=== PATIENT | male | born 1960 | race Caucasian/White ===

== ENCOUNTER 2023-05-29 08:21 | Outpatient (OUT) | payer MEDICARE, OTHER, SELFPAY ==
[2023-05-29 09:39] LABS: Estimated Average Glucose 160 mg/dL; Glycohemoglobin A1C 7.2 % (4.5-6.2)
[2023-05-29 09:43] LABS: Basophils Absolute Auto 0.1 10^3/uL (0.0-0.1); Basophils Percent Auto 1.1 % (0.2-2.0); Eosinophils Absolute Auto 0.1 10^3/uL (0.0-0.7); Eosinophils Percent Auto 1.5 % (0.9-7.0); Hematocrit 48.3 % (42.0-54.0); Hemoglobin 16.1 g/dL (14.0-18.0); Immature Granulocytes Abs Auto 0.01 10^3/uL (0.00-0.03); Immature Granulocytes Pct Auto 0.2 % (0.0-0.5); Lymphocytes Absolute Auto 1.2 10^3/uL (1.2-3.8); Lymphocytes Percent Auto 25.2 % (20.5-60.0); Mean Corpuscular HGB Conc 33.3 g/dL (29.9-35.2); Mean Corpuscular Hemoglobin 29.3 pg (25.9-34.0); Mean Corpuscular Volume 87.8 fL (80.0-94.0); Mean Platelet Volume 9.7 fL (9.5-13.5); Monocytes Absolute Auto 0.5 10^3/uL (0.3-0.8); Monocytes Percent Auto 10.7 % (1.7-12.0); Neutrophils Absolute Auto 2.9 10^3/uL (1.4-6.5); Neutrophils Percent Auto 61.3 % (43.0-75.0); Platelet Count 198 10^3/uL (150-450); Red Cell Distribution Width 13.5 % (11.0-15.0); White Blood Count 4.8 10^3/uL (4.0-11.0)
[2023-05-29 10:05] LABS: Prostate Specific Antigen Scrn 3.17 ng/mL (<=4.00)
[2023-05-29 10:06] LABS: Alanine Aminotransferase 35 U/L (16-63); Albumin Globulin Ratio 1.2; Albumin Level 3.9 g/dL (3.4-5.0); Alkaline Phosphatase 82 U/L (46-116); Anion Gap 12.3; Aspartate Amino Transferase 34 U/L (15-37); BUN Creatinine Ratio 13.7; Bilirubin Total 0.6 mg/dL (0.2-1.0); Calcium 8.9 mg/dL (8.5-10.1); Carbon Dioxide 27.7 mmol/L (21.0-32.0); Chloride 105 mmol/L (98-107); Chol HDL Ratio 1.6; Cholesterol 98 mg/dL (<=200); Estimated GFR (African America >60 (>=60); Estimated GFR (Non-African Ame >60 (>=60); Free T3 2.76 pg/mL (2.18-3.98); Globulin 3.3 g/dL; Glucose 82 mg/dL (74-106); HDL Cholesterol 62 mg/dL (40-60); Sodium 141 mmol/L (136-145); Thyroid Stimulating Hormone 2.113 uIU/mL (0.358-3.740); Total Protein 7.2 g/dL (6.4-8.2); Triglycerides 45 mg/dL (<=150)
== END 2023-05-29 08:22 | disposition home or self-care (01) ==
LOC: LAB 08:26
PROVIDERS: PCP Family Medicine; Visit Provider Family Medicine
DX: I25.10 Atherosclerotic heart disease of native coronary artery without angina pectoris (principal); E11.9 Type 2 diabetes mellitus without complications; E78.5 Hyperlipidemia, unspecified; R73.9 Hyperglycemia, unspecified; Z12.5 Encounter for screening for malignant neoplasm of prostate
CPT/HCPCS: 36415; 80053; 80061; 83036; 84436; 84443; 84481; 85025; G0103

== ENCOUNTER 2023-07-12 18:18 | Emergency (ER) | payer MEDICARE, OTHER, SELFPAY ==
[2023-07-12] VITALS (30 sets, daily range): BP systolic 116–129; BP diastolic 74–91; PULSE 67–84; RESP 10–23; TEMP 36.6; O2SAT 75–100; BMI 25.1
--- NOTE | 2023-07-12 18:35 | ECG_ITS ---
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
--- OUTSIDE RECORDS SUMMARY | 2023-07-12 18:35 | XMS_ITS | CCD ---
Author Name Unknown Address [address] [facility] [address] [place] [address] Organization [facility] Care Team Providers Care Permanent Mold Supervisor Name Role Phone HALINA KENNEDY Admitting Unavailable SANDRO MOMIN Referring Unavailable SANDRO MOMIN Primary Care Unavailable SIMEON COLON Attending Unavailable MD Sandro Momin Primary Care Provider [phone] MD Sandro Momin Referring Provider MD Kade Wise Attending Provider MD Sandro Momin Primary Care Provider [phone] MD Sandro Momin Referring Provider [phone] MD Kade Wise Attending Provider DR SANDRO MOMIN Primary Care Unavailable HOY, DR JO Consulting Unavailable JULIANOY, DR JO Admitting Unavailable HOY, DR JO Referring Unavailable MATTY, DR JO Attending Unavailable DR SANDRO MOMIN Primary Care Unavailable ROSANAMICHELE GALVEZ Admitting Unavailable MICHELE WAYNE Attending Unavailable MICHELE WAYNE Consulting Unavailable DR SANDRO MOMIN Consulting Unavailable MATTY, DR JO Primary Care Unavailable MATTY, DR JO Admitting Unavailable MATTY, DR JO Attending Unavailable DR SANDRO MOMIN Primary Care Unavailable MATTY, DR JO Admitting Unavailable MATTY, DR JO Attending Unavailable JULIANOY, DR JO Consulting Unavailable MATTY, DR JO Consulting Unavailable MATTY, DR JO Admitting Unavailable MATTY, DR JO Attending Unavailable DR SANDRO MOMIN Primary Care Unavailable MATTY, DR JO Primary Care Unavailable MATTY, DR JO Consulting Unavailable MATTY, DR JO Admitting Unavailable MATTY, DR JO Attending Unavailable JULIANOY, DR JO Primary Care Unavailable DR SANDRO MOMIN Consulting Unavailable DR SANDRO MOMIN Admitting Unavailable DR SANDRO MOMIN Attending Unavailable Kade Wise Unavailable Sandro Momin MD Primary Care Provider [phone] SANDRO MOMIN Primary Care Unavailable TAL IRAHETA Attending Unavailable MD Sandro Momin Primary Care Provider [phone] MD Kade Wise Attending Provider MD Sandro Momin Primary Care Provider [phone] GEMA Gastelum Attending Provider Nirav Hallie Unavailable MD Kade Wise Attending Provider Hallie Gastelum Attending Unavailable Hallie Gastelum Admitting Unavailable Sandro Momin Primary Care Unavailable Kade Wise Attending Unavailable Kade Wise Admitting Unavailable aSndro Momin Primary Care Unavailable Kade Wise Attending Unavailable Kade Wise Admitting Unavailable Sandro Momin Primary Care Unavailable Kade Wise Admitting Unavailable Sandro Momin Primary Care Unavailable Kade Wise Attending Unavailable Allergies Allergy Classification Reported Allergen(s) Allergy Type Date of Onset Reaction(s) Facility Penicillins (antibiotic) (1 source) Penicillins Drug Allergy 03-07-2009 [facility] (1 source) Penicillins Drug allergy (disorder) 06-20-2013 [facility] (1 source) Penicillins Drug Allergy 04-14-2014 [facility] Medications Current Medications Medication Drug Class(es) Dates Sig (Normalized) Sig (Original) Citalopram (3 sources) Serotonin Reuptake Inhibitor Citalopram Hydrobrom igor Active Esomeprazole (3 sources) Proton Pump Inhibitor NexIUM Act ronen Completed/Discontinued Medications Medication Drug Class(es) Dates Sig (Normalized) Sig (Original) amitriptyline hydrochloride 75 mg oral tablet (2 sources) Tricyclic Antidepressant Start: 11-28-2022 take 1 tablet by mouth once daily amitriptyline (ELAVIL) 75 mg tablet take 1 tablet by mouth every day at night 0 11/28/2022 Active amitriptyline (E LAVIL) 50 mg tablet Take 75 mg by mouth. 0 Active Comment on above: Take 75 mg by mouth. take 1 tablet by loretta th every day at night aspirin 325 mg oral tablet (1 source) Platelet Aggregation Inhibitor, Nonsteroidal Anti-inflammatory Drug take 1 tablet by mouth once daily aspirin 325 mg tablet Take 1 tablet by mouth once daily. 0 Active Comment on above: Take 1 tablet by loretta th once daily. benoxinate hydrochloride 4 mg/ml / fluorescein sodium 2.5 mg/ml ophthalmic solution (1 source) Diagnostic Dye Start: 12-10-19 End: 12-11-19 fluorescein-benoxin ate 0.25-0.4 % 1 Drop (FLURESS) clopidogrel 75 mg oral tablet (2 sources) P2Y12 Platelet Inhibitor Start: 03-25-20 take 1 tablet by mouth once daily clopidogrel (PLAVIX) 75 mg tablet TAKE 1 TABLET (75 MG) BY MOUTH ONCE DAILY DIRECTED. 0 11/28/2022 Active Comment on above: TAKE 1 TABLET (75 MG ) BY MOUTH ONCE DAILY DIRECTED. Take 75 mg by mouth. colchicine 0.6 mg oral tablet (2 sources) Start: 06-23-19 End: 06-23-19 take 1 tablet by mouth once daily in the morning colchicine 0.6 mg tablet Take 0.6 mg by mouth every morning. 0 09/18/2022 Active Comment on above: Take 0.6 mg by mouth . Take 0.6 mg by mouth every morning. empagliflozin 10 mg oral tablet (5 sources) Sodium-Glucose Cotransporter 2 Inhibitor Start: 09-12-19 take 1 tablet by mouth once JARDIANCE 10 mg tablet Take 1 tablet by mouth every afternoon. 0 09/11/2022 Active JARDIANCE Active Comment on above: Take 1 tablet by loretta th every afternoon. Take 1 tablet by loretta th every morning. ezetimibe 10 mg oral tablet (2 sources) Dietary Cholesterol Absorption Inhibitor Start: 11-28-2022 take 1 tablet by mouth once ezetimibe (ZETIA) 10 mg tablet Take 1 tablet by mouth every afternoon. 0 11/28/2022 Active Start: 03-25-2022 ezetimibe (ZET IA) 10 mg tablet Take 10 mg by mouth. 0 03/25/2022 Active Comment on above: Take 1 tablet by loretta th every afternoon. Take 10 mg by mouth. glimepiride 4 mg oral tablet (5 sources) Sulfonylurea Start: 12-04-2022 glimepiride (AMARYL) 4 mg tablet Glimepiride he lakshmi zairalukas Active Comment on above: glimepiride 4 mg tab let TAKE 1 TABLET BY MOUTH TWICE A DAY 24 hr isosorbide mononitrate 30 mg extended release oral tablet (2 sources) Nitrate Vasodilator Start: 12-04-2022 isosorbide mononitrate ER (IMDUR) 30 mg 24 hr tablet Start: 09-04-2022 take 1 tablet by loretta th once daily isosorbide mononitrate ER (IMDUR) 30 mg 24 hr tablet Take 1 tablet by mouth once daily. 0 09/04/2022 Active Comment on above: Take 1 tablet by loretta th once daily. losartan potassium 25 mg oral tablet (5 sources) Angiotensin 2 Receptor David Start: 11-27-2022 take 1 tablet by mouth once losartan (COZAAR) 25 mg tablet Take 1 tablet by mouth every afternoon. 0 11/27/2022 Active Losartan Potassi um Active Comment on above: Take 1 tablet by loretta th every afternoon. losartan 25 mg table t TAKE 1 TABLET BY MOUTH EVERY DAY 24 hr metFORMIN hydrochloride 500 mg extended release oral tablet (5 sources) Biguanide Start: 3 take 3 tablets by mouth every hour metFORMIN ER (GLUCOPHAGE XR) 500 mg 24 hr tablet Take 3 tablets by mouth every afternoon. 0 11/28/2022 Active take 3 tablets by mouth once saran ly metFORMIN ER (GLUCOPHAGE XR) 500 mg 24 hr tablet metformin ER 500 mg tablet,extended release 24 hr TAKE 3 TABLETS BY MOUTH EVERY DAY 0 Active metFORMIN HCl ER Active Comment on above: Take 3 tablets by mo uth every afternoon. metformin ER 500 mg tablet,extended release 24 hr TAKE 3 TABLETS BY MOUTH EVERY DAY 24 hr metoprolol succinate 25 mg extended release oral tablet (5 sources) beta-Adrenergic David Start: 09-30-2022 take 0.5 tablet by mouth every hour metoprolol succinate ER (TOPROL XL) 25 mg 24 hr tablet Take 0.5 tablets by mouth every afternoon. 0 09/30/2022 Active Start: 09-30-2022 take 0.5 tablet by m outh once daily metoprolol succinate ER (TOPROL XL) 25 mg 24 hr tablet metoprolol succinate ER 25 mg tablet,extended release 24 hr TAKE 1/2 TABLET BY MOUTH EVERY DAY 0 09/30/2022 Active Metoprolol Succi gilmar ER Active Comment on above: Take 0.5 tablets by mouth every afternoon. metoprolol succinate ER 25 mg tablet,extended release 24 hr TAKE 1/2 TABLET BY MOUTH EVERY DAY phenylephrine hydrochloride 25 mg/ml ophthalmic solution (1 source) alpha-1 Adrenergic Agonist Start: End: PHENYLephrine 2.5 % 1 Drop (AK-DILATE, CHAD-SYNEPHRINE) pioglitazone 15 mg oral tablet (2 sources) Peroxisome Proliferator Receptor alpha Agonist, Peroxisome Proliferator Receptor gamma Agonist, Thiazolidinedione Start: take 1 tablet by mouth once pioglitazone (ACTOS) 15 mg tablet Take 1 tablet by mouth every afternoon. 0 11/25/2022 Active Start: 08-10-2022 pioglitazone ( ACTOS) 15 mg tablet Take 15 mg by mouth. 0 08/10/2022 Active Comment on above: Take 1 tablet by loretta th every afternoon. Take 15 mg by mouth. proparacaine hydrochloride 5 mg/ml ophthalmic solution (1 source) Local Anesthetic Start: 3 End: 3 proparacaine 0.5 % 1 Drop (ALCAINE) rosuvastatin calcium 40 mg oral tablet (5 sources) HMG-CoA Reductase Inhibitor Start: 3 End: 4 take 1 tablet by mouth once daily at bedtime rosuvastatin (CRESTOR) 40 mg tablet Take 40 mg by mouth daily at bedtime. 0 11/28/2022 Active Crestor recalls this was changed to different statin Active Comment on above: Take 40 mg by mouth. Take 40 mg by mouth daily at bedtime. tropicamide 10 mg/ml ophthalmic solution (1 source) Anticholinergic Start: 12-09-2022 End: 12-10-2022 tropicamide 1 % 1 Drop (MYDRIACYL) Problems Active Problems Problem Classification Problem Date Documented Da te Episodic/Chronic Cataract (1 source) Nuclear sclerotic cataract; Translations: [Age-related nuclear cataract, bilateral] 12-09-2022 Chronic Congestive heart failure; nonhypertensive (1 source) Unspecified diastolic (congestive) heart failure; Translations: [UNSPECIFIED DIASTOLIC HEART FAILURE] Onset: 05-27-2022 Chronic Coronary atherosclerosis and other heart disease (4 sources) Atherosclerotic heart disease of [place] coronary artery without angina pectoris; Translations: [Coronary atherosclerosis] Onset: 05-27-2022 Chronic Deficiency and other anemia (1 source) Anemia, unspecified; Translations: [ANEMIA UNSPECIFIED] Onset: 05-27-2022 Episodic Diabetes mellitus with complications (1 source) Type 2 diabetes mellitus with diabetic neuropathy, unspecified; Translations: [TYPE 2 DM W/DIABETIC NEUROPATHY UNS] Onset: 06-26-2021 Chronic Diabetes mellitus without complication (2 sources) Type 2 diabetes mellitus without complications; Translations: [Diabetes mellitus type 2 without retinopathy] Onset: 05-27-2022 12-09-2022 Chronic Diabetes mellitus without complication (1 source) Other abnormal glucose; Translations: [OTHER ABNORMAL GLUCOSE] Onset: 05-27-2022 Episodic Disorders of lipid metabolism (1 source) Hyperlipidemia, unspecified; Translations: [HYPERLIPIDEMIA UNSPECIFIED] Onset: 05-27-2022 Chronic Essential hypertension (1 source) Essential (primary) hypertension; Translations: [ESSENTIAL PRIMARY HYPERTENSION] Onset: 11-18-2021 Chronic Gastrointestinal hemorrhage (4 sources) Hemorrhage of anus and rectum; Translations: [HEMORRHAGE OF ANUS AND RECTUM] Onset: 05-26-2022 Episodic Glaucoma (2 sources) Ocular hypertension, bilateral; Translations: [Ocular hypertension] 12-09-2022 Chronic Hypertension with complications and secondary hypertension (1 source) Hypertensive heart disease with heart failure; Translations: [HTN HEART DISEASE W/HEART FAIL] Onset: 05-27-2022 Chronic Other nervous system disorders (5 sources) Other disturbances of skin sensation; Translations: [OTHER DISTURBANCES SKIN SENSATION] Onset: 06-21-2021 Episodic Other nutritional; endocrine; and metabolic disorders (1 source) Body mass index (BMI) 26.0-26.9, adult Episodic Other nutritional; endocrine; and metabolic disorders (1 source) Body mass index (BMI) 27.0-27.9, adult Episodic Other screening for suspected conditions (not mental disorders or infectious disease) (6 sources) Encounter for screening for malignant neoplasm of rectum; Translations: [Encounter for screening for malignant neoplasm of prostate] Onset: 05-27-2022 Episodic Peripheral and visceral atherosclerosis (4 sources) Peripheral vascular disease, unspecified; Translations: [PERIPHERAL VASCULAR DISEASE UNS] Onset: 07-04-2021 Chronic Residual codes; unclassified (3 sources) Obstructive sleep apnea syndrome; Translations: [Obstructive sleep apnea (adult) (pediatric)] Chronic Residual codes; unclassified (2 sources) Obstructive sleep apnea (adult) (pediatric) Chronic Residual codes; unclassified (1 source) Obstructive sleep apnea (adult)(pediatric); Translations: [Obstructive sleep apnea (adult) (pediatric)] Onset: 04-14-2023 Chronic Residual codes; unclassified (2 sources) Other specified health status Episodic Past or Other Problems Problem Classification Problem Date Documented Da te Episodic/Chronic Other connective tissue disease (1 source) Pain in left arm; Translations: [PAIN IN LEFT ARM] Onset: 07-05-2021 Episodic Other connective tissue disease (1 source) Pain in right arm; Translations: [PAIN IN RIGHT ARM] Onset: 07-05-2021 Episodic Syncope (1 source) Syncope and collapse; Translations: [SYNCOPE AND COLLAPSE] Onset: 06-26-2021 Episodic Results Test Name Value Interpretation Reference Range Facility CEAon 05-27-2022 CEA 2.4 ng/mL Normal 0.0-4.7 [facility] Comment on above: Result Comment: Nons mokers <3.9 Smokers <5.6 . [facility] [employer] Electrochemiluminescence Immunoassay (ECLIA) . Values obtained with different assay methods or kits cannot be used interchangeably. Results cannot be interpreted as absolute evidence of the presence or absence of malignant disease. Performed By: #### F T3, CMP, T4, TSH, LIPID #### [facility] [address] [address] [address] Seven Mares INSULINon 05-27-2022 Insulin 17.6 uIU/mL Normal 2.6-24.9 [facility] Comment on above: Performed By: #### F T3, CMP, T4, TSH, LIPID #### [facility] [address] [address] [address] Seven Mares OCC BLD IMMUNO SCREENon 04-29 OCCULT BLOOD Negative Normal NEGATIVE [facility] Comment on above: Performed By: #### F T3, CMP, T4, TSH, LIPID #### [facility] [address] [address] [address] Seven Mares AMMONIAon 05-26-2022 Ammonia (P) [Moles/Vol] 15 umol/L Normal 11-32 [facility] Comment on above: Performed By: #### A MM #### [facility] [address] [place] [address] Dr. Seven Mares BNPon 05-26-2022 Natriuretic peptide B (Bld) [Mass/Vol] 30.0 pg/mL Normal <=900.0 [facility] Comment on above: Performed By: #### F T3, CMP, T4, TSH, LIPID #### [facility] [address] [place] [address] Dr. Seven Mares CBC AUTO DIFFon 05-26-2022 BASO # 0.1 103/ul Normal 0.0-0.1 [facility] Comment on above: Performed By: #### F T3, CMP, T4, TSH, LIPID #### [facility] [address] [place] [address] Dr. Seven Mares Basophils/100 WBC (Bld) 0.9 % Normal 0.2-2.0 [facility] Comment on above: Performed By: #### F T3, CMP, T4, TSH, LIPID #### [facility] [address] [place] [address] Dr. Seven Mares EO # 0.1 103/ul Normal 0.0-0.7 [facility] Comment on above: Performed By: #### F T3, CMP, T4, TSH, LIPID #### [facility] [address] [place] [address] Dr. Seven Mares Eosinophils/100 WBC (Bld) 1.9 % Normal 0.9-7.0 [facility] Comment on above: Performed By: #### F T3, CMP, T4, TSH, LIPID #### [facility] [address] [place] [address] Dr. Seven Mares Erythrocyte distribution width (RBC) [Ratio] 14.6 % Normal 11.0-15.0 [facility] Comment on above: Performed By: #### F T3, CMP, T4, TSH, LIPID #### [facility] [address] [place] [address] Dr. Seven Mares Hematocrit (Bld) [Volume fraction] 52.2 % Normal 42.0-54.0 [facility] Comment on above: Performed By: #### F T3, CMP, T4, TSH, LIPID #### [facility] [address] [address] [address] Seven Mares Hemoglobin (Bld) [Mass/Vol] 17.7 g/dL Normal 14.0-18.0 [facility] Comment on above: Performed By: #### F T3, CMP, T4, TSH, LIPID #### [facility] [address] [address] [address] Seven Mares IG # 0.08 10e3/ul Critically high 0.00-0.03 [facility] Comment on above: Performed By: #### F T3, CMP, T4, TSH, LIPID #### [facility] [address] [place] [address] Dr. Seven Mares IG % 1.1 % Critically high 0.0-0.5 [facility] Comment on above: Performed By: #### F T3, CMP, T4, TSH, LIPID #### [facility] [address] [address] [address] Seven Mraes LYMPH # 2.2 103/ul Normal 1.2-3.8 [facility] Comment on above: Performed By: #### F T3, CMP, T4, TSH, LIPID #### [facility] [address] [place] [address] Dr. Seven Mares Lymphocytes/100 WBC (Bld) 29.6 % Normal 20.5-60.0 [facility] Comment on above: Performed By: #### F T3, CMP, T4, TSH, LIPID #### [facility] [address] [place] [address] Dr. Seven Mares MANUAL DIFF REQ NO Normal [facility] Comment on above: Performed By: #### F T3, CMP, T4, TSH, LIPID #### [facility] [address] [place] [address] Dr. Seven Mares MCH (RBC) [Entitic mass] 28.1 pg Normal 25.9-34.0 [facility] Comment on above: Performed By: #### F T3, CMP, T4, TSH, LIPID #### [facility] [address] [place] [address] Dr. Seven Mares MCHC (RBC) [Mass/Vol] 33.9 g/dL Normal 29.9-35.2 [facility] Comment on above: Performed By: #### F T3, CMP, T4, TSH, LIPID #### [facility] [address] [place] [address] Dr. Seven Mares MCV (RBC) [Entitic vol] 82.9 fL Normal 80.0-94.0 [facility] Comment on above: Performed By: #### F T3, CMP, T4, TSH, LIPID #### [facility] [address] [place] [address] Dr. Seven Mares MONO # 0.5 103/ul Normal 0.3-0.8 [facility] Comment on above: Performed By: #### F T3, CMP, T4, TSH, LIPID #### [facility] [address] [place] [address] Dr. Seven Mares Monocytes/100 WBC (Bld) 6.3 % Normal 1.7-12.0 [facility] Comment on above: Performed By: #### F T3, CMP, T4, TSH, LIPID #### [facility] [address] [place] [address] Dr. Seven Mares NEUT # 4.5 103/ul Normal 1.4-6.5 [facility] Comment on above: Performed By: #### F T3, CMP, T4, TSH, LIPID #### [facility] [address] [place] [address] Dr. Seven Mares Neutrophils/100 WBC (Bld) 60.2 % Normal 43.0-75.0 [facility] Comment on above: Performed By: #### F T3, CMP, T4, TSH, LIPID #### [facility] [address] [place] [address] Dr. Seven Mares Platelet mean volume (Bld) [Entitic vol] 9.4 fL Critically low 9.5-13.5 [facility] Comment on above: Performed By: #### F T3, CMP, T4, TSH, LIPID #### [facility] [address] [address] [address] Seven Mares PLT 227 103/ul Normal 150-450 [facility] Comment on above: Performed By: #### F T3, CMP, T4, TSH, LIPID #### [facility] [address] [address] [address] Seven Mraes RBC 6.30 106/ul Critically high 4.70-6.10 [facility] Comment on above: Performed By: #### F T3, CMP, T4, TSH, LIPID #### [facility] [address] [address] [address] Seven Mares WBC 7.5 103/ul Normal 4.0-11.0 [facility] Comment on above: Performed By: #### F T3, CMP, T4, TSH, LIPID #### [facility] [address] [address] [address] Seven Mares FREE THYROXINE INDEX T7on FTI 2.79 Normal 1.30-4.50 [facility] Comment on above: Performed By: #### F T3, CMP, T4, TSH, LIPID #### [facility] [address] [place] [address] Dr. Seven Mares T3U 34.0 % Normal 33.0-40.0 [facility] Comment on above: Performed By: #### F T3, CMP, T4, TSH, LIPID #### [facility] [address] [place] [address] Dr. Seven Mares T4 [Mass/Vol] 8.20 ug/dL Normal 4.50-12.10 [facility] Comment on above: Performed By: #### F T3, CMP, T4, TSH, LIPID #### [facility] [address] [place] [address] Dr. Seven Mares GLYCOHEMOGLOBIN A1Con 2022 ADA RECOMMENDATION SEE BELOW Normal [facility] Comment on above: Result Comment: ADA RECOMMENDED LIMIT 4.0 - 6.0 ADA THERAPEUTIC TARGET < 7.0 ACTION SUGGESTED > 7.0 Performed By: #### F T3, CMP, T4, TSH, LIPID #### [facility] [address] [address] [address] Seven Mares Glucose [Mass/Vol] 174 mg/dL Normal [facility] Comment on above: Performed By: #### F T3, CMP, T4, TSH, LIPID #### [facility] [address] [address] [address] Seven Mares HbA1c (Bld) [Mass fraction] 7.7 % Critically high 4.5-6.2 [facility] Comment on above: Performed By: #### F T3, CMP, T4, TSH, LIPID #### [facility] [address] [place] [address] Dr. Seven Mares IRONon 05-26-2022 Iron [Mass/Vol] 98.0 ug/dL Normal 65.0-175.0 [facility] Comment on above: Performed By: #### F T3, CMP, T4, TSH, LIPID #### [facility] [address] [place] [address] Dr. Seven Mares LIPID PROFILEon 05-26-2022 CHOL-HDL RATIO NORM SEE BELOW Normal [facility] Comment on above: Result Comment: 3.3 - 4.4 LOW RISK 4.4 - 7.1 AVERAGE RISK 7.1 - 11.0 MODERATE RISK >11.0 HIGH RISK Performed By: #### F T3, CMP, T4, TSH, LIPID #### [facility] [address] [address] [address] Seven Mares Cholesterol [Mass/Vol] 127 mg/dL Normal <=200 [facility] Comment on above: Performed By: #### F T3, CMP, T4, TSH, LIPID #### [facility] [address] [place] [address] Dr. Seven Mares Cholesterol in HDL [Mass/Vol] 75 mg/dL Critically high 40-60 [facility] Comment on above: Performed By: #### F T3, CMP, T4, TSH, LIPID #### [facility] [address] [address] [address] Seven Mares Cholesterol in LDL [Mass/Vol] 27.6 mg/dL Normal [facility] Comment on above: Performed By: #### F T3, CMP, T4, TSH, LIPID #### [facility] [address] [place] [address] Dr. Seven Mares Cholesterol.total/ Cholesterol in HDL [Mass ratio] 1.7 {ratio} Normal [facility] Comment on above: Performed By: #### F T3, CMP, T4, TSH, LIPID #### [facility] [address] [address] [address] Seven Mares HDL NORMAL > or = 60 mg/dl - LO W CARDIOVASCULAR RISK <40 mg/dl - HIGH CARDIOVASCULAR RISK Normal [facility] Comment on above: Performed By: #### F T3, CMP, T4, TSH, LIPID #### [facility] [address] [place] [address] Dr. Seven Mares LDL CALC NORMAL SEE BELOW Normal [facility] Comment on above: Result Comment: <100 mg/dl OPTIMAL 100 - 129 mg/dl NEAR OR ABOVE OPTIMAL 130 - 159 mg/dl BORDERLINE HIGH 160 - 189 mg/dl HIGH >190 mg/dl VERY HIGH Performed By: #### F T3, CMP, T4, TSH, LIPID #### [facility] [address] [place] [address] Dr. Seven Mares Triglyceride [Mass/Vol] 122 mg/dL Normal <=150 [facility] Comment on above: Performed By: #### F T3, CMP, T4, TSH, LIPID #### [facility] [address] [place] [address] Dr. Seven Mares VLDL CALC 24.4 mg/dL Normal [facility] [facility] Comment on above: Performed By: #### F T3, CMP, T4, TSH, LIPID #### [facility] [address] [place] [address] Dr. Seven Mares PROF 14(COMP METB)on 023 Albumin [Mass/Vol] 4.4 g/dL Normal 3.4-5.0 [facility] Comment on above: Performed By: #### F T3, CMP, T4, TSH, LIPID #### [facility] [address] [place] [address] Dr. Seven Mares Albumin/Globulin [Mass ratio] 1.3 {ratio} Normal [facility] Comment on above: Performed By: #### F T3, CMP, T4, TSH, LIPID #### [facility] [address] [place] [address] Dr. Seven Mares ALP [Catalytic activity/Vol] 93 U/L Normal 46-116 [facility] Comment on above: Performed By: #### F T3, CMP, T4, TSH, LIPID #### [facility] [address] [place] [address] Dr. Seven Mares ALT [Catalytic activity/Vol] 30 U/L Normal 16-63 [facility] Comment on above: Performed By: #### F T3, CMP, T4, TSH, LIPID #### [facility] [address] [place] [address] Dr. Seven Mares Anion gap [Moles/Vol] 12.6 mmol/L Normal [facility] Comment on above: Performed By: #### F T3, CMP, T4, TSH, LIPID #### [facility] [address] [place] [address] Dr. Seven Mares AST [Catalytic activity/Vol] 25 U/L Normal 15-37 [facility] Comment on above: Performed By: #### F T3, CMP, T4, TSH, LIPID #### [facility] [address] [place] [address] Dr. Seven Mares Bilirubin [Mass/Vol] 0.5 mg/dL Normal 0.2-1.0 [facility] Comment on above: Performed By: #### F T3, CMP, T4, TSH, LIPID #### [facility] [address] [place] [address] Dr. Seven Mares Calcium [Mass/Vol] 9.3 mg/dL Normal 8.5-10.1 [facility] Comment on above: Performed By: #### F T3, CMP, T4, TSH, LIPID #### [facility] [address] [place] [address] Dr. Seven Mares Chloride [Moles/Vol] 102 mmol/L Normal 98-107 [facility] Comment on above: Performed By: #### F T3, CMP, T4, TSH, LIPID #### [facility] [address] [address] [address] Seven Mares CO2 [Moles/Vol] 30.5 mmol/L Normal 21.0-32.0 [facility] Comment on above: Performed By: #### F T3, CMP, T4, TSH, LIPID #### [facility] [address] [address] [address] Seven Mares Creatinine [Mass/Vol] 1.09 mg/dL Normal 0.70-1.30 [facility] Comment on above: Performed By: #### F T3, CMP, T4, TSH, LIPID #### [facility] [address] [place] [address] Dr. Seven Mares EGFR-AF SAUDI ARABIAN >60 Normal >=60 [facility] Comment on above: Performed By: #### F T3, CMP, T4, TSH, LIPID #### [facility] [address] [place] [address] Dr. Seven Mares EGFR-NON AF SAUDI ARABIAN >60 Normal >=60 [facility] Comment on above: Performed By: #### F T3, CMP, T4, TSH, LIPID #### [facility] [address] [place] [address] Dr. Seven Mares Globulin (S) [Mass/Vol] 3.5 g/dL Normal [facility] Comment on above: Performed By: #### F T3, CMP, T4, TSH, LIPID #### [facility] [address] [address] [address] Seven Mares Glucose [Mass/Vol] 134 mg/dL Critically high 74-106 T [facility] Comment on above: Performed By: #### F T3, CMP, T4, TSH, LIPID #### [facility] [address] [place] [address] Dr. Seven Mares Potassium [Moles/Vol] 4.1 mmol/L Normal 3.5-5.1 [facility] Comment on above: Performed By: #### F T3, CMP, T4, TSH, LIPID #### [facility] [address] [address] [address] Seven Mares Protein [Mass/Vol] 7.9 g/dL Normal 6.4-8.2 [facility] Comment on above: Performed By: #### F T3, CMP, T4, TSH, LIPID #### [facility] [address] [address] [address] Seven Mares Sodium [Moles/Vol] 141 mmol/L Normal 136-145 [facility] Comment on above: Performed By: #### F T3, CMP, T4, TSH, LIPID #### [facility] [address] [place] [address] Dr. Seven Mares Urea nitrogen [Mass/Vol] 22.0 mg/dL Critically high 7.0-18.0 [facility] Comment on above: Performed By: #### F T3, CMP, T4, TSH, LIPID #### [facility] [address] [place] [address] Dr. Seven Mares Urea nitrogen/Creatinin e [Mass ratio] 20.2 mg/mg Normal [facility] Comment on above: Performed By: #### F T3, CMP, T4, TSH, LIPID #### [facility] [address] [place] [address] Dr. Seven Mares TSHon 05-26-2022 TSH 2.661 uIU/mL Normal 0.358-3.740 [facility] Comment on above: Performed By: #### F T3, CMP, T4, TSH, LIPID #### [facility] [address] [place] [address] Dr. Seven Mares GLUCOSE BLOODon 04-08-2022 Glucose [Mass/Vol] 128 mg/dL Critically high 74-106 [facility] Comment on above: Performed By: #### F T3, CMP, T4, TSH, LIPID #### [facility] [address] [place] [address] Dr. Seven Mares LIPID PROFILEon 04-08-2022 CHOL-HDL RATIO NORM SEE BELOW Normal [facility] Comment on above: Result Comment: 3.3 - 4.4 LOW RISK 4.4 - 7.1 AVERAGE RISK 7.1 - 11.0 MODERATE RISK >11.0 HIGH RISK Performed By: #### F T3, CMP, T4, TSH, LIPID #### [facility] [address] [address] [address] Seven Mares Cholesterol [Mass/Vol] 119 mg/dL Normal <=200 [facility] Comment on above: Performed By: #### F T3, CMP, T4, TSH, LIPID #### [facility] [address] [address] [address] Seven Mares Cholesterol in HDL [Mass/Vol] 59 mg/dL Normal 40-60 [facility] Comment on above: Performed By: #### F T3, CMP, T4, TSH, LIPID #### [facility] [address] [address] [address] Seven Mares Cholesterol in LDL [Mass/Vol] 42.6 mg/dL Normal [facility] Comment on above: Performed By: #### F T3, CMP, T4, TSH, LIPID #### [facility] [address] [address] [address] Seven Mares Cholesterol.total/ Cholesterol in HDL [Mass ratio] 2.0 {ratio} Normal [facility] Comment on above: Performed By: #### F T3, CMP, T4, TSH, LIPID #### [facility] [address] [address] [address] Seven Mares HDL NORMAL > or = 60 mg/dl - LO W CARDIOVASCULAR RISK <40 mg/dl - HIGH CARDIOVASCULAR RISK Normal [facility] Comment on above: Performed By: #### F T3, CMP, T4, TSH, LIPID #### [facility] [address] [address] [address] Seven aMres LDL CALC NORMAL SEE BELOW Normal [facility] Comment on above: Result Comment: <100 mg/dl OPTIMAL 100 - 129 mg/dl NEAR OR ABOVE OPTIMAL 130 - 159 mg/dl BORDERLINE HIGH 160 - 189 mg/dl HIGH >190 mg/dl VERY HIGH Performed By: #### F T3, CMP, T4, TSH, LIPID #### [facility] [address] [place] [address] Dr. Seven Mares Triglyceride [Mass/Vol] 87 mg/dL Normal <=150 [facility] Comment on above: Performed By: #### F T3, CMP, T4, TSH, LIPID #### [facility] [address] [place] [address] Dr. Seven Mares VLDL CALC 17.4 mg/dL Normal [facility] Comment on above: Performed By: #### F T3, CMP, T4, TSH, LIPID #### [facility] [address] [place] [address] Dr. Sveen Mares CBC AUTO DIFFon 11-14-2021 BASO # 0.1 103/ul Normal 0.0-0.1 [facility] Comment on above: Performed By: #### F T3, CMP, T4, TSH, LIPID #### [facility] [address] [place] [address] Dr. Seven Mares Basophils/100 WBC (Bld) 1.0 % Normal 0.2-2.0 [facility] Comment on above: Performed By: #### F T3, CMP, T4, TSH, LIPID #### [facility] [address] [place] [address] Dr. Seven Mares EO # 0.1 103/ul Normal 0.0-0.7 [facility] Comment on above: Performed By: #### F T3, CMP, T4, TSH, LIPID #### [facility] [address] [place] [address] Dr. Seven Mares Eosinophils/100 WBC (Bld) 2.4 % Normal 0.9-7.0 [facility] Comment on above: Performed By: #### F T3, CMP, T4, TSH, LIPID #### [facility] [address] [place] [address] Dr. Seven Mares Erythrocyte distribution width (RBC) [Ratio] 14.1 % Normal 11.0-15.0 [facility] Comment on above: Performed By: #### F T3, CMP, T4, TSH, LIPID #### [facility] [address] [place] [address] Dr. Seven Mares Hematocrit (Bld) [Volume fraction] 46.8 % Normal 42.0-54.0 [facility] Comment on above: Performed By: #### F T3, CMP, T4, TSH, LIPID #### [facility] [address] [place] [address] Dr. Seven Mares Hemoglobin (Bld) [Mass/Vol] 15.7 g/dL Normal 14.0-18.0 [facility] Comment on above: Performed By: #### F T3, CMP, T4, TSH, LIPID #### [facility] [address] [address] [address] Seven Mares IG # 0.02 10e3/ul Normal 0.00-0.03 [facility] Comment on above: Performed By: #### F T3, CMP, T4, TSH, LIPID #### [facility] [address] [place] [address] Dr. Seven Mares IG % 0.4 % Normal 0.0-0.5 [facility] Comment on above: Performed By: #### F T3, CMP, T4, TSH, LIPID #### [facility] [address] [place] [address] Dr. Seven Mares LYMPH # 1.1 103/ul Critically low 1.2-3.8 [facility] Comment on above: Performed By: #### F T3, CMP, T4, TSH, LIPID #### [facility] [address] [place] [address] Dr. Seven Mares Lymphocytes/100 WBC (Bld) 22.9 % Normal 20.5-60.0 [facility] Comment on above: Performed By: #### F T3, CMP, T4, TSH, LIPID #### [facility] [address] [place] [address] Dr. Seven Mares MANUAL DIFF REQ NO Normal [facility] Comment on above: Performed By: #### F T3, CMP, T4, TSH, LIPID #### [facility] [address] [place] [address] Dr. Seven Mares MCH (RBC) [Entitic mass] 29.2 pg Normal 25.9-34.0 [facility] Comment on above: Performed By: #### F T3, CMP, T4, TSH, LIPID #### [facility] [address] [place] [address] Dr. Seven Mares MCHC (RBC) [Mass/Vol] 33.5 g/dL Normal 29.9-35.2 [facility] Comment on above: Performed By: #### F T3, CMP, T4, TSH, LIPID #### [facility] [address] [place] [address] Dr. Seven Mares MCV (RBC) [Entitic vol] 87.0 fL Normal 80.0-94.0 [facility] Comment on above: Performed By: #### F T3, CMP, T4, TSH, LIPID #### [facility] [address] [place] [address] Dr. Seven Mares MONO # 0.5 103/ul Normal 0.3-0.8 [facility] Comment on above: Performed By: #### F T3, CMP, T4, TSH, LIPID #### [facility] [address] [place] [address] Dr. Seven Mares Monocytes/100 WBC (Bld) 9.9 % Normal 1.7-12.0 [facility] Comment on above: Performed By: #### F T3, CMP, T4, TSH, LIPID #### [facility] [address] [place] [address] Dr. Seven Mares NEUT # 3.1 103/ul Normal 1.4-6.5 [facility] Comment on above: Performed By: #### F T3, CMP, T4, TSH, LIPID #### [facility] [address] [place] [address] Dr. Seven Mares Neutrophils/100 WBC (Bld) 63.4 % Normal 43.0-75.0 [facility] Comment on above: Performed By: #### F T3, CMP, T4, TSH, LIPID #### [facility] [address] [place] [address] Dr. Seven Mares Platelet mean volume (Bld) [Entitic vol] 9.3 fL Critically low 9.5-13.5 [facility] Comment on above: Performed By: #### F T3, CMP, T4, TSH, LIPID #### [facility] [address] [address] [address] Seven Mares PLT 227 103/ul Normal 150-450 [facility] Comment on above: Performed By: #### F T3, CMP, T4, TSH, LIPID #### [facility] [address] [address] [address] Seven Mares RBC 5.38 106/ul Normal 4.70-6.10 [facility] Comment on above: Performed By: #### F T3, CMP, T4, TSH, LIPID #### [facility] [address] [place] [address] Dr. Seven Mares WBC 4.9 103/ul Normal 4.0-11.0 [facility] Comment on above: Performed By: #### F T3, CMP, T4, TSH, LIPID #### [facility] [address] [address] [address] Seven Mares FREE T3on 11-14-2021 FREE T3 2.43 pg/mlL Normal 2.18-3.98 [facility] Comment on above: Performed By: #### F T3, CMP, T4, TSH, LIPID #### [facility] [address] [place] [address] Dr. Seven Mares GLYCOHEMOGLOBIN A1Con 2021 ADA RECOMMENDATION SEE BELOW Normal [facility] Comment on above: Result Comment: ADA RECOMMENDED LIMIT 4.0 - 6.0 ADA THERAPEUTIC TARGET < 7.0 ACTION SUGGESTED > 7.0 Performed By: #### F T3, CMP, T4, TSH, LIPID #### [facility] [address] [place] [address] Dr. Seven Mares Glucose [Mass/Vol] 143 mg/dL Normal [facility] Comment on above: Performed By: #### F T3, CMP, T4, TSH, LIPID #### [facility] [address] [place] [address] Dr. Seven Mares HbA1c (Bld) [Mass fraction] 6.6 % Critically high 4.5-6.2 [facility] Comment on above: Performed By: #### F T3, CMP, T4, TSH, LIPID #### [facility] [address] [address] [address] Seven Mares LIPID PROFILEon 11-14-2021 CHOL-HDL RATIO NORM SEE BELOW Normal [facility] Comment on above: Result Comment: 3.3 - 4.4 LOW RISK 4.4 - 7.1 AVERAGE RISK 7.1 - 11.0 MODERATE RISK >11.0 HIGH RISK Performed By: #### F T3, CMP, T4, TSH, LIPID #### [facility] [address] [address] [address] Seven Mares Cholesterol [Mass/Vol] 102 mg/dL Normal <=200 [facility] Comment on above: Performed By: #### F T3, CMP, T4, TSH, LIPID #### [facility] [address] [address] [address] Seven Mares Cholesterol in HDL [Mass/Vol] 47 mg/dL Normal 40-60 [facility] Comment on above: Performed By: #### F T3, CMP, T4, TSH, LIPID #### [facility] [address] [address] [address] Seven Mares Cholesterol in LDL [Mass/Vol] 30.6 mg/dL Normal [facility] Comment on above: Performed By: #### F T3, CMP, T4, TSH, LIPID #### [facility] [address] [address] [address] Seven Mares Cholesterol.total/ Cholesterol in HDL [Mass ratio] 2.2 {ratio} Normal [facility] Comment on above: Performed By: #### F T3, CMP, T4, TSH, LIPID #### [facility] [address] [address] [address] Seven Mares HDL NORMAL > or = 60 mg/dl - LO W CARDIOVASCULAR RISK <40 mg/dl - HIGH CARDIOVASCULAR RISK Normal [facility] Comment on above: Performed By: #### F T3, CMP, T4, TSH, LIPID #### [facility] [address] [place] [address] Dr. Seven Mares LDL CALC NORMAL SEE BELOW Normal [facility] Comment on above: Result Comment: <100 mg/dl OPTIMAL 100 - 129 mg/dl NEAR OR ABOVE OPTIMAL 130 - 159 mg/dl BORDERLINE HIGH 160 - 189 mg/dl HIGH >190 mg/dl VERY HIGH Performed By: #### F T3, CMP, T4, TSH, LIPID #### [facility] [address] [address] [address] Seven Mares Triglyceride [Mass/Vol] 122 mg/dL Normal <=150 [facility] Comment on above: Performed By: #### F T3, CMP, T4, TSH, LIPID #### [facility] [address] [address] [address] Seven Mares VLDL CALC 24.4 mg/dL Normal [facility] Comment on above: Performed By: #### F T3, CMP, T4, TSH, LIPID #### [facility] [address] [address] [address] Seven Mares PROF 14(COMP METB)on 022 Albumin [Mass/Vol] 4.1 g/dL Normal 3.4-5.0 [facility] Comment on above: Performed By: #### F T3, CMP, T4, TSH, LIPID #### [facility] [address] [place] [address] Dr. Seven Mares Albumin/Globulin [Mass ratio] 1.3 {ratio} Normal [facility] Comment on above: Performed By: #### F T3, CMP, T4, TSH, LIPID #### [facility] [address] [address] [address] Seven Mares ALP [Catalytic activity/Vol] 115 U/L Normal 46-116 [facility] Comment on above: Performed By: #### F T3, CMP, T4, TSH, LIPID #### [facility] [address] [address] [address] Seven Mares ALT [Catalytic activity/Vol] 46 U/L Normal 16-63 [facility] Comment on above: Performed By: #### F T3, CMP, T4, TSH, LIPID #### [facility] [address] [address] [address] Seven Mares Anion gap [Moles/Vol] 11.0 mmol/L Normal [facility] Comment on above: Performed By: #### F T3, CMP, T4, TSH, LIPID #### [facility] [address] [address] [address] Seven Mares AST [Catalytic activity/Vol] 28 U/L Normal 15-37 [facility] Comment on above: Performed By: #### F T3, CMP, T4, TSH, LIPID #### [facility] [address] [address] [address] Seven Mares Bilirubin [Mass/Vol] 0.5 mg/dL Normal 0.2-1.0 [facility] Comment on above: Performed By: #### F T3, CMP, T4, TSH, LIPID #### [facility] [address] [address] [address] Seven Mares Calcium [Mass/Vol] 9.0 mg/dL Normal 8.5-10.1 [facility] Comment on above: Performed By: #### F T3, CMP, T4, TSH, LIPID #### [facility] [address] [address] [address] Seven Mares Chloride [Moles/Vol] 106 mmol/L Normal 98-107 [facility] Comment on above: Performed By: #### F T3, CMP, T4, TSH, LIPID #### [facility] [address] [address] [address] Seven Mares CO2 [Moles/Vol] 28.1 mmol/L Normal 21.0-32.0 [facility] Comment on above: Performed By: #### F T3, CMP, T4, TSH, LIPID #### [facility] [address] [address] [address] Seven Mares Creatinine [Mass/Vol] 1.22 mg/dL Normal 0.70-1.30 [facility] Comment on above: Performed By: #### F T3, CMP, T4, TSH, LIPID #### [facility] [address] [address] [address] Seven Mares EGFR-AF SAUDI ARABIAN >60 Normal >=60 [facility] Comment on above: Performed By: #### F T3, CMP, T4, TSH, LIPID #### [facility] [address] [place] [address] Dr. Seven Mares EGFR-NON AF SAUDI ARABIAN =60 Normal >=60 [facility] Comment on above: Performed By: #### F T3, CMP, T4, TSH, LIPID #### [facility] [address] [place] [address] Dr. Seven Mares Globulin (S) [Mass/Vol] 3.2 g/dL Normal [facility] Comment on above: Performed By: #### F T3, CMP, T4, TSH, LIPID #### [facility] [address] [place] [address] Dr. Seven Mares Glucose [Mass/Vol] 131 mg/dL Critically high 74-106 [facility] Comment on above: Performed By: #### F T3, CMP, T4, TSH, LIPID #### [facility] [address] [place] [address] Dr. Seven Mares Potassium [Moles/Vol] 4.1 mmol/L Normal 3.5-5.1 [facility] Comment on above: Performed By: #### F T3, CMP, T4, TSH, LIPID #### [facility] [address] [place] [address] Dr. Seven Mares Protein [Mass/Vol] 7.3 g/dL Normal 6.4-8.2 [facility] Comment on above: Performed By: #### F T3, CMP, T4, TSH, LIPID #### [facility] [address] [place] [address] Dr. Seven Mares Sodium [Moles/Vol] 141 mmol/L Normal 136-145 [facility] Comment on above: Performed By: #### F T3, CMP, T4, TSH, LIPID #### [facility] [address] [place] [address] Dr. Seven Mares Urea nitrogen [Mass/Vol] 14.0 mg/dL Normal 7.0-18.0 [facility] Comment on above: Performed By: #### F T3, CMP, T4, TSH, LIPID #### [facility] [address] [place], [place] [address] Dr. Seven Mares Urea nitrogen/Creatinin e [Mass ratio] 11.5 mg/mg Normal [facility] Comment on above: Performed By: #### F T3, CMP, T4, TSH, LIPID #### [facility] [address] [place], [place] [address] Dr. Seven Mares T4on 11-14-2021 T4 [Mass/Vol] 9.50 ug/dL Normal 4.50-12.10 [facility] Comment on above: Performed By: #### F T3, CMP, T4, TSH, LIPID #### [facility] [address] [address] [address] Seven Mares TSHon 11-14-2021 TSH 2.820 uIU/mL Normal 0.358-3.740 [facility] Comment on above: Performed By: #### F T3, CMP, T4, TSH, LIPID #### [facility] [address] [place] [address] Dr. Seven Mares ECHOCARDIO M/2D COMPLETEon 0 06-21-2021 ECHOCARDIO M/2D COMPLETE Patient: SPENCER OLIVEIRA Exam Date: 06/21/2021 : 1960 Gender:M Ordering : DR SANDRO MOMIN . Admission #: [id number] Family : Order #: [id number] CLICK HERE TO VIEW EXAM ECHOCARDIOGRAM REPORT PROCEDURE: CARDIO PULMONARY ECHOCARDIO M/2D COMP INDICATIONS: Cold hand and feet, Hx: stents, [place] COMPARISON: None. DESCRIPTION: COMPLETE ECHOCARDIOGRAM Real-time transthoracic echocardiography with 2D, M-mode, spectral and color flow Doppler performed. QUALITY: Technical quality was good. LEFT VENTRICLE: Normal chamber size. Normal left ventricular wall thickness. LV EF: Global left ventricular systolic function is normal. Visual estimation of left ventricular ejection fraction is 55-60%. DIASTOLIC: Normal diastolic function. ATRIAL SEPTUM: Inadequately seen. LEFT ATRIUM: Normal chamber size. RIGHT ATRIUM: Normal chamber size. RIGHT VENTRICLE: Normal chamber size. Normal right ventricular systolic function. TRICUSPID VALVE: Normal mobility and thickness. No stenosis with no regurgitation. No evidence of pulmonary hypertension. MITRAL VALVE: Normal mobility and thickness. No mitral valve prolapse. No evidence of mitral valve stenosis. There is no mitral annular calcification. No mitral regurgitation. AORTIC VALVE: Normal trileaflet appearance. No visible sclerosis. Normal leaflet mobility. No evidence of aortic valve stenosis. No aortic regurgitation. AORTIC ROOT: Normal diameter and appearance. PULMONIC VALVE: Normal thickness and mobility. No stenosis. No regurgitation. PERICARDIUM: No evidence of pericardial effusion. IVC: Collapses with inspirations. CONCLUSION: Global left ventricular systolic function is normal; visually estimated ejection fraction is 55 to 60%. Normal diastolic function. The right ventricle is normal in size and systolic function. No significant valvular abnormalities. Adult Echocardiography Procedure Report Left Ventricle LVEDD (3.7 - 5.6 cm): 4.26 cm LVESD (2.2 - 4.0 cm): 2.87 cm LVIVS thickness (0.6 - 1.2 cm): 9.99 mm LVPW thickness (0.5 - 1.0 cm): 1.03 cm e': 8.77 cm/s E - e': 5.70 LVOT Area (cm2): 3.46 cm2 LVOT Diameter 2.10 cm Left Ventricular Ejection Fraction: 61.40 % Left Atrium LA Volume Index (2D A2C): 18.20 ml/m2 Left Atrium Systolic Dimension: 3.30 cm Left Atrium Systolic Area(A2C): 16.10 cm2 Left Atrium Systolic Area(A4C): 14.00 cm2 Left Atrium Systolic Volume(A2C): 07387 mm3 Left Atrium Systolic Volume(A4C): 33000 mm3 Mitral Valve MV E to A Ratio: 0.70 Deceleration [place]: 2100 mm/s2 Mitral Valve A-Wave Peak Velocity: 70.10 cm/s Mitral Valve E-Wave Peak Velocity: 50.30 cm/s Right Ventricle RV Internal Diastolic Dimension: 2.69 cm Aorta AO Root Diam: 3.10 cm Aortic Valve AoV Area (Peak Joshua): 2.43 cm2 Aortic Valve Cusp Separation: 1.90 cm Peak Velocity(Antegrade Flow): 134.00 cm/s Peak Gradient(Antegrade Flow): 7 mm[Hg] Tricuspid Valve Pulmonic Valve Peak Velocity: 95.70 cm/s Peak Gradient: 4 mm[Hg] Right Atrium Dictated by: Ivelisse Ward M.D. on 06/21/2021 at 10:12 Approved by: Ivelisse Ward M.D. on 06/21/2021 at 10:14 Normal [facility] BNPon 06-07-2021 Natriuretic peptide B (Bld) [Mass/Vol] 27.0 pg/mL Normal <=900.0 [facility] Comment on above: Performed By: #### T 7, TSH, BNP, CMP #### [facility] [address] [place] [address] Dr. Seven Mares CBC AUTO DIFFon 06-07-2021 BASO # 0.1 103/ul Normal 0.0-0.1 [facility] Comment on above: Performed By: #### F T3, CMP, T4, TSH, LIPID #### [facility] [address] [place] [address] Dr. Seven Mares Basophils/100 WBC (Bld) 1.3 % Normal 0.2-2.0 [facility] Comment on above: Performed By: #### F T3, CMP, T4, TSH, LIPID #### [facility] [address] [place] [address] Dr. Seven Mares EO # 0.1 103/ul Normal 0.0-0.7 [facility] Comment on above: Performed By: #### F T3, CMP, T4, TSH, LIPID #### [facility] [address] [place] [address] Dr. Seven Mares Eosinophils/100 WBC (Bld) 1.9 % Normal 0.9-7.0 [facility] Comment on above: Performed By: #### F T3, CMP, T4, TSH, LIPID #### [facility] [address] [place] [address] Dr. Seven Mares Erythrocyte distribution width (RBC) [Ratio] 13.9 % Normal 11.0-15.0 [facility] Comment on above: Performed By: #### F T3, CMP, T4, TSH, LIPID #### [facility] [address] [place] [address] Dr. Seven Mares Hematocrit (Bld) [Volume fraction] 47.5 % Normal 42.0-54.0 [facility] Comment on above: Performed By: #### F T3, CMP, T4, TSH, LIPID #### [facility] [address] [place] [address] Dr. Seven Mares Hemoglobin (Bld) [Mass/Vol] 15.9 g/dL Normal 14.0-18.0 [facility] Comment on above: Performed By: #### F T3, CMP, T4, TSH, LIPID #### [facility] [address] [place] [address] Dr. Seven Mares IG # 0.02 10e3/ul Normal 0.00-0.03 [facility] Comment on above: Performed By: #### F T3, CMP, T4, TSH, LIPID #### [facility] [address] [place] [address] Dr. Seven Mares IG % 0.4 % Normal 0.0-0.5 [facility] Comment on above: Performed By: #### F T3, CMP, T4, TSH, LIPID #### [facility] [address] [place] [address] Dr. Seven Mares LYMPH # 1.5 103/ul Normal 1.2-3.8 [facility] Comment on above: Performed By: #### F T3, CMP, T4, TSH, LIPID #### [facility] [address] [place] [address] Dr. Seven Mares Lymphocytes/100 WBC (Bld) 28.1 % Normal 20.5-60.0 [facility] Comment on above: Performed By: #### F T3, CMP, T4, TSH, LIPID #### [facility] [address] [place] [address] Dr. Seven Mares MANUAL DIFF REQ NO Normal [facility] Comment on above: Performed By: #### F T3, CMP, T4, TSH, LIPID #### [facility] [address] [place] [address] Dr. Seven Mares MCH (RBC) [Entitic mass] 28.9 pg Normal 25.9-34.0 [facility] Comment on above: Performed By: #### F T3, CMP, T4, TSH, LIPID #### [facility] [address] [place] [address] Dr. Seven Mares MCHC (RBC) [Mass/Vol] 33.5 g/dL Normal 29.9-35.2 [facility] Comment on above: Performed By: #### F T3, CMP, T4, TSH, LIPID #### [facility] [address] [place] [address] Dr. Seven Mares MCV (RBC) [Entitic vol] 86.4 fL Normal 80.0-94.0 [facility] Comment on above: Performed By: #### F T3, CMP, T4, TSH, LIPID #### [facility] [address] [place] [address] Dr. Seven Mares MONO # 0.6 103/ul Normal 0.3-0.8 [facility] Comment on above: Performed By: #### F T3, CMP, T4, TSH, LIPID #### [facility] [address] [place] [address] Dr. Seven Mares Monocytes/100 WBC (Bld) 10.5 % Normal 1.7-12.0 [facility] Comment on above: Performed By: #### F T3, CMP, T4, TSH, LIPID #### [facility] [address] [place] [address] Dr. Seven Mares NEUT # 3.0 103/ul Normal 1.4-6.5 [facility] Comment on above: Performed By: #### F T3, CMP, T4, TSH, LIPID #### [facility] [address] [place] [address] Dr. Seven Mares Neutrophils/100 WBC (Bld) 57.8 % Normal 43.0-75.0 [facility] Comment on above: Performed By: #### F T3, CMP, T4, TSH, LIPID #### [facility] [address] [place] [address] Dr. Seven Mares Platelet mean volume (Bld) [Entitic vol] 9.4 fL Critically low 9.5-13.5 [facility] Comment on above: Performed By: #### F T3, CMP, T4, TSH, LIPID #### [facility] [address] [address] [address] Seven Mares PLT 208 103/ul Normal 150-450 [facility] Comment on above: Performed By: #### F T3, CMP, T4, TSH, LIPID #### [facility] [address] [place] [address] Dr. Seven Mares RBC 5.50 106/ul Normal 4.70-6.10 [facility] Comment on above: Performed By: #### F T3, CMP, T4, TSH, LIPID #### [facility] [address] [place] [address] Dr. Seven Mares WBC 5.2 103/ul Normal 4.0-11.0 [facility] Comment on above: Performed By: #### F T3, CMP, T4, TSH, LIPID #### [facility] [address] [place] [address] Dr. Seven Mares FREE THYROXINE INDEX T7on FTI 2.88 Normal [facility] Comment on above: Performed By: #### T 7, TSH, BNP, CMP #### [facility] [address] [place] [address] Dr. Seven Mares T3U 32.0 % Normal 23.5-40.5 [facility] Comment on above: Performed By: #### T 7, TSH, BNP, CMP #### [facility] [address] [place] [address] Dr. Seven Mares T4 [Mass/Vol] 9.00 ug/dL Normal 5.53-11.00 [facility] Comment on above: Performed By: #### T 7, TSH, BNP, CMP #### [facility] [address] [place] [address] Dr. Seven Mares IRONon 06-07-2021 Iron [Mass/Vol] 71.0 ug/dL Normal 49.0-181.0 [facility] Comment on above: Performed By: #### F T3, CMP, T4, TSH, LIPID #### [facility] [address] [place] [address] Dr. Seven Mares PROF 14(COMP METB)on 022 Albumin [Mass/Vol] 4.0 g/dL Normal 3.5-5.0 [facility] Comment on above: Performed By: #### T 7, TSH, BNP, CMP #### [facility] [address] [place] [address] Dr. Seven Mares Albumin/Globulin [Mass ratio] 1.2 {ratio} Normal [facility] Comment on above: Performed By: #### T 7, TSH, BNP, CMP #### [facility] [address] [place] [address] Dr. Seven Mares ALP [Catalytic activity/Vol] 100 U/L Normal 38-126 [facility] Comment on above: Performed By: #### T 7, TSH, BNP, CMP #### [facility] [address] [place] [address] Dr. Seven Mares ALT [Catalytic activity/Vol] 40 U/L Normal 21-72 [facility] Comment on above: Performed By: #### T 7, TSH, BNP, CMP #### [facility] [address] [place] [address] Dr. Seven Mares Anion gap [Moles/Vol] 11.3 mmol/L Normal [facility] Comment on above: Performed By: #### T 7, TSH, BNP, CMP #### [facility] [address] [place] [address] Dr. Seven Mares AST [Catalytic activity/Vol] 23 U/L Normal 17-59 [facility] Comment on above: Performed By: #### T 7, TSH, BNP, CMP #### [facility] [address] [place] [address] Dr. Seven Mares Bilirubin [Mass/Vol] 0.4 mg/dL Normal 0.2-1.3 [facility] Comment on above: Performed By: #### T 7, TSH, BNP, CMP #### [facility] [address] [place] [address] Dr. Seven Mares Calcium [Mass/Vol] 8.9 mg/dL Normal 8.4-10.2 [facility] Comment on above: Performed By: #### T 7, TSH, BNP, CMP #### [facility] [address] [address] [address] Seven Mares Chloride [Moles/Vol] 104 mmol/L Normal 98-107 [facility] Comment on above: Performed By: #### T 7, TSH, BNP, CMP #### [facility] [address] [place] [address] Dr. Seven Mares CO2 [Moles/Vol] 27.9 mmol/L Normal 22.0-30.0 [facility] Comment on above: Performed By: #### T 7, TSH, BNP, CMP #### [facility] [address] [place] [address] Dr. Seven Mares Creatinine [Mass/Vol] 1.22 mg/dL Normal 0.66-1.25 [facility] Comment on above: Performed By: #### T 7, TSH, BNP, CMP #### [facility] [address] [place] [address] Dr. Seven Mares EGFR-AF SAUDI ARABIAN >60 Normal >=60 [facility] Comment on above: Performed By: #### T 7, TSH, BNP, CMP #### [facility] [address] [place] [address] Dr. Seven Mares EGFR-NON AF SAUDI ARABIAN =60 Normal >=60 [facility] Comment on above: Performed By: #### T 7, TSH, BNP, CMP #### [facility] [address] [place] [address] Dr. Seven Mares Globulin (S) [Mass/Vol] 3.4 g/dL Normal [facility] Comment on above: Performed By: #### T 7, TSH, BNP, CMP #### [facility] [address] [place] [address] Dr. Seven Mares Glucose [Mass/Vol] 165 mg/dL Critically high 74-106 [facility] Comment on above: Performed By: #### T 7, TSH, BNP, CMP #### [facility] [address] [place] [address] Dr. Seven Mares Potassium [Moles/Vol] 4.2 mmol/L Normal 3.4-5.0 [facility] Comment on above: Performed By: #### T 7, TSH, BNP, CMP #### [facility] [address] [place] [address] Dr. Seven Mares Protein [Mass/Vol] 7.4 g/dL Normal 6.1-8.2 [facility] Comment on above: Performed By: #### T 7, TSH, BNP, CMP #### [facility] [address] [place] [address] Dr. Seven Mares Sodium [Moles/Vol] 139 mmol/L Normal 137-145 [facility] Comment on above: Performed By: #### T 7, TSH, BNP, CMP #### [facility] [address] [place] [address] Dr. Seven Mares Urea nitrogen [Mass/Vol] 17.0 mg/dL Normal 9.0-20.0 [facility] Comment on above: Performed By: #### T 7, TSH, BNP, CMP #### [facility] [address] [place] [address] Dr. Seven Mares Urea nitrogen/Creatinin e [Mass ratio] 13.9 mg/mg Normal [facility] Comment on above: Performed By: #### T 7, TSH, BNP, CMP #### [facility] [address] [place] [address] Dr. Seven Mares TSHon 06-07-2021 TSH 3.659 uIU/mL Normal 0.470-4.680 [facility] Comment on above: Performed By: #### T 7, TSH, BNP, CMP #### [facility] [address] [place] [address] Dr. Seven Mares TSH RANGE SEE BELOW Normal [facility] Comment on above: Result Comment: <0.3 4 UIU/ml HYPERTHYROID 0.34-5.60 UIU/ml EUTHYROID >5.60 UIU/ml HYPOTHYROID Performed By: #### T 7, TSH, BNP, CMP #### [facility] [address] [place] [address] Dr. Seven Mares BASIC METABOLIC PANELon 10-0 Calcium [Mass/Vol] 8.8 mg/dL Normal 8.6-10.3 [facility] Comment on above: Order Comment: No: D o not add to previous draw Performed By: #### 0 0071, [id number], [id number] #### [facility] [address] [place] [address], [place] Chloride [Moles/Vol] 102 mmol/L Normal 98-107 [facility] Comment on above: Order Comment: No: D o not add to previous draw Performed By: #### 0 0071, [id number], [id number] #### [facility] [address] [place] [address], [place] CO2 [Moles/Vol] 27 mmol/L Normal 21-31 [facility] Comment on above: Order Comment: No: D o not add to previous draw Performed By: #### 0 0071, [id number], [id number] #### [facility] [address] [place] [address], [place] Creatinine [Mass/Vol] 0.81 mg/dL Normal 0.70-1.30 [facility] Comment on above: Order Comment: No: D o not add to previous draw Performed By: #### 0 0071, 23795, [id number] #### [facility] [address] [place] [address], [place] GFR/1.73 sq M.predicted among blacks MDRD (S/P/Bld) [Vol rate/Area] mL/min/{1.73_m2} Normal >60 [facility] Comment on above: Order Comment: No: D o not add to previous draw Performed By: #### 0 0071, [id number], 30756 #### [facility] [address] [place] [address], [place] GFR/1.73 sq M.predicted among non-blacks MDRD (S/P/Bld) [Vol rate/Area] mL/min/{1.73_m2} Normal >60 [facility] Comment on above: Order Comment: No: D o not add to previous draw Performed By: #### 0 0071, 34221, [id number] #### [facility] [address] [place] [address], [place] Glucose [Mass/Vol] 211 mg/dL High 70-100 [facility] Comment on above: Order Comment: No: D o not add to previous draw Performed By: #### 0 0071, 14940, 03463 #### [facility] [address] [place] [address], [place] Potassium [Moles/Vol] 4.1 mmol/L Normal 3.5-5.1 [facility] Comment on above: Order Comment: No: D o not add to previous draw Performed By: #### 0 0071, 02315, 16441 #### [facility] [address] [place] [address], [place] Sodium [Moles/Vol] 136 mmol/L Normal 136-145 [facility] Comment on above: Order Comment: No: D o not add to previous draw Performed By: #### 0 0071, 02149, 51962 #### [facility] [address] [place] [address], [place] Urea nitrogen [Mass/Vol] 15 mg/dL Normal 7-25 [facility] Comment on above: Order Comment: No: D o not add to previous draw Performed By: #### 0 0071, 27563, 74879 #### [facility] [address] [place] [address], [place] CBC COMPLETE BLOOD COUNTon Erythrocyte distribution width (RBC) [Ratio] 13.8 % Normal 11.5-15.0 [facility] Comment on above: Order Comment: No: D o not add to previous draw Performed By: #### 5 0608 #### [facility] [address] [place] [address], [place] Hematocrit (Bld) [Volume fraction] 42.1 % Normal 39.0-50.0 [facility] Comment on above: Order Comment: No: D o not add to previous draw Performed By: #### 5 0608 #### [facility] [address] [facility] [place] [address], [facility] Hemoglobin (Bld) [Mass/Vol] 13.7 g/dL Normal 13.0-17.0 [facility] Comment on above: Order Comment: No: D o not add to previous draw Performed By: #### 5 0608 #### [facility] [address] [facility] [place] [address], [facility] MCH (RBC) [Entitic mass] 27.6 pg Normal 27.0-33.0 [facility] Comment on above: Order Comment: No: D o not add to previous draw Performed By: #### 5 0608 #### [facility] [address] [facility] [address] MCHC (RBC) [Mass/Vol] 32.5 g/dL Normal 32.0-35.0 [facility] Comment on above: Order Comment: No: D o not add to previous draw Performed By: #### 5 0608 #### [facility] [address] [facility] [place] [address], [facility] MCV (RBC) [Entitic vol] 84.9 fL Normal 82.0-98.0 [facility] Comment on above: Order Comment: No: D o not add to previous draw Performed By: #### 5 0608 #### [facility] [address] [facility] [place] [address], [facility] Nucleated RBC/100 WBC (Bld) [Ratio] 0 % Normal 0-0 [facility] Comment on above: Order Comment: No: D o not add to previous draw Performed By: #### 5 0608 #### [facility] [address] [facility] [place] [address], [facility] PLAT CNT 212 10*3/uL Normal 150-400 [facility] Comment on above: Order Comment: No: D o not add to previous draw Performed By: #### 5 0608 #### [facility] [address] [facility] [place] [address], [facility] RBC (Bld) [#/Vol] 4.96 10*6/uL Normal 4.20-5.70 [facility] Comment on above: Order Comment: No: D o not add to previous draw Performed By: #### 5 0608 #### [facility] [address] [facility] [place] [address], [facility] WBC (Bld) [#/Vol] 7.90 10*3/uL Normal 4.00-10.60 [facility] Comment on above: Order Comment: No: D o not add to previous draw Performed By: #### 5 0608 #### [facility] [address] Cardiovascular Lab Reporton 02-02-2020 Cardiovascular Lab Report [facility] Patient Name: [facility] MR #: [id number] Department of Physician: Eliu Marc M.D. Division of Service Date: 02/01/2020 Cardiology Birthdate: 1960 Adult Cardiovascular Room #: 3AB [id number] [address] Cardiovascular Laboratory Report FINAL IMPRESSIONS: 1. Severe in-stent restenosis of the second diagonal branch of the left anterior descending coronary artery as well as de Roby stenosis of the left anterior descending coronary artery, successfully treated by balloon angioplasty and AngioSculpt balloon angioplasty. 2. Otherwise nonobstructive coronary arteries. 3. 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 RECOMMENDATIONS: 1. Aggressive cardiovascular risk factor modification. 2. Optimization of medical management; aspirin, Plavix for a minimum of 6 months, high-intensity statin therapy, a beta david, and angiotensin-converting enzyme inhibitor are indicated. 3. To decrease the incidence of in-stent restenosis, will add colchicine 0.6 mg p.o. b.i.d., and monitor for any GI symptoms or side effects. 4. If the patient develops recurrent in-stent restenosis, may need to consider alternate strategies including intracoronary brachytherapy, or referral for surgical revascularization. 5. Follow up with Dr. Ward in the outpatient setting. 6. Follow up with Dr. Momin in the outpatient setting. PROCEDURES: Limited femoral angiography, bilateral selective coronary angiography, percutaneous balloon angioplasty, and AngioSculpt balloon angioplasty of the second diagonal branch of the left anterior descending, balloon angioplasty and endoscoped angioplasty of the left anterior descending coronary artery, final kissing balloon angioplasty of the left anterior descending and adjacent diagonal branch, placement of a 6-[place] MynxGrip closure device. METHODS: After risks, benefits, and alternatives were explained, written informed consent was obtained. The patient was prepped and draped in usual sterile fashion over the right groin. Using 1% lidocaine solution, local infiltration anesthesia was achieved. Using a modified Seldinger technique and a micropuncture kit, access of the right common femoral artery was obtained. A 6-[place] 11 cm sheath was inserted without difficulty. Bilateral selective coronary angiography was performed using JL4 and JR4 catheters. After reviewing the images, it was elected to proceed with an interventional procedure. A 7-[place] XB 3.5 guide catheter was advanced in and coaxially engaged into the left main ostium after upsizing the femoral sheath to a 7-[place] 11 cm sheath. A 0.014 Runthrough NS wire was advanced through the catheter across the stenosis in the diagonal and positioned distally. Sequential balloon dilation was performed using a 2.5 x 15 and 3.0 x 12 noncompliant balloon as well as a 2.5 x 15 angioscope balloon. A BMW wire was used to wire the left anterior descending. Sequential balloon dilation was performed using a 3.0 x 12 and 3.0 x 15 angioscope balloon. Final kissing balloon angioplasty was performed using a 2.5 x 15 in the diagonal and a 3.0 x 12 noncompliant balloon in the left anterior descending. Repeat imaging showed a satisfactory result. The wires were removed. Final images showed KENYATTA-3 flow with no dissection, thrombus, or distal wire trauma. At this point, it was elected to conclude the procedure. A 6-[place] MynxGrip closure device was deployed per protocol achieving optimal hemostasis. Overall, the patient tolerated the procedure well. There were no complications. He was to be transferred to the holding area in stable condition. FINDINGS: Hemodynamics. AO 135/85. LEFT VENTRICULOGRAPHY: This was not performed. CORONARY ARTERIES: Left main coronary artery: This arises from the left coronary cusp. It bifurcates into the left anterior descending and left circumflex coronary artery. It is free of significant stenosis. Left anterior descending coronary artery: Baseline imaging shows the previously stented proximal to mid portion with mild in-stent restenosis followed by a de Roby 90% stenosis in the midportion of the vessel. The adjacent diagonal shows a 90% in-stent restenosis with diffuse caliber reduction. These stenoses were reduced to 10-20% by balloon angioplasty and AngioSculpt angioplasty. The mid to distal left anterior descending shows a long segment of systolic compression consistent with a myocardial bridge. Final images showed KENYATTA-3 flow with no dissection, thrombus, or distal wire trauma. Left circumflex coronary artery: This is angiographically nonobstructive. Right coronary artery: This is a dominant vessel giving rise to the posterior descending and postero (more content not included)... Normal [facility] MAGNESIUM BLOODon 02-02-2020 Magnesium [Mass/Vol] 2.2 mg/dL Normal 1.9-2.7 [facility] Comment on above: Order Comment: No: D o not add to previous draw Performed By: #### 0 0071, 74640, 08785 #### [facility] [address] [place] [address], [facility] PHOSPHORUS BLOODon 0 Phosphate [Mass/Vol] 2.8 mg/dL Normal 2.5-5.0 [facility] Comment on above: Order Comment: No: D o not add to previous draw Performed By: #### 0 0071, 62159, 90435 #### [facility] [address] [facility] [place] [address], [facility] POC GLUCOSE LABon 02-02-2020 Glucose [Mass/Vol] 299 mg/dL High 70-100 [facility] Comment on above: Performed By: #### 8 5499 #### [facility] [address] [facility] [place] [address], [facility] BASIC METABOLIC PANELon 10-0 Calcium [Mass/Vol] 8.5 mg/dL Low 8.6-10.3 [facility] Comment on above: Order Comment: No: D o not add to previous draw Performed By: #### 3 5200, 72838, 53591 #### [facility] [address] [place] [address], [place] Chloride [Moles/Vol] 104 mmol/L Normal 98-107 [facility] Comment on above: Order Comment: No: D o not add to previous draw Performed By: #### 3 5200, 92866, 16290 #### [facility] [address] [place] [address], [place] CO2 [Moles/Vol] 25 mmol/L Normal 21-31 [facility] Comment on above: Order Comment: No: D o not add to previous draw Performed By: #### 3 5200, 99293, 45289 #### [facility] [address] [place] [address], [place] Creatinine [Mass/Vol] 1.02 mg/dL Normal 0.70-1.30 [facility] Comment on above: Order Comment: No: D o not add to previous draw Performed By: #### 3 5200, 12369, 44345 #### [facility] [address] [place] [address], [place] GFR/1.73 sq M.predicted among blacks MDRD (S/P/Bld) [Vol rate/Area] mL/min/{1.73_m2} Normal >60 [facility] Comment on above: Order Comment: No: D o not add to previous draw Performed By: #### 3 5200, 85953, 72226 #### [facility] [address] [place] [address], [place] GFR/1.73 sq M.predicted among non-blacks MDRD (S/P/Bld) [Vol rate/Area] mL/min/{1.73_m2} Normal >60 [facility] Comment on above: Order Comment: No: D o not add to previous draw Performed By: #### 3 5200, 94867, 90151 #### [facility] [address] [place] [address], [place] Glucose [Mass/Vol] 229 mg/dL High 70-100 [facility] Comment on above: Order Comment: No: D o not add to previous draw Performed By: #### 3 5200, 99692, 56956 #### [facility] [address] [place] [address], [place] Potassium [Moles/Vol] 4.0 mmol/L Normal 3.5-5.1 [facility] Comment on above: Order Comment: No: D o not add to previous draw Performed By: #### 3 5200, 47131, 20386 #### [facility] [address] [place] [address], [place] Sodium [Moles/Vol] 136 mmol/L Normal 136-145 [facility] Comment on above: Order Comment: No: D o not add to previous draw Performed By: #### 3 5200, 80343, 57977 #### [facility] [address] [place] [address], [place] Urea nitrogen [Mass/Vol] 13 mg/dL Normal 7-25 [facility] Comment on above: Order Comment: No: D o not add to previous draw Performed By: #### 3 5200, 38115, 58625 #### [facility] [address] [place] [address], [place] CBC COMPLETE BLOOD COUNTon Erythrocyte distribution width (RBC) [Ratio] 13.8 % Normal 11.5-15.0 [facility] Comment on above: Order Comment: No: D o not add to previous draw Performed By: #### 5 0608 #### [facility] [address] [place] [address], [place] Hematocrit (Bld) [Volume fraction] 40.3 % Normal 39.0-50.0 [facility] Comment on above: Order Comment: No: D o not add to previous draw Performed By: #### 5 0608 #### [facility] [address] [place] [address], [facility] Hemoglobin (Bld) [Mass/Vol] 13.7 g/dL Normal 13.0-17.0 [facility] Comment on above: Order Comment: No: D o not add to previous draw Performed By: #### 5 0608 #### [facility] [address] [facility] [place] [address], [facility] MCH (RBC) [Entitic mass] 28.5 pg Normal 27.0-33.0 [facility] Comment on above: Order Comment: No: D o not add to previous draw Performed By: #### 5 0608 #### [facility] [address] [place] [address], [facility] MCHC (RBC) [Mass/Vol] 34.0 g/dL Normal 32.0-35.0 [facility] Comment on above: Order Comment: No: D o not add to previous draw Performed By: #### 5 0608 #### [facility] [address] [facility] [place] [address], [facility] MCV (RBC) [Entitic vol] 83.8 fL Normal 82.0-98.0 [facility] Comment on above: Order Comment: No: D o not add to previous draw Performed By: #### 5 0608 #### [facility] [address] [facility] [place] [address], [facility] Nucleated RBC/100 WBC (Bld) [Ratio] 0 % Normal 0-0 [facility] Comment on above: Order Comment: No: D o not add to previous draw Performed By: #### 5 0608 #### [facility] [address] [place] [address], [facility] PLAT CNT 204 10*3/uL Normal 150-400 [facility] Comment on above: Order Comment: No: D o not add to previous draw Performed By: #### 5 0608 #### [facility] [address] [place] [address], [facility] RBC (Bld) [#/Vol] 4.81 10*6/uL Normal 4.20-5.70 [facility] Comment on above: Order Comment: No: D o not add to previous draw Performed By: #### 5 0608 #### [facility] [address] [place] [address], [facility] WBC (Bld) [#/Vol] 7.23 10*3/uL Normal 4.00-10.60 [facility] Comment on above: Order Comment: No: D o not add to previous draw Performed By: #### 5 0608 #### [facility] [address] HEMOGLOBIN A1Con 02-01-2020 Glucose [Moles/Vol] 217 mmol/L Normal [facility] Comment on above: Order Comment: Yes: Add to Previous draw if able Performed By: #### 3 1791 #### [facility] [address] [place] [address], [facility] HbA1c (Bld) [Mass fraction] 9.2 % High 4.0-6.0 [facility] Comment on above: Order Comment: Yes: Add to Previous draw if able Performed By: #### 3 1791 #### [facility] [address] [place] [address], [facility] LIPID PROFILEon 02-01-2020 Cholesterol [Mass/Vol] 109 mg/dL Low 120-200 [facility] Comment on above: Result Comment: CHOL ESTEROL REFERENCE RANGE: 20 YEARS AND OLDER CARDIOVASCULAR RISK Less than 200 mg/dl Low Risk 200 to 239 mg/dl Borderline Risk 240 mg/dl and greater High Risk Performed By: #### 3 4700, 39009, 01883 #### [facility] [address] [place] [address], [place] Cholesterol in HDL [Mass/Vol] 42 mg/dL Normal 23-92 [facility] Comment on above: Result Comment: Slig ht variation in normal range could be due to gender and/or age. HDL CHOLESTEROL REFERENCE RANGE: 20 years and older Cardiovascular Risk > or =60 mg/dL Desirable 40 TO 59 mg/dL Low Risk <40 mg/dL High Risk Performed By: #### 3 5200, 34196, 53322 #### [facility] [address] [place] [address], [place] Cholesterol in LDL [Mass/Vol] 50 mg/dL Normal 0-130 [facility] Comment on above: Result Comment: LDL IS A CALCULATION LDL IS ONLY VALID IF THE TRIG IS LESS THAN 400. Performed By: #### 3 5200, 52190, 25513 #### [facility] [address] [place] [address], [place] Cholesterol.total/ Cholesterol in HDL [Mass ratio] 2.6 {ratio} Normal 0.0-4.5 [facility] Comment on above: Performed By: #### 3 5200, 44858, 59654 #### [facility] [address] [place] [address], [place] NON-HDL CHOLESTEROL 67 mg/dL Normal [facility] Comment on above: Performed By: #### 3 5200, 58922, 80775 #### [facility] [address] [place] [address], [place] Triglyceride [Mass/Vol] 85 mg/dL Normal 40-149 [facility] Comment on above: Result Comment: TRIG LYCERIDE REFERENCE RANGE: 20 YEARS AND OLDER CARDIOVASCULAR RISK LESS THAN 150 mg/dl LOW RISK 150 TO 199 mg/dl BORDERLINE RISK 200 mg/dl AND GREATER HIGH RISK Performed By: #### 3 5200, 94595, 42377 #### [facility] [address] VLDL CHOL 17 mg/dL Normal 0-40 [facility] Comment on above: Performed By: #### 3 2850, 20254, 89639 #### [facility] [address] TROPONIN-Ion 02-01-2020 Troponin I.cardiac [Mass/Vol] 0.02 ng/mL Normal 0.00-0.04 [facility] Comment on above: Order Comment: No: D o not add to previous draw Pt at cathlab Result Comment: REFE RENCE RANGES: 0.00 - 0.04 ng/ml NORMAL 0.05 - 0.50 ng/ml INDETERMINATE > 0.50 ng/ml CONSISTENT WITH AN M.I. Performed By: #### 3 5200, 71300, 40881 #### [facility] [address] No Panel Information [facility] Vital Signs Date Time Vital Sign Value Performing Clinician Facility 04-14-2023 08:30-0500 Body height 180.34 cm Hallie Gastelum Other [facility] Other 04-14-2023 08:30-0500 Body mass index (BMI) [Ratio] 27.19 kg/m2 Hallie Gastelum Other [facility] Other 04-14-2023 08:30-0500 Body weight 88.45 kg Hallie Gastelum Other [facility] Other 04-14-2023 08:30-0500 Diastolic blood pressure 74 mm[Hg] Hallie Gastelum Other [facility] Other 04-14-2023 08:30-0500 SaO2% (BldA) [Mass fraction] 98 % Hallie Gastelum Other [facility] Other 04-14-2023 08:30-0500 Systolic blood pressure 128 mm[Hg] Hallie Gastelum Other [facility] Other 12-31-2022 09:45-0400 Body height 180.34 cm Kade Wise Other [facility] Other 12-31-2022 09:45-0400 Body mass index (BMI) [Ratio] 25.1 kg/m2 Kade Wise Other [facility] Other 12-31-2022 09:45-0400 Body weight 81.65 kg Kade Frandy Other [facility] Other Encounters Encounter Date Encounter Type Care Provider Facility Start: 06-01-2023 End: 06-01-2023 ambulatory Kade Wise Facility:[facility] Start: 06-01-2023 End: 06-01-2023 ambulatory MD Sandro Momin Work Phone: [facility] Work Phone: Start: 06-01-2023 End: 06-01-2023 Patient encounter procedure MD Sandro Momin Work Phone: [facility] Work Phone: Start: 04-14-2023 Office outpatient vi sit 25 minutes Hallie Gastelum [facility] Start: 04-14-2023 End: 04-14-2023 ambulatory Hallie Gastelum Facility:[facility] Start: 04-14-2023 End: 04-14-2023 ambulatory MD Sandro Momin Work Phone: [facility] Work Phone: Start: 04-14-2023 End: 04-14-2023 Patient encounter procedure MD Sandro Momin Work Phone: [facility] Work Phone: Start: 04-14-2023 End: 04-14-2023 Patient encounter procedure MD Sandro Momin Work Phone: [facility] Work Phone: Start: 12-31-2022 Office outpatient vi sit 25 minutes Kade Wise [facility] Start: 12-31-2022 End: 12-31-2022 ambulatory MD Sandro Momin Work Phone: [facility] Other Start: 12-31-2022 End: 12-31-2022 Patient encounter procedure MD Sandro Momin Work Phone: [facility] Work Phone: Start: 12-09-2022 End: 12-09-2022 ambulatory SANDRO MOMIN Facility:[facility] Start: 12-09-2022 End: 12-09-2022 Patient encounter procedure Tal Iraheta MD Work Phone: Ophthalmology Comment on above: Type 2 diabetes jai 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 Start: 11-11-2022 End: 11-11-2022 Patient encounter procedure MD Sandro Momin Work Phone: [facility] Work Phone: Start: 10-23-2022 End: 10-23-2022 ambulatory Kade Wise Other [facility] Other Start: 10-23-2022 Telephone encounter Kade Wise [facility] Start: 05-27-2022 End: 05-27-[address] SANDRO MOMIN Facility:[facility] Start: 05-26-2022 End: 05-27-[address] SANDRO MOMIN Facility:[facility] Start: 04-12-2022 Encounter for genera l adult medical examination without abnormal findings MICHELE WAYNE [facility] Start: 04-09-2022 End: 04-09-2022 ambulatory MD Sandro Momin Work Phone: [facility] Work Phone: Start: 04-09-2022 End: 04-09-2022 Patient encounter procedure MD Sandro Momin Work Phone: [facility] Start: 04-08-2022 End: 04-09-[address] SANDRO MOMIN Facility:[facility] Start: 04-08-2022 End: 04-09-2022 Encounter for general adult medical examination without abnormal findings DR SANDRO MOMIN Facility:[facility] Start: 02-25-2022 End: 02-25-2022 ambulatory MD Sandro Momin Work Phone: [facility] Work Phone: Start: 02-25-2022 End: 02-25-2022 Patient encounter procedure MD Sandro Momin Work Phone: [facility] Start: 11-14-2021 End: 11-15-[address] SANDRO MOMIN Facility:[facility] Start: 07-04-2021 End: 07-05-[address] SANDRO MOMIN Facility:[facility] Start: 06-21-2021 End: 06-22-[address] SANDRO MOMIN Facility:[facility] Start: 06-07-2021 End: 06-08-[address] SANDRO MOMIN Facility:[facility] Start: 02-01-2020 End: 02-02-2020 ambulatory HALINA KENNEDY Facility:[facility] Procedures Date Procedure Procedure Detail Performing Clinician Start: 12-09-2022 End: 12-09-2022 Computerized ophthalmic imaging retina Tal Iraheta MD Work Phone: Start: 05-26-[address] HAKEEM MOMIN Comment on above: Performed By: #### F T3, CMP, T4, TSH, LIPID #### [facility] [address] [place] [address] Dr. Seven Mares Start: 11-14-[address] HAKEEM MOMIN Comment on above: Performed By: #### F T3, CMP, T4, TSH, LIPID #### [facility] [address] [address] [address] Seven Mares Plan of Treatment Date Care Activity Detail Author Start: 05-26-2027 PROSTATE CANCER SCRE ENING DISCUSSION PROSTATE CANCER SCREENING DISCUSSION [facility] Start: 12-26-2022 Influenza vaccination INFLUENZA (#1) [facility] Start: 04-27-2022 DEPRESSION ASSESSMENT DEPRESSION ASS ESSMENT [facility] Start: 06-06-2021 COVID-19 VACCINE (4 - Pfizer series) COVID-19 VACCINE (4 - Pfizer series) [facility] Start: 2008 SHINGRIX VACCINE (1 of 2) SHINGRIX V ACCINE (1 of 2) [facility] Start: 2003 COLOGUARD (FIT-DNA) COLOGUARD (FIT-D NA) [facility] Start: 2003 Colonoscopy COLONOSCOPY [facility] Start: 2003 COLORECTAL CANCER SCREENING COLORECTAL CANCER SCREENING [facility] Start: [address] COLONOGRAPHY [facility] Start: 2003 DIABETES SCREEN DIABETES SCREEN [facility] Start: 2003 FECAL OCCULT BLOOD FECAL OCCULT BLOO D [facility] Start: 2003 SIGMOIDOSCOPY SIGMOIDOSCOPY [facility] Start: 1993 LIPID SCREEN LIPID SCREEN [facility] Start: 1977 Urine microalbumin profile DTAP,TDAP ,TD (1 - Tdap) [facility] Start: 1976 HEPATITIS C SCREENING HEPATITIS C SC FRACISCO [facility] Start: 1976 HIV SCREENING HIV SCREENING [facility] Payers Date Payer Category Payer Unknown [id number] 2023 Medicare [id number] 2022 Self-pay 2022 Unknown [employer] PPO [id number] 2022-Present [phone] [facility] [address] [place] [address] PPO [id number] 1959 Unknown [id number] 1958 Unknown [id number] [id number]. 647 1958 Unknown [id number] [id number]. 593 1958 Unknown [id number] [id number]. 593 1958 Unknown [id number] 2.16.840.1.206629.3.579.2. 593 1958 Unknown [id number] 2..840.1.953573.3.579.2. 593 1958 Unknown [id number] 2..840.1.550170.3.579.2. 593 1958 Unknown [id number] 2..840.1.328689.3.579.2. 593 1958 Unknown [id number] 2..840.1.041855.3.579.2. 593 Private Health Insurance [employer] [id number] Unknown O [employer] [id number] Unknown [id number] Unknown [id number] [id number]. 531 Unknown [id number] 2.16.840.1.542573.3.579.2. 531 Unknown [id number] [id number]. 531 Unknown [id number] [id number]. 531 Social History Date Type Detail Facility Tobacco smoking status ARIS Unknown if ever smoked [facility] Work Phone: Start: 1960 Sex Assigned At Male F [facility] Start: 12-09-2022 Sex Assigned At N [facility] [employer] Other Start: 12-09-2022 Tobacco smoking status NHIS Never smoked tobacco [facility] Start: 12-09-2022 Tobacco use and exposure Smokeless tobacco non-user [facility] Start: 12-09-2022 Alcohol intake Current drinke r of alcohol (finding) [facility] Start: 12-09-2022 History of Social function [facility] National Score (1-100), lower number is lower risk 78 [facility] Start: 12-09-2022 Alcohol Comment [facility] Start: 1960 Sex Assigned At Not on file C [facility] Medical Equipment Procedure Code Equipment Code Equipment Origin al Text Equipment Identifier Dates ONETOUCH ULTRA T EST test strip Start: 12-04-2022 Evaluation note 04-14-2023 Note Date & Type Note Facility 04-14-2023 Evaluation note Encounter Date Diagnosis Assessment Notes Mar, Obstructive sleep apnea (ICD-10 - G47.33) Fortunately, the patient is using and benefiting from treatment. We do not have a download to review as his current machine's modem has stopped transmitting data, however pt reports good control of his AHI with current pressures so we will not make any changes at this time. We will submit a request for a new machine today as his machine's motor has exceeded life expectancy, an order was placed to have this completed, as well as a prescription for new supplies throughout the year. He was encouraged to continue to use his machine nightly, throughout the entire night and for naps as this does provide clinical benefit. We will anticipate a 31-90 day visit after pt receives new machine. Mar, Intolerance of continuous positive airway pressure (CPAP) ventilation (ICD-10 - Z78.9) Patient still is experiencing intolerance to positive airway pressure treatment and would still like to proceed with the process to qualify for Inspire, and/or reevaluate his JUAN after weight loss. His PSG is scheduled for 06/01/2022. Meanwhile, we will resubmit an order for a new BiPAP machine under his new insurance. Mar, BMI 27.0-27.9,adul t (ICD-10 - Z68.27) patient reports having gained a little weight since his last visit, however he is still significantly lower than his original sleep testing. He is encouraged to continue with efforts at weight reduction and lifestle change. [facility] Other Evaluation note 12-31-2022 Note Date & Type Note Facility 12-31-2022 Evaluation note Encounter Date Diagnosis Assessment Notes Dec, Obstructive sleep apnea (ICD-10 - G47.33) He has previous severe obstructive sleep apnea though he has lost some weight since last tested. However he continues to have excessive sleepiness if he goes without the machine, and clinically suspect sleep apnea is still there. His recent home sleep test showed a respiratory event index of 4, which may well represent a false negative result. I discussed these results with him and explained their implications. I encouraged him to continue efforts at weight reduction. We will check PSG to determine whether he has truly resolved his apnea with weight loss, or whether the home sleep test was a false negative result. Dec, Intolerance of continuous positive airway pressure (CPAP) ventilation (ICD-10 - Z78.9) He is significantly intolerant of positive airway pressure treatment. I will make sure he has been switched to auto BiPAP, and we may need to make a pressure change again given the apparent low AHI/SOL. Adjust setting to auto BiPAP minimum 5 pressure support 4 maximum 15, and get download on that. Dec, BMI 26.0-26.9,adul t (ICD-10 - Z68.26) Last objectively measured body weight should BMI of 26, significantly lower than his original sleep testing. He is encouraged to continue efforts at weight reduction and lifestyle change [facility] Other Progress note 12-09-2022 Note Date & Type Note Facility 12-09-2022 Note HNO ID: [id number] Author: Tal Iraheta MD Service: ? Author Type: Physician Type: Progress Notes Filed: 12/09/2022 2:45 PM Note Text: DM without retinopathy OU OHTN OU large optic disc OU moderate cataract OU new glasses OU otherwise, phaco IOL each eye I have confirmed and edited as necessary the relevant ophthalmic history, ROS, and the neuro exam findings as obtained by others. I have seen and examined this patient. I have discussed the case and the management of this patient's care with the Resident/Fellow, if applicable. I also have reviewed and agree with the assessment and plan as stated above and agree with all of its relevant components. Tal Iraheta MD December 09, 2022 2:43 PM [facility] History of Present illness Narrative 12-09-2022 Tal Iraheta MD - 12/09/2022 2:43 PM EDT Note Date & Type Note Facility 12-09-2022 History of Presen t illness Narrative DM without retinopathy OU OHTN OU large optic disc OU moderate cataract OU new glasses OU otherwise, phaco IOL each eye I have confirmed and edited as necessary the relevant ophthalmic history, ROS, and the neuro exam findings as obtained by others. I have seen and examined this patient. I have discussed the case and the management of this patient's care with the Resident/Fellow, if applicable. I also have reviewed and agree with the assessment and plan as stated above and agree with all of its relevant components. Tal Iraheta MD December 09, 2022 2:43 PM documented in this encounter [facility] Discharge summary note 02-02-2020 Note Date & Type Note Facility 02-02-2020 Note MR#: [id number] I [facility] Pt. Name: Spencer Oliveira Admitted: 02/01/2020 Discharged: 02/02/2020 Date of : 1960 Physician: Simeon Colon M.D. DISCHARGE SUMMARY PRIMARY DIAGNOSIS: 1. Unstable angina, status post balloon angioplasty. SECONDARY DIAGNOSES: 1. Coronary artery disease, status post multiple stents. 2. Hypertension. 3. Depression. 4. Diabetes mellitus type 2. 5. Hyperlipidemia. 6. Gastroesophageal reflux disease. 7. Obstructive sleep apnea, on BiPAP. HISTORY OF PRESENT ILLNESS AND HOSPITAL COURSE: The patient is a 59-year-old male with a past medical history significant for CAD, status post multiple stents. He presented to [facility] with squeezing/pressure-like chest discomfort that started, while he was mowing the lawn; he also developed discomfort/pain in both of his arms. He notes that his sensation was similar to what he had experienced in the past when he had his first stent. At [facility], his troponin was negative x3. EKG throughout his stay did not show any ischemic changes. COVID-19 test was negative. Unstable angina: On February 01, 2020, the patient underwent cardiac cath, which revealed severe in-stent restenosis of the 2nd diagonal branch of the left anterior descending coronary artery as well as de-roby stenosis of the left anterior descending coronary artery. The patient was successfully treated by balloon angioplasty and AngioSculpt balloon angioplasty. His chest pain resolved after the procedure. Cardiology recommended aggressive optimization of medical management. DISCHARGE CONDITION: Stable. DISCHARGE DISPOSITION: Home. DISCHARGE INSTRUCTIONS: 1. Continue aspirin, Plavix, statin, beta-david, and HAILY inhibitor. 2. Continue colchicine to decrease incidence of in-stent restenosis. 3. Please follow up with Cardiology Clinic as an outpatient as scheduled. DISCHARGE MEDICATIONS: Medications as per med reconciliation list. PHYSICAL EXAMINATION UPON DISCHARGE: GENERAL: No acute distress. Alert and oriented x3. LUNGS: Clear to auscultation bilaterally. No wheezing, rhonchi, or rales. CARDIOVASCULAR: Regular rate and rhythm. Normal S1/S2. No murmurs or rubs. ABDOMEN: Soft, nontender, and nondistended. EXTREMITIES: No bilateral lower extremity edema. SKIN: Warm and dry to touch. TOTAL TIME OF DISCHARGE: 40 minutes. Electronically Signed by: Simeon Colon M.D. 02/04/2020 04:12 P Simeon Colon M.D. Date Dict: 02/02/2020/02:21 P/Simeon Colon M.D. Date Trans: 02/02/2020 03:44 P/terry [id number] cc: Sandro Momin M.D. 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 Open angle with borderline findings and low glaucoma risk in both eyes Open angle with borderline findings, low risk Nuclear sclerotic cataract of both eyes Senile nuclear sclerosis documented in this encounter [facility] History general Narrative - Reported Note Date & Type Note Facility History general Narrative - Reported Type Medical History CAD Medical History history of [place] Medical History JUAN Medical History high cholesterol Medical History type II diabetes [facility] [employer] Other Summary Purpose Family History No Family History Records FoundNo Family History Records FoundNo Family History Records FoundNo Family History Records Found Advance Directives No Advanced Directives Records Found Advance Directive Response Recorded Date/ Time Advance Directives No December 18, 2021 11:20am Advance Directive Response Recorded Date/ Time Advance Directives No December 18, 2021 10:20am Chief Complaint and Reason for Visit Chief Complaint interested in inspir e device Chief Complaint interested in inspir e device 6-8 week follow up/keep with Dr Wise Chief Complaint juan-inspire Study result follow up Chief Complaint Obstructive sleep ap [place] / NEW TO MEDICARE Chief Complaint Follow Up Obstructive sleep apnea / NEW TO MEDICARE in lab-hst failed-latesha from -27 Medications Administered Section Inactive Administered Medications - up to 3 most recent administrations Medication Order MAR Action Action Date Dose Rate Site fluorescein-benoxinate 0.25-0.4 % 1 Drop (FLURESS) 1 Drop, BOTH EYES, DIRECTED, Starting on Thu12/09/22 at 1300, Until Thu12/10/22 at 0059, Administer for applanation tonometry. In the event of a Fluress shortage, administer 1 drop of [place]-Fluor into both eyes as directed for applanation tonometry. Given 12/09/2022 1:00 PM EDT 1 Drop PHENYLephrine 2.5 % 1 Drop (AK-DILATE, CHAD-SYNEPHRINE) 1 Drop, BOTH EYES, DIRECTED, Starting on Thu12/09/22 at 1300, Until Thu12/10/22 at 0059, Administer for dilation PROTECT FROM LIGHT Given 12/09/2022 1:00 PM EDT 1 Drop tropicamide 1 % 1 Drop (MYDRIACYL) 1 Drop, BOTH EYES, DIRECTED, Starting on Thu12/09/22 at 1300, Until Thu12/10/22 at 0059, Administer for dilation Given 12/09/2022 1:00 PM EDT 1 Drop Additional Source Comments (unrecognized sect ion and content) No Status Records FoundNo Status Records FoundNo Status Records FoundNo Status Records Found INFORMATION SOURCE (unrecogn ized section and content) DATE CREATED AUTHOR 09/08/2020 [facility] DATE CREATED AUTHOR AUTHOR'S ORGANIZ ATION 05/28/2022 [facility] DATE CREATED AUTHOR AUTHOR'S ORGANIZ ATION 12/10/2022 [facility] DATE CREATED AUTHOR AUTHOR'S ORGANIZ ATION 06/10/2023 [facility] Care Teams (unrecognized sec tion and content) Team Status: Inactive Member Role Status Lea Momin MD Primary Care Provider, Referring Pr sukhjinder Active Kade Wise MD Attending Provider Active Team Status: Active Member Role Status Lea Momin MD Primary Care Provider Active Team Status: Inactive Member Role Status Lea Momin MD Primary Care Provider Active Kade Wise MD Attending Provider Active Permanent Mold Supervisor Relationship Specialty Start Date End Date Sandro Momin MD [address] [place] [address] PCP - General Family Medicine 11/12/22 Team Status: Inactive Member Role Status Lea Momin MD Primary Care Provider Active Hallie Gastelum NP Attending Provider Active Team Status: Inactive Member Role Status Lea Gastelum NP Attending Provider Active Start: April 14, 2023 End: April 14, 2023 Team Status: Inactive Member Role Status Lea Momin MD Primary Care Provider Active Start: April 14, 2023 End: April 14, 2023 Hallie Gastelum NP Attending Provider Active Start: April 14, 2023 End: April 14, 2023 Team Status: Inactive Member Role Status Dates Sandro Momin MD Primary Care Provider Active Start: June 01, 2023 End: June 01, 2023 Kade Wise MD Attending Provider Active S tart: June 01, 2023 End: June 01, 2023 Goals (unrecognized section and content) Goals may be documented in a n alternate sectionGoals may be documented in an alternate sectionNo InformationNo InformationGoals may be documented in an alternate sectionGoals may be documented in an alternate sectionNo InformationGoals may be documented in an alternate section REASON FOR VISIT (unrecogniz ed section and content) Reason Comments Blurry Vision Both Eyes New Patient Source Comments (unrecognize d section and content) In the event this informatio n is protected by the Federal Confidentiality of Alcohol and Drug Abuse Patient Records regulations: The Federal rules restrict any use of the information to criminally investigate or prosecute any alcohol or drug abuse patient.[facility] FOR RECORDS PERTAINING TO PATIENTS WHO ARE OR HAVE BEEN ENROLLED IN A CHEMICAL DEPENDENCY/SUBSTANCEABUSE PROGRAM, SOME INFORMATION MAY BE OMITTED. This clinical summary was aggregated from multiple sources. Caution should be exercised in using it in the provision of clinical care. This summary normalizes information from multiple sources, and as a consequence, information in this document may materially change the coding, format and clinical context of patient data. In addition, data may be omitted in some cases. CLINICAL DECISIONS SHOULD BE BASED ON THE PRIMARY CLINICAL RECORDS. [employer] [facility]. provides no warranty or guarantee of the accuracy or completeness of information in this document.
[2023-07-12 18:38] LABS: Glucometer 116 mg/dL (74-106)
--- NOTE | 2023-07-12 19:19 | CT_ITS ---
The [address] [address] Patient Name: SPENCER RAY MRN: [id number] date: 1960 Sex: M Assigned Patient Location: ER Current Patient Location: ER Accession/Order Number: [id number] Exam Date: 07/12/2023 19:32 Report Date: 07/12/2023 19:48 At the request of: LENNY ALLRED Procedure: CT head/brain wo con CT head/brain wo con HISTORY: headache, dizziness COMPARISON: None. TECHNIQUE: Contiguous axial images were obtained from the skull base to the vertex without intravenous contrast. Sagittal and coronal reformatted images are also submitted. One of the following dose optimization techniques was utilized in the performance of this exam: Automated exposure control; adjustment of the mA and/or kV according to the patient's size; or use of an iterative reconstruction technique. Specific details can be referenced in the facility's radiology CT exam operational policy. FINDINGS: Brain volume: Normal. Ventricles: Normal. Acute ischemic changes: None. Hemorrhage: None. Masses/edema: None. Lisa-white: Negative. White matter: Normal. Vessels: Negative. Extra-axial: Negative. Calvarium/scalp: Negative. Skull base/visualized face: Negative. Visualized sinuses/orbits: Negative. CT/CT head/brain wo con IMPRESSION: 1. Normal examination. Electronically authenticated by: NURIS MEDRANO Date: 07/12/2023 19:48
--- NOTE | 2023-07-12 19:21 | ED_ITS ---
HPI - Dizziness General Chief Complaint: Dizziness Stated Complaint: DIZZY Time Seen by Provider: 07/12/23 18:30 Source: patient Mode of arrival: walk-in Limitations: no limitations History of Present Illness HPI Narrative: Earlier today he developed light headedness and pressure behind both eyes. he also noticed that the periphery of his vision just seemed off - he had cataract surgery in April and had vision check 3 weekls later and everything was OK. He checked his glucose several times and it was normal each time. No recent injury to the head or neck No recent illness such as nasal congestion, ear pain, sore throat, cough, chest pain, chest pressure, vomiting or diarrhea. Related Data Home Medications Medication Instructions Recorded Confirmed amitriptyline 75 mg tablet 75 mg PO BEDTIME 07/12/23 07/12/23 clopidogrel 75 mg tablet 75 mg PO DAILY 07/12/23 07/12/23 colchicine 0.6 mg tablet 0.6 mg PO DAILY 07/12/23 07/12/23 empagliflozin 10 mg tablet 10 mg PO DAILY 07/12/23 07/12/23 (Jardiance) glimepiride 4 mg tablet 4 mg PO BID 07/12/23 07/12/23 isosorbide mononitrate 30 mg 30 mg PO DAILY 07/12/23 07/12/23 tablet,extended release 24 hr losartan 25 mg tablet 25 mg PO DAILY 07/12/23 07/12/23 metformin 500 mg tablet,extended 500 mg PO TID 07/12/23 07/12/23 release 24 hr metoprolol succinate 25 mg 12.5 mg PO DAILY 07/12/23 07/12/23 tablet,extended release 24 hr pioglitazone 15 mg tablet 15 mg PO DAILY 07/12/23 07/12/23 rosuvastatin 40 mg tablet 40 mg PO DAILY 07/12/23 07/12/23 tadalafil 20 mg tablet 20 mg PO PRN sexual activity 07/12/23 Previous Rx's Medication Instructions Recorded meclizine 25 mg tablet 25 mg PO TID PRN dizziness #14 tabs 07/12/23 Allergies Allergy/AdvReac Type Severity Reaction Status Date / Time Penicillins Allergy Intermediate Verified 07/12/23 18:27 Exam Narrative Exam Narrative: Nurses notes and vital signs reviewed and patient is not hypoxic. Afebrile General: Well-appearing and in no apparent distress. Skin: Warm, dry, no pallor noted. No rash. Head: Normocephalic, atraumatic. Neck: Supple, non-tender. No meningismus Eye: Pupils are equal, round and EOMI. No scleral icterus. No nystagmus Ears, Nose, Mouth, and Throat: TM are clear, no posterior oropharynx erythema or nasal mucosal hypertrophy, uvula is mid-line Oral mucosa is moist Cardiovascular: Regular Rate and Rhythm without murmur, gallop or rub. Respiratory: No accessory muscle use or respiratory distress. Lungs are clear to auscultation, no wheezing, rales or rhonchi Musculoskeletal: normal ROM, no calf or popliteal tenderness, no lower extremity edema/swelling GI: Abdomen is soft, non-distended. Normal bowel sounds. No tenderness to palpation. No rebound, guarding, or rigidity noted. Neurological: A&O x4. No cranial nerve dysfunction observed. No truncal ataxia. Moves all extremities. Sensation intact. Psychiatric: Cooperative and interactive. Normal mood and affect. Constitutional Vital Signs, click to edit/add: Last Vital Signs Temp 97.9 F 07/12/23 18:24 Pulse 71 07/12/23 20:50 Resp 20 07/12/23 20:50 BP 129/87 07/12/23 20:00 Pulse Ox 97 07/12/23 21:10 O2 Del Method Room Air 07/12/23 18:46 Course Vital Signs Vital signs: Vital Signs Temperature 97.9 F 07/12/23 18:24 Pulse Rate 84 07/12/23 18:24 Respiratory Rate 16 07/12/23 18:24 Blood Pressure 124/91 07/12/23 18:24 Pulse Oximetry 99 07/12/23 18:24 Oxygen Delivery Method Room Air 07/12/23 18:24 Temperature 97.9 F 07/12/23 18:24 Pulse Rate 71 07/12/23 20:50 Respiratory Rate 20 07/12/23 20:50 Blood Pressure 129/87 07/12/23 20:00 Pulse Oximetry 97 07/12/23 21:10 Oxygen Delivery Method Room Air 07/12/23 18:46 MDM - Dizziness MDM Narrative Medical decision making narrative: Patient was placed on manager monitoring and EKG obtained. Blood drawn and sent for evaluation. He was sent for noncontrast CT scan of the brain due to his headache and lightheadedness. He was given Solu-Medrol and Zofran. Head CT was unremarkable, per radiologist. Unremarkable CBC and CMP. Patient had CT angio head and neck and that was without occlusion or worrisome findings. Patient felt better after zofran and prednisone. Informed of results, given reassurance and discharged home with prescription for meclzine and we discussed reason for return to the ED. Lab Data Attestation: I reviewed the patient's lab results. Labs: Lab Results 07/12/23 07/12/23 Range/Units 18:37 19:45 WBC 5.6 (4.0-11.0) 10^3/uL RBC 5.18 (4.70-6.10) 10^6/uL Hgb 15.3 (14.0-18.0) g/dL Hct 46.7 (42.0-54.0) % MCV 90.2 (80.0-94.0) fL MCH 29.5 (25.9-34.0) pg MCHC 32.8 (29.9-35.2) g/dL RDW 13.8 (11.0-15.0) % Plt Count 203 (150-450) 10^3/uL MPV 9.5 (9.5-13.5) fL Neut % (Auto) 63.7 (43.0-75.0) % Lymph % (Auto) 25.4 (20.5-60.0) % [place] % (Auto) 8.5 (1.7-12.0) % Eos % (Auto) 1.1 (0.9-7.0) % Baso % (Auto) 1.1 (0.2-2.0) % Neut # (Auto) 3.6 (1.4-6.5) 10^3/uL Lymph # (Auto) 1.4 (1.2-3.8) 10^3/uL [place] # (Auto) 0.5 (0.3-0.8) 10^3/uL Eos # (Auto) 0.1 (0.0-0.7) 10^3/uL Baso # (Auto) 0.1 (0.0-0.1) 10^3/uL Abs Immat Gran (auto) 0.01 (0.00-0.03) 10^3/uL Imm/Tot Granulo (auto) 0.2 (0.0-0.5) % Sodium 138 (136-145) mmol/L Potassium 3.8 (3.5-5.1) mmol/L Chloride 102 (98-107) mmol/L Carbon Dioxide 25.3 (21.0-32.0) mmol/L Anion Gap 14.5 BUN 17.0 (7.0-18.0) mg/dL Creatinine 1.06 (0.70-1.30) mg/dL Est GFR ( Amer) >60 (>=60) Est GFR (Non-Af Amer) >60 (>=60) BUN/Creatinine Ratio 16.0 Glucose 107 H (74-106) mg/dL Calcium 9.1 (8.5-10.1) mg/dL Total Bilirubin 0.3 (0.2-1.0) mg/dL AST 31 (15-37) U/L ALT 35 (16-63) U/L Alkaline Phosphatase 86 (46-116) U/L Total Protein 6.7 (6.4-8.2) g/dL Albumin 3.8 (3.4-5.0) g/dL Globulin 2.9 g/dL Albumin/Globulin Ratio 1.3 POC Glucose 116 H (74-106) mg/dL Imaging Data CT scan - head: Radiologist's impression: ITS Impressions Head CT 07/12/23 19:19 IMPRESSION: 1. Normal examination. Electronically authenticated by: NURIS MEDRANO Date: 07/12/2023 19:48 Head CTA 07/12/23 20:30 IMPRESSION: 1. No evidence of large vessel occlusion (LVO), flow-limiting intracranial stenosis or aneurysm. 2. No evidence of flow-limiting extracranial artery stenosis or dissection. Electronically authenticated by: NURIS MEDRANO Date: 07/12/2023 21:41 Neck CTA 07/12/23 20:30 IMPRESSION: 1. No evidence of large vessel occlusion (LVO), flow-limiting intracranial stenosis or aneurysm. 2. No evidence of flow-limiting extracranial artery stenosis or dissection. Electronically authenticated by: NURIS MEDRANO Date: 07/12/2023 21:45 ECG Data Attestation: I personally reviewed and interpreted this ECG as follows: Interpretation: EKG interpretation: Emergency Department physician interpretation. Normal sinus rhythm at 79bpm. Normal axis, normal intervals and no ST segment elevation or depression. Low QRS voltage. Discharge Plan Discharge Stand Alone Forms: Portal Instructions Chief Complaint: Dizziness Clinical Impression: Dizziness, Headache Patient Disposition: Home, Self-Care Time of Disposition Decision: 22:00 Prescriptions / Home Meds: New meclizine 25 mg tablet 25 mg PO TID PRN (Reason: dizziness) Qty: 14 0RF No Action amitriptyline 75 mg tablet 75 mg PO BEDTIME clopidogrel 75 mg tablet 75 mg PO DAILY colchicine 0.6 mg tablet 0.6 mg PO DAILY Jardiance 10 mg tablet 10 mg PO DAILY glimepiride 4 mg tablet 4 mg PO BID isosorbide mononitrate 30 mg tablet extended release 24 hr 30 mg PO DAILY losartan 25 mg tablet 25 mg PO DAILY metformin 500 mg tablet extended release 24 hr 500 mg PO TID metoprolol succinate 25 mg tablet extended release 24 hr 12.5 mg PO DAILY pioglitazone 15 mg tablet 15 mg PO DAILY rosuvastatin 40 mg tablet 40 mg PO DAILY tadalafil 20 mg tablet 20 mg PO PRN (Reason: sexual activity) Instructions: Acute Headache (ED), Dizziness (ED) Referrals: Arnoldo Momin MD [Primary Care Provider] - 1 week
[2023-07-12] MEDS: METHYLPREDNISOLONE SOD SUCC PF 125 MG/2 ML VIAL IM (19:46)
[2023-07-12 19:56] LABS: Basophils Absolute Auto 0.1 10^3/uL (0.0-0.1); Basophils Percent Auto 1.1 % (0.2-2.0); Eosinophils Absolute Auto 0.1 10^3/uL (0.0-0.7); Eosinophils Percent Auto 1.1 % (0.9-7.0); Hematocrit 46.7 % (42.0-54.0); Hemoglobin 15.3 g/dL (14.0-18.0); Immature Granulocytes Abs Auto 0.01 10^3/uL (0.00-0.03); Immature Granulocytes Pct Auto 0.2 % (0.0-0.5); Lymphocytes Absolute Auto 1.4 10^3/uL (1.2-3.8); Lymphocytes Percent Auto 25.4 % (20.5-60.0); Mean Corpuscular HGB Conc 32.8 g/dL (29.9-35.2); Mean Corpuscular Hemoglobin 29.5 pg (25.9-34.0); Mean Corpuscular Volume 90.2 fL (80.0-94.0); Mean Platelet Volume 9.5 fL (9.5-13.5); Monocytes Absolute Auto 0.5 10^3/uL (0.3-0.8); Monocytes Percent Auto 8.5 % (1.7-12.0); Neutrophils Absolute Auto 3.6 10^3/uL (1.4-6.5); Neutrophils Percent Auto 63.7 % (43.0-75.0); Platelet Count 203 10^3/uL (150-450); Red Blood Count 5.18 10^6/uL (4.70-6.10); Red Cell Distribution Width 13.8 % (11.0-15.0); White Blood Count 5.6 10^3/uL (4.0-11.0)
[2023-07-12 20:13] LABS: Alanine Aminotransferase 35 U/L (16-63); Albumin Globulin Ratio 1.3; Albumin Level 3.8 g/dL (3.4-5.0); Alkaline Phosphatase 86 U/L (46-116); Anion Gap 14.5; Aspartate Amino Transferase 31 U/L (15-37); Bilirubin Total 0.3 mg/dL (0.2-1.0); Calcium 9.1 mg/dL (8.5-10.1); Carbon Dioxide 25.3 mmol/L (21.0-32.0); Chloride 102 mmol/L (98-107); Estimated GFR (African America >60 (>=60); Estimated GFR (Non-African Ame >60 (>=60); Globulin 2.9 g/dL; Glucose 107 mg/dL (74-106); Potassium 3.8 mmol/L (3.5-5.1); Sodium 138 mmol/L (136-145); Total Protein 6.7 g/dL (6.4-8.2)
--- NOTE | 2023-07-12 20:30 | CT_ITS ---
The [address] [address] Patient Name: SPENCER RAY MRN: [id number] date: 1960 Sex: M Assigned Patient Location: ER Current Patient Location: ER Accession/Order Number: [id number] Exam Date: 07/12/2023 21:00 Report Date: 07/12/2023 21:41 At the request of: LENNY ALLRED Procedure: CT angio head PROCEDURE: CTA neck and brain INDICATION: Headache and dizziness FINDINGS: CTA brain The MCAs are patent and without evidence of thrombus, flow-limiting stenosis or aneurysm. The ACAs are patent and without evidence of thrombus, flow-limiting stenosis or aneurysm. The preparation department supervisor are patent without evidence of thrombus or flow-limiting stenosis. The basilar artery is patent and without evidence of thrombus, flow-limiting stenosis or aneurysm. The superior cerebellar arteries are patent. The AICAs and PICAs are patent. The intradural vertebral arteries are patent without flow-limiting stenosis. The intracranial carotid arteries are patent and without flow limiting stenosis or aneurysm. The internal cerebral veins and dural venous sinuses are patent. CTA neck The thoracic aorta is normal sized and without evidence of dissection. The proximal great vessels and neck are patent and without significant stenosis or dissection The bilateral common carotid arteries are patent and without evidence of flow-limiting stenosis or dissection. The bilateral internal carotid arteries are patent and without evidence of flow-limiting stenosis or dissection. The bilateral external carotid arteries are patent and without flow-limiting stenosis. The vertebral arteries are patent and without evidence of flow-limiting stenosis or dissection. The soft tissue neck is normal. The visualized mediastinum and lung parenchyma are normal. CT/CT angio head IMPRESSION: 1. No evidence of large vessel occlusion (LVO), flow-limiting intracranial stenosis or aneurysm. 2. No evidence of flow-limiting extracranial artery stenosis or dissection. Electronically authenticated by: NURIS MEDRANO Date: 07/12/2023 21:41
--- NOTE | 2023-07-12 20:30 | CT_ITS ---
The [address] [address] Patient Name: SPENCER RAY MRN: [id number] date: 1960 Sex: M Assigned Patient Location: ER Current Patient Location: ER Accession/Order Number: [id number] Exam Date: 07/12/2023 21:00 Report Date: 07/12/2023 21:45 At the request of: LENNY ALLRED Procedure: CT angio neck PROCEDURE: CTA neck and brain INDICATION: Lightheadedness FINDINGS: CTA brain The MCAs are patent and without evidence of thrombus, flow-limiting stenosis or aneurysm. The ACAs are patent and without evidence of thrombus, flow-limiting stenosis or aneurysm. The embedded case manager are patent without evidence of thrombus or flow-limiting stenosis. The basilar artery is patent and without evidence of thrombus, flow-limiting stenosis or aneurysm. The superior cerebellar arteries are patent. The AICAs and PICAs are patent. The intradural vertebral arteries are patent without flow-limiting stenosis. The intracranial carotid arteries are patent and without flow limiting stenosis or aneurysm. The internal cerebral veins and dural venous sinuses are patent. CTA neck The thoracic aorta is normal sized and without evidence of dissection. The proximal great vessels and neck are patent and without significant stenosis or dissection The bilateral common carotid arteries are patent and without evidence of flow-limiting stenosis or dissection. The bilateral internal carotid arteries are patent and without evidence of flow-limiting stenosis or dissection. The bilateral external carotid arteries are patent and without flow-limiting stenosis. The vertebral arteries are patent and without evidence of flow-limiting stenosis or dissection. The soft tissue neck is normal. The visualized mediastinum and lung parenchyma are normal. CT/CT angio neck IMPRESSION: 1. No evidence of large vessel occlusion (LVO), flow-limiting intracranial stenosis or aneurysm. 2. No evidence of flow-limiting extracranial artery stenosis or dissection. Electronically authenticated by: NURIS MEDRANO Date: 07/12/2023 21:45
[2023-07-12] MEDS: ONDANSETRON 4 MG RAPDIS TABLET SL (20:43)
== END 2023-07-12 22:18 | disposition home or self-care (01) ==
PROVIDERS: Emergency Provider Emergency Medicine; PCP Family Medicine
DX: R42 Dizziness and giddiness (principal); R51.9 Headache, unspecified; Z79.899 Other long term (current) drug therapy; Z79.84 Long term (current) use of oral hypoglycemic drugs
CPT/HCPCS: 36415; 70450; 70496; 70498; 80053; 85025; 93005; 96372; 99285; J2930; Q9967

== ENCOUNTER 2023-09-15 07:16 | Outpatient (OUT) | payer MEDICARE, OTHER, SELFPAY ==
--- OUTSIDE RECORDS SUMMARY | 2023-09-15 07:20 | XMS_ITS | CCD ---
Author Organization [facility] Care Team Providers Care Truss Builder Name Role Phone HALINA KENNEDY Admitting Unavailable SANDRO MOMIN Referring Unavailable SANDRO MOMIN Primary Care Unavailable SIMEON COLON Attending Unavailable MD Sandro Momin Primary Care Provider MD Sandro Momin Referring Provider MD Eden Mcmahon Attending Provider MD Sandro Momin Primary Care Provider [phone] MD Sandro Momin Referring Provider MD Eden Mcmahon Attending Provider DR SANDRO MOMIN Primary Care Unavailable MATTY, DR JO Consulting Unavailable MATTY, DR JO Admitting Unavailable MATTY, DR JO Referring Unavailable MATTY, DR JO Attending Unavailable DR SANDRO MOMIN Primary Care Unavailable ROSANAMICHELE GALVEZ Admitting Unavailable MICHELE WAYNE Attending Unavailable MICHELE WAYNE Consulting Unavailable DR SANDRO MOMIN Consulting Unavailable DR SANDRO MOMIN Primary Care Unavailable MATTY, DR JO Admitting Unavailable MATTY, DR JO Attending Unavailable DR SANDRO MOMIN Primary Care Unavailable DR SANDRO MOMIN Admitting Unavailable DR SANDRO MOMIN Attending Unavailable MATTY, DR JO Consulting Unavailable MATTY, DR JO Consulting Unavailable MATTY, DR JO Admitting Unavailable MATTY, DR JO Attending Unavailable DR SANDRO MOMIN Primary Care Unavailable MATTY, DR JO Primary Care Unavailable MATTY, DR JO Consulting Unavailable MATTY, DR JO Admitting Unavailable MATTY, DR JO Attending Unavailable MATTY, DR JO Primary Care Unavailable MATTY, DR JO Consulting Unavailable MATTY, DR JO Admitting Unavailable MATTYDR JO Attending Unavailable Eden Mcmahon Unavailable Sandro Momin MD Primary Care Provider [phone] SANDRO MOMIN Primary Care Unavailable TAL IRAHETA Attending Unavailable MD Sandro Momin Primary Care Provider [phone] MD Eden Mcmahon Attending Provider MD Sandro Momin Primary Care Provider [phone] GEMA Gastelum Attending Provider Hallie Gastelum Unavailable MD Eden Mcmahon Attending Provider [phone] Eden Mcmahon Admitting Unavailable Eden Mcmahon Attending Unavailable Sandro Momin Primary Care Unavailable Hallie Gastelum Admitting Unavailable Hallie Gastelum Attending Unavailable Sandro Momin Primary Care Unavailable Eden Mcmahon Admitting Unavailable Eden Mcmahon Attending Unavailable Sandro Momin Primary Care Unavailable Eden Mcmahon Admitting Unavailable Eden Mcmahon Attending Unavailable Sandro Momin Primary Care Unavailable IVELISSE WARD Attending Unavailable KIMBERLY BECERRA Attending Unavailable IAN COSTA Attending Unavailable EDEN MCMAHON Referring Unavailable Allergies Allergy Classification Reported Allergen(s) Allergy Type Date of Onset Reaction(s) Facility Penicillins (antibiotic) (1 source) Penicillins Drug Allergy 03-07-2009 [facility] Repository (2 sources) Penicillins; Translations: [PENICILLINS] Drug allergy (disorder) 06-20-2013 [facility] Repository (1 source) Penicillins Drug Allergy 04-14-[address] [facility] Medications Current Medications Medication Drug [...] tablet (2 sources) Start: 06-23-19 End: 06-23-19 24 take 1 tablet by mouth once daily [...] glimepiride (AMARYL) 4 mg tablet Glimepiride he [place] Active Comment on above: glimepiride 4 mg [...] Start: 09-30-2022 take 0.5 tablet by m out once daily metoprolol succinate ER (TOPROL XL) [...] Classification Problem Date Documented Da te Episodic/Chronic Cardiac dysrhythmias (2 sources) Palpitations; Translations: [Palpitations] Onset: 08-12-2023 Episodic Cataract (1 source) Nuclear sclerotic cataract; Translations: [Age-related nuclear cataract, bilateral] 12-09-2022 Chronic Congestive heart failure; nonhypertensive (1 source) Unspecified diastolic (congestive) heart failure; Translations: [UNSPECIFIED DIASTOLIC HEART FAILURE] Onset: 05-27-2022 Chronic Coronary atherosclerosis and other heart disease (6 sources) Atherosclerotic heart disease of [place] coronary artery without angina pectoris; Translations: [Coronary [...] Onset: 05-27-2022 Episodic Disorders of lipid metabolism (3 sources) Hyperlipidemia, unspecified; Translations: [Mixed hyperlipidemia] Onset: 05-27-2022 Chronic Essential hypertension (3 sources) Essential (primary) hypertension; Translations: [ESSENTIAL PRIMARY HYPERTENSION] [...] apnea (adult) (pediatric)] Chronic Residual codes; unclassified (3 sources) Obstructive sleep apnea (adult) (pediatric); Translations: [Obstructive sleep apnea (adult) (pediatric)] Onset: 06-01-2023 Chronic Residual codes; unclassified (1 source) Obstructive sleep apnea (adult)(pediatric); Translations: [Obstructive sleep apnea (adult) (pediatric)] Onset: 11-11-2022 Chronic Residual codes; unclassified (2 sources) Other specified health status Episodic Residual codes; unclassified (1 source) Pain, unspecified; Translations: [Pain, unspecified] Onset: 07-13-2023 Episodic Past or Other Problems Problem Classification [...] Test Name Value Interpretation Reference Range Facility Office [place] 08-12-2023 Follow-up visit [id number] Deion Oliveira 1960 Date Provider Department [place] 08/12/2023 Shala-IVELISSE WARD [facility] Family History Problem Relation Age of Onset No Known Problems Mother No Known Problems Father Family Status - Relation Status Age at Mother Father Level of Service:39944 [place] OFFICE/OUTPATIENT ESTABLISHED LOW MDM 20 MIN Normal [facility] 29on 08-13-2022 29 Addended by: Misty BECERRA on: 08/13/2022 02:19 PM Modules accepted: Level of Service Normal [facility] Office [place] 08-13-2022 Follow-up visit [id number] Deion Oliveira 1960 M Date Provider Department Center 08/13/2022 KIMBERLY PHAN CARD [facility] Family History Problem Relation Age of Onset No Known Problems Mother No Known Problems Father Family Status - Relation Status Age at Mother Father Level of Service:53177 [place] OFFICE/OUTPATIENT ESTABLISHED MOD MDM 30-39 MIN Reason for Visit and Comments: Coronary Artery Disease [187] Hypertension [220035] Normal [facility] CEAon 05-27-2022 CEA 2.4 ng/mL Normal 0.0-4.7 [facility] Comment on above: Result Comment: Nons mokers <3.9 Smokers <5.6 . [facility] Electrochemiluminescence Immunoassay (ECLIA) . Values obtained with different assay methods or kits cannot be used interchangeably. Results cannot be interpreted as absolute evidence of the presence or absence of malignant disease. Performed By: #### F T3, CMP, T4, TSH, LIPID #### [facility] [address] [address] [address] Seven Mares INSULINon 05-27-2022 Insulin 17.6 uIU/mL Normal 2.6-24.9 [facility] Comment on above: Performed By: #### F T3, CMP, T4, TSH, LIPID #### [facility] [address] [address] [address] Seven Mares OCC BLD IMMUNO SCREENon 04-29 OCCULT BLOOD Negative Normal NEGATIVE [facility] Comment on above: Performed By: #### F T3, CMP, T4, TSH, LIPID #### [facility] [address] [address] [address] Seven Mares AMMONIAon 05-26-2022 Ammonia (P) [Moles/Vol] 15 umol/L Normal 11-32 [facility] Comment on above: Performed By: #### A MM #### [facility] [address] [place] [address] Dr. Seven aMres BNPon 05-26-2022 Natriuretic peptide B (Bld) [Mass/Vol] 30.0 pg/mL Normal <=900.0 [facility] Comment on above: Performed By: #### F T3, CMP, T4, TSH, LIPID #### [facility] [address] [place] [address] Dr. Seven Mares CBC AUTO DIFFon 05-26-2022 BASO # 0.1 103/ul Normal 0.0-0.1 [facility] Comment on above: Performed By: #### F T3, CMP, T4, TSH, LIPID #### [facility] [address] [place] [address] Dr. Seven Mares Basophils/100 WBC (Bld) 0.9 % Normal 0.2-2.0 [facility] Comment on above: Performed By: #### F T3, CMP, T4, TSH, LIPID #### [facility] [address] [place] [address] Dr. Seven Mares EO # 0.1 103/ul Normal 0.0-0.7 [facility] Comment on above: Performed By: #### F T3, CMP, T4, TSH, LIPID #### [facility] [address] [place] [address] Dr. Seven Mares Eosinophils/100 WBC (Bld) 1.9 % Normal 0.9-7.0 [facility] Comment on above: Performed By: #### F T3, CMP, T4, TSH, LIPID #### [facility] [address] [place] [address] Dr. Seven Mares Erythrocyte distribution width (RBC) [Ratio] 14.6 % Normal 11.0-15.0 [facility] Comment on above: Performed By: #### F T3, CMP, T4, TSH, LIPID #### [facility] [address] [place] [address] Dr. Seven Mares Hematocrit (Bld) [Volume fraction] 52.2 % Normal 42.0-54.0 [facility] Comment on above: Performed By: #### F T3, CMP, T4, TSH, LIPID #### [facility] [address] [place] [address] Dr. Seven Mares Hemoglobin (Bld) [Mass/Vol] 17.7 g/dL Normal 14.0-18.0 [facility] Comment on above: Performed By: #### F T3, CMP, T4, TSH, LIPID #### [facility] [address] [place] [address] Dr. Seven Mares IG # 0.08 10e3/ul Critically high 0.00-0.03 [facility] Comment on above: Performed By: #### F T3, CMP, T4, TSH, LIPID #### [facility] [address] [place] [address] Dr. Seven Mares IG % 1.1 % Critically high 0.0-0.5 [facility] Comment on above: Performed By: #### F T3, CMP, T4, TSH, LIPID #### [facility] [address] [place] [address] Dr. Seven Mares LYMPH # 2.2 103/ul Normal 1.2-3.8 [facility] Comment on above: Performed By: #### F T3, CMP, T4, TSH, LIPID #### [facility] [address] [place] [address] Dr. Seven Mares Lymphocytes/100 WBC (Bld) 29.6 % Normal 20.5-60.0 [facility] Comment on above: Performed By: #### F T3, CMP, T4, TSH, LIPID #### [facility] [address] [place] [address] Dr. Seven Mares MANUAL DIFF REQ NO Normal [facility] Comment on above: Performed By: #### F T3, CMP, T4, TSH, LIPID #### [facility] [address] [place] [address] Dr. Seven Mares MCH (RBC) [Entitic mass] 28.1 pg Normal 25.9-34.0 [facility] Comment on above: Performed By: #### F T3, CMP, T4, TSH, LIPID #### [facility] [address] [place] [address] Dr. Seven Mares MCHC (RBC) [Mass/Vol] 33.9 g/dL Normal 29.9-35.2 [facility] Comment on above: Performed By: #### F T3, CMP, T4, TSH, LIPID #### [facility] [address] [place] [address] Dr. Seven Mares MCV (RBC) [Entitic vol] 82.9 fL Normal 80.0-94.0 [facility] Comment on above: Performed By: #### F T3, CMP, T4, TSH, LIPID #### [facility] [address] [place] [address] Dr. Seven Mares MONO # 0.5 103/ul Normal 0.3-0.8 [facility] Comment on above: Performed By: #### F T3, CMP, T4, TSH, LIPID #### [facility] [address] [place] [address] Dr. Seven Mares Monocytes/100 WBC (Bld) 6.3 % Normal 1.7-12.0 [facility] Comment on above: Performed By: #### F T3, CMP, T4, TSH, LIPID #### [facility] [address] [place] [address] Dr. Seven Mares NEUT # 4.5 103/ul Normal 1.4-6.5 [facility] Comment on above: Performed By: #### F T3, CMP, T4, TSH, LIPID #### [facility] [address] [place] [address] Dr. Seven Mares Neutrophils/100 WBC (Bld) 60.2 % Normal 43.0-75.0 [facility] Comment on above: Performed By: #### F T3, CMP, T4, TSH, LIPID #### [facility] [address] [place] [address] Dr. Seven Mares Platelet mean volume (Bld) [Entitic vol] 9.4 fL Critically low 9.5-13.5 [facility] Comment on above: Performed By: #### F T3, CMP, T4, TSH, LIPID #### [facility] [address] [place] [address] Dr. Seven Mares PLT 227 103/ul Normal 150-450 [facility] Comment on above: Performed By: #### F T3, CMP, T4, TSH, LIPID #### [facility] [address] [place] [address] Dr. Seven Mares RBC 6.30 106/ul Critically high 4.70-6.10 [facility] Comment on above: Performed By: #### F T3, CMP, T4, TSH, LIPID #### [facility] [address] [address] [address] Seven Mares WBC 7.5 103/ul Normal 4.0-11.0 [facility] Comment on above: Performed By: #### F T3, CMP, T4, TSH, LIPID #### [facility] [address] [place] [address] Dr. Seven Mares FREE THYROXINE INDEX T7on FTI 2.79 Normal 1.30-4.50 [facility] Comment on above: Performed By: #### F T3, CMP, T4, TSH, LIPID #### [facility] [address] [place] [address] Dr. Seven Mares T3U 34.0 % Normal 33.0-40.0 [facility] Comment on above: Performed By: #### F T3, CMP, T4, TSH, LIPID #### [facility] [address] [place] [address] Dr. Seven Mares T4 [Mass/Vol] 8.20 ug/dL Normal 4.50-12.10 [facility] Comment on above: Performed By: #### F T3, CMP, T4, TSH, LIPID #### [facility] [address] [place] [address] Dr. Seven Mares GLYCOHEMOGLOBIN A1Con 2022 ADA RECOMMENDATION SEE BELOW Normal [facility] Comment on above: Result Comment: ADA RECOMMENDED LIMIT 4.0 - 6.0 ADA THERAPEUTIC TARGET < 7.0 ACTION SUGGESTED > 7.0 Performed By: #### F T3, CMP, T4, TSH, LIPID #### [facility] [address] [place] [address] Dr. Seven Mares Glucose [Mass/Vol] 174 mg/dL Normal [facility] Comment on above: Performed By: #### F T3, CMP, T4, TSH, LIPID #### [facility] [address] [place] [address] Dr. Seven Mares HbA1c (Bld) [Mass fraction] 7.7 % Critically high 4.5-6.2 [facility] Comment on above: Performed By: #### F T3, CMP, T4, TSH, LIPID #### [facility] [address] [address] [address] Seven Mares IRONon 05-26-2022 Iron [Mass/Vol] 98.0 ug/dL Normal 65.0-175.0 [facility] Comment on above: Performed By: #### F T3, CMP, T4, TSH, LIPID #### [facility] [address] [place] [address] Dr. Seven Mares LIPID PROFILEon 05-26-2022 CHOL-HDL RATIO NORM SEE BELOW Normal [facility] Comment on above: Result Comment: 3.3 - 4.4 LOW RISK 4.4 - 7.1 AVERAGE RISK 7.1 - 11.0 MODERATE RISK >11.0 HIGH RISK Performed By: #### F T3, CMP, T4, TSH, LIPID #### [facility] [address] [address] [address] Seven Mares Cholesterol [Mass/Vol] 127 mg/dL Normal <=200 [facility] Comment on above: Performed By: #### F T3, CMP, T4, TSH, LIPID #### [facility] [address] [place] [address] Dr. Seven Mares Cholesterol in HDL [Mass/Vol] 75 mg/dL Critically high 40-60 [facility] Comment on above: Performed By: #### F T3, CMP, T4, TSH, LIPID #### [facility] [address] [place] [address] Dr. Seven Mares Cholesterol in LDL [Mass/Vol] 27.6 mg/dL Normal [facility] Comment on above: Performed By: #### F T3, CMP, T4, TSH, LIPID #### [facility] [address] [place] [address] Dr. Seven Mares Cholesterol.total/ Cholesterol in HDL [Mass ratio] 1.7 {ratio} Normal [facility] Comment on above: Performed By: #### F T3, CMP, T4, TSH, LIPID #### [facility] [address] [address] [address] Seven Mares HDL NORMAL > or = 60 mg/dl - LO W CARDIOVASCULAR RISK <40 mg/dl - HIGH CARDIOVASCULAR RISK Normal [facility] Comment on above: Performed By: #### F T3, CMP, T4, TSH, LIPID #### [facility] [address] [address] [address] Seven Mares LDL CALC NORMAL SEE BELOW Normal [facility] Comment on above: Result Comment: <100 mg/dl OPTIMAL 100 - 129 mg/dl NEAR OR ABOVE OPTIMAL 130 - 159 mg/dl BORDERLINE HIGH 160 - 189 mg/dl HIGH >190 mg/dl VERY HIGH Performed By: #### F T3, CMP, T4, TSH, LIPID #### [facility] [address] [address] [address] Seven Mares Triglyceride [Mass/Vol] 122 mg/dL Normal <=150 [facility] Comment on above: Performed By: #### F T3, CMP, T4, TSH, LIPID #### [facility] [address] [address] [address] Seven Mares VLDL CALC 24.4 mg/dL Normal [facility] Comment on above: Performed By: #### F T3, CMP, T4, TSH, LIPID #### [facility] [address] [address] [address] Seven Mares PROF 14(COMP METB)on 023 Albumin [Mass/Vol] 4.4 g/dL Normal 3.4-5.0 [facility] Comment on above: Performed By: #### F T3, CMP, T4, TSH, LIPID #### [facility] [address] [address] [address] Seven Mares Albumin/Globulin [Mass ratio] 1.3 {ratio} Normal [facility] Comment on above: Performed By: #### F T3, CMP, T4, TSH, LIPID #### [facility] [address] [address] [address] Seven Mares ALP [Catalytic activity/Vol] 93 U/L Normal 46-116 [facility] Comment on above: Performed By: #### F T3, CMP, T4, TSH, LIPID #### [facility] [address] [address] [address] Seven Mares ALT [Catalytic activity/Vol] 30 U/L Normal 16-63 [facility] Comment on above: Performed By: #### F T3, CMP, T4, TSH, LIPID #### [facility] [address] [place] [address] Dr. Seven Mares Anion gap [Moles/Vol] 12.6 mmol/L Normal [facility] Comment on above: Performed By: #### F T3, CMP, T4, TSH, LIPID #### [facility] [address] [place] [address] Dr. Seven Mares AST [Catalytic activity/Vol] 25 U/L Normal 15-37 [facility] Comment on above: Performed By: #### F T3, CMP, T4, TSH, LIPID #### [facility] [address] [place] [address] Dr. Seven Mares Bilirubin [Mass/Vol] 0.5 mg/dL Normal 0.2-1.0 [facility] Comment on above: Performed By: #### F T3, CMP, T4, TSH, LIPID #### [facility] [address] [place] [address] Dr. Seven Mares Calcium [Mass/Vol] 9.3 mg/dL Normal 8.5-10.1 [facility] Comment on above: Performed By: #### F T3, CMP, T4, TSH, LIPID #### [facility] [address] [address] [address] Seven Mares Chloride [Moles/Vol] 102 mmol/L Normal 98-107 [facility] Comment on above: Performed By: #### F T3, CMP, T4, TSH, LIPID #### [facility] [address] [place] [address] Dr. Seven Mares CO2 [Moles/Vol] 30.5 mmol/L Normal 21.0-32.0 [facility] Comment on above: Performed By: #### F T3, CMP, T4, TSH, LIPID #### [facility] [address] [address] [address] Seven Mares Creatinine [Mass/Vol] 1.09 mg/dL Normal 0.70-1.30 [facility] Comment on above: Performed By: #### F T3, CMP, T4, TSH, LIPID #### [facility] [address] [address] [address] Seven Mares EGFR-AF PALAUAN >60 Normal >=60 [facility] Comment on above: Performed By: #### F T3, CMP, T4, TSH, LIPID #### [facility] [address] [address] [address] Seven Mares EGFR-NON AF PALAUAN >60 Normal >=60 [facility] Comment on above: Performed By: #### F T3, CMP, T4, TSH, LIPID #### [facility] [address] [address] [address] Seven Mares Globulin (S) [Mass/Vol] 3.5 g/dL Normal [facility] Comment on above: Performed By: #### F T3, CMP, T4, TSH, LIPID #### [facility] [address] [address] [address] Seven Mares Glucose [Mass/Vol] 134 mg/dL Critically high 74-106 [facility] Comment on above: Performed By: #### F T3, CMP, T4, TSH, LIPID #### [facility] [address] [address] [address] Seven Mares Potassium [Moles/Vol] 4.1 mmol/L Normal 3.5-5.1 [facility] Comment on above: Performed By: #### F T3, CMP, T4, TSH, LIPID #### [facility] [address] [address] [address] Seven Mares Protein [Mass/Vol] 7.9 g/dL Normal 6.4-8.2 [facility] Comment on above: Performed By: #### F T3, CMP, T4, TSH, LIPID #### [facility] [address] [address] [address] Seven Mares Sodium [Moles/Vol] 141 mmol/L Normal 136-145 [facility] Comment on above: Performed By: #### F T3, CMP, T4, TSH, LIPID #### [facility] [address] [address] [address] Seven Mares Urea nitrogen [Mass/Vol] 22.0 mg/dL Critically high 7.0-18.0 [facility] Comment on above: Performed By: #### F T3, CMP, T4, TSH, LIPID #### [facility] [address] [place] [address] Dr. Seven Mares Urea nitrogen/Creatinin e [Mass ratio] 20.2 mg/mg Normal [facility] Comment on above: Performed By: #### F T3, CMP, T4, TSH, LIPID #### [facility] [address] [place] [address] Dr. Seven Mares TSHon 05-26-2022 TSH 2.661 uIU/mL Normal 0.358-3.740 [facility] Comment on above: Performed By: #### F T3, CMP, T4, TSH, LIPID #### [facility] [address] [place] [address] Dr. Seven Mares GLUCOSE BLOODon 04-08-2022 Glucose [Mass/Vol] 128 mg/dL Critically high 74-106 [facility] Comment on above: Performed By: #### F T3, CMP, T4, TSH, LIPID #### [facility] [address] [place] [address] Dr. Seven Mares LIPID PROFILEon 04-08-2022 CHOL-HDL RATIO NORM SEE BELOW Normal [facility] Comment on above: Result Comment: 3.3 - 4.4 LOW RISK 4.4 - 7.1 AVERAGE RISK 7.1 - 11.0 MODERATE RISK >11.0 HIGH RISK Performed By: #### F T3, CMP, T4, TSH, LIPID #### [facility] [address] [place] [address] Dr. Seven Mares Cholesterol [Mass/Vol] 119 mg/dL Normal <=200 [facility] Comment on above: Performed By: #### F T3, CMP, T4, TSH, LIPID #### [facility] [address] [address] [address] Seven Mares Cholesterol in HDL [Mass/Vol] 59 mg/dL Normal 40-60 [facility] Comment on above: Performed By: #### F T3, CMP, T4, TSH, LIPID #### [facility] [address] [address] [address] Seven Mares Cholesterol in LDL [Mass/Vol] 42.6 mg/dL Normal [facility] Comment on above: Performed By: #### F T3, CMP, T4, TSH, LIPID #### [facility] [address] [address] [address] Seven Mares Cholesterol.total/ Cholesterol in HDL [Mass ratio] 2.0 {ratio} Normal [facility] Comment on above: Performed By: #### F T3, CMP, T4, TSH, LIPID #### [facility] [address] [address] [address] Seven Mares HDL NORMAL > or = 60 mg/dl - LO W CARDIOVASCULAR RISK <40 mg/dl - HIGH CARDIOVASCULAR RISK Normal [facility] Comment on above: Performed By: #### F T3, CMP, T4, TSH, LIPID #### [facility] [address] [address] [address] Seven Mares LDL CALC NORMAL SEE BELOW Normal [facility] Comment on above: Result Comment: <100 mg/dl OPTIMAL 100 - 129 mg/dl NEAR OR ABOVE OPTIMAL 130 - 159 mg/dl BORDERLINE HIGH 160 - 189 mg/dl HIGH >190 mg/dl VERY HIGH Performed By: #### F T3, CMP, T4, TSH, LIPID #### [facility] [address] [address] [address] Seven Mares Triglyceride [Mass/Vol] 87 mg/dL Normal <=150 [facility] Comment on above: Performed By: #### F T3, CMP, T4, TSH, LIPID #### [facility] [address] [place] [address] Dr. Seven Mares VLDL CALC 17.4 mg/dL Normal [facility] Comment on above: Performed By: #### F T3, CMP, T4, TSH, LIPID #### [facility] [address] [place] [address] Dr. Seven Mares CBC AUTO DIFFon 11-14-2021 BASO # 0.1 103/ul Normal 0.0-0.1 [facility] Comment on above: Performed By: #### F T3, CMP, T4, TSH, LIPID #### [facility] [address] [place] [address] Dr. Seven Mares Basophils/100 WBC (Bld) 1.0 % Normal 0.2-2.0 [facility] Comment on above: Performed By: #### F T3, CMP, T4, TSH, LIPID #### [facility] [address] [place] [address] Dr. Seven Mares EO # 0.1 103/ul Normal 0.0-0.7 [facility] Comment on above: Performed By: #### F T3, CMP, T4, TSH, LIPID #### [facility] [address] [place] [address] Dr. Seven Mares Eosinophils/100 WBC (Bld) 2.4 % Normal 0.9-7.0 [facility] Comment on above: Performed By: #### F T3, CMP, T4, TSH, LIPID #### [facility] [address] [place] [address] Dr. Seven Mares Erythrocyte distribution width (RBC) [Ratio] 14.1 % Normal 11.0-15.0 [facility] Comment on above: Performed By: #### F T3, CMP, T4, TSH, LIPID #### [facility] [address] [place] [address] Dr. Seven Mares Hematocrit (Bld) [Volume fraction] 46.8 % Normal 42.0-54.0 [facility] Comment on above: Performed By: #### F T3, CMP, T4, TSH, LIPID #### [facility] [address] [place] [address] Dr. Seven Mares Hemoglobin (Bld) [Mass/Vol] 15.7 g/dL Normal 14.0-18.0 [facility] Comment on above: Performed By: #### F T3, CMP, T4, TSH, LIPID #### [facility] [address] [place] [address] [address] Seven Mares IG # 0.02 10e3/ul Normal 0.00-0.03 [facility] Comment on above: Performed By: #### F T3, CMP, T4, TSH, LIPID #### [facility] [address] [place] [address] [address] Seven Mares IG % 0.4 % Normal 0.0-0.5 [facility] Comment on above: Performed By: #### F T3, CMP, T4, TSH, LIPID #### [facility] [address] [place] [address] Dr. Seven Mares LYMPH # 1.1 103/ul Critically low 1.2-3.8 [facility] Comment on above: Performed By: #### F T3, CMP, T4, TSH, LIPID #### [facility] [address] [place] [address] Dr. Seven Mares Lymphocytes/100 WBC (Bld) 22.9 % Normal 20.5-60.0 [facility] Comment on above: Performed By: #### F T3, CMP, T4, TSH, LIPID #### [facility] [address] [place] [address] Dr. Seven Mares MANUAL DIFF REQ NO Normal [facility] Comment on above: Performed By: #### F T3, CMP, T4, TSH, LIPID #### [facility] [address] [place] [address] Dr. Seven Mares MCH (RBC) [Entitic mass] 29.2 pg Normal 25.9-34.0 [facility] Comment on above: Performed By: #### F T3, CMP, T4, TSH, LIPID #### [facility] [address] [place] [address] Dr. Seven Mares MCHC (RBC) [Mass/Vol] 33.5 g/dL Normal 29.9-35.2 [facility] Comment on above: Performed By: #### F T3, CMP, T4, TSH, LIPID #### [facility] [address] [place] [address] Dr. Seven Mares MCV (RBC) [Entitic vol] 87.0 fL Normal 80.0-94.0 [facility] Comment on above: Performed By: #### F T3, CMP, T4, TSH, LIPID #### [facility] [address] [place] [address] [address] Seven Mares MONO # 0.5 103/ul Normal 0.3-0.8 [facility] Comment on above: Performed By: #### F T3, CMP, T4, TSH, LIPID #### [facility] [address] [place] [address] [address] Seven Mares Monocytes/100 WBC (Bld) 9.9 % Normal 1.7-12.0 [facility] Comment on above: Performed By: #### F T3, CMP, T4, TSH, LIPID #### [facility] [address] [place] [address] Dr. Seven Mares NEUT # 3.1 103/ul Normal 1.4-6.5 [facility] Comment on above: Performed By: #### F T3, CMP, T4, TSH, LIPID #### [facility] [address] [place] [address] Dr. Seven Mares Neutrophils/100 WBC (Bld) 63.4 % Normal 43.0-75.0 [facility] Comment on above: Performed By: #### F T3, CMP, T4, TSH, LIPID #### [facility] [address] [place] [address] Dr. Seven Mares Platelet mean volume (Bld) [Entitic vol] 9.3 fL Critically low 9.5-13.5 [facility] Comment on above: Performed By: #### F T3, CMP, T4, TSH, LIPID #### [facility] [address] [place] [address] Dr. Seven Mares PLT 227 103/ul Normal 150-450 [facility] Comment on above: Performed By: #### F T3, CMP, T4, TSH, LIPID #### [facility] [address] [place] [address] Dr. Seven Mares RBC 5.38 106/ul Normal 4.70-6.10 [facility] Comment on above: Performed By: #### F T3, CMP, T4, TSH, LIPID #### [facility] [address] [place] [address] [address] Seven Mares WBC 4.9 103/ul Normal 4.0-11.0 [facility] Comment on above: Performed By: #### F T3, CMP, T4, TSH, LIPID #### [facility] [address] [place] [address] [address] Seven Mares FREE T3on 11-14-2021 FREE T3 2.43 pg/mlL Normal 2.18-3.98 [facility] Comment on above: Performed By: #### F T3, CMP, T4, TSH, LIPID #### [facility] [address] [place] [address] [address] Seven Mares GLYCOHEMOGLOBIN A1Con 2021 ADA RECOMMENDATION SEE BELOW Normal [facility] Comment on above: Result Comment: ADA RECOMMENDED LIMIT 4.0 - 6.0 ADA THERAPEUTIC TARGET < 7.0 ACTION SUGGESTED > 7.0 Performed By: #### F T3, CMP, T4, TSH, LIPID #### [facility] [address] [place] [address] [address] Seven Mares Glucose [Mass/Vol] 143 mg/dL Normal [facility] Comment on above: Performed By: #### F T3, CMP, T4, TSH, LIPID #### [facility] [address] [place] [address] [address] Seven Mares HbA1c (Bld) [Mass fraction] 6.6 % Critically high 4.5-6.2 [facility] Comment on above: Performed By: #### F T3, CMP, T4, TSH, LIPID #### [facility] [address] [place] [address] [address] Seven Mares LIPID PROFILEon 11-14-2021 CHOL-HDL RATIO NORM SEE BELOW Normal [facility] Comment on above: Result Comment: 3.3 - 4.4 LOW RISK 4.4 - 7.1 AVERAGE RISK 7.1 - 11.0 MODERATE RISK >11.0 HIGH RISK Performed By: #### F T3, CMP, T4, TSH, LIPID #### [facility] [address] [place] [address] [address] Seven Mares Cholesterol [Mass/Vol] 102 mg/dL Normal <=200 [facility] Comment on above: Performed By: #### F T3, CMP, T4, TSH, LIPID #### [facility] [address] [place] [address] [address] Seven Mares Cholesterol in HDL [Mass/Vol] 47 mg/dL Normal 40-60 [facility] Comment on above: Performed By: #### F T3, CMP, T4, TSH, LIPID #### [facility] [address] [place] [address] [address] Seven Mares Cholesterol in LDL [Mass/Vol] 30.6 mg/dL Normal [facility] Comment on above: Performed By: #### F T3, CMP, T4, TSH, LIPID #### [facility] [address] [place] [address] [address] Seven Mares Cholesterol.total/ Cholesterol in HDL [Mass ratio] 2.2 {ratio} Normal [facility] Comment on above: Performed By: #### F T3, CMP, T4, TSH, LIPID #### [facility] [address] [place] [address] [address] Seven Mares HDL NORMAL > or = 60 mg/dl - LO W CARDIOVASCULAR RISK <40 mg/dl - HIGH CARDIOVASCULAR RISK Normal [facility] Comment on above: Performed By: #### F T3, CMP, T4, TSH, LIPID #### [facility] [address] [place] [address] [address] Seven Mares LDL CALC NORMAL SEE BELOW Normal [facility] Comment on above: Result Comment: <100 mg/dl OPTIMAL 100 - 129 mg/dl NEAR OR ABOVE OPTIMAL 130 - 159 mg/dl BORDERLINE HIGH 160 - 189 mg/dl HIGH >190 mg/dl VERY HIGH Performed By: #### F T3, CMP, T4, TSH, LIPID #### [facility] [address] [place] [address] [address] Seven Mares Triglyceride [Mass/Vol] 122 mg/dL Normal <=150 [facility] Comment on above: Performed By: #### F T3, CMP, T4, TSH, LIPID #### [facility] [address] [place] [address] Dr. Seven Mares VLDL CALC 24.4 mg/dL Normal [facility] Comment on above: Performed By: #### F T3, CMP, T4, TSH, LIPID #### [facility] [address] [place] [address] Dr. Seven Mares PROF 14(COMP METB)on 022 Albumin [Mass/Vol] 4.1 g/dL Normal 3.4-5.0 [facility] Comment on above: Performed By: #### F T3, CMP, T4, TSH, LIPID #### [facility] [address] [place] [address] Dr. Seven Mares Albumin/Globulin [Mass ratio] 1.3 {ratio} Normal [facility] Comment on above: Performed By: #### F T3, CMP, T4, TSH, LIPID #### [facility] [address] [place] [address] Dr. Seven Mares ALP [Catalytic activity/Vol] 115 U/L Normal 46-116 [facility] Comment on above: Performed By: #### F T3, CMP, T4, TSH, LIPID #### [facility] [address] [place] [address] Dr. Seven Mares ALT [Catalytic activity/Vol] 46 U/L Normal 16-63 [facility] Comment on above: Performed By: #### F T3, CMP, T4, TSH, LIPID #### [facility] [address] [place] [address] Dr. Seven Mares Anion gap [Moles/Vol] 11.0 mmol/L Normal [facility] Comment on above: Performed By: #### F T3, CMP, T4, TSH, LIPID #### [facility] [address] [place] [address] Dr. Seven Mares AST [Catalytic activity/Vol] 28 U/L Normal 15-37 [facility] Comment on above: Performed By: #### F T3, CMP, T4, TSH, LIPID #### [facility] [address] [place] [address] Dr. Seven Mares Bilirubin [Mass/Vol] 0.5 mg/dL Normal 0.2-1.0 [facility] Comment on above: Performed By: #### F T3, CMP, T4, TSH, LIPID #### [facility] [address] [place] [address] [address] Seven Mares Calcium [Mass/Vol] 9.0 mg/dL Normal 8.5-10.1 [facility] Comment on above: Performed By: #### F T3, CMP, T4, TSH, LIPID #### [facility] [address] [place] [address] [address] Seven Mares Chloride [Moles/Vol] 106 mmol/L Normal 98-107 [facility] Comment on above: Performed By: #### F T3, CMP, T4, TSH, LIPID #### [facility] [address] [place] [address] [address] Seven Mares CO2 [Moles/Vol] 28.1 mmol/L Normal 21.0-32.0 [facility] Comment on above: Performed By: #### F T3, CMP, T4, TSH, LIPID #### [facility] [address] [place] [address] [address] Seven Mares Creatinine [Mass/Vol] 1.22 mg/dL Normal 0.70-1.30 [facility] Comment on above: Performed By: #### F T3, CMP, T4, TSH, LIPID #### [facility] [address] [place] [address] [address] Seven Mares EGFR-AF PALAUAN >60 Normal >=60 [facility] Comment on above: Performed By: #### F T3, CMP, T4, TSH, LIPID #### [facility] [address] [place] [address] [address] Seven Mares EGFR-NON AF PALAUAN =60 Normal >=60 [facility] Comment on above: Performed By: #### F T3, CMP, T4, TSH, LIPID #### [facility] [address] [place] [address] [address] Seven Mares Globulin (S) [Mass/Vol] 3.2 g/dL Normal [facility] Comment on above: Performed By: #### F T3, CMP, T4, TSH, LIPID #### [facility] [address] [place] [address] [address] Seven Mares Glucose [Mass/Vol] 131 mg/dL Critically high 74-106 [facility] Comment on above: Performed By: #### F T3, CMP, T4, TSH, LIPID #### [facility] [address] [place] [address] Dr. Seven Mares Potassium [Moles/Vol] 4.1 mmol/L Normal 3.5-5.1 [facility] Comment on above: Performed By: #### F T3, CMP, T4, TSH, LIPID #### [facility] [address] [place] [address] Dr. Seven Mares Protein [Mass/Vol] 7.3 g/dL Normal 6.4-8.2 [facility] Comment on above: Performed By: #### F T3, CMP, T4, TSH, LIPID #### [facility] [address] [place] [address] Dr. Seven Mares Sodium [Moles/Vol] 141 mmol/L Normal 136-145 [facility] Comment on above: Performed By: #### F T3, CMP, T4, TSH, LIPID #### [facility] [address] [place] [address] Dr. Seven Mares Urea nitrogen [Mass/Vol] 14.0 mg/dL Normal 7.0-18.0 [facility] Comment on above: Performed By: #### F T3, CMP, T4, TSH, LIPID #### [facility] [address] [place] [address] Dr. Seven Mares Urea nitrogen/Creatinin e [Mass ratio] 11.5 mg/mg Normal [facility] Comment on above: Performed By: #### F T3, CMP, T4, TSH, LIPID #### [facility] [address] [place] [address] Dr. Seven Mares T4on 11-14-2021 T4 [Mass/Vol] 9.50 ug/dL Normal 4.50-12.10 [facility] Comment on above: Performed By: #### F T3, CMP, T4, TSH, LIPID #### [facility] [address] [place], [place] [address] Dr. Seven Mares TSHon 11-14-2021 TSH 2.820 uIU/mL Normal 0.358-3.740 [facility] Comment on above: Performed By: #### F T3, CMP, T4, TSH, LIPID #### [facility] [address] [place], [place] [address] Dr. Seven Mares ECHOCARDIO M/2D COMPLETEon 0 06-21-2021 ECHOCARDIO M/2D COMPLETE Patient: SPENCER OLIVEIRA Exam Date: 06/21/2021 : 1960 Gender:M Ordering : DR SANDRO MOMIN . Admission #: [id number] Family : Order #: [id number] CLICK HERE TO VIEW EXAM ECHOCARDIOGRAM REPORT PROCEDURE: CARDIO PULMONARY ECHOCARDIO M/2D COMP INDICATIONS: Cold hand and feet, Hx: stents, GA COMPARISON: None. DESCRIPTION: COMPLETE ECHOCARDIOGRAM Real-time transthoracic [...] Area(A4C): 14.00 cm2 Left Atrium Systolic Volume(A2C): 17143 mm3 Left Atrium Systolic Volume(A4C): 40091 mm3 Mitral Valve MV E to A Ratio: 0.70 Deceleration Bo[place]: 2100 mm/s2 Mitral Valve A-Wave Peak Velocity: [...] M.D. on 06/21/2021 at 10:14 Normal [facility] BNPon 06-07-2021 Natriuretic peptide B (Bld) [Mass/Vol] 27.0 pg/mL Normal <=900.0 [facility] Comment on above: Performed By: #### T 7, TSH, BNP, CMP #### [facility] [address] [place] [address] Dr. Seven Mares CBC AUTO DIFFon 06-07-2021 BASO # 0.1 103/ul Normal 0.0-0.1 [facility] Comment on above: Performed By: #### F T3, CMP, T4, TSH, LIPID #### [facility] [address] [place] [address] Dr. Seven Mares Basophils/100 WBC (Bld) 1.3 % Normal 0.2-2.0 [facility] Comment on above: Performed By: #### F T3, CMP, T4, TSH, LIPID #### [facility] [address] [place] [address] Dr. Seven Mares EO # 0.1 103/ul Normal 0.0-0.7 [facility] Comment on above: Performed By: #### F T3, CMP, T4, TSH, LIPID #### [facility] [address] [place] [address] Dr. Seven Mares Eosinophils/100 WBC (Bld) 1.9 % Normal 0.9-7.0 [facility] Comment on above: Performed By: #### F T3, CMP, T4, TSH, LIPID #### [facility] [address] [place] [address] Dr. Seven Mares Erythrocyte distribution width (RBC) [Ratio] 13.9 % Normal 11.0-15.0 [facility] Comment on above: Performed By: #### F T3, CMP, T4, TSH, LIPID #### [facility] [address] [place] [address] Dr. Seven Mares Hematocrit (Bld) [Volume fraction] 47.5 % Normal 42.0-54.0 [facility] Comment on above: Performed By: #### F T3, CMP, T4, TSH, LIPID #### [facility] [address] [place] [address] Dr. Seven Mares Hemoglobin (Bld) [Mass/Vol] 15.9 g/dL Normal 14.0-18.0 [facility] Comment on above: Performed By: #### F T3, CMP, T4, TSH, LIPID #### [facility] [address] [place] [address] Dr. Seven Mares IG # 0.02 10e3/ul Normal 0.00-0.03 [facility] Comment on above: Performed By: #### F T3, CMP, T4, TSH, LIPID #### [facility] [address] [place] [address] Dr. Seven Mares IG % 0.4 % Normal 0.0-0.5 [facility] Comment on above: Performed By: #### F T3, CMP, T4, TSH, LIPID #### [facility] [address] [place] [address] Dr. Seven Mares LYMPH # 1.5 103/ul Normal 1.2-3.8 [facility] Comment on above: Performed By: #### F T3, CMP, T4, TSH, LIPID #### [facility] [address] [place] [address] Dr. Seven Mares Lymphocytes/100 WBC (Bld) 28.1 % Normal 20.5-60.0 [facility] Comment on above: Performed By: #### F T3, CMP, T4, TSH, LIPID #### [facility] [address] [place] [address] Dr. Seven Mares MANUAL DIFF REQ NO Normal [facility] Comment on above: Performed By: #### F T3, CMP, T4, TSH, LIPID #### [facility] [address] [place] [address] Dr. Seven Mares MCH (RBC) [Entitic mass] 28.9 pg Normal 25.9-34.0 [facility] Comment on above: Performed By: #### F T3, CMP, T4, TSH, LIPID #### [facility] [address] [place] [address] Dr. Seven Mares MCHC (RBC) [Mass/Vol] 33.5 g/dL Normal 29.9-35.2 [facility] Comment on above: Performed By: #### F T3, CMP, T4, TSH, LIPID #### [facility] [address] [place] [address] Dr. Seven Mares MCV (RBC) [Entitic vol] 86.4 fL Normal 80.0-94.0 [facility] Comment on above: Performed By: #### F T3, CMP, T4, TSH, LIPID #### [facility] [address] [address] [address] Seven Mares MONO # 0.6 103/ul Normal 0.3-0.8 [facility] Comment on above: Performed By: #### F T3, CMP, T4, TSH, LIPID #### [facility] [address] [address] [address] Seven Mares Monocytes/100 WBC (Bld) 10.5 % Normal 1.7-12.0 [facility] Comment on above: Performed By: #### F T3, CMP, T4, TSH, LIPID #### [facility] [address] [place] [address] Dr. Seven Mares NEUT # 3.0 103/ul Normal 1.4-6.5 [facility] Comment on above: Performed By: #### F T3, CMP, T4, TSH, LIPID #### [facility] [address] [place] [address] Dr. Seven Mares Neutrophils/100 WBC (Bld) 57.8 % Normal 43.0-75.0 [facility] Comment on above: Performed By: #### F T3, CMP, T4, TSH, LIPID #### [facility] [address] [place] [address] Dr. Seven Mares Platelet mean volume (Bld) [Entitic vol] 9.4 fL Critically low 9.5-13.5 [facility] Comment on above: Performed By: #### F T3, CMP, T4, TSH, LIPID #### [facility] [address] [place] [address] Dr. Seven Mares PLT 208 103/ul Normal 150-450 [facility] Comment on above: Performed By: #### F T3, CMP, T4, TSH, LIPID #### [facility] [address] [place] [address] Dr. Seven Mares RBC 5.50 106/ul Normal 4.70-6.10 [facility] Comment on above: Performed By: #### F T3, CMP, T4, TSH, LIPID #### [facility] [address] [place] [address] Dr. Seven Mares WBC 5.2 103/ul Normal 4.0-11.0 [facility] [place] [facility] Comment on above: Performed By: #### F T3, CMP, T4, TSH, LIPID #### [facility] [address] [place] [address] Dr. Seven Mares FREE THYROXINE INDEX T7on FTI 2.88 Normal [facility] Comment on above: Performed By: #### T 7, TSH, BNP, CMP #### [facility] [address] [place] [address] Dr. Seven Mares T3U 32.0 % Normal 23.5-40.5 [facility] Comment on above: Performed By: #### T 7, TSH, BNP, CMP #### [facility] [address] [place] [address] Dr. Seven Mares T4 [Mass/Vol] 9.00 ug/dL Normal 5.53-11.00 [facility] Comment on above: Performed By: #### T 7, TSH, BNP, CMP #### [facility] [address] [place] [address] Dr. Seven Mares IRONon 06-07-2021 Iron [Mass/Vol] 71.0 ug/dL Normal 49.0-181.0 [facility] Comment on above: Performed By: #### F T3, CMP, T4, TSH, LIPID #### [facility] [address] [place] [address] Dr. Seven Mares PROF 14(COMP METB)on 022 Albumin [Mass/Vol] 4.0 g/dL Normal 3.5-5.0 [facility] Comment on above: Performed By: #### T 7, TSH, BNP, CMP #### [facility] [address] [place] [address] Dr. Seven Mares Albumin/Globulin [Mass ratio] 1.2 {ratio} Normal [facility] Comment on above: Performed By: #### T 7, TSH, BNP, CMP #### [facility] [address] [place] [address] [address] Seven Mares ALP [Catalytic activity/Vol] 100 U/L Normal 38-126 [facility] Comment on above: Performed By: #### T 7, TSH, BNP, CMP #### [facility] [address] [place] [address] Dr. Seven Mares ALT [Catalytic activity/Vol] 40 U/L Normal 21-72 [facility] Comment on above: Performed By: #### T 7, TSH, BNP, CMP #### [facility] [address] [place] [address] Dr. Seven Mares Anion gap [Moles/Vol] 11.3 mmol/L Normal [facility] Comment on above: Performed By: #### T 7, TSH, BNP, CMP #### [facility] [address] [place] [address] Dr. Seven Mares AST [Catalytic activity/Vol] 23 U/L Normal 17-59 [facility] Comment on above: Performed By: #### T 7, TSH, BNP, CMP #### [facility] [address] [place] [address] Dr. Seven Mares Bilirubin [Mass/Vol] 0.4 mg/dL Normal 0.2-1.3 [facility] Comment on above: Performed By: #### T 7, TSH, BNP, CMP #### [facility] [address] [place] [address] Dr. Seven Mares Calcium [Mass/Vol] 8.9 mg/dL Normal 8.4-10.2 [facility] Comment on above: Performed By: #### T 7, TSH, BNP, CMP #### [facility] [address] [place] [address] Dr. Seven Mares Chloride [Moles/Vol] 104 mmol/L Normal 98-107 [facility] [place] [facility] Comment on above: Performed By: #### T 7, TSH, BNP, CMP #### [facility] [address] [place] [address] Dr. Seven Mares CO2 [Moles/Vol] 27.9 mmol/L Normal 22.0-30.0 [facility] Comment on above: Performed By: #### T 7, TSH, BNP, CMP #### [facility] [address] [place] [address] [address] Seven Mares Creatinine [Mass/Vol] 1.22 mg/dL Normal 0.66-1.25 [facility] Comment on above: Performed By: #### T 7, TSH, BNP, CMP #### [facility] [address] [place] [address] [address] Seven Mares EGFR-AF PALAUAN >60 Normal >=60 [facility] Comment on above: Performed By: #### T 7, TSH, BNP, CMP #### [facility] [address] [place] [address] [address] Seven Mares EGFR-NON AF PALAUAN =60 Normal >=60 [facility] Comment on above: Performed By: #### T 7, TSH, BNP, CMP #### [facility] [address] [place] [address] [address] Seven Mares Globulin (S) [Mass/Vol] 3.4 g/dL Normal [facility] Comment on above: Performed By: #### T 7, TSH, BNP, CMP #### [facility] [address] [place] [address] [address] Seven Mares Glucose [Mass/Vol] 165 mg/dL Critically high 74-106 [facility] Comment on above: Performed By: #### T 7, TSH, BNP, CMP #### [facility] [address] [address] [address] Seven Mares Potassium [Moles/Vol] 4.2 mmol/L Normal 3.4-5.0 [facility] Comment on above: Performed By: #### T 7, TSH, BNP, CMP #### [facility] [address] [address] [address] Seven Mares Protein [Mass/Vol] 7.4 g/dL Normal 6.1-8.2 [facility] Comment on above: Performed By: #### T 7, TSH, BNP, CMP #### [facility] [address] [address] [address] Seven Mares Sodium [Moles/Vol] 139 mmol/L Normal 137-145 [facility] Comment on above: Performed By: #### T 7, TSH, BNP, CMP #### [facility] [address] [place] [address] Dr. Seven Mares Urea nitrogen [Mass/Vol] 17.0 mg/dL Normal 9.0-20.0 [facility] Comment on above: Performed By: #### T 7, TSH, BNP, CMP #### [facility] [address] [place] [address] Dr. Seven Mares Urea nitrogen/Creatinin e [Mass ratio] 13.9 mg/mg Normal [facility] Comment on above: Performed By: #### T 7, TSH, BNP, CMP #### [facility] [address] [place] [address] Dr. Seven Mares TSHon 06-07-2021 TSH 3.659 uIU/mL Normal 0.470-4.680 [facility] Comment on above: Performed By: #### T 7, TSH, BNP, CMP #### [facility] [address] [place] [address] Dr. Seven Mares TSH RANGE SEE BELOW Normal [facility] Comment on above: Result Comment: <0.3 4 UIU/ml HYPERTHYROID 0.34-5.60 UIU/ml EUTHYROID >5.60 UIU/ml HYPOTHYROID Performed By: #### T 7, TSH, BNP, CMP #### [facility] [address] [place] [address] Dr. Seven Mares BASIC METABOLIC PANELon -0 Calcium [Mass/Vol] 8.8 mg/dL Normal 8.6-10.3 [facility] Comment on above: Order Comment: No: D o not add to previous draw Performed By: #### 0 0071, 65317, 31259 #### [facility] [address] [place] [address], [facility] Chloride [Moles/Vol] 102 mmol/L Normal 98-107 [facility] Comment on above: Order Comment: No: D o not add to previous draw Performed By: #### 0 0071, 91153, 24060 #### [facility] [address] [place] [address], [place] CO2 [Moles/Vol] 27 mmol/L Normal 21-31 [facility] Comment on above: Order Comment: No: D o not add to previous draw Performed By: #### 0 0071, 62882, 14750 #### [facility] [address] [place] [address], [place] Creatinine [Mass/Vol] 0.81 mg/dL Normal 0.70-1.30 [facility] Comment on above: Order Comment: No: D o not add to previous draw Performed By: #### 0 0071, 52753, 24325 #### [facility] [address] [place] [address], [facility] GFR/1.73 sq M.predicted among blacks MDRD (S/P/Bld) [Vol rate/Area] mL/min/{1.73_m2} Normal >60 [facility] Comment on above: Order Comment: No: D o not add to previous draw Performed By: #### 0 0071, 51169, 07370 #### [facility] [address] [place] [address], [place] GFR/1.73 sq M.predicted among non-blacks MDRD (S/P/Bld) [Vol rate/Area] mL/min/{1.73_m2} Normal >60 [facility] Comment on above: Order Comment: No: D o not add to previous draw Performed By: #### 0 0071, 80525, 54241 #### [facility] [address] [place] [address], [place] Glucose [Mass/Vol] 211 mg/dL High 70-100 [facility] Comment on above: Order Comment: No: D o not add to previous draw Performed By: #### 0 0071, 87995, 59899 #### [facility] [address] [place] [address], [facility] Potassium [Moles/Vol] 4.1 mmol/L Normal 3.5-5.1 [facility] Comment on above: Order Comment: No: D o not add to previous draw Performed By: #### 0 0071, 09458, 32002 #### [facility] [address] [place] [address], [facility] Sodium [Moles/Vol] 136 mmol/L Normal 136-145 [facility] Comment on above: Order Comment: No: D o not add to previous draw Performed By: #### 0 0071, 56566, 42633 #### [facility] [address] [place] [address], [facility] Urea nitrogen [Mass/Vol] 15 mg/dL Normal 7-25 [facility] Comment on above: Order Comment: No: D o not add to previous draw Performed By: #### 0 0071, 19167, 68935 #### [facility] [address] [place] [address], [facility] CBC COMPLETE BLOOD COUNTon Erythrocyte distribution width (RBC) [Ratio] 13.8 % Normal 11.5-15.0 [facility] Comment on above: Order Comment: No: D o not add to previous draw Performed By: #### 5 0608 #### [facility] [address] [place] [address], [facility] Hematocrit (Bld) [Volume fraction] 42.1 % Normal 39.0-50.0 [facility] Comment on above: Order Comment: No: D o not add to previous draw Performed By: #### 5 0608 #### [facility] [address] [place] [address], [facility] Hemoglobin (Bld) [Mass/Vol] 13.7 g/dL Normal 13.0-17.0 [facility] Comment on above: Order Comment: No: D o not add to previous draw Performed By: #### 5 0608 #### [facility] [address] [place] [address], [facility] MCH (RBC) [Entitic mass] 27.6 pg Normal 27.0-33.0 [facility] Comment on above: Order Comment: No: D o not add to previous draw Performed By: #### 5 0608 #### [facility] [address] [place] [address], [facility] MCHC (RBC) [Mass/Vol] 32.5 g/dL Normal 32.0-35.0 [facility] Comment on above: Order Comment: No: D o not add to previous draw Performed By: #### 5 0608 #### [facility] [address] [place] [address], [facility] MCV (RBC) [Entitic vol] 84.9 fL Normal 82.0-98.0 [facility] Comment on above: Order Comment: No: D o not add to previous draw Performed By: #### 5 0608 #### [facility] [address] [place] [address], [facility] Nucleated RBC/100 WBC (Bld) [Ratio] 0 % Normal 0-0 [facility] Comment on above: Order Comment: No: D o not add to previous draw Performed By: #### 5 0608 #### [facility] [address] [facility] [place] [address], [facility] PLAT CNT 212 10*3/uL Normal 150-400 [facility] Comment on above: Order Comment: No: D o not add to previous draw Performed By: #### 5 0608 #### [facility] [address] [facility] [place] [address], [facility] RBC (Bld) [#/Vol] 4.96 10*6/uL Normal 4.20-5.70 [facility] Comment on above: Order Comment: No: D o not add to previous draw Performed By: #### 5 0608 #### [facility] [address] WBC (Bld) [#/Vol] 7.90 10*3/uL Normal 4.00-10.60 [facility] Comment on above: Order Comment: No: D o not add to previous draw Performed By: #### 5 0608 #### [address] Cardiovascular Lab Reporton 02-02-2020 Cardiovascular Lab Report [facility] Patient Name: Tee [facility] Olga MR #: [id number] Department of Physician: Eliu Marc M.D. Division of Service Date: 02/01/2020 Cardiology Birthdate: 1960 Adult Cardiovascular Room #: [address]AB [address] [address] Cardiovascular Laboratory Report FINAL IMPRESSIONS: 1. Severe [...] and adjacent diagonal branch, placement of a 6-Bruneian MynxGrip closure device. METHODS: After risks, benefits, and alternatives were explained, written informed consent was obtained. The patient was prepped and draped in usual sterile fashion over the right groin. Using 1% lidocaine solution, local infiltration anesthesia was achieved. Using a modified Seldinger technique and a micropuncture kit, access of the right common femoral artery was obtained. A 6-Bruneian 11 cm sheath was inserted without difficulty. Bilateral selective coronary angiography was performed using JL4 and JR4 catheters. After reviewing the images, it was elected to proceed with an interventional procedure. A 7-Bruneian XB 3.5 guide catheter was advanced in and coaxially engaged into the left main ostium after upsizing the femoral sheath to a 7-Bruneian 11 cm sheath. A 0.014 Runthrough NS [...] was elected to conclude the procedure. A 6-Bruneian MynxGrip closure device was deployed per protocol [...] postero (more content not included)... Normal [facility] MAGNESIUM BLOODon 02-02-2020 Magnesium [Mass/Vol] 2.2 mg/dL Normal 1.9-2.7 [facility] Comment on above: Order Comment: No: D o not add to previous draw Performed By: #### 0 0071, 39706, 89775 #### [facility] [address] [facility] [place] [address], [facility] PHOSPHORUS BLOODon 0 Phosphate [Mass/Vol] 2.8 mg/dL Normal 2.5-5.0 [facility] Comment on above: Order Comment: No: D o not add to previous draw Performed By: #### 0 0071, 79322, 42821 #### [facility] [address] [facility]. [address] POC GLUCOSE LABon 02-02-2020 Glucose [Mass/Vol] 299 mg/dL High 70-100 [facility] Comment on above: Performed By: #### 8 5499 #### [facility] [address] [facility] [place] [address], [facility] BASIC METABOLIC PANELon Calcium [Mass/Vol] 8.5 mg/dL Low 8.6-10.3 [facility] Comment on above: Order Comment: No: D o not add to previous draw Performed By: #### 3 5200, 17670, 01094 #### [facility] [address] [facility] [place] [address], [facility] Chloride [Moles/Vol] 104 mmol/L Normal 98-107 [facility] Comment on above: Order Comment: No: D o not add to previous draw Performed By: #### 3 5200, 18057, 43187 #### [facility] [address] [place] [address], [place] CO2 [Moles/Vol] 25 mmol/L Normal 21-31 [facility] Comment on above: Order Comment: No: D o not add to previous draw Performed By: #### 3 5200, 25917, 21084 #### [facility] [address] [place] [address], [place] Creatinine [Mass/Vol] 1.02 mg/dL Normal 0.70-1.30 [facility] Comment on above: Order Comment: No: D o not add to previous draw Performed By: #### 3 5200, 32872, 48147 #### [facility] [address] [place] [address], [place] GFR/1.73 sq M.predicted among blacks MDRD (S/P/Bld) [Vol rate/Area] mL/min/{1.73_m2} Normal >60 [facility] Comment on above: Order Comment: No: D o not add to previous draw Performed By: #### 3 5200, 60032, 79032 #### [facility] [address] [place] [address], [place] GFR/1.73 sq M.predicted among non-blacks MDRD (S/P/Bld) [Vol rate/Area] mL/min/{1.73_m2} Normal >60 [facility] Comment on above: Order Comment: No: D o not add to previous draw Performed By: #### 3 5200, 24840, 71965 #### [facility] [address] [place] [address], [place] Glucose [Mass/Vol] 229 mg/dL High 70-100 [facility] Comment on above: Order Comment: No: D o not add to previous draw Performed By: #### 3 5200, 57374, 05862 #### [facility] [address] [place] [address], [place] Potassium [Moles/Vol] 4.0 mmol/L Normal 3.5-5.1 [facility] Comment on above: Order Comment: No: D o not add to previous draw Performed By: #### 3 5200, 93208, 03591 #### [facility] [address] [place] [address], [place] Sodium [Moles/Vol] 136 mmol/L Normal 136-145 [facility] Comment on above: Order Comment: No: D o not add to previous draw Performed By: #### 3 5200, 49483, 74693 #### [facility] [address] [place] [address], [place] Urea nitrogen [Mass/Vol] 13 mg/dL Normal 7-25 [facility] Comment on above: Order Comment: No: D o not add to previous draw Performed By: #### 3 5200, 63192, 20674 #### [facility] [address] [place] [address], [facility] CBC COMPLETE BLOOD COUNTon Erythrocyte distribution width (RBC) [Ratio] 13.8 % Normal 11.5-15.0 [facility] Comment on above: Order Comment: No: D o not add to previous draw Performed By: #### 5 0608 #### [facility] [address] [place] [address], [place] Hematocrit (Bld) [Volume fraction] 40.3 % Normal 39.0-50.0 [facility] Comment on above: Order Comment: No: D o not add to previous draw Performed By: #### 5 0608 #### [facility] [address] [place] [address], [place] Hemoglobin (Bld) [Mass/Vol] 13.7 g/dL Normal 13.0-17.0 [facility] Comment on above: Order Comment: No: D o not add to previous draw Performed By: #### 5 0608 #### [facility] [address] MCH (RBC) [Entitic mass] 28.5 pg Normal 27.0-33.0 [facility] Comment on above: Order Comment: No: D o not add to previous draw Performed By: #### 5 0608 #### [facility] [address] MCHC (RBC) [Mass/Vol] 34.0 g/dL Normal 32.0-35.0 [facility] Comment on above: Order Comment: No: D o not add to previous draw Performed By: #### 5 0608 #### [facility] [address] MCV (RBC) [Entitic vol] 83.8 fL Normal 82.0-98.0 [facility] Comment on above: Order Comment: No: D o not add to previous draw Performed By: #### 5 0608 #### [facility] [address] Nucleated RBC/100 WBC (Bld) [Ratio] 0 % Normal 0-0 [facility] Comment on above: Order Comment: No: D o not add to previous draw Performed By: #### 5 0608 #### [facility] [address] [place] [address], [facility] PLAT CNT 204 10*3/uL Normal 150-400 [facility] Comment on above: Order Comment: No: D o not add to previous draw Performed By: #### 5 0608 #### [facility] [address] [place] [address], [facility] RBC (Bld) [#/Vol] 4.81 10*6/uL Normal 4.20-5.70 [facility] Comment on above: Order Comment: No: D o not add to previous draw Performed By: #### 5 0608 #### [facility] [address] [place] [address], [facility] WBC (Bld) [#/Vol] 7.23 10*3/uL Normal 4.00-10.60 [facility] Comment on above: Order Comment: No: D o not add to previous draw Performed By: #### 5 0608 #### [facility] [address] [place] [address], [facility] HEMOGLOBIN A1Con 02-01-2020 Glucose [Moles/Vol] 217 mmol/L Normal [facility] Comment on above: Order Comment: Yes: Add to Previous draw if able Performed By: #### 3 1791 #### [facility] [address] [place] [address], [facility] HbA1c (Bld) [Mass fraction] 9.2 % High 4.0-6.0 [facility] Comment on above: Order Comment: Yes: Add to Previous draw if able Performed By: #### 3 1791 #### [facility] [address] [place] [address], [facility] LIPID PROFILEon 02-01-2020 Cholesterol [Mass/Vol] 109 mg/dL Low 120-200 [facility] Comment on above: Result Comment: CHOL ESTEROL REFERENCE RANGE: 20 YEARS AND OLDER CARDIOVASCULAR RISK Less than 200 mg/dl Low Risk 200 to 239 mg/dl Borderline Risk 240 mg/dl and greater High Risk Performed By: #### 3 5200, 20707, 91083 #### [facility] [address] [place] [address], [place] Cholesterol in HDL [Mass/Vol] 42 mg/dL Normal 23-92 [facility] Comment on above: Result Comment: Slig ht variation in normal range could be due to gender and/or age. HDL CHOLESTEROL REFERENCE RANGE: 20 years and older Cardiovascular Risk > or =60 mg/dL Desirable 40 TO 59 mg/dL Low Risk <40 mg/dL High Risk Performed By: #### 3 5200, 70894, 55193 #### [facility] [address] [place] [address], [facility] Cholesterol in LDL [Mass/Vol] 50 mg/dL Normal 0-130 [facility] Comment on above: Result Comment: LDL IS A CALCULATION LDL IS ONLY VALID IF THE TRIG IS LESS THAN 400. Performed By: #### 3 5200, 39418, 97661 #### [facility] [address] [place] [address], [facility] Cholesterol.total/ Cholesterol in HDL [Mass ratio] 2.6 {ratio} Normal 0.0-4.5 [facility] Comment on above: Performed By: #### 3 5200, 04178, 93840 #### [facility] [address] NON-HDL CHOLESTEROL 67 mg/dL Normal [facility] Comment on above: Performed By: #### 3 5200, 67707, 98166 #### [facility] [address] Triglyceride [Mass/Vol] 85 mg/dL Normal 40-149 [facility] Comment on above: Result Comment: TRIG LYCERIDE REFERENCE RANGE: 20 YEARS AND OLDER CARDIOVASCULAR RISK LESS THAN 150 mg/dl LOW RISK 150 TO 199 mg/dl BORDERLINE RISK 200 mg/dl AND GREATER HIGH RISK Performed By: #### 3 5200, 26793, 72769 #### [facility] [address] VLDL CHOL 17 mg/dL Normal 0-40 [facility] Comment on above: Performed By: #### 3 5200, 03878, 28815 #### [facility] [address] TROPONIN-Ion 02-01-2020 Troponin I.cardiac [Mass/Vol] 0.02 ng/mL Normal 0.00-0.04 [facility] Comment on above: Order Comment: No: D o not add to previous draw Pt at cathlab Result Comment: REFE RENCE RANGES: 0.00 - 0.04 ng/ml NORMAL 0.05 - 0.50 ng/ml INDETERMINATE > 0.50 ng/ml CONSISTENT WITH AN M.I. Performed By: #### 3 5200, 10935, 12872 #### [facility] [address] No Panel Information [facility] Vital Signs Date Time Vital Sign Value Performing Clinician Facility 04-14-2023 08:30-0500 Body height 180.34 cm Hallie Gastelum Other [facility] Other 04-14-2023 08:30-0500 Body mass index (BMI) [Ratio] 27.19 kg/m2 Hallie Gastelum Other [facility] Other 04-14-2023 08:30-0500 Body weight 88.45 kg Hallie Gastelum Other [facility] Other 04-14-2023 08:30-0500 Diastolic blood pressure 74 mm[Hg] Hallie Gastelum Other [facility] Other 04-14-2023 08:30-0500 SaO2% (BldA) [Mass fraction] 98 % Hallie Gastelum Other [facility] Other 04-14-2023 08:30-0500 Systolic blood pressure 128 mm[Hg] Hallie Gastelum Other [facility] Other 12-31-2022 09:45-0400 Body height 180.34 cm Eden Mcmahon Other [facility] Other 12-31-2022 09:45-0400 Body mass index (BMI) [Ratio] 25.1 kg/m2 Eden Mcmahon Other [facility] Other 12-31-2022 [id number] Body weight 81.65 kg Eden Mcmahon Other [facility] Other Encounters Encounter Date Encounter Type Care Provider Facility Start: 08-14-2023 End: 08-14-2023 ambulatory IAN COSTA Not Available Start: 08-12-2023 End: 08-12-2023 ambulatory [facility] Start: 07-13-2023 ambulatory [facility] Start: 06-01-2023 End: 06-01-2023 ambulatory Eden Mcmahon Facility:[facility] Start: 06-01-2023 End: 06-01-2023 ambulatory MD Sandro Momin Work Phone: [facility] Work Phone: Start: 06-01-2023 End: 06-01-2023 Patient encounter procedure MD Sandro Momin Work Phone: [facility] Work Phone: Start: 04-14-2023 Office outpatient visit 25 minutes Hallie Gastelum [facility] Start: 04-14-2023 End: 04-14-2023 ambulatory Hallie Gastelum Facility:[facility] Start: 04-14-2023 End: 04-14-2023 ambulatory MD Sandro Momin Work Phone: [facility] Work Phone: Start: 04-14-2023 End: 04-14-2023 Patient encounter procedure MD Sandro Momin Work Phone: [facility] Work Phone: Start: 04-14-2023 End: 04-14-2023 Patient encounter procedure MD Sandro Momin Work Phone: [facility] Work Phone: Start: 12-31-2022 Office outpatient visit 25 minutes Eden Mcmahon [facility] Start: 12-31-2022 End: 12-31-2022 ambulatory MD Sandro Momin Work Phone: [facility] Other Start: 12-31-2022 End: 12-31-2022 Patient encounter procedure MD Sandro Momin Work Phone: [facility] Work Phone: Start: 12-09-2022 End: 12-09-2022 ambulatory SANDRO MOMIN Facility:[facility] Start: 12-09-2022 End: 12-09-2022 Patient encounter procedure Tal Iraheta MD Work Phone: Ophthalmology Comment on above: Type 2 diabetes jai itus without retinopathy (HCC) (Primary Dx); 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; Open angle with borderline findings and low glaucoma risk in both eyes; Nuclear sclerotic cataract of both eyes Start: 11-11-2022 End: 11-11-2022 ambulatory Eden Mcmahon Facility:[facility] Start: 11-11-2022 End: 11-11-2022 Patient encounter procedure MD Sandro Momin Work Phone: [facility] Work Phone: Start: 10-23-2022 End: 10-23-2022 ambulatory Eden Mcmahon Other [facility] Other Start: 10-23-2022 Telephone encounter Eden Mcmahon [facility] Start: 08-13-2022 End: 08-13-2022 ambulatory KIMBERLY MARIAM [facility] Start: 05-27-2022 End: 05-27-[address] SANDRO MOMIN Facility:[facility] Start: 05-26-2022 End: 05-27-[address] SANDRO MOMIN Facility:[facility] Start: 04-12-2022 Encounter for genera l adult medical examination without abnormal findings MICHELE WAYNE [facility] Start: 04-09-2022 End: 04-09-2022 ambulatory MD Sandro Momin Work Phone: [facility] Work Phone: Start: 04-09-2022 End: 04-09-2022 Patient encounter procedure MD Sandro Momin Work Phone: [facility] Start: 04-08-2022 End: 04-09-[address] SANDRO MOMIN Facility:[facility] Start: 04-08-2022 End: 04-09-2022 Encounter for general adult medical examination without abnormal findings DR SANDRO MOMIN Facility:[facility] Start: 02-25-2022 End: 02-25-2022 ambulatory MD Sandro Momin Work Phone: [facility] Work Phone: Start: 02-25-2022 End: 02-25-2022 Patient encounter procedure MD Sandro Momin Work Phone: [facility] Start: 11-14-2021 End: 11-15-[address] SANDRO MOMIN Facility:[facility] Start: 07-04-2021 End: 07-05-[address] SANDRO MOMIN Facility:[facility] Start: 06-21-2021 End: 06-22-[address] SANDRO MOMIN Facility:[facility] Start: 06-07-2021 End: 06-08-[address] SANDRO MOMIN Facility:[facility] Start: 02-01-2020 End: 02-02-2020 ambulatory HALINA KENNEDY Facility:[facility] Procedures Date Procedure Procedure Detail Performing Clinician Start: 12-09-2022 End: 12-09-2022 Computerized ophthalmic imaging retina Tal Iraheta MD Work Phone: Start: 05-26-[address] HAKEEM MOMIN Comment on above: Performed By: #### F T3, CMP, T4, TSH, LIPID #### [facility] [address] [place] [address] Dr. Seven Mares Start: 11-14-[address] HAKEEM MOMIN Comment on above: Performed By: #### F T3, CMP, T4, TSH, LIPID #### [facility] [address] [place] [address] Dr. Seven Mares Plan of Treatment Date Care Activity Detail Author Start: 05-26-2027 PROSTATE CANCER SCRE ENING DISCUSSION PROSTATE CANCER SCREENING DISCUSSION [facility] Start: 12-26-2022 Influenza vaccination INFLUENZA (#1) [facility] Start: 04-27-2022 DEPRESSION ASSESSMENT DEPRESSION ASS ESSMENT [facility] Start: 06-06-2021 COVID-19 VACCINE (4 - Pfizer series) COVID-19 VACCINE (4 - Pfizer series) [facility] Start: 2008 SHINGRIX VACCINE (1 of 2) SHINGRIX V ACCINE (1 of 2) [facility] Start: 2003 COLOGUARD (FIT-DNA) COLOGUARD (FIT-D NA) [facility] Start: 2003 Colonoscopy COLONOSCOPY [facility] Start: 2003 COLORECTAL CANCER SCREENING COLORECTAL CANCER SCREENING [facility] Start: [address] COLONOGRAPHY [facility] Start: 2003 DIABETES SCREEN DIABETES SCREEN [facility] Start: 2003 FECAL OCCULT BLOOD FECAL OCCULT BLOO D [facility] Start: 2003 SIGMOIDOSCOPY SIGMOIDOSCOPY [facility] Start: 1993 LIPID SCREEN LIPID SCREEN [facility] Start: 1977 Urine microalbumin profile DTAP,TDAP ,TD (1 - Tdap) [facility] Start: 1976 HEPATITIS C SCREENING HEPATITIS C SC REENING [facility] Start: 1976 HIV SCREENING HIV SCREENING [facility] Payers Date Payer Category Payer Unknown [id number] 2023 Medicare [id number] 2022 Self-pay 2022 Unknown [employer] MCGEE PPO [id number] 2022-Present [phone] [facility] [id number] [place] [address] PPO [id number] 2018 Unknown [id number] 1959 Unknown [id number] 1960 Unknown [id number] 2.16.840.1.757326.3.579.2. 647 1958 Unknown [id number] 2.16.840.1.403331.3.579.2. 593 1958 Unknown [id number] 2.16.840.1.540261.3.579.2. 593 1958 Unknown [id number] 2.16.840.1.664124.3.579.2. 593 1958 Unknown [id number] 2.16.840.1.050874.3.579.2. 593 1958 Unknown [id number] 2.16.840.1.940402.3.579.2. 593 1958 Unknown [id number] 2.16.840.1.293699.3.579.2. 593 1958 Unknown [id number] 2.16.840.1.462853.3.579.2. 593 1958 Unknown [id number] 2.16.840.1.584911.3.579.2. 1259 Private Health Insurance [employer] [id number] Unknown [facility] Access [id number] Unknown [id number] 2.16.840.1.554699.3.579.2. 531 Unknown [id number] 2.16.840.1.249223.3.579.2. 531 Unknown [id number] 2.16.840.1.004341.3.579.2. 531 Unknown [id number] 2.16.840.1.068008.3.579.2. 531 Social History Date Type Detail Facility Tobacco smoking status NHIS Unknown if ever smoked [facility] Work Phone: Start: 1960 Sex Assigned At Male [facility] Start: 12-09-2022 Sex Assigned At N [facility] [employer] Other Start: 12-09-2022 Tobacco smoking status NHIS Never smoked tobacco [facility] Start: 12-09-2022 Tobacco use and exposure Smokeless tobacco non-user [facility] Start: 12-09-2022 Alcohol intake Current drinke r of alcohol (finding) [facility] Start: 12-09-2022 History of Social function [facility] National Score (1-100), lower number is lower risk [address] [facility] Start: 12-09-2022 Alcohol Comment [facility] Start: 1960 Sex Assigned At Not on file [facility] Medical Equipment Procedure Code Equipment Code Equipment Origin al Text Equipment Identifier Dates ONETOUCH ULTRA T EST test strip Start: 12-04-2022 Clinical Notes 02-02-2020 to 08-12-2023 Note Date & Type Note Facility 08-12-2023 Note [facility] Cardiology Clinic Note Chief Complaint: Patient here for 1 year follow up CAD and hypertension. Had routine labs w/ lipid profile in May 2023. He took 1 nitroglycerin tablet a few weeks ago for chest pain. It relieved the pain and has not happened since. HPI: Spencer Oliveira is a 63 y.o. male With a history of coronary artery disease, Probable initiating pathology of myocardial bridge, hypertension and dyslipidemia here in routine follow-up Has been doing well from a cardiac standpoint Has some noncardiac concerns particular pertaining to a sense of fogginess . He is working with Dr. Anguiano his family physician in this regard. He has lost significant amount of weight since I last saw him. Overall he feels quite well. Cardiology ROS: Review of Systems Cardiovascular: Positive for chest pain (1 episode in June 2023). Musculoskeletal: Positive for arthritis and back pain. All other systems reviewed and are negative. Past Medical History He has a past medical history of Coronary artery disease, Diabetes mellitus (CMS/HCC), GERD (gastroesophageal reflux disease), Hyperlipidemia, Hypertension, and Sleep apnea. Surgical History He has a past surgical history that includes Cardiac catheterization; Coronary stent placement; Tonsillectomy; and Back surgery. Social History He reports that he has never smoked. He has never used smokeless tobacco. He reports current alcohol use. No history on file for drug use. Family History Family History Problem Relation Name Age of Onset No Known Problems Mother No Known Problems Father Allergies Penicillins Medications Current Outpatient Medications: amitriptyline (Elavil) 50 mg tablet, Take 75 mg by mouth at bedtime., Disp: , Rfl: aspirin 325 mg tablet, Take 1 tablet every day by oral route., Disp: , Rfl: clopidogrel (Plavix) 75 mg tablet, TAKE 1 TABLET (75 MG) BY MOUTH ONCE DAILY DIRECTED., Disp: 90 tablet, Rfl: 3 colchicine 0.6 mg tablet, TAKE 1 TABLET BY MOUTH IN THE MORNING, Disp: 90 tablet, Rfl: 3 empagliflozin (Jardiance) 10 mg, Take 1 tablet by mouth in the morning., Disp: , Rfl: ezetimibe (Zetia) 10 mg tablet, TAKE 1 TABLET BY MOUTH EVERY DAY, Disp: 90 tablet, Rfl: 3 glimepiride (Amaryl) 4 mg tablet, glimepiride 4 mg tablet TAKE 1 TABLET BY MOUTH TWICE A DAY, Disp: , Rfl: isosorbide mononitrate ER (Imdur) 30 mg 24 hr tablet, TAKE 1 TABLET BY MOUTH EVERY DAY DIRECTED, Disp: 90 tablet, Rfl: 3 losartan (Cozaar) 25 mg tablet, losartan 25 mg tablet TAKE 1 TABLET BY MOUTH EVERY DAY, Disp: 90 tablet, Rfl: 3 metFORMIN XR (Glucophage-XR) 500 mg 24 hr tablet, metformin ER 500 mg tablet,extended release 24 hr TAKE 3 TABLETS BY MOUTH EVERY DAY, Disp: , Rfl: metoprolol succinate XL (Toprol-XL) 25 mg 24 hr tablet, metoprolol succinate ER 25 mg tablet,extended release 24 hr TAKE 1/2 TABLET BY MOUTH EVERY DAY, Disp: 45 tablet, Rfl: 3 nitroglycerin (Nitrostat) 0.4 mg SL tablet, Place 1 tablet (0.4 mg) under the tongue every 5 (five) minutes if needed for chest pain., Disp: 25 tablet, Rfl: 2 pantoprazole (ProtoNix) 40 mg EC tablet, pantoprazole 40 mg tablet,delayed release TAKE 1 TABLET BY MOUTH EVERY DAY, Disp: , Rfl: pioglitazone (Actos) 15 mg tablet, Take 15 mg by mouth in the morning., Disp: , Rfl: rosuvastatin (Crestor) 40 mg tablet, TAKE 1 TABLET BY MOUTH IN THE EVENING, Disp: 90 tablet, Rfl: 3 Last Recorded Vitals BP 110/70 (BP Location: Left arm, Patient Position: Sitting) Pulse 96 Ht 1.803 m (5' 11 ) Wt 83.9 kg (185 lb) SpO2 96% BMI 25.80 kg/m??? Physical Examination: GENERAL: alert and oriented x3, well developed, in no acute distress. HEAD: atraumatic, normocephalic. EYES: DAKOTAH, EOMI. NECK: trachea midline, no JVD present, no carotid bruits present. CARDIAC: S1, S2 present. RRR. No murmur, rubs, or gallops. RESPIRATORY: CTAB, no increased effort of breathing, no rales, rhonchi, or wheezing. ABDOMEN: soft, nontender, nondistended. EXTREMITIES: no lower extremity edema, peripheral pulses are 2+ bilaterally. No rash/skin discoloration present. NEURO: strength/sensation equal and symmetric in bilateral upper and lower extremities. PSYCH: appropriate mood, affect, and judgement. Labs: 05/26/22 CBC normal Renal function normal Liver function normal Chol 127, HDL 75, trig 122, LDL 27.6 Pro BNP 30- normal A1C 7.7 elevated 04/08/22 Chol 119, HDL 59, trig 87, LDL 42.6 Last lab values have been reviewed CV Testin01/2020 Heart cath Division of Service Date: 02/01/2020 Cardiovascular Laboratory Report FINAL IMPRESSIONS: 1. Severe in-stent restenosis of the second diagonal branch of the left anterior descending coronary artery as well as de Roby stenosis of the left anterior descending coronary artery, successfully treated by balloon angioplasty and AngioSculpt balloon angioplasty. 2. Otherwise nonobstructive coronary arteries. 3. Long segment of myoca (more content not included)... [facility] 04-14-2023 Evaluation note Encounter Date Diagnosis Assessment [...] efforts at weight reduction and lifestle change. [employer] Other 09-06-2023 Evaluation note* Encounter Date Diagnosis Assessment Notes Treatment Notes Treatment Clinical Notes Dec, Obstructive sleep apnea (ICD-10 - [...] and get download on that. Dec, BMI 26.0-26.9,adult (ICD-10 - Z68.26) Last objectively measured body weight should BMI of 26, significantly lower than his original sleep testing. He is encouraged to continue efforts at weight reduction and lifestyle change [employer] Other 08-15-2023 NoteHNO ID: [id number] Author: Tal Iraheta MD Service: ? Author [...] Tal Iraheta MD December 09, 2022 2:43 [facility] History of Present illness Narrative* Tal Iraheta MD - 12/09/2022 2:43 PM EDT DM without retinopathy OU OHTN OU large [...] and plan as stated above and agree withall of its relevant components. Tal Iraheta MD December 09, 2022 2:43 PM documented in this encounter[facility]2023 NoteContinue crestor and zetia. Lipids are well controlledMemorial [facility]04-19-2023 NoteHypertension is well controlled 105/64 Continue all [facility]sUniversTriHealth04-19-2023 NoteCoronary artery disease is stable, no acute or concerning symptoms Continue GDMT- ASA, plavix, imdur, metoprolol, zetia and crestor- d/w Dr Ward- interventionalist- regarding duration of colchicine for CAD/inflammation and decrease re-stenosis of stent. Dr Ward recommended lifelong colchicine use- will inform pt. continue risk factor modifications- heart healthy diet, regular exercise as tolerated and continue all medications.[facility] 08-13-2022 NotePatient here for 1 year follow up CAD and hypertension. Had labs in Apr 2022. Denies chest pain and SOB. Review of Systems Musculoskeletal: Positive for arthritis and back pain. All other systems reviewed and are negative.[facility] 08-13-2022 NoteUTP CARDIOLOGY PROGRESS NOTE HPI: Spencer Oliveira is a 62 y.o. male here for Coronary Artery Disease and Hypertension Patient here for 1 year follow up CAD and hypertension. Had labs in Apr 2022. Denies chest pain and SOB. Overall states he is doing well and denied any activity limiting symptoms. Denied any bleeding tendencies. Review of Systems Musculoskeletal: Positive for arthritis and back pain. All other systems reviewed and are negative. Visit Vitals BP 105/64 (BP Location: Right arm, Patient Position: Sitting) Pulse 101 Ht 1.803 m (5' 11 ) Wt 88 kg (194 lb) SpO2 94% BMI 27.06 kg/m??? Smoking Status Never BSA 2.1 m??? Allergies Allergen Reactions Penicillins Rash Medications: Current Outpatient Medications on File Prior to Visit Medication Sig Dispense Refill amitriptyline (Elavil) 50 mg tablet Take 75 mg by mouth at bedtime. aspirin 325 mg tablet Take 1 tablet every day by oral route. clopidogrel (Plavix) 75 mg tablet Take 1 tablet (75 mg) by mouth once daily as directed. 90 tablet 3 colchicine 0.6 mg tablet Take 1 tablet (0.6 mg) by mouth in the morning. 90 tablet 3 empagliflozin (Jardiance) 10 mg Take 1 tablet by mouth in the morning. ezetimibe (Zetia) 10 mg tablet Take 1 tablet (10 mg) by mouth at bedtime. 90 tablet 3 glimepiride (Amaryl) 4 mg tablet glimepiride 4 mg tablet TAKE 1 TABLET BY MOUTH TWICE A DAY isosorbide mononitrate ER (Imdur) 30 mg 24 hr tablet isosorbide mononitrate ER 30 mg tablet,extended release 24 hr TAKE 1 TABLET BY MOUTH EVERY DAY DIRECTED losartan (Cozaar) 25 mg tablet losartan 25 mg tablet TAKE 1 TABLET BY MOUTH EVERY DAY metFORMIN XR (Glucophage-XR) 500 mg 24 hr tablet metformin ER 500 mg tablet,extended release 24 hr TAKE 3 TABLETS BY MOUTH EVERY DAY metoprolol succinate XL (Toprol-XL) 25 mg 24 hr tablet metoprolol succinate ER 25 mg tablet,extended release 24 hr TAKE 1/2 TABLET BY MOUTH EVERY DAY nitroglycerin (Nitrostat) 0.[address] 1 tablet (0.4 mg) under the tongue every 5 (five) minutes if needed for chest pain. 25 tablet 2 pantoprazole (ProtoNix) 40 mg EC tablet pantoprazole 40 mg tablet,delayed release TAKE 1 TABLET BY MOUTH EVERY DAY pioglitazone (Actos) 15 mg tablet Take 15 mg by mouth in the morning. rosuvastatin (Crestor) 40 mg tablet Take 1 tablet (40 mg) by mouth in the evening. 90 tablet 1 [DISCONTINUED] amantadine (Symmetrel) 100 mg capsule [DISCONTINUED] budesonide-formoteroL (Symbicort) 160-4.5 mcg/actuation inhaler Inhale 2 puffs twice a day by inhalation route for 90 days. No current facility-administered medications on file prior to visit. Physical Exam: Constitutional: Appearance: Normal appearance. Without apparent distress, chronically ill HENT: Head: Normocephalic and atraumatic. Nose: Nose normal. Mouth/Throat: Mouth: Mucous membranes are moist. Eyes: Extraocular Movements: Extraocular movements intact. Conjunctiva/sclera: Conjunctivae normal. Neck: Vascular: No JVD. Cardiovascular: Rate and Rhythm: Normal rate and regular rhythm. Pulses: Dorsalis pedis pulses are 3 on the right side and 3on the left side. Posterior tibial pulses are 3 on the right side and 3 on the left side. Heart sounds: Normal heart sounds, S1 normal and S2 normal. Pulmonary: Effort: Pulmonary effort is normal. Breath sounds: Normal breath sounds. Abdominal: General: Bowel sounds are normal. Palpations: Abdomen is soft. Musculoskeletal: General: Normal range of motion. Cervical back: Normal range of motion. Right lower leg: No edema. Left lower leg: No edema. Skin: General: Skin is warm and dry. Capillary Refill: Capillary refill takes less than 2 seconds. Neurological: General: No focal deficit present. Mental Status: alert and oriented to person, place, and time. Psychiatric: Mood and Affect: Mood normal. Behavior: Behavior normal. Thought Content: Thought content normal. Judgment: Judgment normal. Labs: 05/26/22 CBC normal Renal function normal Liver function normal Chol 127, HDL 75, trig 122, LDL 27.6 Pro BNP 30- normal A1C 7.7 elevated 04/08/22 Chol 119, HDL 59, trig 87, LDL 42.6 Last lab values have been reviewed CV Testin01/2020 Heart cath Division of Service Date: 02/01/2020 Cardiovascular Laboratory Report FINAL IMPRESSIONS: 1. Severe [...] for a minimum of 6 months, high-intensity (more content not included)...[facility]10-08-2020 NoteMR#: [id number] I [facility] Pt. Name: Spencer Oliveira Admitted: 02/01/2020 [...] status post multiple stents. He presented to [facility] with squeezing/pressure-like chest discomfort that started, while he was mowing the lawn; he also developed discomfort/pain in both of his arms. He notes that his sensation was similar to what he had experienced in the past when he had his first stent. At [facility], his troponin was negative x3. EKG throughout [...] Colon M.D. Date Trans: 02/02/2020 03:44 P/terry [id number] cc: Sandro Momin M.D. 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 [...] Senile nuclear sclerosis documented in this encounter [facility] general Narrative - Reported* Type Description Date Medical History CAD Medical History history of [place] Medical History JUAN Medical History high cholesterol Medical History type II diabetes [facility] [employer] Other Summary Purpose Family History No Family [...] device 6-8 week follow up/keep with Dr Mcmahon Chief Complaint juan-inspire Study result follow up Chief Complaint Obstructive sleep ap [place] / NEW TO MEDICARE Chief Complaint Follow Up Obstructive sleep apnea / NEW TO MEDICARE in lab-hst failed-latesha from 9-27 Medications Administered Section Inactive Administered Medications - up to 3 most recent administrations Medication Order MAR Action Action Date Dose Rate Site fluorescein-benoxinate 0.25-0.4 % 1 Drop (FLURESS) 1 Drop, BOTH EYES, DIRECTED, Starting on Thu12/09/22 at 1300, Until Thu12/10/22 at 0059, Administer for applanation tonometry. In the event of a Fluress shortage, administer 1 drop of [place]-Fluor into both eyes as directed for applanation [...] and content) DATE CREATED AUTHOR 09/08/2020 [facility] DATE CREATED AUTHOR AUTHOR'S ORGANIZ ATION 05/28/2022 [facility] DATE CREATED AUTHOR AUTHOR'S ORGANIZ ATION 12/10/2022 [facility] DATE CREATED AUTHOR AUTHOR'S ORGANIZ ATION 07/13/2023 [facility] DATE CREATED AUTHOR AUTHOR'S ORGANIZ ATION 07/18/2023 [facility] DATE CREATED AUTHOR AUTHOR'S ORGANIZ ATION 08/13/2023 [facility] DATE CREATED AUTHOR AUTHOR'S ORGANIZ ATION 08/15/2023 [facility] d[facility] Specialists EPIC Care Teams (unrecognized sec tion and content) Team Status: Inactive Member Role Status Dates Sandro Momin MD Primary Care Provider, Referring Pr ovider Active Eden Mcmahon MD Attending Provider Active Team Status: Active Member Role Status Dates Sandro Momin MD Primary Care Provider Active Team Status: Inactive Member Role Status Dates Sandro Momin MD Primary Care Provider Active Eden Mcmahon MD Attending Provider Active Truss Builder Relationship Specialty Start Date End Date Sandro Momin MD [address] [place] [address] PCP - General Family Medicine 11/12/22 Team Status: Inactive Member Role Status Dates Sandro Momin MD Primary Care Provider Active Hallie Gastelum NP Attending Provider Active Team Status: Inactive Member Role Status Dates Hallie Gastelum NP Attending Provider Active Start: [...] June 01, 2023 End: June 01, 2023 Eden Mcmahon MD Attending Provider Active S tart: June [...] or prosecute any alcohol or drug abuse patient.[facility] FOR RECORDS PERTAINING TO PATIENTS WHO ARE [...] BE BASED ON THE PRIMARY CLINICAL RECORDS. [facility] [employer] [facility]. provides no warranty or guarantee of the accuracy or completeness of information in this document.
--- NOTE | 2023-09-15 07:21 | MR_ITS ---
The [address] [address] Patient Name: SPENCER RAY MRN: [id number] date: 1960 Sex: M Assigned Patient Location: MRI Current Patient Location: MRI Accession/Order Number: [id number] Exam Date: 09/15/2023 08:00 Report Date: 09/15/2023 21:11 At the request of: SANDRO STARR Procedure: MR head/brain wo con MR head/brain wo con, 09/15/2023 8:00 AM EDT INDICATION: Altered Mental Status R41.82 COMPARISON: Prior CT of the head dated 07/12/2023 and CTA of the head and neck of the same date TECHNIQUE: Multiplanar, multisequential MRI images of brain were obtained without injection of contrast. FINDINGS: The cerebral sulci as well as ventricular system are appropriate for age. There is no restricted diffusion. Hyperintensities on T2 and FLAIR images in the teixeira radiata and centrum semiovale with sparing of U fibers are nonspecific, statistically most likely consistent with microvascular ischemic changes. There is no intracranial mass, mass effect, midline shift, intra or extra-axial fluid collection or large hemorrhage. Normal flow-void in the intracranial vessels is noted. There is status post bilateral lens replacement. The visualized portions of orbits, mastoid air cells as well as paranasal sinuses are unremarkable. MR/MR head/brain wo con IMPRESSION: No acute intracranial process is noted. Electronically authenticated by: PATRICK WHYTE Date: 09/15/2023 21:11
== END 2023-09-15 07:17 | disposition home or self-care (01) ==
LOC: MRI 07:17
PROVIDERS: PCP Family Medicine; Visit Provider Family Medicine
DX: R41.82 Altered mental status, unspecified (principal)
CPT/HCPCS: 70551

== ENCOUNTER 2023-11-09 09:14 | Outpatient (REF) | payer MEDICARE, OTHER, SELFPAY ==
[2023-11-09 10:03] LABS: Internal Control Within Normal Limits; SARS-CoV-2 Ag NEGATIVE (NEGATIVE)
== END 2023-11-09 09:15 | disposition home or self-care (01) ==
LOC: LAB 09:14
PROVIDERS: PCP Family Medicine; Visit Provider Family Medicine
DX: R09.81 Nasal congestion (principal)
CPT/HCPCS: 87811

== ENCOUNTER 2024-04-08 08:39 | Outpatient (OUT) | payer MEDICARE, OTHER, SELFPAY ==
--- OUTSIDE RECORDS SUMMARY | 2024-04-08 08:46 | XMS_ITS | CCD ---
Author Organization [facility] Care Team Providers Care Certified Surgical Assistant Name Role Phone HALINA KENNEDY Admitting Unavailable SANDRO MOMIN Referring Unavailable SANDRO MOMIN Primary Care Unavailable SIMEON COLON Attending Unavailable MD Sandro Momin Primary Care Provider [phone] MD Sandro Momin Referring Provider MD Eden Mcmahon Attending Provider MD Sandro Momin Primary Care Provider [phone] MD Sandro Momin Referring Provider [phone] MD Eden Mcmahon Attending Provider [phone] DR SANDRO MOMIN Primary Care Unavailable MATTY, [...] Provider [phone] MD Eden Mcmahon Attending Provider [phone] MD Sandro Momin Primary Care Provider [phone] GEMA Gastelum Attending Provider [phone] Katie Gastelumgy Unavailable MD Eden Mcmahon Attending Provider [phone] MD Sandro Momin Primary Care Provider [phone] DO Marlo Costa Attending Provider [phone] IVELISSE WARD Attending Unavailable MARLO COSTA Attending Unavailable EDEN MCMAHON Referring Unavailable MARLO COSTA Attending Unavailable MARLO COSTA Attending Unavailable EDEN MCMAHON Referring Unavailable Sandro Momin Primary Care Unavailable Gastelum, Hallie Admitting Unavailable Hallie Gastelum Attending Unavailable Sandro Momin Primary Care Unavailable Eden Mcmahon Admitting Unavailable Eden Mcmahon Attending Unavailable Sandro Momin Primary Care Unavailable Marlo Costa Admitting Unavailable Marlo Costa Attending Unavailable Sandro Momin Primary Care Unavailable Marlo Costa Admitting Unavailable Marlo Costa Attending Unavailable Allergies Allergy Classification Reported Allergen(s) Allergy Type Date of Onset Reaction(s) Facility Penicillins (antibiotic) (1 source) Penicillins Drug Allergy 03-07-2009 [facility] Rep[facility] (4 sources) Penicillins; Translations: [PENICILLINS] Drug allergy (disorder) 06-20-2013 Rash [facility] Repository (1 source) Penicillins Drug Allergy 04-14-2014 Rash [facility] (1 source) Penicillins Drug allergy (disorder) 10-19-2023 [facility] Repository Medications Current Medications Medication Drug Class(es) Dates Sig (Normalized) Sig (Original) acetaminophen 325 mg / HYDROcodone bitartrate 5 mg oral tablet (1 source) Opioid Agonist Start: 10-19-2023 take 1 tablet by mouth every six hours Hydrocodone-Acet aminophen Active 1 TAB PO Every 6 hours 20 7 October 19, 2023 aspirin 325 mg delayed release oral tablet (3 sources) Platelet Aggregation Inhibitor, Nonsteroidal Anti-inflammatory Drug Start: 10-05-2023 take 1 tablet by mouth once daily Aspirin (Ecotrin) 325 mg tablet,delayed release (DR/EC) Active 325 MG PO Daily October 05, 2023 12:00am take 1 tablet by mouth once jose g y aspirin 325 mg tablet Take 1 tablet by mouth once daily. 0 Active Comment on above: Take 1 tablet by loretta th once daily. Citalopram (3 sources) Serotonin Reuptake Inhibitor Citalopram Hydrobromide Active clopidogrel 75 mg oral tablet (4 sources) P2Y12 Platelet Inhibitor Start: 10-05-2023 take 75 mg by mouth once daily Clopidogrel Active 75 MG PO Daily October 05, 2023 12:00am Start: 03-25-2022 take 1 tablet by loretta th once daily clopidogrel (PLAVIX) 75 mg tablet TAKE 1 TABLET (75 MG) BY MOUTH ONCE DAILY DIRECTED. 0 11/28/2022 Active Comment on above: TAKE 1 TABLET (75 MG ) BY MOUTH ONCE DAILY DIRECTED. Take 75 mg by mouth. colchicine 0.6 mg oral tablet (4 sources) Start: 10-05-2023 take 0.6 mg by mouth once daily Colchicine Active 0.6 MG PO Daily October 05, 2023 12:00am Start: 06-23-2022 End: 06-23-2023 take 1 tablet by mouth once daily in the morning colchicine 0.6 mg tablet Take 0.6 mg by mouth every morning. 0 09/18/2022 Active Comment on above: Take 0.6 mg by mouth . Take 0.6 mg by mouth every morning. empagliflozin 10 mg oral tablet (7 sources) Sodium-Glucose Cotransporter 2 Inhibitor Start: 10-05-19 take 1 tablet by mouth once daily Empagliflozin (Jardiance) 10 mg tablet Active 10 MG PO Daily October 05, 2023 12:00am Start: 09-11-2022 take 1 tablet by mouth once JA RDIANCE 10 mg tablet Take 1 tablet by mouth every afternoon. 0 09/11/2022 Active JARDIANCE Active Comment on above: Take 1 tablet by loretta th every afternoon. Take 1 tablet by loretta th every morning. Esomeprazole (3 sources) Proton Pump Inhibitor NexIUM Act ronen ezetimibe 10 mg oral tablet (4 sources) Dietary Cholesterol Absorption Inhibitor Start: 10-05-2023 take 10 mg by mouth once daily Ezetimibe Active 10 MG PO Daily October 05, 2023 12:00am Start: 03-25-2022 take 1 tablet by mouth once ez etimibe (ZETIA) 10 mg tablet Take 1 tablet by mouth every afternoon. 0 11/28/2022 Active Comment on above: Take 1 tablet by loretta th every afternoon. Take 10 mg by mouth. glimepiride 4 mg oral tablet (7 sources) Sulfonylurea Start: take 4 mg by mouth twice daily Glimepiride Active 4 MG PO Twice daily October 05, 2023 12:00am Start: 12-04-2022 glimepiride (Deng MARYL) 4 mg tablet Glimepiride shakir simmons Active Comment on above: glimepiride 4 mg tab let TAKE 1 TABLET BY MOUTH TWICE A DAY 24 hr isosorbide mononitrate 30 mg extended release oral tablet (4 sources) Nitrate Vasodilator Start: take 30 mg by mouth once daily Isosorbide Mononitrate Active 30 MG PO Daily October 05, 2023 12:00am Start: 12-04-2022 isosorbide mon onitrate ER (IMDUR) 30 mg 24 hr tablet Start: 09-04-2022 take 1 tablet by loretta th once daily isosorbide mononitrate ER (IMDUR) 30 mg 24 hr tablet Take 1 tablet by mouth once daily. 0 09/04/2022 Active Comment on above: Take 1 tablet by loretta th once daily. losartan potassium 25 mg oral tablet (7 sources) Angiotensin 2 Receptor David Start: 10-05-2023 take 25 mg by mouth once daily Losartan Active 25 MG PO Daily October 05, 2023 12:00am Start: 11-27-2022 take 1 tablet by mouth once lo sartan (COZAAR) 25 mg tablet Take 1 tablet by mouth every afternoon. 0 11/27/2022 Active Losartan Potassi um Active Comment on above: Take 1 tablet by loretta th every afternoon. losartan 25 mg table t TAKE 1 TABLET BY MOUTH EVERY DAY 24 hr metFORMIN hydrochloride 500 mg extended release oral tablet (7 sources) Biguanide Start: 10-05-2023 take 500 mg by mouth once daily Metformin Active 500 MG PO Daily October 05, 2023 12:00am Start: 11-28-2022 take 3 tablets by mo uth every hour metFORMIN ER (GLUCOPHAGE XR) 500 mg 24 hr tablet Take 3 tablets by mouth every afternoon. 0 11/28/2022 Active take 3 tablets by mo uth once daily metFORMIN ER (GLUCOPHAGE XR) 500 mg 24 [...] succinate 25 mg extended release oral tablet (7 sources) beta-Adrenergic David Start: 10-05-2023 take 12.5 mg by mouth once daily Metoprolol Succinate Active 12.5 MG PO Daily October 05, 2023 12:00am Start: 09-30-2022 take 0.5 tablet by m outh once daily metoprolol succinate ER (TOPROL XL) 25 mg 24 hr tablet metoprolol succinate ER 25 mg tablet,extended release 24 hr TAKE 1/2 TABLET BY MOUTH EVERY DAY 0 09/30/2022 Active Start: 09-30-2022 take 0.5 tablet by m outh every hour metoprolol succinate ER (TOPROL XL) 25 mg 24 hr tablet Take 0.5 tablets by mouth every afternoon. 0 09/30/2022 Active Metoprolol Succi gilmar ER Active Comment on above: Take 0.5 tablets by mouth every afternoon. metoprolol succinate ER 25 mg tablet,extended release 24 hr TAKE 1/2 TABLET BY MOUTH EVERY DAY nitroglycerin 0.4 mg sublingual tablet (2 sources) Nitrate Vasodilator Start: Nitroglycerin Active 0.4 MG SUBLINGUAL every 5 to 15 minutes October 05, 2023 12:00am do not exceed 3 doses per episode pioglitazone 15 mg oral tablet (4 sources) Peroxisome Proliferator Receptor alpha Agonist, Peroxisome Proliferator Receptor gamma Agonist, Thiazolidinedione Start: take 15 mg by mouth once daily Pioglitazone Active 15 MG PO Daily October 05, 2023 12:00am Start: 08-10-2022 take 1 tablet by mouth once pi oglitazone (ACTOS) 15 mg tablet Take 1 tablet by mouth every afternoon. 0 11/25/2022 Active Comment on above: Take 1 tablet by loretta th every afternoon. Take 15 mg by mouth. rosuvastatin calcium 40 mg oral tablet (7 sources) HMG-CoA Reductase Inhibitor Start: take 40 mg by mouth once daily at bedtime Rosuvastatin Active 40 MG PO Daily at bedtime October 05, 2023 12:00am Start: 08-18-2022 End: 08-18-2023 take 1 tablet by mouth once daily at bedtime rosuvastatin (CRESTOR) 40 mg tablet Take 40 mg by mouth daily at bedtime. 0 11/28/2022 Active Crestor recalls this was changed to different statin Active Comment on above: Take 40 mg by mouth. Take 40 mg by mouth daily at bedtime. sulfamethoxazole 800 mg / trimethoprim 160 mg oral tablet (1 source) Dihydrofolate Reductase Inhibitor Antibacterial, Sulfonamide Antimicrobial Start: take 1 tablet by mouth twice daily Sulfamethoxazo le-Trimethopri m (Bactrim Ds) 800-160 mg tablet Active 1 TAB PO Twice daily 14 October 19, 2023 12:00am Completed/Discontinued Medications Medication Drug Class(es) Dates Sig [...] by loretta th every day at night benoxinate hydrochloride 4 mg/ml / fluorescein sodium 2.5 mg/ml ophthalmic solution (1 source) Diagnostic Dye Start: 12-09-2022 End: 12-10-2022 fluorescein-benoxinate 0.25-0.4 % 1 Drop (FLURESS) phenylephrine hydrochloride 25 mg/ml ophthalmic solution (1 source) alpha-1 Adrenergic Agonist Start: 12-09-2022 End: 12-10-2022 PHENYLephrine 2.5 % 1 Drop (AK-DILATE, CHAD-SYNEPHRINE) proparacaine hydrochloride 5 mg/ml ophthalmic solution (1 source) Local Anesthetic Start: 12-09-2022 End: 12-10-2022 proparacaine 0.5 % 1 Drop (ALCAINE) tropicamide 10 mg/ml ophthalmic solution (1 source) [...] disease (6 sources) Atherosclerotic heart disease of jamul coronary artery without angina pectoris; Translations: [Coronary [...] DISTURBANCES SKIN SENSATION] Onset: 06-21-2021 Episodic Other nervous system disorders (1 source) Postoperative pain ; Translations: [Other acute postprocedural pain] 10-19-2023 Episodic Other nutritional; endocrine; and metabolic disorders [...] Other Problems Problem Classification Problem Date Documented Date Episodic/Chronic Other connective tissue disease (1 source) Pain in left arm; Translations: [PAIN IN LEFT ARM] Onset: 07-05-2021 Episodic Other connective tissue disease (1 source) Pain in right arm; Translations: [PAIN IN RIGHT ARM] Onset: 07-05-2021 Episodic Other nervous system disorders (1 source) Other acute postprocedural pain; Translations: [Other acute postprocedural pain] Onset: 06-24-2024 Episodic Syncope (1 source) Syncope and collapse; Translations: [SYNCOPE AND COLLAPSE] Onset: 06-26-2021 Episodic Results Test Name Value Interpretation Reference Range Facility Capillary blood glucose mikel urement by glucometer (mass/volume)Ordered By: Marlo Costa on 10-19-2023 Glucose [Mass/Vol] 110 mg/dL Normal [facility] Comment on above: Random Glucose Refer ence Range is dependent on time and content of last meal. Glucose of more than 200 mg/dL in a nonstressed, ambulatory subject supports the diagnosis of Diabetes Mellitus. Result Comment: [place] om Glucose Reference Range is dependent on time and content of last meal. Glucose of more than 200 mg/dL in a nonstressed, ambulatory subject supports the diagnosis of Diabetes Mellitus. Performed By: #### G LULS #### Point of Care testing , Glucose Poct Glucometerson 0 10-19-2023 Commemt1 Glu2: Cleaned Meter Normal [facility] Comment on above: Result Comment: PERF ORMED BY: [place] [address] PATHOLOGIST LACE WEAVER KAMAR ANTONY M.D. Performed By: #### G LULS #### Point of Care testing , No Panel InformationOrdered By: Marlo Costa on 10-19-2023 Bedside Glucose Comment Glu2: cleaned meter [facility] XR chest 1V portableon 10-18 XR chest 1V portable [facility] [place] [address] XRay Report Signed Patient: Spencer Oliveira MR#: [id number] 213 : 1960 Acct:[id number] Age/Sex: 63 / M ADM Date: 10/19/23 Loc: [place] Room: Type: [facility] Attending Dr: Marlo Costa DO Copies to: Marlo Costa DO Ordering Provider: Marlo Costa DO Date of Service: 10/19/23 XR/XR chest 1V portable: Post implant SINGLE VIEW CHEST CLINICAL HISTORY: Postop sleep apnea stimulator. COMPARISON: None FINDINGS: Sleep apnea generator device is in place. Heart is normal in size. Left basilar atelectasis with possible small left pleural effusion present. No pneumothorax or free air. XR/XR chest 1V portable IMPRESSION: SLEEP APNEA GENERATOR DEVICE IS IN PLACE. THE DISTAL ASPECT OF THE LEAD IS OBSCURED FROM TODAY'S STUDY. LEFT BASILAR ATELECTASIS WITH POSSIBLE SMALL LEFT PLEURAL EFFUSION. Impression dictated by: Kota Hammer Jr., D.O.10/19/2023 4:10 PM Dictation Location: [place] [address] Transcribed By: [facility] 10/19/23 1610 Dictated By: Ktoa Hammer Jr, DO 10/19/23 1608 Signed By: 10/19/23 1610 Normal [facility] Automated basophil %Ordered By: Marlo Costa on 10-05-2023 Basophils/100 WBC (Bld) 0.8 % Normal . [facility] Comment on above: Performed By: #### C BC, BMP #### [address] Automated basophil countOrde red By: Marlo Costa on 10-05-2023 Basophils (Bld) [#/Vol] 0.0 10*3/uL Normal 0.0-0.2 [facility] Comment on above: Result Comment: PERF ORMED BY: [place] [address] PATHOLOGIST LACE WEAVER KAMAR ANTONY M.D. Performed By: #### C BC, BMP #### [facility] [address] [place] [address] Automated blood monocyte cou ntOrdered By: Marlo Costa on 10-05-2023 Monocytes (Bld) [#/Vol] 0.5 10*3/uL Normal 0.0-0.8 [facility] Comment on above: Performed By: #### C BC, BMP #### [facility] [address] [place] [address] Automated eosinophil %Ordere d By: Marlo Costa on 10-05-2023 Eosinophils/100 WBC (Bld) 0.5 % Normal . [facility] Comment on above: Performed By: #### C BC, BMP #### [address] Automated eosinophil countOr dered By: Marlo Costa on 10-05-2023 Eosinophils (Bld) [#/Vol] 0.0 10*3/uL Normal 0.0-0.45 [facility] Comment on above: Performed By: #### C BC, BMP #### [address] Automated monocyte %Ordered By: Marlo Costa on 10-05-2023 Monocytes/100 WBC (Bld) 8.7 % Normal . [facility] Comment on above: Performed By: #### C BC, BMP #### [address] Automated neutrophil %Ordere d By: Marlo Costa on 10-05-2023 Neutrophils/100 WBC (Bld) 71.9 % Normal . [facility] Comment on above: Performed By: #### C BC, BMP #### [address] Basic Metabolic Panelon 09-25 GFR/1.73 sq M.predicted MDRD (S/P/Bld) [Vol rate/Area] mL/min/{1.73_m2} Normal [facility] Comment on above: Performed By: #### C BC, BMP #### [address] Calcium [Mass/volume] in Ser um or PlasmaOrdered By: Marlo Costa on 10-05-2023 Calcium [Mass/Vol] 9.8 mg/dL Normal 8.6-10.3 [facility] Comment on above: Result Comment: PERF ORMED BY: [place] [address] PATHOLOGIST LACE WEAVER KAMAR ANTONY M.D. Performed By: #### C BC, BMP #### [address] Carbon dioxide, total [Moles /volume] in Serum or PlasmaOrdered By: Marlo Costa on 10-05-2023 CO2 [Moles/Vol] 28.8 mmol/L Normal 21.0-31.0 [facility] Comment on above: Performed By: #### C BC, BMP #### [address] Chloride [Moles/volume] in S lavonne or PlasmaOrdered By: Marlo Costa on 10-05-2023 Chloride [Moles/Vol] 105 mmol/L Normal 98-107 [facility] Comment on above: Performed By: #### C BC, BMP #### [address] Complete Blood Count Auto Di ffon 10-05-2023 Mean Corpuscular HGB Conc 34.2 g/dL Normal 32.5-35.6 [facility] Comment on above: Performed By: #### C GUILLERMINA, BMP #### [facility] [address] [place] [address] NRBC% 0.1 /100{WBC} Normal 0-0.5 [facility] Comment on above: Performed By: #### C BC, BMP #### [address] Creatinine [Mass/volume] in Serum or PlasmaOrdered By: Marlo Costa on 10-05-2023 Creatinine [Mass/Vol] 0.92 mg/dL Normal 0.70-1.30 [facility] Comment on above: Performed By: #### C BC, BMP #### [facility] [address] [place] [address] ECG 12 lead ECGon 10-05-2023 ECG 12 lead ECG [facility] Main [place] [address] [place] [address] Electrocardiograph Report Signed Patient: Spencer Oliveira MR#: [id number] 213 : 1960 Acct:[id number] Age/Sex: 63 / M ADM Date: 10/05/23 Loc: Room: Type: [facility] Attending Dr: Marlo Costa DO Ordering Provider: Marlo Costa DO Date of Service: 10/05/2302/18/1132 ECG/ECG 12 lead ECG: pst Copies to: Test Reason : Blood Pressure : / mmHG Vent. Rate : 073 BPM Atrial Rate : 073 BPM P-R Int : 138 ms QRS Dur : 084 ms QT Int : 374 ms P-R-T Axes : 060 046 034 degrees QTc Int : 412 ms Normal sinus rhythm Low voltage QRS Borderline ECG No previous ECGs available Confirmed by Lucrecia Felipe ([id number]) on 10/06/2023 1:31:07 PM Referred By: SHAHRAM Electronically Signed By:Lucrecia Felipe Transcribed By: MUS Signed By Lucrecia Felipe MD 4 1331 Normal [facility] Erythrocyte distribution wid th [Ratio] by Automated countOrdered By: Marlo Costa on 10-05-2023 Erythrocyte distribution width (RBC) [Ratio] 14.6 % Normal 12.0-14.8 [facility] Comment on above: Performed By: #### C GUILLERMINA, BMP #### [facility] [address] [place] [address] [place] Erythrocytes [#/volume] in B lood by Automated countOrdered By: Marlo Costa on 10-05-2023 RBC (Bld) [#/Vol] 5.28 10*6/uL Normal 3.90-5.60 [facility] Comment on above: Performed By: #### C GUILLERMINA, BMP #### [facility] [address] [place] [id number] [facility] Glucose [Mass/volume] in Ser um or PlasmaOrdered By: Marlo Costa on 10-05-2023 Glucose [Mass/Vol] 156 mg/dL High 70-100 [facility] Comment on above: ADA recommended refe rence rangeRandom Glucose Reference Range is dependent on time and content of last meal. Glucose of more than 200 mg/dL in a nonstressed, ambulatory subject supports the diagnosis of Diabetes Mellitus. Result Comment: [place] om Glucose Reference Range is dependent on time and content of last meal. Glucose of more than 200 mg/dL in a nonstressed, ambulatory subject supports the diagnosis of Diabetes Mellitus. ADA recommended reference range Performed By: #### C GUILLERMINA, BMP #### [address] Hematocrit [Volume Fraction] of Blood by Automated countOrdered By: Marlo Costa on 10-05-2023 Hematocrit (Bld) [Volume fraction] 46.5 % Normal 38.8-50.0 [facility] Comment on above: Performed By: #### C GUILLERMINA, BMP #### [address] Hemoglobin [Mass/volume] in BloodOrdered By: Marlo Costa on 10-05-2023 Hemoglobin (Bld) [Mass/Vol] 15.9 g/dL Normal 13.0-17.0 [facility] Comment on above: Performed By: #### C GUILLERMINA, BMP #### [address] Leukocytes [#/volume] correc duke for nucleated erythrocytes in Blood by Automated counOrdered By: Marlo Costa on 10-05-2023 WBC corrected for nucl RBC Auto (Bld) [#/Vol] 5.3 10*3/uL 4.1-10.5 [facility] Leukocytes [#/volume] in Blo od by Automated countOrdered By: Marlo Costa on 10-05-2023 WBC (Bld) [#/Vol] 5.3 10*3/uL Normal 4.1-10.5 [facility] Comment on above: Performed By: #### C GUILLERMINA, BMP #### [address] Lymphocytes [#/volume] in Bl ood by Automated countOrdered By: Marlo Costa on 10-05-2023 Lymphocytes (Bld) [#/Vol] 1.0 10*3/uL Normal 1.00-4.8 [facility] Comment on above: Performed By: #### C GUILLERMINA, BMP #### [place] [address] [place] Lymphocytes/100 leukocytes i n Blood by Automated countOrdered By: Marlo Costa on 06-10-2024 Lymphocytes/100 WBC (Bld) 18.1 % Normal . [facility] Comment on above: Performed By: #### C GUILLERMINA, BMP #### [facility] [address] [place] [address] MCH [Entitic mass] by Automa duke countOrdered By: Marlo Costa on 10-05-2023 MCH (RBC) [Entitic mass] 30.1 pg Normal 27.5-35.2 [facility] Comment on above: Performed By: #### C GUILLERMINA, BMP #### [facility] [address] [place] [address] MCHC Auto (RBC) [Mass/Vol]Or dered By: Marlo Costa on 10-05-2023 MCHC (RBC) [Mass/Vol] 34.2 g/dL 32.5-35.6 [facility] MCV [Entitic volume] by Auto mated countOrdered By: Marlo Costa on 10-05-2023 MCV (RBC) [Entitic vol] 88.0 fL Normal 83.5-101 [facility] Comment on above: Performed By: #### C GUILLERMINA, BMP #### [facility] [address] [place] [address] Neutrophils [#/volume] in Bl ood by Automated countOrdered By: Marlo Costa on 10-05-2023 Neutrophils (Bld) [#/Vol] 3.8 10*3/uL Normal 1.8-7.7 [facility] Comment on above: Performed By: #### C GUILLERMINA, BMP #### [facility] [address] [place] [address] No Panel InformationOrdered By: Marlo Costa on 10-05-2023 Estimated GFR (CKD-EPI) > 60.0 mL/Min [facility] Creatinine Clearance (Chem N/A [facility] Nucleated erythrocytes [Pres ence] in Blood by Automated countOrdered By: Marlo Costa on 10-05-2023 Nucleated RBC Auto Ql (Bld) 0.1 /100{WBC} 0-0.5 [facility] Orders Onlyon 10-05-2023 Orders Only [id number] Deion Oliveira L 1960 M Date Provider Department Center 10/05/2023 [facility] Family History Problem Relation Age of Onset No Known Problems Mother No Known Problems Father Family Status - Relation Status Age at Mother Father Normal [facility] Platelet mean volume [Entiti c volume] in Blood by Automated countOrdered By: Marlo Costa on 10-05-2023 Platelet mean volume (Bld) [Entitic vol] 8.1 fL Normal 6.6-10.1 [facility] Comment on above: Performed By: #### C BC, BMP #### [facility] [address] [place] [address] [place] Platelets [#/volume] in Bloo d by Automated countOrdered By: Marlo Costa on 10-05-2023 Platelets (Bld) [#/Vol] 208 10*3/uL Normal 150-450 [facility] Comment on above: Performed By: #### C BC, BMP #### [place] [address] [place] Potassium [Moles/volume] in Serum or PlasmaOrdered By: Marlo Costa on 10-05-2023 Potassium [Moles/Vol] 4.2 mmol/L Normal 3.5-5.1 [facility] Comment on above: Performed By: #### C BC, BMP #### [place] [address] [place] Serum or plasma anion gap de terminationOrdered By: Marlo Costa on 10-05-2023 Anion gap [Moles/Vol] 11.4 mmol/L Normal 6.0-15.0 [facility] Comment on above: Performed By: #### C BC, BMP #### [place] [address] [place] Sodium [Moles/volume] in Ser um or PlasmaOrdered By: Marlo Costa on 10-05-2023 Sodium [Moles/Vol] 141 mmol/L Normal 136-145 [facility] Comment on above: Performed By: #### C BC, BMP #### [facility] [address] [place] [address] [facility] Urea nitrogen [Mass/volume] in Serum or PlasmaOrdered By: Marlo Costa on 10-05-2023 Urea nitrogen [Mass/Vol] 12 mg/dL Normal 7-25 [facility] Comment on above: Performed By: #### C BC, BMP #### [facility] [address] [place] [address] [facility] Office Visiton 08-12-2023 Follow-up visit [id number] Deion Oliveira 1960 M Date Provider Department Center 08/12/2023 [id number], EHAB CARD [facility] Family History Problem Relation Age of Onset No Known Problems Mother No Known Problems Father Family Status - Relation Status Age at Mother Father Level of Service:94654 ME OFFICE/OUTPATIENT ESTABLISHED LOW MDM 20 MIN Normal [facility] CEAon 05-27-2022 CEA 2.4 ng/mL Normal 0.0-4.7 [facility] Comment on above: Result Comment: Nons mokers <3.9 Smokers <5.6 . [facility] Electrochemiluminescence Immunoassay (ECLIA) . Values obtained with different assay methods or kits cannot be used interchangeably. Results cannot be interpreted as absolute evidence of the presence or absence of malignant disease. Performed By: #### F T3, CMP, T4, TSH, LIPID #### [facility] [address] [address] [address] Seven Mares INSULINon 05-27-2022 Insulin 17.6 uIU/mL Normal 2.6-24.9 [facility] Comment on above: Performed By: #### F T3, CMP, T4, TSH, LIPID #### [facility] [address] [place], [place] [address] Dr. Seven Mares OCC BLD IMMUNO SCREENon 04-29 OCCULT BLOOD Negative Normal NEGATIVE [facility] Comment on above: Performed By: #### F T3, CMP, T4, TSH, LIPID #### [facility] [address] [address] [address] Seven Mares AMMONIAon 05-26-2022 Ammonia (P) [Moles/Vol] 15 umol/L Normal 11-32 [facility] Comment on above: Performed By: #### A MM #### [facility] [address] [place] [address] Dr. Seven Mares BNPon 05-26-2022 Natriuretic peptide B (Bld) [Mass/Vol] 30.0 pg/mL Normal <=900.0 [facility] Comment on above: Performed By: #### F T3, CMP, T4, TSH, LIPID #### [facility] [address] [place] [address] Dr. Seven Mares CBC AUTO DIFFon 05-26-2022 BASO # 0.1 103/ul Normal 0.0-0.1 [facility] Comment on above: Performed By: #### F T3, CMP, T4, TSH, LIPID #### [facility] [address] [place] [address] Dr. Seven Mares Basophils/100 WBC (Bld) 0.9 % Normal 0.2-2.0 [facility] Comment on above: Performed By: #### F T3, CMP, T4, TSH, LIPID #### [facility] [address] [place] [address] Dr. Seven Mares EO # 0.1 103/ul Normal 0.0-0.7 [facility] Comment on above: Performed By: #### F T3, CMP, T4, TSH, LIPID #### [facility] [address] [place] [address] Dr. Seven Mares Eosinophils/100 WBC (Bld) 1.9 % Normal 0.9-7.0 [facility] Comment on above: Performed By: #### F T3, CMP, T4, TSH, LIPID #### [facility] [address] [place] [address] Dr. Seven Mares Erythrocyte distribution width (RBC) [Ratio] 14.6 % Normal 11.0-15.0 [facility] Comment on above: Performed By: #### F T3, CMP, T4, TSH, LIPID #### [facility] [address] [place] [address] Dr. Seven Mares Hematocrit (Bld) [Volume fraction] 52.2 % Normal 42.0-54.0 [facility] Comment on above: Performed By: #### F T3, CMP, T4, TSH, LIPID #### [facility] [address] [place] [address] Dr. Seven Mares Hemoglobin (Bld) [Mass/Vol] 17.7 g/dL Normal 14.0-18.0 [facility] Comment on above: Performed By: #### F T3, CMP, T4, TSH, LIPID #### [facility] [address] [place] [address] Dr. Seven Mares IG # 0.08 10e3/ul Critically high 0.00-0.03 [facility] Comment on above: Performed By: #### F T3, CMP, T4, TSH, LIPID #### [facility] [address] [place] [address] Dr. Seven Mares IG % 1.1 % Critically high 0.0-0.5 [facility] Comment on above: Performed By: #### F T3, CMP, T4, TSH, LIPID #### [facility] [address] [place] [address] Dr. Seven Mares LYMPH # 2.2 103/ul Normal 1.2-3.8 [facility] Comment on above: Performed By: #### F T3, CMP, T4, TSH, LIPID #### [facility] [address] [place] [address] Dr. Seven Mares Lymphocytes/100 WBC (Bld) 29.6 % Normal 20.5-60.0 [facility] Comment on above: Performed By: #### F T3, CMP, T4, TSH, LIPID #### [facility] [address] [place] [address] Dr. Seven Mares MANUAL DIFF REQ NO Normal [facility] Comment on above: Performed By: #### F T3, CMP, T4, TSH, LIPID #### [facility] [address] [place] [address] Dr. Seven Mares MCH (RBC) [Entitic mass] 28.1 pg Normal 25.9-34.0 [facility] Comment on above: Performed By: #### F T3, CMP, T4, TSH, LIPID #### [facility] [address] [place] [address] Dr. Seven Mares MCHC (RBC) [Mass/Vol] 33.9 g/dL Normal 29.9-35.2 [facility] Comment on above: Performed By: #### F T3, CMP, T4, TSH, LIPID #### [facility] [address] [place] [address] Dr. Seven Mares MCV (RBC) [Entitic vol] 82.9 fL Normal 80.0-94.0 [facility] Comment on above: Performed By: #### F T3, CMP, T4, TSH, LIPID #### [facility] [address] [place] [address] Dr. eSven Mares MONO # 0.5 103/ul Normal 0.3-0.8 [facility] Comment on above: Performed By: #### F T3, CMP, T4, TSH, LIPID #### [facility] [address] [place] [address] Dr. Seven Mares Monocytes/100 WBC (Bld) 6.3 % Normal 1.7-12.0 [facility] Comment on above: Performed By: #### F T3, CMP, T4, TSH, LIPID #### [facility] [address] [place] [address] Dr. Seven Mares NEUT # 4.5 103/ul Normal 1.4-6.5 [facility] Comment on above: Performed By: #### F T3, CMP, T4, TSH, LIPID #### [facility] [address] [place] [address] Dr. Seven Mares Neutrophils/100 WBC (Bld) 60.2 % Normal 43.0-75.0 [facility] Comment on above: Performed By: #### F T3, CMP, T4, TSH, LIPID #### [facility] [address] [place] [address] Dr. Seven Mares Platelet mean volume (Bld) [Entitic vol] 9.4 fL Critically low 9.5-13.5 [facility] Comment on above: Performed By: #### F T3, CMP, T4, TSH, LIPID #### [facility] [address] [address] [address] Seven Mares PLT 227 103/ul Normal 150-450 [facility] Comment on above: Performed By: #### F T3, CMP, T4, TSH, LIPID #### [facility] [address] [address] [address] Seven Mares RBC 6.30 106/ul Critically high 4.70-6.10 [facility] Comment on above: Performed By: #### F T3, CMP, T4, TSH, LIPID #### [facility] [address] [address] [address] Seven Mares WBC 7.5 103/ul Normal 4.0-11.0 [facility] Comment on above: Performed By: #### F T3, CMP, T4, TSH, LIPID #### [facility] [address] [place] [address] Dr. Seven Mares FREE THYROXINE INDEX T7on FTI 2.79 Normal 1.30-4.50 [facility] Comment on above: Performed By: #### F T3, CMP, T4, TSH, LIPID #### [facility] [address] [address] [address] Seven Mares T3U 34.0 % Normal 33.0-40.0 [facility] Comment on above: Performed By: #### F T3, CMP, T4, TSH, LIPID #### [facility] [address] [address] [address] Seven Mares T4 [Mass/Vol] 8.20 ug/dL Normal 4.50-12.10 [facility] Comment on above: Performed By: #### F T3, CMP, T4, TSH, LIPID #### [facility] [address] [place] [address] Dr. Seven Mares GLYCOHEMOGLOBIN A1Con 2022 ADA RECOMMENDATION SEE BELOW Normal [facility] Comment on above: Result Comment: ADA RECOMMENDED LIMIT 4.0 - 6.0 ADA THERAPEUTIC TARGET < 7.0 ACTION SUGGESTED > 7.0 Performed By: #### F T3, CMP, T4, TSH, LIPID #### [facility] [address] [address] [address] Seven Mares Glucose [Mass/Vol] 174 mg/dL Normal [facility] Comment on above: Performed By: #### F T3, CMP, T4, TSH, LIPID #### [facility] [address] [address] [address] Seven Mares HbA1c (Bld) [Mass fraction] 7.7 % Critically high 4.5-6.2 [facility] Comment on above: Performed By: #### F T3, CMP, T4, TSH, LIPID #### [facility] [address] [address] [address] Seven Mares IRONon 05-26-2022 Iron [Mass/Vol] 98.0 ug/dL Normal 65.0-175.0 [facility] Comment on above: Performed By: #### F T3, CMP, T4, TSH, LIPID #### [facility] [address] [address] [address] Seven Mares LIPID PROFILEon 05-26-2022 CHOL-HDL RATIO NORM SEE BELOW Normal [facility] Comment on above: Result Comment: 3.3 - 4.4 LOW RISK 4.4 - 7.1 AVERAGE RISK 7.1 - 11.0 MODERATE RISK >11.0 HIGH RISK Performed By: #### F T3, CMP, T4, TSH, LIPID #### [facility] [address] [address] [address] Seven Mares Cholesterol [Mass/Vol] 127 mg/dL Normal <=200 Th [facility] Comment on above: Performed By: #### F T3, CMP, T4, TSH, LIPID #### [facility] [address] [address] [address] Seven Mares Cholesterol in HDL [Mass/Vol] 75 mg/dL Critically high 40-60 [facility] Comment on above: Performed By: #### F T3, CMP, T4, TSH, LIPID #### [facility] [address] [address] [address] Seven Mares Cholesterol in LDL [Mass/Vol] 27.6 mg/dL Normal [facility] Comment on above: Performed By: #### F T3, CMP, T4, TSH, LIPID #### [facility] [address] [address] [address] Seven Mares Cholesterol.total/Chol esterol in HDL [Mass ratio] 1.7 {ratio} Normal [facility] Comment on above: Performed By: #### F T3, CMP, T4, TSH, LIPID #### [facility] [address] [address] [address] Seven Mares HDL NORMAL > or = 60 mg/dl - LO W CARDIOVASCULAR RISK <40 mg/dl - HIGH CARDIOVASCULAR RISK Normal [facility] Comment on above: Performed By: #### F T3, CMP, T4, TSH, LIPID #### [facility] [address] [place] [address] Dr. Seven Mares LDL CALC NORMAL SEE BELOW Normal [facility] Comment on above: Result Comment: <100 mg/dl OPTIMAL 100 - 129 mg/dl NEAR OR ABOVE OPTIMAL 130 - 159 mg/dl BORDERLINE HIGH 160 - 189 mg/dl HIGH >190 mg/dl VERY HIGH Performed By: #### F T3, CMP, T4, TSH, LIPID #### [facility] [address] [place] [address] Dr. Seven Mares Triglyceride [Mass/Vol] 122 mg/dL Normal <=150 [facility] Comment on above: Performed By: #### F T3, CMP, T4, TSH, LIPID #### [facility] [address] [place] [address] Dr. Seven Mares VLDL CALC 24.4 mg/dL Normal [facility] Comment on above: Performed By: #### F T3, CMP, T4, TSH, LIPID #### [facility] [address] [address] [address] Seven Mares PROF 14(COMP METB)on 023 Albumin [Mass/Vol] 4.4 g/dL Normal 3.4-5.0 [facility] Comment on above: Performed By: #### F T3, CMP, T4, TSH, LIPID #### [facility] [address] [place], [place] [id number] Dr. Seven Mares Albumin/Globulin [Mass ratio] 1.3 {ratio} Normal [facility] Comment on above: Performed By: #### F T3, CMP, T4, TSH, LIPID #### [facility] [address] [place] [address] Dr. Seven Mares ALP [Catalytic activity/Vol] 93 U/L Normal 46-116 [facility] Comment on above: Performed By: #### F T3, CMP, T4, TSH, LIPID #### [facility] [address] [place] [address] Dr. Seven Mares ALT [Catalytic activity/Vol] 30 U/L Normal 16-63 [facility] Comment on above: Performed By: #### F T3, CMP, T4, TSH, LIPID #### [facility] [address] [place] [address] Dr. Seven Mares Anion gap [Moles/Vol] 12.6 mmol/L Normal [facility] Comment on above: Performed By: #### F T3, CMP, T4, TSH, LIPID #### [facility] [address] [place] [address] Dr. Seven Mares AST [Catalytic activity/Vol] 25 U/L Normal 15-37 [facility] Comment on above: Performed By: #### F T3, CMP, T4, TSH, LIPID #### [facility] [address] [place] [address] Dr. Seven Mares Bilirubin [Mass/Vol] 0.5 mg/dL Normal 0.2-1.0 [facility] Comment on above: Performed By: #### F T3, CMP, T4, TSH, LIPID #### [facility] [address] [place] [address] Dr. Seven Mares Calcium [Mass/Vol] 9.3 mg/dL Normal 8.5-10.1 [facility] Comment on above: Performed By: #### F T3, CMP, T4, TSH, LIPID #### [facility] [address] [place] [address] Dr. Seven Mares Chloride [Moles/Vol] 102 mmol/L Normal 98-107 [facility] Comment on above: Performed By: #### F T3, CMP, T4, TSH, LIPID #### [facility] [address] [address] [address] Seven Mares CO2 [Moles/Vol] 30.5 mmol/L Normal 21.0-32.0 [facility] Comment on above: Performed By: #### F T3, CMP, T4, TSH, LIPID #### [facility] [address] [place] [address] Dr. Seven Mares Creatinine [Mass/Vol] 1.09 mg/dL Normal 0.70-1.30 [facility] Comment on above: Performed By: #### F T3, CMP, T4, TSH, LIPID #### [facility] [address] [place] [address] Dr. Seven Mares EGFR-AF QATARI >60 Normal >=60 [facility] Comment on above: Performed By: #### F T3, CMP, T4, TSH, LIPID #### [facility] [address] [place] [address] Dr. Seven Mares EGFR-NON AF QATARI >60 Normal >=60 [facility] Comment on above: Performed By: #### F T3, CMP, T4, TSH, LIPID #### [facility] [address] [place] [address] Dr. Seven Mares Globulin (S) [Mass/Vol] 3.5 g/dL Normal [facility] Comment on above: Performed By: #### F T3, CMP, T4, TSH, LIPID #### [facility] [address] [place] [address] Dr. Seven Mares Glucose [Mass/Vol] 134 mg/dL Critically high 74-106 T [facility] Comment on above: Performed By: #### F T3, CMP, T4, TSH, LIPID #### [facility] [address] [place] [address] Dr. Seven Mares Potassium [Moles/Vol] 4.1 mmol/L Normal 3.5-5.1 [facility] Comment on above: Performed By: #### F T3, CMP, T4, TSH, LIPID #### [facility] [address] [address] [address] Seven Mares Protein [Mass/Vol] 7.9 g/dL Normal 6.4-8.2 [facility] Comment on above: Performed By: #### F T3, CMP, T4, TSH, LIPID #### [facility] [address] [address] [address] Seven Mares Sodium [Moles/Vol] 141 mmol/L Normal 136-145 [facility] Comment on above: Performed By: #### F T3, CMP, T4, TSH, LIPID #### [facility] [address] [address] [address] Seven Mares Urea nitrogen [Mass/Vol] 22.0 mg/dL Critically high 7.0-18.0 [facility] Comment on above: Performed By: #### F T3, CMP, T4, TSH, LIPID #### [facility] [address] [place] [address] Dr. Seven Mares Urea nitrogen/Creatinine [Mass ratio] 20.2 mg/mg Normal [facility] Comment on above: Performed By: #### F T3, CMP, T4, TSH, LIPID #### [facility] [address] [place] [address] Dr. Seven Mares TSHon 05-26-2022 TSH 2.661 uIU/mL Normal 0.358-3.74 0 [facility] Comment on above: Performed By: #### F T3, CMP, T4, TSH, LIPID #### [facility] [address] [place] [address] Dr. Seven Mares GLUCOSE BLOODon 04-08-2022 Glucose [Mass/Vol] 128 mg/dL Critically high 74-106 T [facility] Comment on above: Performed By: #### F T3, CMP, T4, TSH, LIPID #### [facility] [address] [place] [address] Dr. Seven Mares LIPID PROFILEon 04-08-2022 CHOL-HDL RATIO NORM SEE BELOW Normal [facility] Comment on above: Result Comment: 3.3 - 4.4 LOW RISK 4.4 - 7.1 AVERAGE RISK 7.1 - 11.0 MODERATE RISK >11.0 HIGH RISK Performed By: #### F T3, CMP, T4, TSH, LIPID #### [facility] [address] [place] [address] Dr. Seven Mares Cholesterol [Mass/Vol] 119 mg/dL Normal <=200 Th [facility] Comment on above: Performed By: #### F T3, CMP, T4, TSH, LIPID #### [facility] [address] [address] [address] Seven Mares Cholesterol in HDL [Mass/Vol] 59 mg/dL Normal 40-60 [facility] Comment on above: Performed By: #### F T3, CMP, T4, TSH, LIPID #### [facility] [address] [place] [address] Dr. Seven Mares Cholesterol in LDL [Mass/Vol] 42.6 mg/dL Normal [facility] Comment on above: Performed By: #### F T3, CMP, T4, TSH, LIPID #### [facility] [address] [place] [address] Dr. Seven Mares Cholesterol.total/Chol esterol in HDL [Mass ratio] 2.0 {ratio} Normal [facility] Comment on above: Performed By: #### F T3, CMP, T4, TSH, LIPID #### [facility] [address] [place] [address] Dr. Seven Mares HDL NORMAL > or = 60 mg/dl - LO W CARDIOVASCULAR RISK <40 mg/dl - HIGH CARDIOVASCULAR RISK Normal [facility] Comment on above: Performed By: #### F T3, CMP, T4, TSH, LIPID #### [facility] [address] [place] [address] Dr. Seven Mares LDL CALC NORMAL SEE BELOW Normal [facility] Comment on above: Result Comment: <100 mg/dl OPTIMAL 100 - 129 mg/dl NEAR OR ABOVE OPTIMAL 130 - 159 mg/dl BORDERLINE HIGH 160 - 189 mg/dl HIGH >190 mg/dl VERY HIGH Performed By: #### F T3, CMP, T4, TSH, LIPID #### [facility] [address] [place] [address] Dr. Seven Mares Triglyceride [Mass/Vol] 87 mg/dL Normal <=150 [facility] Comment on above: Performed By: #### F T3, CMP, T4, TSH, LIPID #### [facility] [address] [place] [address] Dr. Seven Mares VLDL CALC 17.4 mg/dL Normal [facility] Comment on above: Performed By: #### F T3, CMP, T4, TSH, LIPID #### [facility] [address] [place] [address] Dr. Seven Mares CBC AUTO DIFFon 11-14-2021 BASO # 0.1 103/ul Normal 0.0-0.1 [facility] Comment on above: Performed By: #### F T3, CMP, T4, TSH, LIPID #### [facility] [address] [place] [address] Dr. Seven Mares Basophils/100 WBC (Bld) 1.0 % Normal 0.2-2.0 [facility] Comment on above: Performed By: #### F T3, CMP, T4, TSH, LIPID #### [facility] [address] [place] [address] Dr. Seven Mares EO # 0.1 103/ul Normal 0.0-0.7 [facility] Comment on above: Performed By: #### F T3, CMP, T4, TSH, LIPID #### [facility] [address] [place] [address] Dr. Seven aMres Eosinophils/100 WBC (Bld) 2.4 % Normal 0.9-7.0 [facility] Comment on above: Performed By: #### F T3, CMP, T4, TSH, LIPID #### [facility] [address] [place] [address] Dr. Seven Mares Erythrocyte distribution width (RBC) [Ratio] 14.1 % Normal 11.0-15.0 [facility] Comment on above: Performed By: #### F T3, CMP, T4, TSH, LIPID #### [facility] [address] [place] [address] Dr. Seven Mares Hematocrit (Bld) [Volume fraction] 46.8 % Normal 42.0-54.0 [facility] Comment on above: Performed By: #### F T3, CMP, T4, TSH, LIPID #### [facility] [address] [place] [address] Dr. Seven Mares Hemoglobin (Bld) [Mass/Vol] 15.7 g/dL Normal 14.0-18.0 [facility] Comment on above: Performed By: #### F T3, CMP, T4, TSH, LIPID #### [facility] [address] [place] [address] Dr. Seven Mares IG # 0.02 10e3/ul Normal 0.00-0.03 [facility] Comment on above: Performed By: #### F T3, CMP, T4, TSH, LIPID #### [facility] [address] [place] [address] Dr. Seven Mares IG % 0.4 % Normal 0.0-0.5 [facility] Comment on above: Performed By: #### F T3, CMP, T4, TSH, LIPID #### [facility] [address] [place] [address] Dr. Seven Mares LYMPH # 1.1 103/ul Critically low 1.2-3.8 [facility] Comment on above: Performed By: #### F T3, CMP, T4, TSH, LIPID #### [facility] [address] [place] [address] Dr. Seven Mares Lymphocytes/100 WBC (Bld) 22.9 % Normal 20.5-60.0 [facility] Comment on above: Performed By: #### F T3, CMP, T4, TSH, LIPID #### [facility] [address] [place] [address] Dr. Seven Mares MANUAL DIFF REQ NO Normal [facility] Comment on above: Performed By: #### F T3, CMP, T4, TSH, LIPID #### [facility] [facility] [address] [place] [address] Dr. Seven Mares MCH (RBC) [Entitic mass] 29.2 pg Normal 25.9-34.0 [facility] Comment on above: Performed By: #### F T3, CMP, T4, TSH, LIPID #### [facility] [address] [place] [address] Dr. Seven Mares MCHC (RBC) [Mass/Vol] 33.5 g/dL Normal 29.9-35.2 [facility] Comment on above: Performed By: #### F T3, CMP, T4, TSH, LIPID #### [facility] [address] [place] [address] Dr. Seven Mares MCV (RBC) [Entitic vol] 87.0 fL Normal 80.0-94.0 [facility] Comment on above: Performed By: #### F T3, CMP, T4, TSH, LIPID #### [facility] [address] [place] [address] Dr. Seven Mares MONO # 0.5 103/ul Normal 0.3-0.8 [facility] Comment on above: Performed By: #### F T3, CMP, T4, TSH, LIPID #### [facility] [address] [place] [address] Dr. Seven Mares Monocytes/100 WBC (Bld) 9.9 % Normal 1.7-12.0 [facility] Comment on above: Performed By: #### F T3, CMP, T4, TSH, LIPID #### [facility] [address] [place] [address] Dr. Seven Mares NEUT # 3.1 103/ul Normal 1.4-6.5 [facility] Comment on above: Performed By: #### F T3, CMP, T4, TSH, LIPID #### [facility] [address] [place] [address] Dr. Seven Mares Neutrophils/100 WBC (Bld) 63.4 % Normal 43.0-75.0 [facility] Comment on above: Performed By: #### F T3, CMP, T4, TSH, LIPID #### [facility] [address] [place] [address] Dr. Seven Mares Platelet mean volume (Bld) [Entitic vol] 9.3 fL Critically low 9.5-13.5 [facility] Comment on above: Performed By: #### F T3, CMP, T4, TSH, LIPID #### [facility] [address] [address] [address] Seven Mares PLT 227 103/ul Normal 150-450 [facility] Comment on above: Performed By: #### F T3, CMP, T4, TSH, LIPID #### [facility] [address] [address] [address] Seven Mares RBC 5.38 106/ul Normal 4.70-6.10 [facility] Comment on above: Performed By: #### F T3, CMP, T4, TSH, LIPID #### [facility] [address] [address] [address] Seven Mares WBC 4.9 103/ul Normal 4.0-11.0 [facility] Comment on above: Performed By: #### F T3, CMP, T4, TSH, LIPID #### [facility] [address] [place] [address] Dr. Seven Mares FREE T3on 11-14-2021 FREE T3 2.43 pg/mlL Normal 2.18-3.98 [facility] Comment on above: Performed By: #### F T3, CMP, T4, TSH, LIPID #### [facility] [address] [address] [address] Seven Mares GLYCOHEMOGLOBIN A1Con 2021 ADA RECOMMENDATION SEE BELOW Normal [facility] Comment on above: Result Comment: ADA RECOMMENDED LIMIT 4.0 - 6.0 ADA THERAPEUTIC TARGET < 7.0 ACTION SUGGESTED > 7.0 Performed By: #### F T3, CMP, T4, TSH, LIPID #### [facility] [address] [place] [address] Dr. Seven Mares Glucose [Mass/Vol] 143 mg/dL Normal [facility] Comment on above: Performed By: #### F T3, CMP, T4, TSH, LIPID #### [facility] [address] [place] [address] Dr. Seven Mares HbA1c (Bld) [Mass fraction] 6.6 % Critically high 4.5-6.2 [facility] Comment on above: Performed By: #### F T3, CMP, T4, TSH, LIPID #### [facility] [address] [address] [address] Seven Mares LIPID PROFILEon 11-14-2021 CHOL-HDL RATIO NORM SEE BELOW Normal [facility] Comment on above: Result Comment: 3.3 - 4.4 LOW RISK 4.4 - 7.1 AVERAGE RISK 7.1 - 11.0 MODERATE RISK >11.0 HIGH RISK Performed By: #### F T3, CMP, T4, TSH, LIPID #### [facility] [address] [address] [address] Seven Mares Cholesterol [Mass/Vol] 102 mg/dL Normal <=200 Th [facility] Comment on above: Performed By: #### F T3, CMP, T4, TSH, LIPID #### [facility] [address] [address] [address] Seven Mares Cholesterol in HDL [Mass/Vol] 47 mg/dL Normal 40-60 [facility] Comment on above: Performed By: #### F T3, CMP, T4, TSH, LIPID #### [facility] [address] [address] [address] Seven Mares Cholesterol in LDL [Mass/Vol] 30.6 mg/dL Normal [facility] Comment on above: Performed By: #### F T3, CMP, T4, TSH, LIPID #### [facility] [address] [address] [address] Seven Mares Cholesterol.total/Chol esterol in HDL [Mass ratio] 2.2 {ratio} Normal [facility] Comment on above: Performed By: #### F T3, CMP, T4, TSH, LIPID #### [facility] [address] [address] [address] Seven Mares HDL NORMAL > or = 60 mg/dl - LO W CARDIOVASCULAR RISK <40 mg/dl - HIGH CARDIOVASCULAR RISK Normal [facility] Comment on above: Performed By: #### F T3, CMP, T4, TSH, LIPID #### [facility] [address] [address] [address] Seven Mares LDL CALC NORMAL SEE BELOW Normal [facility] Comment on above: Result Comment: <100 mg/dl OPTIMAL 100 - 129 mg/dl NEAR OR ABOVE OPTIMAL 130 - 159 mg/dl BORDERLINE HIGH 160 - 189 mg/dl HIGH >190 mg/dl VERY HIGH Performed By: #### F T3, CMP, T4, TSH, LIPID #### [facility] [address] [address] [address] Seven Mares Triglyceride [Mass/Vol] 122 mg/dL Normal <=150 [facility] Comment on above: Performed By: #### F T3, CMP, T4, TSH, LIPID #### [facility] [address] [address] [address] Seven Mares VLDL CALC 24.4 mg/dL Normal [facility] Comment on above: Performed By: #### F T3, CMP, T4, TSH, LIPID #### [facility] [address] [place] [address] Dr. Seven Mares PROF 14(COMP METB)on 022 Albumin [Mass/Vol] 4.1 g/dL Normal 3.4-5.0 [facility] Comment on above: Performed By: #### F T3, CMP, T4, TSH, LIPID #### [facility] [address] [place] [address] Dr. Seven Mares Albumin/Globulin [Mass ratio] 1.3 {ratio} Normal [facility] Comment on above: Performed By: #### F T3, CMP, T4, TSH, LIPID #### [facility] [address] [place] [address] Dr. Seven Mares ALP [Catalytic activity/Vol] 115 U/L Normal 46-116 [facility] Comment on above: Performed By: #### F T3, CMP, T4, TSH, LIPID #### [facility] [address] [address] [address] Seven Mares ALT [Catalytic activity/Vol] 46 U/L Normal 16-63 [facility] Comment on above: Performed By: #### F T3, CMP, T4, TSH, LIPID #### [facility] [address] [address] [address] Seven Mares Anion gap [Moles/Vol] 11.0 mmol/L Normal [facility] Comment on above: Performed By: #### F T3, CMP, T4, TSH, LIPID #### [facility] [address] [address] [address] Seven Mares AST [Catalytic activity/Vol] 28 U/L Normal 15-37 [facility] Comment on above: Performed By: #### F T3, CMP, T4, TSH, LIPID #### [facility] [address] [address] [address] Seven Mares Bilirubin [Mass/Vol] 0.5 mg/dL Normal 0.2-1.0 [facility] Comment on above: Performed By: #### F T3, CMP, T4, TSH, LIPID #### [facility] [address] [place] [address] Dr. Seven Mares Calcium [Mass/Vol] 9.0 mg/dL Normal 8.5-10.1 [facility] Comment on above: Performed By: #### F T3, CMP, T4, TSH, LIPID #### [facility] [address] [place] [address] Dr. Seven Mares Chloride [Moles/Vol] 106 mmol/L Normal 98-107 [facility] Comment on above: Performed By: #### F T3, CMP, T4, TSH, LIPID #### [facility] [address] [place] [address] Dr. Seven Mares CO2 [Moles/Vol] 28.1 mmol/L Normal 21.0-32.0 [facility] Comment on above: Performed By: #### F T3, CMP, T4, TSH, LIPID #### [facility] [address] [place] [address] Dr. Seven Mares Creatinine [Mass/Vol] 1.22 mg/dL Normal 0.70-1.30 [facility] Comment on above: Performed By: #### F T3, CMP, T4, TSH, LIPID #### [facility] [address] [place] [address] Dr. Seven Mares EGFR-AF QATARI >60 Normal >=60 [facility] Comment on above: Performed By: #### F T3, CMP, T4, TSH, LIPID #### [facility] [address] [address] [address] Seven Mares EGFR-NON AF QATARI =60 Normal >=60 [facility] Comment on above: Performed By: #### F T3, CMP, T4, TSH, LIPID #### [facility] [address] [address] [address] Seven Mares Globulin (S) [Mass/Vol] 3.2 g/dL Normal [facility] Comment on above: Performed By: #### F T3, CMP, T4, TSH, LIPID #### [facility] [address] [address] [address] Seven Mares Glucose [Mass/Vol] 131 mg/dL Critically high 74-106 T [facility] Comment on above: Performed By: #### F T3, CMP, T4, TSH, LIPID #### [facility] [address] [place] [address] Dr. Seven Mares Potassium [Moles/Vol] 4.1 mmol/L Normal 3.5-5.1 [facility] Comment on above: Performed By: #### F T3, CMP, T4, TSH, LIPID #### [facility] [address] [address] [address] Seven Mares Protein [Mass/Vol] 7.3 g/dL Normal 6.4-8.2 [facility] Comment on above: Performed By: #### F T3, CMP, T4, TSH, LIPID #### [facility] [address] [address] [address] Seven Mares Sodium [Moles/Vol] 141 mmol/L Normal 136-145 [facility] Comment on above: Performed By: #### F T3, CMP, T4, TSH, LIPID #### [facility] [address] [place] [address] Dr. Seven Mares Urea nitrogen [Mass/Vol] 14.0 mg/dL Normal 7.0-18.0 [facility] Comment on above: Performed By: #### F T3, CMP, T4, TSH, LIPID #### [facility] [address] [place] [address] Dr. Seven Mares Urea nitrogen/Creatinine [Mass ratio] 11.5 mg/mg Normal [facility] Comment on above: Performed By: #### F T3, CMP, T4, TSH, LIPID #### [facility] [address] [id number] Seven Mares T4on 11-14-2021 T4 [Mass/Vol] 9.50 ug/dL Normal 4.50-12.10 [facility] Comment on above: Performed By: #### F T3, CMP, T4, TSH, LIPID #### [facility] [address] [id number] Seven Mares TSHon 11-14-2021 TSH 2.820 uIU/mL Normal 0.358-3.74 0 [facility] Comment on above: Performed By: #### F T3, CMP, T4, TSH, LIPID #### [facility] [address] [address] [address] Seven Mares ECHOCARDIO M/2D COMPLETEon 0 06-21-2021 ECHOCARDIO M/2D COMPLETE Patient: SPENCER OLIVEIRA Exam Date: 06/21/2021 : 1960 Gender:M Ordering : DR SANDRO MOMIN . Admission #: [id number] Family : Order #: [id number] CLICK HERE TO VIEW EXAM ECHOCARDIOGRAM REPORT PROCEDURE: CARDIO PULMONARY ECHOCARDIO M/2D COMP INDICATIONS: Cold hand and feet, Hx: stents, [place] COMPARISON: None. DESCRIPTION: COMPLETE ECHOCARDIOGRAM Real-time transthoracic [...] Area(A4C): 14.00 cm2 Left Atrium Systolic Volume(A2C): 63876 mm3 Left Atrium Systolic Volume(A4C): 89848 mm3 Mitral Valve MV E to A Ratio: 0.70 Deceleration [place]ers: 2100 mm/s2 Mitral Valve A-Wave Peak Velocity: [...] Ivelisse Ward M.D. on 06/21/2021 at 10:14 [facility] Natriuretic peptide B (Bld) [Mass/Vol] 27.0 pg/mL Normal <=900.0 [facility] Comment on above: Performed By: #### T 7, TSH, BNP, CMP #### [facility] [address] [place] [address] Dr. Seven Mares CBC AUTO DIFFon 06-07-2021 BASO # 0.1 103/ul Normal 0.0-0.1 [facility] Comment on above: Performed By: #### F T3, CMP, T4, TSH, LIPID #### [facility] [address] [place] [address] Dr. Seven Mares Basophils/100 WBC (Bld) 1.3 % Normal 0.2-2.0 [facility] Comment on above: Performed By: #### F T3, CMP, T4, TSH, LIPID #### [facility] [address] [place] [address] Dr. Seven Mares EO # 0.1 103/ul Normal 0.0-0.7 [facility] Comment on above: Performed By: #### F T3, CMP, T4, TSH, LIPID #### [facility] [address] [place] [address] Dr. Seven Mares Eosinophils/100 WBC (Bld) 1.9 % Normal 0.9-7.0 [facility] Comment on above: Performed By: #### F T3, CMP, T4, TSH, LIPID #### [facility] [address] [place] [address] Dr. Seven Mares Erythrocyte distribution width (RBC) [Ratio] 13.9 % Normal 11.0-15.0 [facility] Comment on above: Performed By: #### F T3, CMP, T4, TSH, LIPID #### [facility] [address] [place] [address] Dr. Seven Mares Hematocrit (Bld) [Volume fraction] 47.5 % Normal 42.0-54.0 [facility] Comment on above: Performed By: #### F T3, CMP, T4, TSH, LIPID #### [facility] [address] [place] [address] Dr. Seven Mares Hemoglobin (Bld) [Mass/Vol] 15.9 g/dL Normal 14.0-18.0 [facility] Comment on above: Performed By: #### F T3, CMP, T4, TSH, LIPID #### [facility] [address] [place] [address] Dr. Seven Mares IG # 0.02 10e3/ul Normal 0.00-0.03 [facility] Comment on above: Performed By: #### F T3, CMP, T4, TSH, LIPID #### [facility] [address] [place] [address] Dr. Seven Mares IG % 0.4 % Normal 0.0-0.5 [facility] Comment on above: Performed By: #### F T3, CMP, T4, TSH, LIPID #### [facility] [address] [place] [address] Dr. Seven Mares LYMPH # 1.5 103/ul Normal 1.2-3.8 [facility] Comment on above: Performed By: #### F T3, CMP, T4, TSH, LIPID #### [facility] [address] [place] [address] Dr. Seven Mares Lymphocytes/100 WBC (Bld) 28.1 % Normal 20.5-60.0 [facility] Comment on above: Performed By: #### F T3, CMP, T4, TSH, LIPID #### [facility] [address] [place] [address] Dr. Seven Mares MANUAL DIFF REQ NO Normal [facility] Comment on above: Performed By: #### F T3, CMP, T4, TSH, LIPID #### [facility] [address] [place] [address] Dr. Seven Mares MCH (RBC) [Entitic mass] 28.9 pg Normal 25.9-34.0 [facility] Comment on above: Performed By: #### F T3, CMP, T4, TSH, LIPID #### [facility] [address] [place] [address] Dr. Seven Mares MCHC (RBC) [Mass/Vol] 33.5 g/dL Normal 29.9-35.2 [facility] Comment on above: Performed By: #### F T3, CMP, T4, TSH, LIPID #### [facility] [address] [place] [address] Dr. Seven Mares MCV (RBC) [Entitic vol] 86.4 fL Normal 80.0-94.0 [facility] Comment on above: Performed By: #### F T3, CMP, T4, TSH, LIPID #### [facility] [address] [place] [address] Dr. Seven Mares MONO # 0.6 103/ul Normal 0.3-0.8 [facility] Comment on above: Performed By: #### F T3, CMP, T4, TSH, LIPID #### [facility] [address] [place] [address] Dr. Seven Mares Monocytes/100 WBC (Bld) 10.5 % Normal 1.7-12.0 [facility] Comment on above: Performed By: #### F T3, CMP, T4, TSH, LIPID #### [facility] [address] [place] [address] Dr. Seven Mares NEUT # 3.0 103/ul Normal 1.4-6.5 [facility] Comment on above: Performed By: #### F T3, CMP, T4, TSH, LIPID #### [facility] [address] [place] [address] Dr. Seven Mares Neutrophils/100 WBC (Bld) 57.8 % Normal 43.0-75.0 [facility] Comment on above: Performed By: #### F T3, CMP, T4, TSH, LIPID #### [facility] [address] [place] [address] Dr. Seven Mares Platelet mean volume (Bld) [Entitic vol] 9.4 fL Critically low 9.5-13.5 [facility] Comment on above: Performed By: #### F T3, CMP, T4, TSH, LIPID #### [facility] [address] [place] [address] Dr. Seven Mares PLT 208 103/ul Normal 150-450 [facility] Comment on above: Performed By: #### F T3, CMP, T4, TSH, LIPID #### [facility] [address] [address] [address] Seven Mares RBC 5.50 106/ul Normal 4.70-6.10 [facility] Comment on above: Performed By: #### F T3, CMP, T4, TSH, LIPID #### [facility] [address] [place] [address] Dr. Seven Mares WBC 5.2 103/ul Normal 4.0-11.0 [facility] Comment on above: Performed By: #### F T3, CMP, T4, TSH, LIPID #### [facility] [address] [place] [address] Dr. Seven Mares FREE THYROXINE INDEX T7on FTI 2.88 Normal [facility] Comment on above: Performed By: #### T 7, TSH, BNP, CMP #### [facility] [address] [place] [address] Dr. Seven Mares T3U 32.0 % Normal 23.5-40.5 [facility] Comment on above: Performed By: #### T 7, TSH, BNP, CMP #### [facility] [address] [place] [address] Dr. Seven Mares T4 [Mass/Vol] 9.00 ug/dL Normal 5.53-11.00 [facility] Comment on above: Performed By: #### T 7, TSH, BNP, CMP #### [facility] [address] [place] [address] Dr. Seven Mares IRONon 06-07-2021 Iron [Mass/Vol] 71.0 ug/dL Normal 49.0-181.0 [facility] Comment on above: Performed By: #### F T3, CMP, T4, TSH, LIPID #### [facility] [address] [place] [address] Dr. Seven Mares PROF 14(COMP METB)on 022 Albumin [Mass/Vol] 4.0 g/dL Normal 3.5-5.0 [facility] Comment on above: Performed By: #### T 7, TSH, BNP, CMP #### [facility] [address] [address] [address] Seven Mares Albumin/Globulin [Mass ratio] 1.2 {ratio} Normal [facility] Comment on above: Performed By: #### T 7, TSH, BNP, CMP #### [facility] [address] [place] [address] Dr. Seven Mares ALP [Catalytic activity/Vol] 100 U/L Normal 38-126 [facility] Comment on above: Performed By: #### T 7, TSH, BNP, CMP #### [facility] [address] [place] [address] Dr. Seven Mares ALT [Catalytic activity/Vol] 40 U/L Normal 21-72 [facility] Comment on above: Performed By: #### T 7, TSH, BNP, CMP #### [facility] [address] [place] [address] Dr. Seven Mares Anion gap [Moles/Vol] 11.3 mmol/L Normal [facility] Comment on above: Performed By: #### T 7, TSH, BNP, CMP #### [facility] [address] [place] [address] Dr. Seven Mares AST [Catalytic activity/Vol] 23 U/L Normal 17-59 [facility] Comment on above: Performed By: #### T 7, TSH, BNP, CMP #### [facility] [address] [place] [address] Dr. Seven Mares Bilirubin [Mass/Vol] 0.4 mg/dL Normal 0.2-1.3 [facility] Comment on above: Performed By: #### T 7, TSH, BNP, CMP #### [facility] [address] [place] [address] Dr. Seven Mares Calcium [Mass/Vol] 8.9 mg/dL Normal 8.4-10.2 [facility] Comment on above: Performed By: #### T 7, TSH, BNP, CMP #### [facility] [address] [place] [address] Dr. Seven Mares Chloride [Moles/Vol] 104 mmol/L Normal 98-107 [facility] Comment on above: Performed By: #### T 7, TSH, BNP, CMP #### [facility] [address] [place] [address] Dr. Seven Mares CO2 [Moles/Vol] 27.9 mmol/L Normal 22.0-30.0 [facility] Comment on above: Performed By: #### T 7, TSH, BNP, CMP #### [facility] [address] [place] [address] Dr. Seven Mares Creatinine [Mass/Vol] 1.22 mg/dL Normal 0.66-1.25 [facility] Comment on above: Performed By: #### T 7, TSH, BNP, CMP #### [facility] [address] [place] [address] Dr. Seven Mares EGFR-AF QATARI >60 Normal >=60 [facility] Comment on above: Performed By: #### T 7, TSH, BNP, CMP #### [facility] [address] [place] [address] Dr. Seven Mares EGFR-NON AF QATARI =60 Normal >=60 [facility] Comment on above: Performed By: #### T 7, TSH, BNP, CMP #### [facility] [address] [place] [address] Dr. Seven Mares Globulin (S) [Mass/Vol] 3.4 g/dL Normal [facility] Comment on above: Performed By: #### T 7, TSH, BNP, CMP #### [facility] [address] [place] [address] Dr. Seven Mares Glucose [Mass/Vol] 165 mg/dL Critically high 74-106 [facility] Comment on above: Performed By: #### T 7, TSH, BNP, CMP #### [facility] [address] [place] [address] Dr. Seven Mares Potassium [Moles/Vol] 4.2 mmol/L Normal 3.4-5.0 [facility] Comment on above: Performed By: #### T 7, TSH, BNP, CMP #### [facility] [address] [place] [address] Dr. Seven Mares Protein [Mass/Vol] 7.4 g/dL Normal 6.1-8.2 [facility] Comment on above: Performed By: #### T 7, TSH, BNP, CMP #### [facility] [address] [place] [address] Dr. Seven Mares Sodium [Moles/Vol] 139 mmol/L Normal 137-145 [facility] Comment on above: Performed By: #### T 7, TSH, BNP, CMP #### [facility] [address] [place] [address] Dr. Seven Mares Urea nitrogen [Mass/Vol] 17.0 mg/dL Normal 9.0-20.0 [facility] Comment on above: Performed By: #### T 7, TSH, BNP, CMP #### [facility] [address] [place] [address] Dr. Seven Mares Urea nitrogen/Creatinine [Mass ratio] 13.9 mg/mg Normal The [facility] Comment on above: Performed By: #### T 7, TSH, BNP, CMP #### [facility] [address] [place] [address] Dr. Seven Mares TSHon 06-07-2021 TSH 3.659 uIU/mL Normal 0.470-4.68 0 [facility] Comment on above: Performed By: #### T 7, TSH, BNP, CMP #### [facility] [address] [place] [address] Dr. Seven Mares TSH RANGE SEE BELOW Normal The [facility] Comment on above: Result Comment: <0.3 4 UIU/ml HYPERTHYROID 0.34-5.60 UIU/ml EUTHYROID >5.60 UIU/ml HYPOTHYROID Performed By: #### T 7, TSH, BNP, CMP #### [facility] [address] [place] [address] Dr. Seven Mares BASIC METABOLIC PANELon 10-0 Calcium [Mass/Vol] 8.8 mg/dL Normal 8.6-10.3 [facility] Comment on above: Order Comment: No: D o not add to previous draw Performed By: #### 0 0071, 12069, 52806 #### [facility] [address] [place] [address], [place] Chloride [Moles/Vol] 102 mmol/L Normal 98-107 [facility] Comment on above: Order Comment: No: D o not add to previous draw Performed By: #### 0 0071, 09238, 40718 #### [facility] [address] [place] [address], [place] CO2 [Moles/Vol] 27 mmol/L Normal 21-31 [facility] Comment on above: Order Comment: No: D o not add to previous draw Performed By: #### 0 0071, 74346, 75790 #### [facility] [address] [place] [address], [place] Creatinine [Mass/Vol] 0.81 mg/dL Normal 0.70-1.30 [facility] Comment on above: Order Comment: No: D o not add to previous draw Performed By: #### 0 0071, 56634, 19180 #### [facility] [address] [place] [address], [place] GFR/1.73 sq M.predicted among blacks MDRD (S/P/Bld) [Vol rate/Area] mL/min/{1.73_m2} Normal >60 [facility] Comment on above: Order Comment: No: D o not add to previous draw Performed By: #### 0 0071, 88373, 22966 #### [facility] [address] [place] [address], [place] GFR/1.73 sq M.predicted among non-blacks MDRD (S/P/Bld) [Vol rate/Area] mL/min/{1.73_m2} Normal >60 [facility] Comment on above: Order Comment: No: D o not add to previous draw Performed By: #### 0 0071, 87374, 12973 #### [facility] [address] [place] [address], [place] Glucose [Mass/Vol] 211 mg/dL High 70-100 [facility] Comment on above: Order Comment: No: D o not add to previous draw Performed By: #### 0 0071, 17760, 41836 #### [facility] [address] [place] [address], [place] Potassium [Moles/Vol] 4.1 mmol/L Normal 3.5-5.1 [facility] Comment on above: Order Comment: No: D o not add to previous draw Performed By: #### 0 0071, 32857, 87885 #### [facility] [address] [place] [address], [place] Sodium [Moles/Vol] 136 mmol/L Normal 136-145 [facility] Comment on above: Order Comment: No: D o not add to previous draw Performed By: #### 0 0071, 60936, 37415 #### [facility] [address] [place] [address], [facility] Urea nitrogen [Mass/Vol] 15 mg/dL Normal 7-25 [facility] Comment on above: Order Comment: No: D o not add to previous draw Performed By: #### 0 0071, 22315, 04478 #### [facility] [address] [place] [address], [facility] CBC COMPLETE BLOOD COUNTon Erythrocyte distribution width (RBC) [Ratio] 13.8 % Normal 11.5-15.0 [facility] Comment on above: Order Comment: No: D o not add to previous draw Performed By: #### 5 0608 #### [facility] [address] [place] [address], [facility] Hematocrit (Bld) [Volume fraction] 42.1 % Normal 39.0-50.0 [facility] Comment on above: Order Comment: No: D o not add to previous draw Performed By: #### 5 0608 #### [facility] [address] Hemoglobin (Bld) [Mass/Vol] 13.7 g/dL Normal 13.0-17.0 [facility] Comment on above: Order Comment: No: D o not add to previous draw Performed By: #### 5 0608 #### [facility] [address] [facility] [place] [address], [facility] MCH (RBC) [Entitic mass] 27.6 pg Normal 27.0-33.0 [facility] Comment on above: Order Comment: No: D o not add to previous draw Performed By: #### 5 0608 #### [facility] [address] [facility]. [address] MCHC (RBC) [Mass/Vol] 32.5 g/dL Normal 32.0-35.0 [facility] Comment on above: Order Comment: No: D o not add to previous draw Performed By: #### 5 0608 #### [facility] [address] [place] [address], [facility] MCV (RBC) [Entitic vol] 84.9 fL Normal 82.0-98.0 [facility] Comment on above: Order Comment: No: D o not add to previous draw Performed By: #### 5 0608 #### [facility] [address] [facility]. [address] Nucleated RBC/100 WBC (Bld) [Ratio] 0 % Normal 0-0 [facility] Comment on above: Order Comment: No: D o not add to previous draw Performed By: #### 5 0608 #### [facility] [address] [place] [address], [facility] PLAT CNT 212 10*3/uL Normal 150-400 [facility] Comment on above: Order Comment: No: D o not add to previous draw Performed By: #### 5 0608 #### [facility] [address] RBC (Bld) [#/Vol] 4.96 10*6/uL Normal 4.20-5.70 [facility] Comment on above: Order Comment: No: D o not add to previous draw Performed By: #### 5 0608 #### [facility] [address] [place] [address], [facility] WBC (Bld) [#/Vol] 7.90 10*3/uL Normal 4.00-10.60 [facility] Comment on above: Order Comment: No: D o not add to previous draw Performed By: #### 5 0608 #### [address] Cardiovascular Lab Reporton 02-02-2020 Cardiovascular Lab Report [facility] Patient Name: [facility] MR #: [id number] Department of Physician: Eliu Marc M.D. Division of Service Date: 02/01/2020 Cardiology Birthdate: 1960 Adult Cardiovascular Room #: 3AB [id number] [place] [address] Cardiovascular Laboratory Report FINAL IMPRESSIONS: 1. Severe [...] and adjacent diagonal branch, placement of a 6-Divehi MynxGrip closure device. METHODS: After risks, benefits, and alternatives were explained, written informed consent was obtained. The patient was prepped and draped in usual sterile fashion over the right groin. Using 1% lidocaine solution, local infiltration anesthesia was achieved. Using a modified Seldinger technique and a micropuncture kit, access of the right common femoral artery was obtained. A 6-Divehi 11 cm sheath was inserted without difficulty. Bilateral selective coronary angiography was performed using JL4 and JR4 catheters. After reviewing the images, it was elected to proceed with an interventional procedure. A 7-Divehi XB 3.5 guide catheter was advanced in and coaxially engaged into the left main ostium after upsizing the femoral sheath to a 7-Divehi 11 cm sheath. A 0.014 Runthrough NS [...] was elected to conclude the procedure. A 6-Divehi MynxGrip closure device was deployed per protocol [...] postero (more content not included)... Normal [facility] MAGNESIUM BLOODon 02-02-2020 Magnesium [Mass/Vol] 2.2 mg/dL Normal 1.9-2.7 [facility] Comment on above: Order Comment: No: D o not add to previous draw Performed By: #### 0 0071, 91609, 18218 #### [facility] [address] [place] [address], [facility] PHOSPHORUS BLOODon 0 Phosphate [Mass/Vol] 2.8 mg/dL Normal 2.5-5.0 [facility] Comment on above: Order Comment: No: D o not add to previous draw Performed By: #### 0 0071, 29615, 11143 #### [facility] [address] [facility] [place] [address], [facility] POC GLUCOSE LABon 02-02-2020 Glucose [Mass/Vol] 299 mg/dL High 70-100 [facility] Comment on above: Performed By: #### 8 5499 #### [facility] [address] [facility] [place] [address], [facility] BASIC METABOLIC PANELon 10-0 Calcium [Mass/Vol] 8.5 mg/dL Low 8.6-10.3 [facility] Comment on above: Order Comment: No: D o not add to previous draw Performed By: #### 3 5200, 11909, 80919 #### [facility] [address] [place] [address], [place] Chloride [Moles/Vol] 104 mmol/L Normal 98-107 [facility] Comment on above: Order Comment: No: D o not add to previous draw Performed By: #### 3 5200, 92107, 87896 #### [facility] [address] [place] [address], [place] CO2 [Moles/Vol] 25 mmol/L Normal 21-31 [facility] Comment on above: Order Comment: No: D o not add to previous draw Performed By: #### 3 5200, 39807, 92543 #### [facility] [address] [place] [address], [place] Creatinine [Mass/Vol] 1.02 mg/dL Normal 0.70-1.30 [facility] Comment on above: Order Comment: No: D o not add to previous draw Performed By: #### 3 5200, 38737, 83623 #### [facility] [address] [place] [address], [place] GFR/1.73 sq M.predicted among blacks MDRD (S/P/Bld) [Vol rate/Area] mL/min/{1.73_m2} Normal >60 [facility] Comment on above: Order Comment: No: D o not add to previous draw Performed By: #### 3 5200, 65643, 57185 #### [facility] [address] [place] [address], [place] GFR/1.73 sq M.predicted among non-blacks MDRD (S/P/Bld) [Vol rate/Area] mL/min/{1.73_m2} Normal >60 [facility] Comment on above: Order Comment: No: D o not add to previous draw Performed By: #### 3 5200, 64059, 56635 #### [facility] [address] [place] [address], [place] Glucose [Mass/Vol] 229 mg/dL High 70-100 [facility] Comment on above: Order Comment: No: D o not add to previous draw Performed By: #### 3 5200, 72803, 39658 #### [facility] [address] [place] [address], [place] Potassium [Moles/Vol] 4.0 mmol/L Normal 3.5-5.1 [facility] Comment on above: Order Comment: No: D o not add to previous draw Performed By: #### 3 5200, 59685, 74723 #### [facility] [address] [place] [address], [place] Sodium [Moles/Vol] 136 mmol/L Normal 136-145 [facility] Comment on above: Order Comment: No: D o not add to previous draw Performed By: #### 3 5200, 61507, 72490 #### [facility] [address] [place] [address], [place] Urea nitrogen [Mass/Vol] 13 mg/dL Normal 7-25 [facility] Comment on above: Order Comment: No: D o not add to previous draw Performed By: #### 3 5200, 79306, 43695 #### [facility] [address] [place] [address], [place] CBC COMPLETE BLOOD COUNTon 1 Erythrocyte distribution width (RBC) [Ratio] 13.8 % Normal 11.5-15.0 [facility] Comment on above: Order Comment: No: D o not add to previous draw Performed By: #### 5 0608 #### [facility] [address] [place] [address], [place] Hematocrit (Bld) [Volume fraction] 40.3 % Normal 39.0-50.0 [facility] Comment on above: Order Comment: No: D o not add to previous draw Performed By: #### 5 0608 #### [facility] [address] [place] [address], [facility] Hemoglobin (Bld) [Mass/Vol] 13.7 g/dL Normal 13.0-17.0 [facility] Comment on above: Order Comment: No: D o not add to previous draw Performed By: #### 5 0608 #### [facility] [address] [place] [address], [facility] MCH (RBC) [Entitic mass] 28.5 pg Normal 27.0-33.0 [facility] Comment on above: Order Comment: No: D o not add to previous draw Performed By: #### 5 0608 #### [facility] [address] [place] [id number], [facility] MCHC (RBC) [Mass/Vol] 34.0 g/dL Normal 32.0-35.0 [facility] Comment on above: Order Comment: No: D o not add to previous draw Performed By: #### 5 0608 #### [facility] [address] [facility] [place] [address], [facility] MCV (RBC) [Entitic vol] 83.8 fL Normal 82.0-98.0 [facility] Comment on above: Order Comment: No: D o not add to previous draw Performed By: #### 5 0608 #### [facility] [address] [place] [address], [facility] Nucleated RBC/100 WBC (Bld) [Ratio] 0 % Normal 0-0 [facility] Comment on above: Order Comment: No: D o not add to previous draw Performed By: #### 5 0608 #### [facility] [address] [place] [id number], [facility] PLAT CNT 204 10*3/uL Normal 150-400 [facility] Comment on above: Order Comment: No: D o not add to previous draw Performed By: #### 5 0608 #### [facility] [address] [place] [address], [facility] RBC (Bld) [#/Vol] 4.81 10*6/uL Normal 4.20-5.70 [facility] Comment on above: Order Comment: No: D o not add to previous draw Performed By: #### 5 0608 #### [facility] [address] [place] [address], [facility] WBC (Bld) [#/Vol] 7.23 10*3/uL Normal 4.00-10.60 [facility] Comment on above: Order Comment: No: D o not add to previous draw Performed By: #### 5 0608 #### [facility] [address] [place] [address], [facility] HEMOGLOBIN A1Con 02-01-2020 Glucose [Moles/Vol] 217 mmol/L Normal [facility] Comment on above: Order Comment: Yes: Add to Previous draw if able Performed By: #### 3 1791 #### [facility] [address] [place] [address], [facility] HbA1c (Bld) [Mass fraction] 9.2 % High 4.0-6.0 [facility] Comment on above: Order Comment: Yes: Add to Previous draw if able Performed By: #### 3 1791 #### [facility] [address] [place] [address], [facility] LIPID PROFILEon 02-01-2020 Cholesterol [Mass/Vol] 109 mg/dL Low 120-200 [facility] Comment on above: Result Comment: CHOL ESTEROL REFERENCE RANGE: 20 YEARS AND OLDER CARDIOVASCULAR RISK Less than 200 mg/dl Low Risk 200 to 239 mg/dl Borderline Risk 240 mg/dl and greater High Risk Performed By: #### 3 5200, 88101, 33419 #### [facility] [address] [place] [id number], [facility] Cholesterol in HDL [Mass/Vol] 42 mg/dL Normal 23-92 [facility] Comment on above: Result Comment: Slig ht variation in normal range could be due to gender and/or age. HDL CHOLESTEROL REFERENCE RANGE: 20 years and older Cardiovascular Risk > or =60 mg/dL Desirable 40 TO 59 mg/dL Low Risk <40 mg/dL High Risk Performed By: #### 3 5200, 87383, 49116 #### [facility] [address] [place] [address], [place] Cholesterol in LDL [Mass/Vol] 50 mg/dL Normal 0-130 [facility] Comment on above: Result Comment: LDL IS A CALCULATION LDL IS ONLY VALID IF THE TRIG IS LESS THAN 400. Performed By: #### 3 5200, 76325, 25462 #### [facility] [address] [place] [address], [place] Cholesterol.total/Chol esterol in HDL [Mass ratio] 2.6 {ratio} Normal 0.0-4.5 [facility] Comment on above: Performed By: #### 3 5200, 07965, 33880 #### [facility] [address] [place] [address], [place] NON-HDL CHOLESTEROL 67 mg/dL Normal [facility] Comment on above: Performed By: #### 3 5200, 94395, 63907 #### [facility] [address] [place] [address], [place] Triglyceride [Mass/Vol] 85 mg/dL Normal 40-149 [facility] Comment on above: Result Comment: TRIG LYCERIDE REFERENCE RANGE: 20 YEARS AND OLDER CARDIOVASCULAR RISK LESS THAN 150 mg/dl LOW RISK 150 TO 199 mg/dl BORDERLINE RISK 200 mg/dl AND GREATER HIGH RISK Performed By: #### 3 5200, 78649, 18714 #### [facility] [address] [place] [address], [place] VLDL CHOL 17 mg/dL Normal 0-40 [facility] Comment on above: Performed By: #### 3 5200, 33347, 60743 #### [facility] [address] [place] [address], [facility] TROPONIN-Ion 02-01-2020 Troponin I.cardiac [Mass/Vol] 0.02 ng/mL Normal 0.00-0.04 [facility] Comment on above: Order Comment: No: D o not add to previous draw Pt at cathlab Result Comment: REFE RENCE RANGES: 0.00 - 0.04 ng/ml NORMAL 0.05 - 0.50 ng/ml INDETERMINATE > 0.50 ng/ml CONSISTENT WITH AN M.I. Performed By: #### 3 5200, 28686, 40380 #### [facility] [address] No Panel Information [facility] Vital Signs Date Time Vital Sign Value Performing Clinician Facility 10-19-2023 17:35-0400 Diastolic blood pressure 65 mm[Hg] MD Sandro Momin Work Phone: [facility] 10-19-2023 17:35-0400 Heart rate 74 /min MD Sandro Momin Work Phone: [facility] 10-19-2023 17:35-0400 Respiratory rate 16 /min MD Sandro Momin Work Phone: [facility] 10-19-2023 17:35-0400 SaO2% (BldA) [Mass fraction] 96 % MD Sandro Momin Work Phone: [facility] 10-19-2023 17:35-0400 Systolic blood pressure 105 mm[Hg] MD Sandro Momin Work Phone: [facility] 10-19-2023 15:47-0400 Body temperature 97.3 [degF] MD Sandro Momin Work Phone: [facility] 10-19-2023 15:47-0400 Inhaled oxygen flow rate 8 L/min MD Sandro Momin Work Phone: [facility] 10-19-2023 12:07-0400 Body height 180.34 cm MD Sandro Momin Work Phone: [facility] 10-19-2023 12:07-0400 Body mass index (BMI) [Ratio] 25.2 kg/m2 MD Sandro Momin Work Phone: [facility] 10-19-2023 12:07-0400 Body weight 82 kg MD Sandro Momin Work Phone: [facility] 04-14-2023 08:30-0500 Body height 180.34 cm Hallie Gastelum Other [employer] Other 04-14-2023 08:30-0500 Body mass index (BMI) [Ratio] 27.19 kg/m2 Hallie Gastelum Other [employer] Other 04-14-2023 08:30-0500 Body weight 88.45 kg Hallie Gastelum Other [employer] Other 04-14-2023 08:30-0500 Diastolic blood pressure 74 mm[Hg] Hallie Gastelum Other [employer] Other 04-14-2023 08:30-0500 SaO2% (BldA) [Mass fraction] 98 % Hallie Gastelum Other [employer] Other 04-14-2023 08:30-0500 Systolic blood pressure 128 mm[Hg] Hallie Gastelum Other [employer] Other 12-31-2022 09:45-0400 Body height 180.34 cm Eden Mcmahon Other [employer] Other 12-31-2022 09:45-0400 Body mass index (BMI) [Ratio] 25.1 kg/m2 Eden Mcmahon Other [employer] Other 12-31-2022 09:45-0458 Body weight 81.65 kg Eden Mcmahon Other [employer] Other Encounters Encounter Date Encounter Type Care Provider Facility Start: 10-26-2023 End: 10-26-2023 ambulatory MARLO COSTA Not Available Start: 10-19-2023 End: 10-19-2023 Admission to same day surgery center MD Sandro Momin Work Phone: [facility] [place] Start: 10-19-2023 End: 10-19-2023 ambulatory MD Sandro Momin Work Phone: [facility] Work Phone: Start: 10-05-2023 End: 10-05-2023 Patient encounter procedure MD Sandro Momin Work Phone: [facility] Work Phone: Start: 10-05-2023 End: 10-05-2023 ambulatory MD Sandro Momin Work Phone: [facility] Work Phone: Start: 10-05-2023 Encounter for preprocedural laboratory examination Marlo Costa [facility] Start: 09-18-2023 End: 09-18-2023 ambulatory MARLO COSTA Not Available Start: 08-14-2023 End: 08-14-2023 ambulatory MARLO COSTA Not Available Start: 08-12-2023 End: 08-12-2023 ambulatory [facility] Start: 07-13-2023 ambulatory [facility] Start: 06-01-2023 End: 06-01-2023 Patient encounter procedure MD Sandro Momin Work Phone: [facility] Work Phone: Start: 06-01-2023 End: 06-01-2023 ambulatory MD Sandro Momin Work Phone: [facility] Work Phone: Start: 04-14-2023 Office outpatient vi sit 25 minutes Hallie Gastelum [facility] Start: 04-14-2023 End: 04-14-2023 Patient encounter procedure MD Sandro Momin Work Phone: [facility] Work Phone: Start: 04-14-2023 End: 04-14-2023 ambulatory MD Sandro Momin Work Phone: [facility] Work Phone: Start: 04-14-2023 End: 04-14-2023 Patient encounter procedure MD Sandro Momin Work Phone: [facility] Work Phone: Start: 12-31-2022 Office outpatient vi sit 25 minutes Eden Mcmahon 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 [employer] Other Start: 10-23-2022 Telephone encounter Eden Mcmahon [facility] Start: 05-27-2022 End: 05-27-[address] SANDRO MOMIN Facility:[facility] Start: 05-26-2022 End: 05-27-[address] SANDRO MOMIN Facility:[facility] Start: 04-12-2022 Encounter for genera l adult medical examination without abnormal findings MICHELE WAYNE [facility] Start: 04-09-2022 End: 04-09-2022 ambulatory MD Sandro Momin Work Phone: [facility] Work Phone: Start: 04-09-2022 End: 04-09-2022 Patient encounter procedure MD Sandro Momin Work Phone: [facility] Start: 04-08-2022 End: 04-09-[address] SANDRO MOMIN Facility:[facility] Start: 04-08-2022 End: 04-09-2022 Encounter for general adult medical examination without abnormal findings DR SANDRO MOMIN Facility:[facility] Start: 02-25-2022 End: 02-25-2022 ambulatory MD Sandro Momin Work Phone: [facility] Work Phone: Start: 02-25-2022 End: 02-25-2022 Patient encounter procedure MD Sandro Momin Work Phone: [facility] Start: 11-14-2021 End: 11-15-[address] SANDRO MOMIN Facility:[facility] Start: 07-04-2021 End: 07-05-[address] SANDRO MOMIN Facility:[facility] Start: 06-21-2021 End: 06-22-[address] SANDRO MOMIN Facility:[facility] Start: 06-07-2021 End: 06-08-[address] SANDRO MOMIN Facility:[facility] Start: 02-01-2020 End: 02-02-2020 ambulatory HALINA KENNEDY Facility:[facility] Procedures Date Procedure Procedure Detail Performing Clinician Start: 10-19-2023 Plain chest X-ray MD Burleson Work Phone: Start: 10-19-2023 Neurostimulation of cranial nerve MD Sandro Momin Work Phone: Start: 12-09-2022 End: 12-09-2022 Computerized ophthalmic imaging retina Tal Iraheta MD Work Phone: Start: 05-26-[address] HAKEEM MOMIN Comment on above: Performed By: #### F T3, CMP, T4, TSH, LIPID #### [facility] [address] [place], [place] [address] Dr. Seven Mares Start: 11-14-[address] HAKEEM MOMIN Comment on above: Performed By: #### F T3, CMP, T4, TSH, LIPID #### [facility] [address] [place], [place] [address] Dr. Seven Mares Plan of Treatment Date Care Activity Detail Author Start: 05-26-2027 PROSTATE CANCER SCREENING DISCUSSION PROSTATE CANCER SCREENING DISCUSSION [facility] Start: 10-19-2023 [facility] Start: 10-19-2023 [facility] Start: 12-26-2022 Influenza vaccination INFLUENZA (#1) [facility] Start: 04-27-2022 DEPRESSION ASSESSMENT DEPRESSION ASSESSMENT [facility] Start: 06-06-2021 COVID-19 VACCINE (4 - Pfizer series) COVID-19 VACCINE (4 - Pfizer series) [facility] Start: 2008 SHINGRIX VACCINE (1 of 2) SHINGRIX VACCINE (1 of 2) [facility] Start: 2003 COLOGUARD (FIT-DNA) COLOGUARD (FIT-DNA) [facility] Start: 2003 Colonoscopy COLONOSCOPY [facility] Start: 2003 COLORECTAL CANCER SCREENING COLORECTAL CANCER SCREENING [facility] Start: [address] COLONOGRAPHY [facility] Start: 2003 DIABETES SCREEN DIABETES SCREEN [facility] Start: 2003 FECAL OCCULT BLOOD FECAL OCCULT BLOOD [facility] Start: 2003 SIGMOIDOSCOPY SIGMOIDOSCOPY [facility] Start: 1993 LIPID SCREEN LIPID SCREEN [facility] Start: 1977 Urine microalbumin profile DTAP,TDAP,TD (1 - Tdap) [facility] Start: 1976 HEPATITIS C SCREENING HEPATITIS C SCREENING [facility] Start: 1976 HIV SCREENING HIV SCREENING [facility] Patient Education Know your Meds [facility] Work Phone: Patient referral [facility] Work Phone: Immunizations Immunization Date Immunization Notes Care Provider Fa cili 04-11-2021 COVID-19 mRNA Comirnatleodan (Pfizer) MD Sandro Momin Work Phone: [facility] 06-29-2020 COVID-19 Alyx Figueroa (Pfizer) MD Sandro Momin Work Phone: [facility] 06-08-2020 COVID-19 mRNAAlyx (Pfizer) MD Sandro Momin Work Phone: [facility] Payers Date Payer Category Payer Unknown [id number] 2023 Medicare [id number] 2023 Self-pay 2023 Unknown [id number] 2022 Unknown VENKATA ROBERTO PPO [id number] 2022-Present [phone] [address] [place] [address] PPO [id number] 2018 Unknown [id number] 1959 Unknown [id number] 1958 Unknown [id number] 2.16.840.1.655848.3.579.2. 647 1958 Unknown [id number] 2.16.840.1.798914.3.579.2. 593 1958 Unknown [id number] 2.16.840.1.569215.3.579.2. 593 1958 Unknown [id number] 2.16.840.1.951586.3.579.2. 593 1958 Unknown [id number] 2.16.840.1.045069.3.579.2. 593 1958 Unknown [id number] 2.16.840.1.374873.3.579.2. 593 1958 Unknown [id number] 2.16.840.1.033868.3.579.2. 593 1958 Unknown [id number] 2.16.840.1.786141.3.579.2. 593 1958 Unknown [id number] 2.16.840.1.051791.3.579.2. 1259 1958 Unknown [id number] 2.16.840.1.637892.3.579.2. 1259 1958 Unknown [id number] 2.16.840.1.407923.3.579.2. 1259 Private Health Insurance [employer] [id number] Unknown O [employer] [id number] Unknown [id number] 2.16.840.1.645112.3.579.2. 531 Unknown [id number] 2.16.840.1.460211.3.579.2. 531 Unknown [id number] 2.16.840.1.010979.3.579.2. 531 Unknown [id number] 2.16.840.1.093010.3.579.2. 531 Social History Date Type Detail Facility Tobacco smoking status [facility] Unknown if ever smoked [facility] Work Phone: Start: 1960 Sex Assigned At Male F [facility] Start: 12-09-2022 Sex Assigned At [place] [employer] Other Start: 12-09-2022 End: 10-19-2023 Tobacco smoking status NHIS Never smoked tobacco [facility] Start: 12-09-2022 Tobacco use and exposure Smokeless tobacco non-user [facility] Start: 12-09-2022 Alcohol intake Current drinke r of alcohol (finding) [facility] Start: 12-09-2022 History of Social function [facility] National Score (1-100), lower number is lower risk 78 [facility] Start: 12-09-2022 Alcohol Comment Occasional [facility] Start: 1960 Sex Assigned At Not on file [facility] Medical Equipment Procedure Code Equipment Code Equipment Origin al Text Equipment Identifier Dates ONETOUCH ULTRA T EST test strip Start: 12-04-2022 Goals Date Patient Goal Desired Activity /State Clinical Notes 02-02-2020 to 08-12-2023 Note Date & Type Note Facility 08-12-2023 Note [facility] Note Chief Complaint: Patient here [...] segment of myoca (more content not included)... [facility] 04-14-2023 Evaluation note Encounter Date Diagnosis Assessment [...] efforts at weight reduction and lifestle change. [employer] Other 09-06-2023 Evaluation note* Encounter Date Diagnosis [...] efforts at weight reduction and lifestyle change [employer] Other 08-15-2023 NoteHNO ID: [id number] Author: Tal Iraheta MD Service: ? Author [...] Tal Iraheta MD [facility], [facility]22 [facility] History of Present illness Narrative* [...] 09, 2022 2:43 PM [facility] NoteMR#: [id number] I [facility] Pt. Name: Spencer Oliveira Olga Admitted: 02/01/2020 Discharged: 02/02/2020 Date of : [...] status post multiple stents. He presented to [facility] with squeezing/pressure-like chest discomfort that started, while he was mowing the lawn; he also developed discomfort/pain in both of his arms. He notes that his sensation was similar to what he had experienced in the past when he had his first stent. At [facility], his troponin was negative x3. EKG throughout [...] P/Simeon Colon M.D. Date Trans: 02/02/2020 03:44 P/mmo [id number] cc: Sandro Momin M.D. [address], [facility] [place] [address]LmnOhio State Health SystemEvaluation noteNo assessment information availableSum[facility] Work Phone: Evaluation noteNo InformationNortSaint [facility] [employer] Other Evaluation note* Diagnosis Type 2 diabetes [...] Senile nuclear sclerosis documented in this encounter [facility] general Narrative - Reported* Type Description Date Medical History CAD Medical History history of [place] Medical History JUAN Medical History high cholesterol Medical History type II diabetes [facility] [employer] Other Hospital Discharge instructions Additional Instructions No exertional activity Ice to incisions for pain and swelling Medications as prescribed Call the office for any questions or concerns Follow[facility] Work Phone: Summary Purpose Family History No Family History Records Found Relationship Condition Age at Onset Recorded Date/T mesha Not Specified Diabetes mellitus Unknown Heart disease Unknown Advance Directives No Advanced Directives Records Found [...] NEW TO MEDICARE in lab-hst failed-latesha from 01-21 Chief Complaint sleep apnea Chief Complaint sleep apnea sleep apnea Medications Administered Section Inactive Administered Medications - up to 3 most recent administrations Medication Order MAR Action Action Date Dose Rate Site fluorescein-benoxinate 0.25-0.4 % 1 Drop (FLURESS) 1 Drop, BOTH EYES, DIRECTED, Starting on Thu12/09/22 at 1300, Until Thu12/10/22 at 005, Administer for applanation tonometry. In the event of a Fluress shortage, administer 1 drop of [place]-Fluor into both eyes as directed for applanation [...] and content) DATE CREATED AUTHOR 09/08/2020 [facility] DATE CREATED AUTHOR AUTHOR'S ORGANIZ ATION 05/28/2022 [facility] DATE CREATED AUTHOR AUTHOR'S ORGANIZ ATION 12/10/2022 [facility] DATE CREATED AUTHOR AUTHOR'S ORGANIZ ATION 07/13/2023 [facility] DATE CREATED AUTHOR AUTHOR'S ORGANIZ ATION 10/09/2023 [facility] DATE CREATED AUTHOR AUTHOR'S ORGANIZ ATION 10/26/2023 [facility] EPIC DATE CREATED AUTHOR AUTHOR'S ORGANIZ ATION 02/04/2024 [facility] Care Teams (unrecognized sec tion and content) Team Status: Inactive Member Role Status Dates Sandro Diegoy , MD Primary Care Provider, Referring Pr ovider Active Eden Mcmahon MD Attending Provider Active Team Status: Active Member Role Status Lea Momin MD Primary Care Provider Active Team Status: Inactive Member Role Status Lea Momin MD Primary Care Provider Active Eden Mcmahon MD Attending Provider Active Certified Surgical Assistant Relationship Specialty Start Date End Date Sandro Momin MD [address] [place] [address] PCP - General Family Medicine 11/12/22 Team [...] June 01, 2023 End: June 01, 2023 Team Status: Inactive Member Role Status Lea Momin MD Primary Care Provider Active Start: October 05, 2023 End: October 05, 2023 Marlo Costa DO Attending Provider Active S tart: October 05, 2023 End: October 05, 2023 Team Status: Inactive Member Role Status Lea Momin MD Primary Care Provider Active Start: October 19, 2023 End: October 19, 2023 Marlo Costa DO Attending Provider Active S tart: October 19, 2023 End: October 19, 2023 Goals (unrecognized section and content) Goals may be documented in a n alternate sectionGoals may be documented in an alternate sectionNo InformationNo InformationGoals may be documented in an alternate sectionGoals may be documented in an alternate sectionNo InformationGoals may be documented in an alternate sectionGoals may be documented in an alternate section [...] or prosecute any alcohol or drug abuse patient.[facility] FOR RECORDS PERTAINING TO PATIENTS [...] BE BASED ON THE PRIMARY CLINICAL RECORDS. [employer] provides no warranty or guarantee of the accuracy or completeness of information in this document.
[2024-04-08 09:37] LABS: Alanine Aminotransferase 29 U/L (16-63); Albumin Globulin Ratio 1.3; Albumin Level 3.8 g/dL (3.4-5.0); Alkaline Phosphatase 74 U/L (46-116); Anion Gap 12.5; Aspartate Amino Transferase 22 U/L (15-37); BUN Creatinine Ratio 15.3; Bilirubin Total 0.5 mg/dL (0.2-1.0); Calcium 8.8 mg/dL (8.5-10.1); Carbon Dioxide 29.6 mmol/L (21.0-32.0); Chloride 106 mmol/L (98-107); Cholesterol 119 mg/dL (<=200); Estimated GFR (African America >60 (>=60 mL/min/1.73m^2); Estimated GFR (Non-African Ame >60 (>=60 mL/min/1.73m^2); Free T3 2.25 pg/mL (2.18-3.98); Globulin 2.9 g/dL; Glucose 80 mg/dL (74-106); HDL Cholesterol 61 mg/dL (40-60); Potassium 4.1 mmol/L (3.5-5.1); Sodium 144 mmol/L (136-145); Total Protein 6.7 g/dL (6.4-8.2); Triglycerides 92 mg/dL (<=150); VLDL CHOLESTEROL 18.4 mg/dL
[2024-04-08 09:39] LABS: Prostate Specific Antigen Scrn 2.31 ng/mL (<=4.00)
[2024-04-08 09:51] LABS: Basophils Absolute Auto 0.1 10^3/uL (0.0-0.1); Basophils Percent Auto 1.1 % (0.2-2.0); Eosinophils Absolute Auto 0.1 10^3/uL (0.0-0.7); Eosinophils Percent Auto 1.3 % (0.9-7.0); Hematocrit 49.8 % (42.0-54.0); Hemoglobin 16.7 g/dL (14.0-18.0); Immature Granulocytes Abs Auto 0.01 10^3/uL (0.00-0.03); Immature Granulocytes Pct Auto 0.2 % (0.0-0.5); Lymphocytes Absolute Auto 1.3 10^3/uL (1.2-3.8); Lymphocytes Percent Auto 23.5 % (20.5-60.0); Mean Corpuscular HGB Conc 33.5 g/dL (29.9-35.2); Mean Corpuscular Hemoglobin 30.1 pg (25.9-34.0); Mean Corpuscular Volume 89.7 fL (80.0-94.0); Mean Platelet Volume 9.8 fL (9.5-13.5); Monocytes Absolute Auto 0.5 10^3/uL (0.3-0.8); Monocytes Percent Auto 9.8 % (1.7-12.0); Neutrophils Absolute Auto 3.4 10^3/uL (1.4-6.5); Neutrophils Percent Auto 64.1 % (43.0-75.0); Platelet Count 188 10^3/uL (150-450); Red Blood Count 5.55 10^6/uL (4.70-6.10); Red Cell Distribution Width 13.2 % (11.0-15.0); White Blood Count 5.3 10^3/uL (4.0-11.0)
[2024-04-08 10:15] LABS: Estimated Average Glucose 128 mg/dL; Glycohemoglobin A1C 6.1 % (4.5-6.2)
[2024-04-08 11:49] LABS: Internal Control Within Normal Limits; Occult Blood Positive
== END 2024-04-08 08:40 | disposition home or self-care (01) ==
LOC: LAB 08:39
PROVIDERS: PCP Family Medicine; Visit Provider Family Medicine
DX: I25.10 Atherosclerotic heart disease of native coronary artery without angina pectoris (principal); E11.9 Type 2 diabetes mellitus without complications; I10 Essential (primary) hypertension; E78.49 Other hyperlipidemia; G47.33 Obstructive sleep apnea (adult) (pediatric); Z12.12 Encounter for screening for malignant neoplasm of rectum; R53.83 Other fatigue; Z12.5 Encounter for screening for malignant neoplasm of prostate
CPT/HCPCS: 36415; 80053; 80061; 83036; 84436; 84443; 84481; 85025; G0103; G0328

== ENCOUNTER 2024-06-03 09:34 | Outpatient (OUT) | payer MEDICARE, OTHER, SELFPAY | END 2024-06-03 09:35 | disposition home or self-care (01) | LOC: PST 09:34 | PROVIDERS: PCP Family Medicine; Visit Provider Surgery | DX: Z01.818 Encounter for other preprocedural examination (principal); Z12.11 Encounter for screening for malignant neoplasm of colon ==

== ENCOUNTER 2024-06-15 06:54 | Day surgery (SDC) | payer MEDICARE, OTHER, SELFPAY ==
--- NOTE | 2024-06-15 | OP_ITS ---
OPERATION DATE: 06/15/2024 PREOPERATIVE DIAGNOSIS: Positive fecal occult blood test. POSTOPERATIVE DIAGNOSIS: Normal colonoscopy to cecum. PROCEDURE: Colonoscopy to cecum. SURGEON: Lobo Brink M.D. ANESTHESIA: Monitored anesthesia care. ESTIMATED BLOOD LOSS: Zero. INDICATIONS AND CONSENT: Patient is a 64-year-old male who presents for evaluation of positive fecal occult blood test. Indications, risks, benefits, alternatives of proceeding with colonoscopy were explained extensively to the patient, including the risks of bleeding, colon perforation or anesthetic complications. All of his questions were answered. Informed consent was obtained. PROCEDURE: Patient brought to the operating room, placed in the left lateral decubitus position. Monitored anesthesia care was provided. Rectal exam was performed which showed no masses or blood. The scope was inserted into the anal canal. Under direct visualization was advanced. It was advanced to the cecum where cecal markings were clearly identified. There was noted to be a good prep. Upon withdrawal of the scope, mucosal surfaces were carefully examined. There were no mass lesions or polyps. No inflammatory changes or ulcerations. No significant diverticulosis. The scope was retroflexed in the anal canal. There was no significant hemorrhoidal disease. The scope was then withdrawn. Patient tolerated procedure well, was sent to recovery room in good condition. Follow up screening colonoscopy should be in 10 years. CC: Arnoldo Momin M.D. JOSÉ MIGUEL
--- OUTSIDE RECORDS SUMMARY | 2024-06-15 06:58 | XMS_ITS | CCD ---
Author Organization [facility] CliniSynd Care Team Providers Care Director Music Name Role Phone HALINA KENNEDY Admitting Unavailable SANDRO MOMIN Referring Unavailable SANDRO MOMIN Primary Care Unavailable SIMEON COLON Attending Unavailable MD Sandro Momin Primary Care Provider [phone] MD Sandro Momin Referring Provider [phone] MD Eden Mcmahon Attending Provider MD Sandro Momin Primary Care Provider [phone] MD Sandro Momin Referring Provider MD Eden Mcmahon Attending Provider DR SANDRO MOMIN Primary Care Unavailable LILIANE, DR JO Consulting Unavailable LILIANE, DR JO Admitting Unavailable LILIANE, DR JO Referring Unavailable LILIANE, DR JO Attending Unavailable DR SANDRO MOMIN Primary Care Unavailable ROSANAMICHELE GALVEZ Admitting Unavailable MICHELE WAYNE Attending Unavailable MICHELE WAYNE Consulting Unavailable DR SANDRO MOMIN Consulting Unavailable DR SANDRO MOMIN Primary Care Unavailable DR SANDRO MOMIN Admitting Unavailable LILIANE, DR JO Attending Unavailable DR SANDRO MOMIN Primary Care Unavailable DR SANDRO MOMIN Admitting Unavailable DR SANDRO MOMIN Attending Unavailable DR SANDRO MOMIN Consulting Unavailable DR SANDRO MOMIN Consulting Unavailable LILIANE, DR JO Admitting Unavailable LILIANE, DR JO Attending Unavailable DR SANDRO MOMIN Primary Care Unavailable DR SANDRO MOMIN Primary Care Unavailable DR SANDRO MOMIN Consulting Unavailable LILIANE, DR JO Admitting Unavailable LILIANE, DR JO Attending Unavailable LILIANE, DR JO Primary Care Unavailable LILIANE, DR JO Consulting Unavailable LILIANE, DR JO Admitting Unavailable HODR SANDRO Hitchcock Attending Unavailable Eden Mcmahon Unavailable Sandro Momin MD Primary Care Provider SANDRO MOMIN Primary Care Unavailable TAL IRAHETA Attending Unavailable MD Sandro Momin Primary Care Provider MD Eden Mcmahon Attending Provider [phone] MD Sandro Momin Primary Care Provider [phone] GEMA Gastelum Attending Provider Hallie Gastelum Unavailable MD Eden Mcmahon Attending Provider [phone] MD Sandro Momin Primary Care Provider [phone] DO Marlo Costa Attending Provider IVELISSE WARD Attending Unavailable MARLO COSTA Attending Unavailable EDEN MCMAHON Referring Unavailable MARLO COSTA Attending Unavailable MARLO COSTA Attending Unavailable EDEN MCMAHON Referring Unavailable Sandro Momin MD Primary Care Provider [phone] Eden Mcmahon MD Attending Provider [phone] Sandro Momin Primary Care Unavailable Eden Mcmahon Admitting Unavailable Eden Mcmahon Attending Unavailable Sandro Momin Primary Care Unavailable Eden Mcmahon Admitting Unavailable Eden Mcmahon Attending Unavailable Sandro Momin Primary Care Unavailable Marlo Costa Admitting Unavailable Marlo Costa Attending Unavailable Sandro Momin Primary Care Unavailable Marlo Costa Admitting Unavailable Marlo Costa Attending Unavailable Sandro Momin Primary Care Physician [phone] Lobo KHAN Attending Unavailable Sandro Momin Referring Unavailable Allergies Allergy Classification Reported Allergen(s) Allergy Type Date of Onset Reaction(s) Facility Penicillins (antibiotic) (1 source) Penicillins Drug Allergy 9 [facility] Repository (5 sources) Penicillins; Translations: [PENICILLINS] Drug allergy (disorder) 4 Rash [facility] Repository (1 source) Penicillins Drug Allergy 4 Rash [facility] (1 source) Penicillins Drug allergy (disorder) [facility] Repository (2 sources) buPROPion; Translations: [bupropion] Drug Allergy increased anxiety [facility] (2 sources) Penicillin; Translations: [penicillin] Drug Allergy Weal (disorder) [facility] Medications Current Medications Medication Drug Class(es) Dates Sig (Normalized) Sig (Original) acetaminophen 325 mg / HYDROcodone bitartrate 5 mg oral tablet (2 sources) Opioid Agonist Start: 10-19-2023 take 1 tablet by mouth every six hours as needed for pain Hydrocodone-Acet aminophen 5-325 mg tablet Active 1 TAB PO Every 6 hours as needed for pain 13 11October 19, 2023 aspirin 325 mg delayed release oral tablet (5 sources) Platelet Aggregation Inhibitor, Nonsteroidal Anti-inflammatory Drug Start: 10-05-2023 take 1 tablet by mouth once daily aspirin 325 mg Oral EC Tab 325 mg = 1 tab(s), Oral, Daily, Refills(s) 0 Start Date: 04/19/24 Status: Ordered take 1 tablet by mouth once jose g y aspirin 325 mg tablet Take 1 tablet by mouth once daily. 0 Active Comment on above: Take 1 tablet by loretta th once daily. citalopram 20 mg oral tablet (4 sources) Serotonin Reuptake Inhibitor Start: 04-19-2024 take 1 tablet by mouth once daily CeleXA 20 mg Tab 20 mg = 1 tab(s), Oral, Daily, Refills(s) 0 Start Date: 04/19/24 Status: Ordered Citalopram [place] bromide Active clopidogrel 75 mg oral tablet (6 sources) P2Y12 Platelet Inhibitor Start: 10-05-2023 take 1 tablet by mouth once daily Plavix 75 mg Tab 75 mg = 1 tab(s), Oral, Daily, Refills(s) 0 Start Date: 04/19/24 Status: Ordered Start: 03-25-2022 take 1 tablet by loretta th once daily clopidogrel (PLAVIX) 75 mg tablet TAKE 1 TABLET (75 MG) BY MOUTH ONCE DAILY DIRECTED. 0 11/28/2022 Active Comment on above: TAKE 1 TABLET (75 MG ) BY MOUTH ONCE DAILY DIRECTED. Take 75 mg by mouth. colchicine 0.6 mg oral tablet (6 sources) Start: 10-05-2023 take 1 tablet by mouth once daily colchicine 0.6 mg Tab 0.6 mg = 1 tab(s), Oral, Daily, Refills(s) 0 Start Date: 04/19/24 Status: Ordered Start: 06-23-2022 End: 06-23-2023 take 1 tablet by mouth once daily in the morning colchicine 0.6 mg tablet Take 0.6 mg by mouth every morning. 0 09/18/2022 Active Comment on above: Take 0.6 mg by mouth . Take 0.6 mg by mouth every morning. empagliflozin 10 mg oral tablet (8 sources) Sodium-Glucose Cotransporter 2 Inhibitor Start: 10-05-19 take 1 tablet by mouth once daily Empagliflozin (Jardiance) 10 mg tablet Active 10 MG PO Daily October 04, 2023 11:00pm Start: 09-11-2022 take 1 tablet by mouth once JA RDIANCE 10 mg tablet Take 1 tablet by mouth every afternoon. 0 09/11/2022 Active JARDIANCE Active Comment on above: Take 1 tablet by loretta th every afternoon. Take 1 tablet by loretta th every morning. Esomeprazole (3 sources) Proton Pump Inhibitor NexIUM Act ronen ezetimibe 10 mg oral tablet (6 sources) Dietary Cholesterol Absorption Inhibitor Start: 10-05-2023 take 1 tablet by mouth once daily Zetia 10 mg Tab 10 mg = 1 tab(s), Oral, Daily, Refills(s) 0 Start Date: 04/19/24 Status: Ordered Start: 03-25-2022 take 1 tablet by mouth once ez etimibe (ZETIA) 10 mg tablet Take 1 tablet by mouth every afternoon. 0 11/28/2022 Active Comment on above: Take 1 tablet by loretta th every afternoon. Take 10 mg by mouth. glimepiride 4 mg oral tablet (9 sources) Sulfonylurea Start: take 1 tablet by mouth twice daily glimepiride 4 mg Tab 4 mg = 1 tab(s), Oral, BID, Refills(s) 0 Start Date: 04/19/24 Status: Ordered Start: 12-04-2022 glimepiride (Deng VALENCIA) 4 mg tablet Glimepiride shakir simmons Active Comment on above: glimepiride 4 mg tab let TAKE 1 TABLET BY MOUTH TWICE A DAY 24 hr isosorbide mononitrate 30 mg extended release oral tablet (6 sources) Nitrate Vasodilator Start: 4 take 1 tablet by mouth once daily in the morning isosorbide mononitrate 30 mg ER Tab 30 mg = 1 tab(s), Oral, qAM, Refills(s) 0 Start Date: 04/19/24 Status: Ordered Start: 12-04-2022 isosorbide mon onitrate ER (IMDUR) 30 mg 24 hr tablet Start: 09-04-2022 take 1 tablet by loretta th once daily isosorbide mononitrate ER (IMDUR) 30 mg 24 hr tablet Take 1 tablet by mouth once daily. 0 09/04/2022 Active Comment on above: Take 1 tablet by loretta th once daily. losartan potassium 25 mg oral tablet (9 sources) Angiotensin 2 Receptor David Start: 10-05-2023 take 1 tablet by mouth once daily losartan 25 mg Tab 25 mg = 1 tab(s), Oral, Daily, Refills(s) 0 Start Date: 04/19/24 Status: Ordered Start: 11-27-2022 take 1 tablet by mouth once lo sartan (COZAAR) 25 mg tablet Take 1 tablet by mouth every afternoon. 0 11/27/2022 Active Losartan Potassi um Active Comment on above: Take 1 tablet by loretta th every afternoon. losartan 25 mg table t TAKE 1 TABLET BY MOUTH EVERY DAY metFORMIN hydrochloride 500 mg oral tablet (9 sources) Biguanide Start: 4 take 3 tablets by mouth once daily metformin 500 mg ER Tab 1,500 mg = 3 tab(s), Oral, Daily, Refills(s) 0 Start Date: 04/19/24 Status: Ordered Start: 10-05-2023 take 1 tablet by mouth once da rich Metformin 500 mg tablet extended release 24 hr Active 500 MG PO Daily October 04, 2023 11:00pm Start: 11-28-2022 take 3 tablets by mo [facility] every hour metFORMIN ER (GLUCOPHAGE XR) 500 [...] succinate 25 mg extended release oral tablet (9 sources) beta-Adrenergic David Start: 04-19-2024 metoprolol succinate 25 mg ER Tab 12.5 mg = 0.5 tab(s), Oral, Daily, Refills(s) 0 Start Date: 04/19/24 Status: Ordered Start: 10-05-2023 take 2 tablets by mo uth once daily Metoprolol Succinate 25 mg tablet extended release 24 hr Active 12.5 MG PO Daily October 04, 2023 11:00pm Start: 10-05-2023 take 12.5 mg by mouth once saran ly Metoprolol Succinate Active 12.5 MG PO Daily [...] EVERY DAY nitroglycerin 0.4 mg sublingual tablet (4 sources) Nitrate Vasodilator Start: nitroglycerin 0.4 mg sublingual Tab 0.4 mg = 1 tab(s), SubLingual, q5min, PRN for chest pain, Refills(s) 0 Start Date: 04/19/24 Status: Ordered pioglitazone 15 mg oral tablet (6 sources) Peroxisome Proliferator Receptor alpha Agonist, Peroxisome Proliferator Receptor gamma Agonist, Thiazolidinedione Start: take 1 tablet by mouth once daily pioglitazone 15 mg Tab 15 mg = 1 tab(s), Oral, Daily, Refills(s) 0 Start Date: 04/19/24 Status: Ordered Start: 08-10-2022 take 1 tablet by mouth once pi oglitazone (ACTOS) 15 mg tablet Take 1 tablet by mouth every afternoon. 0 11/25/2022 Active Comment on above: Take 1 tablet by loretta th every afternoon. Take 15 mg by mouth. rosuvastatin calcium 40 mg oral tablet (9 sources) HMG-CoA Reductase Inhibitor Start: 4 take 1 tablet by mouth once daily rosuvastatin 40 mg Tab 40 mg = 1 tab(s), Oral, Daily, Refills(s) 0 Start Date: 04/19/24 Status: Ordered Start: 08-18-2022 End: 08-18-2023 take 1 tablet by mouth once daily at bedtime rosuvastatin (CRESTOR) 40 mg tablet Take 40 mg by mouth daily at bedtime. 0 11/28/2022 Active Crestor recalls this was changed to different statin Active Comment on above: Take 40 mg by mouth. Take 40 mg by mouth daily at bedtime. sulfamethoxazole 800 mg / trimethoprim 160 mg oral tablet (2 sources) Dihydrofolate Reductase Inhibitor Antibacterial, Sulfonamide Antimicrobial Start: 4 take 1 tablet by mouth twice daily Sulfamethoxazo le-Trimethopri m (Bactrim Ds) 800-160 mg tablet Active 1 TAB PO Twice daily 07 11October 18, 2023 11:00pm Completed/Discontinued Medications Medication Drug Class(es) Dates Sig [...] Classification Problem Date Documented Da te Episodic/Chronic Anxiety disorders (1 source) Anxiety 04-19-2024 Chronic Cardiac dysrhythmias (2 sources) Palpitations; Translations: [Palpitations] Onset: 4 Episodic Cataract (1 source) Nuclear sclerotic cataract; Translations: [Age-related nuclear cataract, bilateral] 12-09-2022 Chronic Complications of surgical procedures or medical care (2 sources) Complication of ventilation therapy 12-02-2023 Episodic Congestive heart failure; nonhypertensive (1 source) Unspecified diastolic (congestive) heart failure; Translations: [UNSPECIFIED DIASTOLIC HEART FAILURE] Onset: 3 Chronic Coronary atherosclerosis and other heart disease (7 sources) Atherosclerotic heart disease of [place] coronary artery without angina pectoris; Translations: [Coronary atherosclerosis] Onset: 2 Chronic Deficiency and other anemia (1 source) Anemia, unspecified; Translations: [ANEMIA UNSPECIFIED] Onset: 3 Episodic Diabetes mellitus with complications (1 source) Type 2 diabetes mellitus with diabetic neuropathy, unspecified; Translations: [TYPE 2 DM W/DIABETIC NEUROPATHY UNS] Onset: 2 Chronic Diabetes mellitus without complication (3 sources) Type 2 diabetes mellitus without complications; Translations: [Diabetes mellitus type 2 without retinopathy] Onset: 3 12-09-2022 Chronic Diabetes mellitus without complication (1 source) Other abnormal glucose; Translations: [OTHER ABNORMAL GLUCOSE] Onset: 3 Episodic Disorders of lipid metabolism (2 sources) Hyperlipidemia, unspecified; Translations: [Hyperlipidemia] Onset: 2 04-19-2024 Chronic Comment on above: Outside Source Comme nt: LDL 53, HDL 41 MG/DL 2011 Esophageal disorders (3 sources) Gastroesophageal reflux disease; Translations: [Gastro-esophageal reflux disease without esophagitis] Onset: 2 12-02-2023 Chronic Essential hypertension (2 sources) Essential (primary) hypertension; Translations: [Essential hypertension] Onset: 2 04-19-2024 Chronic Gastrointestinal hemorrhage (4 sources) Hemorrhage of anus and rectum; Translations: [HEMORRHAGE OF ANUS AND RECTUM] Onset: 3 Episodic Glaucoma (2 sources) Ocular hypertension, bilateral; Translations: [Ocular hypertension] 12-09-2022 Chronic Hypertension with complications and secondary hypertension (1 source) Hypertensive heart disease with heart failure; Translations: [HTN HEART DISEASE W/HEART FAIL] Onset: 3 Chronic Other gastrointestinal disorders (1 source) Abnormal feces; Translations: [Other fecal abnormalities] Onset: 5 Episodic Other gastrointestinal disorders (1 source) Occult blood in stools 04-19-2024 Episodic Other nervous system disorders (5 sources) Other disturbances of skin sensation; Translations: [OTHER DISTURBANCES SKIN SENSATION] Onset: 2 Episodic Other nervous system disorders (2 sources) Postoperative pain ; Translations: [Other acute postprocedural pain] 10-19-2023 Episodic Other nutritional; endocrine; and metabolic disorders (1 source) Body mass index (BMI) 26.0-26.9, adult Episodic Other nutritional; endocrine; and metabolic disorders (1 source) Body mass index (BMI) 27.0-27.9, adult Episodic Other nutritional; endocrine; and metabolic disorders (1 source) Overweight 04-19-2024 Episodic Other nutritional; endocrine; and metabolic disorders (1 source) Overweight in adulthood with body mass index of 25 or more but less than 30 05-31-2024 Episodic Other screening for suspected conditions (not mental disorders or infectious disease) (6 sources) Encounter for screening for malignant neoplasm of rectum; Translations: [Encounter for screening for malignant neoplasm of prostate] Onset: 3 Episodic Peripheral and visceral atherosclerosis (4 sources) Peripheral vascular disease, unspecified; Translations: [PERIPHERAL VASCULAR DISEASE UNS] Onset: 2 Chronic Rehabilitation care; fitting of prostheses; and adjustment of devices (2 sources) Follow-up status; Translations: [Encounter for adjustment and management of other implanted nervous system device] 12-02-2023 Episodic Residual codes; unclassified (5 sources) Obstructive sleep apnea syndrome; Translations: [Obstructive sleep apnea (adult) (pediatric)] Onset: 3 12-02-2023 Chronic Residual codes; unclassified (4 sources) Obstructive sleep apnea (adult) (pediatric); Translations: [Obstructive sleep apnea (adult)(pediatric)] Onset: 5 Chronic Residual codes; unclassified (2 sources) Other specified health status Episodic Residual codes; unclassified (1 source) Pain, unspecified; Translations: [Pain, unspecified] Onset: 4 Episodic Residual codes; unclassified (1 source) Device in situ; Translations: [Presence of neurostimulator] 12-02-2023 Episodic Residual codes; unclassified (1 source) Presence of neurostimulator; Translations: [Other postprocedural status] 02-16-2024 Episodic Residual codes; unclassified (1 source) Insomnia 04-19-2024 Episodic Past or Other Problems Problem Classification [...] pain; Translations: [Other acute postprocedural pain] Onset: 10-19-2023 Episodic Syncope (1 source) Syncope and collapse; Translations: [SYNCOPE AND COLLAPSE] Onset: 06-26-2021 Episodic Results Test Name Value Interpretation Reference Range Facility Ambulatory Visit Summaryon 0 05-31-2024 Ambulatory Visit Summary Ambulatory Visit Summary SPENCER OLIVEIRA Olga :1960 Visit Date:05/31/2024 Ambulatory Visit Instructions Your Diagnosis Positive fecal occult blood test Your Care Team Attending Physician - BILL MCINTOSH, Lobo Dent Primary Care Physician - Liliane MCINTOSH, Sandro Referring Physician - Sandro Momin MD This Is Your Medications List Contact prescribing physician if questions or concerns aspirin (aspirin 325 mg Oral EC Tab) citalopram (CeleXA 20 mg Tab) clopidogrel (Plavix 75 mg Tab) colchicine (colchicine 0.6 mg Tab) ezetimibe (Zetia 10 mg Tab) glimepiride (glimepiride 4 mg Tab) isosorbide mononitrate (isosorbide mononitrate 30 mg ER Tab) losartan (losartan 25 mg Tab) metformin (metformin 500 mg ER Tab) metoprolol (metoprolol succinate 25 mg ER Tab) nitroglycerin (nitroglycerin 0.4 mg sublingual Tab) pioglitazone (pioglitazone 15 mg Tab) rosuvastatin (rosuvastatin 40 mg Tab) Procedures Performed Angioplasty (2019), Colonoscopy (09/03/2011), Coronary artery stent, Implantable sleep apnea treatment system, Lumbar discectomy. Discharge Vitals Heart Rate (Peripheral) 72 Respiratory Rate 16 Blood Pressure 110/60 Height 180.34 cm Height 71 in Weight 86.7 kg Weight 191.141 lb BMI 26.66 Medications What How Much When Instructions Unchanged aspirin (aspirin 325 mg Oral EC Tab) 1 Tablets By Mouth Every day Contact prescribing physician if questions or concerns Unchanged citalopram (CeleXA 20 mg Tab) 1 Tablets By Mouth Every day Contact prescribing physician if questions or concerns Unchanged clopidogrel (Plavix 75 mg Tab) 1 Tablets By Mouth Every day Contact prescribing physician if questions or concerns Unchanged colchicine (colchicine 0.6 mg Tab) 1 Tablets By Mouth Every day Contact prescribing physician if questions or concerns Unchanged ezetimibe (Zetia 10 mg Tab) 1 Tablets By Mouth Every day Contact prescribing physician if questions or concerns Unchanged glimepiride (glimepiride 4 mg Tab) 1 Tablets By Mouth 2 times a day Contact prescribing physician if questions or concerns Unchanged isosorbide mononitrate (isosorbide mononitrate 30 mg ER Tab) 1 Tablets By Mouth Once a day (in the morning) Contact prescribing physician if questions or concerns Unchanged losartan (losartan 25 mg Tab) 1 Tablets By Mouth Every day Contact prescribing physician if questions or concerns Unchanged metformin (metformin 500 mg ER Tab) 3 Tablets By Mouth Every day Contact prescribing physician if questions or concerns Unchanged metoprolol (metoprolol succinate 25 mg ER Tab) 0.5 Tablets By Mouth Every day Contact prescribing physician if questions or concerns Unchanged nitroglycerin (nitroglycerin 0.4 mg sublingual Tab) 1 Tablets Sublingual Every 5 minutes as needed for for chest pain Contact prescribing physician if questions or concerns Unchanged pioglitazone (pioglitazone 15 mg Tab) 1 Tablets By Mouth Every day Contact prescribing physician if questions or concerns Unchanged rosuvastatin (rosuvastatin 40 mg Tab) 1 Tablets By Mouth Every day Contact prescribing physician if questions or concerns Allergies Wellbutrin (increased anxiety) penicillin (Hives) Problems Ongoing - Any problem that you are currently receiving treatment for. Anxiety BMI 26.0-26.9,adult Coronary atherosclerosis Diabetes Essential hypertension Gastroesophageal reflux disease Hyperlipidemia Insomnia Obstructive sleep apnea syndrome Overweight Positive occult stool blood test Patient Survey You may receive a survey via text or e-mail asking about your office visit. Please share your experience with us by completing your survey. We appreciate your feedback and thank you for choosing us for your care. Normal [facility] Capillary blood glucose mikel urement by glucometer (mass/volume)Ordered By: Marlo Costa on 10-19-2023 Glucose [Mass/Vol] 110 mg/dL Normal [facility] Comment on above: Random Glucose Refer ence Range is dependent on time and content of last meal. Glucose of more than 200 mg/dL in a nonstressed, ambulatory subject supports the diagnosis of Diabetes Mellitus. Result Comment: [place] Glucose Reference Range is dependent on time and content of last meal. Glucose of more than 200 mg/dL in a nonstressed, ambulatory subject supports the diagnosis of Diabetes Mellitus. Performed By: #### G LULS #### Point of Care testing , Glucose Poct Glucometerson 0 10-19-2023 Commemt1 Glu2: Cleaned Meter Normal [facility] Comment on above: Result Comment: PERF ORMED BY: [address] [address] PATHOLOGIST ANIMAL PATHOLOGY TEACHER KAMAR ANTONY M.D. Performed By: #### G LULS #### Point of Care testing , No Panel InformationOrdered By: Marlo Costa on 10-19-2023 Bedside Glucose Comment Glu2: cleaned meter [facility] XR chest 1V portableon 10-18 XR chest 1V portable [facility] Main [address] [address] XRay Report Signed Patient: Spencer Oliveira MR#: [id number] : 1960 Acct:[id number] Age/Sex: 63 / M ADM Date: 10/19/23 Loc: [place] Room: Type: [facility] Attending Dr: Marlo Costa DO Copies to: [...] Hammer Jr., D.O.10/19/2023 4:10 PM Dictation Location: [place] [address] Transcribed By: [facility] 10/19/23 1610 Dictated By: Kota Hammer Jr, DO 10/19/23 1608 Signed By: 10/19/23 1610 Normal [facility] Automated basophil %Ordered By: Marlo Costa on 10-05-2023 Basophils/100 WBC (Bld) 0.8 % Normal . [facility] Comment on above: Performed By: #### C GUILLERMINA, BMP #### [address] Automated basophil countOrde red By: Marlo Costa on 10-05-2023 Basophils (Bld) [#/Vol] 0.0 10*3/uL Normal 0.0-0.2 [facility] Comment on above: Result Comment: PERF ORMED BY: [place] [address] PATHOLOGIST ANIMAL PATHOLOGY TEACHER KAMAR ANTONY M.D. Performed By: #### C GUILLERMINA, BMP #### [address] Automated blood monocyte cou ntOrdered By: Marlo Costa on 10-05-2023 Monocytes (Bld) [#/Vol] 0.5 10*3/uL Normal 0.0-0.8 [facility] Comment on above: Performed By: #### C BC, BMP #### [address] Automated eosinophil %Ordere d By: Marlo Costa on 10-05-2023 Eosinophils/100 WBC (Bld) 0.5 % Normal . [facility] Comment on above: Performed By: #### C BC, BMP #### [address] Automated eosinophil countOr dered By: Marlo Costa on 10-05-2023 Eosinophils (Bld) [#/Vol] 0.0 10*3/uL Normal 0.0-0.45 [facility] Comment on above: Performed By: #### C BC, BMP #### [address] Automated monocyte %Ordered By: Marlo Costa on 10-05-2023 Monocytes/100 WBC (Bld) 8.7 % Normal . [facility] Comment on above: Performed By: #### C BC, BMP #### [address] Automated neutrophil %Ordere d By: Marlo Costa on 10-05-2023 Neutrophils/100 WBC (Bld) 71.9 % Normal . [facility] Comment on above: Performed By: #### C BC, BMP #### [address] Basic Metabolic Panelon 09-25 GFR/1.73 sq M.predicted MDRD (S/P/Bld) [Vol rate/Area] mL/min/{1.73_m2} Normal [facility] Comment on above: Performed By: #### C BC, BMP #### [address] Calcium [Mass/volume] in Ser um or PlasmaOrdered By: Marlo Costa on 10-05-2023 Calcium [Mass/Vol] 9.8 mg/dL Normal 8.6-10.3 [facility] Comment on above: Result Comment: PERF ORMED BY: [place] [address] PATHOLOGIST ANIMAL PATHOLOGY TEACHER KAMAR ANTONY M.D. Performed By: #### C BC, BMP #### [address] Carbon dioxide, total [Moles /volume] in Serum or PlasmaOrdered By: Marlo Costa on 10-05-2023 CO2 [Moles/Vol] 28.8 mmol/L Normal 21.0-31.0 [facility] Comment on above: Performed By: #### C BC, BMP #### [address] Chloride [Moles/volume] in [place] or PlasmaOrdered By: Marlo Costa on 10-05-2023 Chloride [Moles/Vol] 105 mmol/L Normal 98-107 [facility] Comment on above: Performed By: #### C BC, BMP #### [address] Complete Blood Count Auto Di ffon 10-05-2023 Mean Corpuscular HGB Conc 34.2 g/dL Normal 32.5-35.6 [facility] Comment on above: Performed By: #### C BC, BMP #### [address] NRBC% 0.1 /100{WBC} Normal 0-0.5 [facility] Comment on above: Performed By: #### C BC, BMP #### [place] [address] [place] Creatinine [Mass/volume] in Serum or PlasmaOrdered By: Marlo Costa on 10-05-2023 Creatinine [Mass/Vol] 0.92 mg/dL Normal 0.70-1.30 [facility] [place] [facility] Comment on above: Performed By: #### C BC, BMP #### [place] [address] [place] ECG 12 lead ECGon 10-05-2023 ECG 12 lead ECG [facility] [address] [place] [address] Electrocardiograph Report Signed Patient: Spencer Oliveira MR#: [id number] : 1960 Acct:[id number] Age/Sex: 63 / M ADM Date: 10/05/23 Loc: PS Room: Type: [facility] Attending Dr: Marlo Costa DO Ordering [...] previous ECGs available Confirmed by Lucrecia Felipe ([id number]) on 10/06/2023 1:31:07 PM Referred By: SHAHRAM Electronically Signed By:Lucrecia Felipe Transcribed By: BELEN Signed By Lucrecia Felipe MD 4 [id number] Normal [facility] Erythrocyte distribution wid th [Ratio] by Automated countOrdered By: Marlo Costa on 10-05-2023 Erythrocyte distribution width (RBC) [Ratio] 14.6 % Normal 12.0-14.8 [facility] Comment on above: Performed By: #### C GUILLERMINA, BMP #### [facility] [address] [place], [place] [id number] [place] Erythrocytes [#/volume] in B lood by Automated countOrdered By: Marlo Costa on 10-05-2023 RBC (Bld) [#/Vol] 5.28 10*6/uL Normal 3.90-5.60 [facility] Comment on above: Performed By: #### C GUILLERMINA, BMP #### [facility] [address] [place], [place] [id number] [place] Glucose [Mass/volume] in Ser um or PlasmaOrdered By: Marlo Costa on 10-05-2023 Glucose [Mass/Vol] 156 mg/dL High 70-100 [facility] Comment on above: ADA recommended refe rence rangeRandom Glucose Reference Range is dependent on time and content of last meal. Glucose of more than 200 mg/dL in a nonstressed, ambulatory subject supports the diagnosis of Diabetes Mellitus. Result Comment: [place] om Glucose Reference Range is dependent on time and content of last meal. Glucose of more than 200 mg/dL in a nonstressed, ambulatory subject supports the diagnosis of Diabetes Mellitus. ADA recommended reference range Performed By: #### C GUILLERMINA, BMP #### [address] Hematocrit [Volume Fraction] of Blood by Automated countOrdered By: Marlo Costa on 10-05-2023 Hematocrit (Bld) [Volume fraction] 46.5 % Normal 38.8-50.0 [facility] Comment on above: Performed By: #### C GUILLERMINA, BMP #### [address] Hemoglobin [Mass/volume] in BloodOrdered By: Marlo Costa on 10-05-2023 Hemoglobin (Bld) [Mass/Vol] 15.9 g/dL Normal 13.0-17.0 [facility] Comment on above: Performed By: #### C GUILLERMINA, BMP #### [address] Leukocytes [#/volume] correc duke for nucleated erythrocytes in Blood by Automated counOrdered By: Marlo Costa on 10-05-2023 WBC corrected for nucl RBC Auto (Bld) [#/Vol] 5.3 10*3/uL 4.1-10.5 [facility] Leukocytes [#/volume] in Blo od by Automated countOrdered By: Marlo Costa on 10-05-2023 WBC (Bld) [#/Vol] 5.3 10*3/uL Normal 4.1-10.5 [facility] Comment on above: Performed By: #### C GUILLERMINA, BMP #### [place] [address] [place] Lymphocytes [#/volume] in Bl ood by Automated countOrdered By: Marlo Costa on 10-05-2023 Lymphocytes (Bld) [#/Vol] 1.0 10*3/uL Normal 1.00-4.8 [facility] Comment on above: Performed By: #### C GUILLERMINA, BMP #### [address] Lymphocytes/100 leukocytes i n Blood by Automated countOrdered By: Marlo Costa on 10-05-2023 Lymphocytes/100 WBC (Bld) 18.1 % Normal . [facility] Comment on above: Performed By: #### C GUILLERMINA, BMP #### [address] MCH [Entitic mass] by Automa duke countOrdered By: Marlo Costa on 10-05-2023 MCH (RBC) [Entitic mass] 30.1 pg Normal 27.5-35.2 [facility] Comment on above: Performed By: #### C GUILLERMINA, BMP #### [address] MCHC Auto (RBC) [Mass/Vol]Or dered By: Marlo Costa on 10-05-2023 MCHC (RBC) [Mass/Vol] 34.2 g/dL 32.5-35.6 [facility] MCV [Entitic volume] by Auto mated countOrdered By: Marlo Costa on 10-05-2023 MCV (RBC) [Entitic vol] 88.0 fL Normal 83.5-101 [facility] Comment on above: Performed By: #### C GUILLERMINA, BMP #### [address] Neutrophils [#/volume] in Bl ood by Automated countOrdered By: Marlo Costa on 10-05-2023 Neutrophils (Bld) [#/Vol] 3.8 10*3/uL Normal 1.8-7.7 [facility] Comment on above: Performed By: #### C GUILLERMINA, BMP #### [address] No Panel InformationOrdered By: Marlo Costa on 10-05-2023 Estimated GFR (CKD-EPI) > 60.0 mL/Min [facility] Creatinine Clearance (Chem N/A [facility] Nucleated erythrocytes [Pres ence] in Blood by Automated countOrdered By: Marlo Costa on 10-05-2023 Nucleated RBC Auto Ql (Bld) 0.1 /100{WBC} 0-0.5 [facility] Orders Onlyon 10-05-2023 Orders Only [id number] Deion Oliveira 1960 M Date Provider Department Center 10/05/2023 ISATU FORD [facility] Family History Problem Relation Age of Onset No Known Problems Mother No Known Problems Father Family Status - Relation Status Age at Mother Father Normal [facility] Platelet mean volume [Entiti c volume] in Blood by Automated countOrdered By: Marlo Costa on 10-05-2023 Platelet mean volume (Bld) [Entitic vol] 8.1 fL Normal 6.6-10.1 [facility] Comment on above: Performed By: #### C BC, BMP #### [facility] [address] [place] [address] Platelets [#/volume] in Bloo d by Automated countOrdered By: Marlo Costa on 10-05-2023 Platelets (Bld) [#/Vol] 208 10*3/uL Normal 150-450 [facility] Comment on above: Performed By: #### C BC, BMP #### [facility] [address] [place] [address] [place] Potassium [Moles/volume] in Serum or PlasmaOrdered By: Marlo Costa on 10-05-2023 Potassium [Moles/Vol] 4.2 mmol/L Normal 3.5-5.1 [facility] Comment on above: Performed By: #### C BC, BMP #### [facility] [address] [place] [address] Serum or plasma anion gap de terminationOrdered By: Marlo Costa on 10-05-2023 Anion gap [Moles/Vol] 11.4 mmol/L Normal 6.0-15.0 [facility] Comment on above: Performed By: #### C BC, BMP #### [facility] [address] [place] [address] [facility] Sodium [Moles/volume] in Ser um or PlasmaOrdered By: Marlo Costa on 10-05-2023 Sodium [Moles/Vol] 141 mmol/L Normal 136-145 [facility] Comment on above: Performed By: #### C BC, BMP #### [facility] [address] [place] [address] [facility] Urea nitrogen [Mass/volume] in Serum or PlasmaOrdered By: Marlo Costa on 10-05-2023 Urea nitrogen [Mass/Vol] 12 mg/dL Normal 7-25 [facility] Comment on above: Performed By: #### C BC, BMP #### [facility] [address] [place] [address] [facility] Office Visiton 08-12-2023 Follow-up visit [id number] Deion Oliveira 1960 Date Provider Department Center 08/12/2023 Formerly named [facility]-IVELISSE WARD [facility] Family History Problem Relation Age of Onset No Known Problems Mother No Known Problems Father Family Status - Relation Status Age at Mother Father Level of Service:99334 [place] OFFICE/OUTPATIENT ESTABLISHED LOW MDM 20 MIN Normal [facility] CEAon 05-27-2022 CEA 2.4 ng/mL Normal 0.0-4.7 [facility] Comment on above: Result Comment: Nons mokers <3.9 Smokers <5.6 . [facility] Electrochemiluminescence Immunoassay (ECLIA) . Values obtained with different assay methods or kits cannot be used interchangeably. Results cannot be interpreted as absolute evidence of the presence or absence of malignant disease. Performed By: #### F T3, CMP, T4, TSH, LIPID #### [facility] [address] [place], [place] [address] Dr. Seven Mares INSULINon 05-27-2022 Insulin 17.6 uIU/mL Normal 2.6-24.9 [facility] Comment on above: Performed By: #### F T3, CMP, T4, TSH, LIPID #### [facility] [address] [place] [address] Dr. Seven AYALA BLD IMMUNO SCREENon 04-29 OCCULT BLOOD Negative Normal NEGATIVE [facility] Comment on above: Performed By: #### F T3, CMP, T4, TSH, LIPID #### [facility] [address] [place] [address] Dr. Seven Mares AMMONIAon 05-26-2022 Ammonia (P) [Moles/Vol] 15 umol/L Normal 11-32 [facility] Comment on above: Performed By: #### A MM #### [facility] [address] [place] [address] Dr. Seven Mares BNPon 05-26-2022 Natriuretic peptide B (Bld) [Mass/Vol] 30.0 pg/mL Normal <=900.0 [facility] Comment on above: Performed By: #### F T3, CMP, T4, TSH, LIPID #### [facility] [address] [place] [address] Dr. Seven Mares CBC AUTO DIFFon 05-26-2022 BASO # 0.1 103/ul Normal 0.0-0.1 [facility] Comment on above: Performed By: #### F T3, CMP, T4, TSH, LIPID #### [facility] [address] [place] [address] Dr. Seven Mares Basophils/100 WBC (Bld) 0.9 % Normal 0.2-2.0 [facility] Comment on above: Performed By: #### F T3, CMP, T4, TSH, LIPID #### [facility] [address] [place] [address] Dr. Seven Mares EO # 0.1 103/ul Normal 0.0-0.7 [facility] Comment on above: Performed By: #### F T3, CMP, T4, TSH, LIPID #### [facility] [address] [place] [address] Dr. Seven Mares Eosinophils/100 WBC (Bld) 1.9 % Normal 0.9-7.0 [facility] Comment on above: Performed By: #### F T3, CMP, T4, TSH, LIPID #### [facility] [address] [place] [address] Dr. Seven Mares Erythrocyte distribution width (RBC) [Ratio] 14.6 % Normal 11.0-15.0 [facility] Comment on above: Performed By: #### F T3, CMP, T4, TSH, LIPID #### [facility] [address] [place] [address] Dr. Seven Mares Hematocrit (Bld) [Volume fraction] 52.2 % Normal 42.0-54.0 [facility] Comment on above: Performed By: #### F T3, CMP, T4, TSH, LIPID #### [facility] [address] [place] [address] Dr. Seven Mares Hemoglobin (Bld) [Mass/Vol] 17.7 g/dL Normal 14.0-18.0 [facility] Comment on above: Performed By: #### F T3, CMP, T4, TSH, LIPID #### [facility] [address] [place] [address] Dr. Seven Mares IG # 0.08 10e3/ul Critically high 0.00-0.03 [facility] Comment on above: Performed By: #### F T3, CMP, T4, TSH, LIPID #### [facility] [address] [place] [address] Dr. Seven Mares IG % 1.1 % Critically high 0.0-0.5 [facility] Comment on above: Performed By: #### F T3, CMP, T4, TSH, LIPID #### [facility] [address] [place] [address] Dr. Seven Mares LYMPH # 2.2 103/ul Normal 1.2-3.8 [facility] Comment on above: Performed By: #### F T3, CMP, T4, TSH, LIPID #### [facility] [address] [place] [address] Dr. Seven Mares Lymphocytes/100 WBC (Bld) 29.6 % Normal 20.5-60.0 [facility] Comment on above: Performed By: #### F T3, CMP, T4, TSH, LIPID #### [facility] [address] [place] [address] Dr. Seven Mares MANUAL DIFF REQ NO Normal [facility] Comment on above: Performed By: #### F T3, CMP, T4, TSH, LIPID #### [facility] [address] [place] [address] Dr. Seven Mares MCH (RBC) [Entitic mass] 28.1 pg Normal 25.9-34.0 [facility] Comment on above: Performed By: #### F T3, CMP, T4, TSH, LIPID #### [facility] [address] [place] [address] Dr. Seven Mares MCHC (RBC) [Mass/Vol] 33.9 g/dL Normal 29.9-35.2 [facility] Comment on above: Performed By: #### F T3, CMP, T4, TSH, LIPID #### [facility] [address] [place] [address] Dr. Seven Mares MCV (RBC) [Entitic vol] 82.9 fL Normal 80.0-94.0 [facility] Comment on above: Performed By: #### F T3, CMP, T4, TSH, LIPID #### [facility] [address] [place] [address] Dr. Seven Mares MONO # 0.5 103/ul Normal 0.3-0.8 [facility] Comment on above: Performed By: #### F T3, CMP, T4, TSH, LIPID #### [facility] [address] [place] [address] Dr. Seven Mares Monocytes/100 WBC (Bld) 6.3 % Normal 1.7-12.0 [facility] Comment on above: Performed By: #### F T3, CMP, T4, TSH, LIPID #### [facility] [address] [place] [address] Dr. Seven Mares NEUT # 4.5 103/ul Normal 1.4-6.5 [facility] Comment on above: Performed By: #### F T3, CMP, T4, TSH, LIPID #### [facility] [address] [place] [address] Dr. Seven Mares Neutrophils/100 WBC (Bld) 60.2 % Normal 43.0-75.0 [facility] Comment on above: Performed By: #### F T3, CMP, T4, TSH, LIPID #### [facility] [address] [place] [address] [address] Seven Mares Platelet mean volume (Bld) [Entitic vol] 9.4 fL Critically low 9.5-13.5 [facility] Comment on above: Performed By: #### F T3, CMP, T4, TSH, LIPID #### [facility] [address] [place] [address] [address] Seven Mares PLT 227 103/ul Normal 150-450 [facility] Comment on above: Performed By: #### F T3, CMP, T4, TSH, LIPID #### [facility] [address] [place] [address] Dr. Seven Mares RBC 6.30 106/ul Critically high 4.70-6.10 [facility] Comment on above: Performed By: #### F T3, CMP, T4, TSH, LIPID #### [facility] [address] [place] [address] Dr. Seven Mares WBC 7.5 103/ul Normal 4.0-11.0 [facility] Comment on above: Performed By: #### F T3, CMP, T4, TSH, LIPID #### [facility] [address] [place] [address] Dr. Seven Mares FREE THYROXINE INDEX T7on FTI 2.79 Normal 1.30-4.50 [facility] Comment on above: Performed By: #### F T3, CMP, T4, TSH, LIPID #### [facility] [address] [place] [address] Dr. Seven Mares T3U 34.0 % Normal 33.0-40.0 [facility] Comment on above: Performed By: #### F T3, CMP, T4, TSH, LIPID #### [facility] [address] [place] [address] Dr. Seven Mares T4 [Mass/Vol] 8.20 ug/dL Normal 4.50-12.10 [facility] Comment on above: Performed By: #### F T3, CMP, T4, TSH, LIPID #### [facility] [address] [place] [address] [address] Seven Mares GLYCOHEMOGLOBIN A1Con 2022 ADA RECOMMENDATION SEE BELOW Normal [facility] Comment on above: Result Comment: ADA RECOMMENDED LIMIT 4.0 - 6.0 ADA THERAPEUTIC TARGET < 7.0 ACTION SUGGESTED > 7.0 Performed By: #### F T3, CMP, T4, TSH, LIPID #### [facility] [address] [place] [address] [address] Seven Mares Glucose [Mass/Vol] 174 mg/dL Normal [facility] Comment on above: Performed By: #### F T3, CMP, T4, TSH, LIPID #### [facility] [address] [place] [address] Dr. Seven Mares HbA1c (Bld) [Mass fraction] 7.7 % Critically high 4.5-6.2 [facility] Comment on above: Performed By: #### F T3, CMP, T4, TSH, LIPID #### [facility] [address] [place] [address] Dr. Seven Mares IRONon 05-26-2022 Iron [Mass/Vol] 98.0 ug/dL Normal 65.0-175.0 [facility] Comment on above: Performed By: #### F T3, CMP, T4, TSH, LIPID #### [facility] [address] [place] [address] Dr. Seven Mares LIPID PROFILEon 05-26-2022 CHOL-HDL RATIO NORM SEE BELOW Normal [facility] Comment on above: Result Comment: 3.3 - 4.4 LOW RISK 4.4 - 7.1 AVERAGE RISK 7.1 - 11.0 MODERATE RISK >11.0 HIGH RISK Performed By: #### F T3, CMP, T4, TSH, LIPID #### [facility] [address] [place] [address] Dr. Seven Mares Cholesterol [Mass/Vol] 127 mg/dL Normal <=200 Th [facility] Comment on above: Performed By: #### F T3, CMP, T4, TSH, LIPID #### [facility] [address] [place] [address] [address] Seven Mares Cholesterol in HDL [Mass/Vol] 75 mg/dL Critically high 40-60 [facility] Comment on above: Performed By: #### F T3, CMP, T4, TSH, LIPID #### [facility] [address] [place] [address] [address] Seven Mares Cholesterol in LDL [Mass/Vol] 27.6 mg/dL Normal [facility] Comment on above: Performed By: #### F T3, CMP, T4, TSH, LIPID #### [facility] [address] [place] [address] [address] Seven Mares Cholesterol.total/Chol esterol in HDL [Mass ratio] 1.7 {ratio} Normal [facility] Comment on above: Performed By: #### F T3, CMP, T4, TSH, LIPID #### [facility] [address] [place] [address] [address] Seven Mares HDL NORMAL > or = 60 mg/dl - LO W CARDIOVASCULAR RISK <40 mg/dl - HIGH CARDIOVASCULAR RISK Normal [facility] Comment on above: Performed By: #### F T3, CMP, T4, TSH, LIPID #### [facility] [address] [place] [address] [address] Seven Mares LDL CALC NORMAL SEE BELOW Normal [facility] Comment on above: Result Comment: <100 mg/dl OPTIMAL 100 - 129 mg/dl NEAR OR ABOVE OPTIMAL 130 - 159 mg/dl BORDERLINE HIGH 160 - 189 mg/dl HIGH >190 mg/dl VERY HIGH Performed By: #### F T3, CMP, T4, TSH, LIPID #### [facility] [address] [place] [address] [address] Seven Mares Triglyceride [Mass/Vol] 122 mg/dL Normal <=150 [facility] Comment on above: Performed By: #### F T3, CMP, T4, TSH, LIPID #### [facility] [address] [place] [address] [address] Seven Mares VLDL CALC 24.4 mg/dL Normal [facility] Comment on above: Performed By: #### F T3, CMP, T4, TSH, LIPID #### [facility] [address] [place] [address] Dr. Seven Mares PROF 14(COMP METB)on 023 Albumin [Mass/Vol] 4.4 g/dL Normal 3.4-5.0 [facility] Comment on above: Performed By: #### F T3, CMP, T4, TSH, LIPID #### [facility] [address] [place] [address] Dr. Seven Mares Albumin/Globulin [Mass ratio] 1.3 {ratio} Normal [facility] Comment on above: Performed By: #### F T3, CMP, T4, TSH, LIPID #### [facility] [address] [place] [address] Dr. Seven Mares ALP [Catalytic activity/Vol] 93 U/L Normal 46-116 [facility] Comment on above: Performed By: #### F T3, CMP, T4, TSH, LIPID #### [facility] [address] [place] [address] Dr. Seven Mares ALT [Catalytic activity/Vol] 30 U/L Normal 16-63 [facility] Comment on above: Performed By: #### F T3, CMP, T4, TSH, LIPID #### [facility] [address] [place] [address] Dr. Seven Mares Anion gap [Moles/Vol] 12.6 mmol/L Normal [facility] Comment on above: Performed By: #### F T3, CMP, T4, TSH, LIPID #### [facility] [address] [place] [address] Dr. Seven Mares AST [Catalytic activity/Vol] 25 U/L Normal 15-37 [facility] Comment on above: Performed By: #### F T3, CMP, T4, TSH, LIPID #### [facility] [address] [place] [address] Dr. Seven Mares Bilirubin [Mass/Vol] 0.5 mg/dL Normal 0.2-1.0 [facility] Comment on above: Performed By: #### F T3, CMP, T4, TSH, LIPID #### [facility] [address] [place] [address] [address] Seven Mares Calcium [Mass/Vol] 9.3 mg/dL Normal 8.5-10.1 [facility] Comment on above: Performed By: #### F T3, CMP, T4, TSH, LIPID #### [facility] [address] [place] [address] [address] Seven Mares Chloride [Moles/Vol] 102 mmol/L Normal 98-107 [facility] Comment on above: Performed By: #### F T3, CMP, T4, TSH, LIPID #### [facility] [address] [place] [address] [address] Seven Mares CO2 [Moles/Vol] 30.5 mmol/L Normal 21.0-32.0 [facility] Comment on above: Performed By: #### F T3, CMP, T4, TSH, LIPID #### [facility] [address] [place] [address] [address] Seven Mares Creatinine [Mass/Vol] 1.09 mg/dL Normal 0.70-1.30 [facility] Comment on above: Performed By: #### F T3, CMP, T4, TSH, LIPID #### [facility] [address] [place] [address] [address] Sevne Mares EGFR-AF OMANI >60 Normal >=60 [facility] Comment on above: Performed By: #### F T3, CMP, T4, TSH, LIPID #### [facility] [address] [place] [address] [address] Seven Mares EGFR-NON AF OMANI >60 Normal >=60 [facility] Comment on above: Performed By: #### F T3, CMP, T4, TSH, LIPID #### [facility] [address] [place] [address] [address] Seven Mares Globulin (S) [Mass/Vol] 3.5 g/dL Normal [facility] Comment on above: Performed By: #### F T3, CMP, T4, TSH, LIPID #### [facility] [address] [place] [address] [address] Seven Mares Glucose [Mass/Vol] 134 mg/dL Critically high 74-106 [facility] Comment on above: Performed By: #### F T3, CMP, T4, TSH, LIPID #### [facility] [address] [place] [address] Dr. Seven Mares Potassium [Moles/Vol] 4.1 mmol/L Normal 3.5-5.1 [facility] Comment on above: Performed By: #### F T3, CMP, T4, TSH, LIPID #### [facility] [address] [place] [address] Dr. Seven Mares Protein [Mass/Vol] 7.9 g/dL Normal 6.4-8.2 [facility] Comment on above: Performed By: #### F T3, CMP, T4, TSH, LIPID #### [facility] [address] [place] [address] Dr. Seven Mares Sodium [Moles/Vol] 141 mmol/L Normal 136-145 [facility] Comment on above: Performed By: #### F T3, CMP, T4, TSH, LIPID #### [facility] [address] [place] [address] Dr. Seven Mares Urea nitrogen [Mass/Vol] 22.0 mg/dL Critically high 7.0-18.0 [facility] Comment on above: Performed By: #### F T3, CMP, T4, TSH, LIPID #### [facility] [address] [place] [address] Dr. Seven Mares Urea nitrogen/Creatinine [Mass ratio] 20.2 mg/mg Normal [facility] Comment on above: Performed By: #### F T3, CMP, T4, TSH, LIPID #### [facility] [address] [place] [address] Dr. Seven Mares TSHon 05-26-2022 TSH 2.661 uIU/mL Normal 0.358-3.74 0 [facility] Comment on above: Performed By: #### F T3, CMP, T4, TSH, LIPID #### [facility] [address] [place] [address] Dr. Seven Mares GLUCOSE BLOODon 04-08-2022 Glucose [Mass/Vol] 128 mg/dL Critically high 74-106 T [facility] Comment on above: Performed By: #### F T3, CMP, T4, TSH, LIPID #### [facility] [address] [place] [address] [address] Seven Mares LIPID PROFILEon 04-08-2022 CHOL-HDL RATIO NORM SEE BELOW Normal [facility] Comment on above: Result Comment: 3.3 - 4.4 LOW RISK 4.4 - 7.1 AVERAGE RISK 7.1 - 11.0 MODERATE RISK >11.0 HIGH RISK Performed By: #### F T3, CMP, T4, TSH, LIPID #### [facility] [address] [place] [address] [address] Seven Mares Cholesterol [Mass/Vol] 119 mg/dL Normal <=200 Th [facility] Comment on above: Performed By: #### F T3, CMP, T4, TSH, LIPID #### [facility] [address] [place] [address] Dr. Seven Mares Cholesterol in HDL [Mass/Vol] 59 mg/dL Normal 40-60 [facility] Comment on above: Performed By: #### F T3, CMP, T4, TSH, LIPID #### [facility] [address] [address] [address] Seven Mares Cholesterol in LDL [Mass/Vol] 42.6 mg/dL Normal [facility] Comment on above: Performed By: #### F T3, CMP, T4, TSH, LIPID #### [facility] [address] [address] [address] Seven Mares Cholesterol.total/Chol esterol in HDL [Mass ratio] 2.0 {ratio} Normal [facility] Comment on above: Performed By: #### F T3, CMP, T4, TSH, LIPID #### [facility] [address] [address] [address] Seven Mares HDL NORMAL > or = 60 mg/dl - LO W CARDIOVASCULAR RISK <40 mg/dl - HIGH CARDIOVASCULAR RISK Normal [facility] Comment on above: Performed By: #### F T3, CMP, T4, TSH, LIPID #### [facility] [address] [place] [address] Dr. Seven Mares LDL CALC NORMAL SEE BELOW Normal [facility] Comment on above: Result Comment: <100 mg/dl OPTIMAL 100 - 129 mg/dl NEAR OR ABOVE OPTIMAL 130 - 159 mg/dl BORDERLINE HIGH 160 - 189 mg/dl HIGH >190 mg/dl VERY HIGH Performed By: #### F T3, CMP, T4, TSH, LIPID #### [facility] [address] [address] [address] Seven Mares Triglyceride [Mass/Vol] 87 mg/dL Normal <=150 [facility] Comment on above: Performed By: #### F T3, CMP, T4, TSH, LIPID #### [facility] [address] [address] [address] Seven Mares VLDL CALC 17.4 mg/dL Normal [facility] Comment on above: Performed By: #### F T3, CMP, T4, TSH, LIPID #### [facility] [address] [place] [address] Dr. Seven Mares CBC AUTO DIFFon 11-14-2021 BASO # 0.1 103/ul Normal 0.0-0.1 [facility] Comment on above: Performed By: #### F T3, CMP, T4, TSH, LIPID #### [facility] [address] [address] [address] Seven Mares Basophils/100 WBC (Bld) 1.0 % Normal 0.2-2.0 [facility] Comment on above: Performed By: #### F T3, CMP, T4, TSH, LIPID #### [facility] [address] [address] [address] Seven Mares EO # 0.1 103/ul Normal 0.0-0.7 [facility] Comment on above: Performed By: #### F T3, CMP, T4, TSH, LIPID #### [facility] [address] [place] [address] Dr. Seven Mares Eosinophils/100 WBC (Bld) 2.4 % Normal 0.9-7.0 [facility] Comment on above: Performed By: #### F T3, CMP, T4, TSH, LIPID #### [facility] [address] [place] [address] Dr. Seven Mares Erythrocyte distribution width (RBC) [Ratio] 14.1 % Normal 11.0-15.0 [facility] Comment on above: Performed By: #### F T3, CMP, T4, TSH, LIPID #### [facility] [address] [place] [address] Dr. Seven Mares Hematocrit (Bld) [Volume fraction] 46.8 % Normal 42.0-54.0 [facility] Comment on above: Performed By: #### F T3, CMP, T4, TSH, LIPID #### [facility] [address] [place] [address] Dr. Seven Mares Hemoglobin (Bld) [Mass/Vol] 15.7 g/dL Normal 14.0-18.0 [facility] Comment on above: Performed By: #### F T3, CMP, T4, TSH, LIPID #### [facility] [address] [place] [address] Dr. Seven Mares IG # 0.02 10e3/ul Normal 0.00-0.03 [facility] Comment on above: Performed By: #### F T3, CMP, T4, TSH, LIPID #### [facility] [address] [place] [address] Dr. Seven Mares IG % 0.4 % Normal 0.0-0.5 [facility] Comment on above: Performed By: #### F T3, CMP, T4, TSH, LIPID #### [facility] [address] [place] [address] Dr. Seven Mares LYMPH # 1.1 103/ul Critically low 1.2-3.8 [facility] Comment on above: Performed By: #### F T3, CMP, T4, TSH, LIPID #### [facility] [address] [place] [address] Dr. Seven Mares Lymphocytes/100 WBC (Bld) 22.9 % Normal 20.5-60.0 [facility] Comment on above: Performed By: #### F T3, CMP, T4, TSH, LIPID #### [facility] [address] [place] [address] Dr. Seven Mares MANUAL DIFF REQ NO Normal [facility] Comment on above: Performed By: #### F T3, CMP, T4, TSH, LIPID #### [facility] [address] [place] [address] Dr. Seven Mares MCH (RBC) [Entitic mass] 29.2 pg Normal 25.9-34.0 [facility] Comment on above: Performed By: #### F T3, CMP, T4, TSH, LIPID #### [facility] [address] [place] [address] Dr. Seven Mares MCHC (RBC) [Mass/Vol] 33.5 g/dL Normal 29.9-35.2 [facility] Comment on above: Performed By: #### F T3, CMP, T4, TSH, LIPID #### [facility] [address] [place] [address] Dr. Seven Mares MCV (RBC) [Entitic vol] 87.0 fL Normal 80.0-94.0 [facility] Comment on above: Performed By: #### F T3, CMP, T4, TSH, LIPID #### [facility] [address] [place] [address] Dr. Seven Mares MONO # 0.5 103/ul Normal 0.3-0.8 [facility] Comment on above: Performed By: #### F T3, CMP, T4, TSH, LIPID #### [facility] [address] [place] [address] Dr. Seven Mares Monocytes/100 WBC (Bld) 9.9 % Normal 1.7-12.0 [facility] Comment on above: Performed By: #### F T3, CMP, T4, TSH, LIPID #### [facility] [address] [place] [address] Dr. Seven Mares NEUT # 3.1 103/ul Normal 1.4-6.5 [facility] Comment on above: Performed By: #### F T3, CMP, T4, TSH, LIPID #### [facility] [address] [place] [address] Dr. Seven Mares Neutrophils/100 WBC (Bld) 63.4 % Normal 43.0-75.0 [facility] Comment on above: Performed By: #### F T3, CMP, T4, TSH, LIPID #### [facility] [address] [address] [address] Seven Mares Platelet mean volume (Bld) [Entitic vol] 9.3 fL Critically low 9.5-13.5 [facility] Comment on above: Performed By: #### F T3, CMP, T4, TSH, LIPID #### [facility] [address] [address] [address] Seven Mares PLT 227 103/ul Normal 150-450 [facility] Comment on above: Performed By: #### F T3, CMP, T4, TSH, LIPID #### [facility] [address] [place] [address] Dr. Seven Mares RBC 5.38 106/ul Normal 4.70-6.10 [facility] Comment on above: Performed By: #### F T3, CMP, T4, TSH, LIPID #### [facility] [address] [place] [address] Dr. Seven Mares WBC 4.9 103/ul Normal 4.0-11.0 [facility] Comment on above: Performed By: #### F T3, CMP, T4, TSH, LIPID #### [facility] [address] [place] [address] Dr. Seven Mares FREE T3on 11-14-2021 FREE T3 2.43 pg/mlL Normal 2.18-3.98 [facility] Comment on above: Performed By: #### F T3, CMP, T4, TSH, LIPID #### [facility] [address] [place] [address] Dr. Seven Mares GLYCOHEMOGLOBIN A1Con 2021 ADA RECOMMENDATION SEE BELOW Normal [facility] Comment on above: Result Comment: ADA RECOMMENDED LIMIT 4.0 - 6.0 ADA THERAPEUTIC TARGET < 7.0 ACTION SUGGESTED > 7.0 Performed By: #### F T3, CMP, T4, TSH, LIPID #### [facility] [address] [place] [address] Dr. Seven Mares Glucose [Mass/Vol] 143 mg/dL Normal [facility] Comment on above: Performed By: #### F T3, CMP, T4, TSH, LIPID #### [facility] [address] [place] [address] Dr. Seven Mares HbA1c (Bld) [Mass fraction] 6.6 % Critically high 4.5-6.2 [facility] Comment on above: Performed By: #### F T3, CMP, T4, TSH, LIPID #### [facility] [address] [place] [address] Dr. Seven Mares LIPID PROFILEon 11-14-2021 CHOL-HDL RATIO NORM SEE BELOW Normal [facility] Comment on above: Result Comment: 3.3 - 4.4 LOW RISK 4.4 - 7.1 AVERAGE RISK 7.1 - 11.0 MODERATE RISK >11.0 HIGH RISK Performed By: #### F T3, CMP, T4, TSH, LIPID #### [facility] [address] [place] [address] Dr. Seven Mares Cholesterol [Mass/Vol] 102 mg/dL Normal <=200 [facility] Comment on above: Performed By: #### F T3, CMP, T4, TSH, LIPID #### [facility] [address] [place] [address] Dr. Seven Mares Cholesterol in HDL [Mass/Vol] 47 mg/dL Normal 40-60 [facility] Comment on above: Performed By: #### F T3, CMP, T4, TSH, LIPID #### [facility] [address] [place] [address] Dr. Seven Mares Cholesterol in LDL [Mass/Vol] 30.6 mg/dL Normal [facility] Comment on above: Performed By: #### F T3, CMP, T4, TSH, LIPID #### [facility] [address] [place] [address] Dr. Seven Mares Cholesterol.total/Chol esterol in HDL [Mass ratio] 2.2 {ratio} Normal [facility] Comment on above: Performed By: #### F T3, CMP, T4, TSH, LIPID #### [facility] [address] [place] [address] Dr. Seven Mares HDL NORMAL > or = 60 mg/dl - LO W CARDIOVASCULAR RISK <40 mg/dl - HIGH CARDIOVASCULAR RISK Normal [facility] Comment on above: Performed By: #### F T3, CMP, T4, TSH, LIPID #### [facility] [address] [place] [address] Dr. Seven Mares LDL CALC NORMAL SEE BELOW Normal [facility] Comment on above: Result Comment: <100 mg/dl OPTIMAL 100 - 129 mg/dl NEAR OR ABOVE OPTIMAL 130 - 159 mg/dl BORDERLINE HIGH 160 - 189 mg/dl HIGH >190 mg/dl VERY HIGH Performed By: #### F T3, CMP, T4, TSH, LIPID #### [facility] [address] [address] [address] Seven Mares Triglyceride [Mass/Vol] 122 mg/dL Normal <=150 [facility] Comment on above: Performed By: #### F T3, CMP, T4, TSH, LIPID #### [facility] [address] [place] [address] Dr. Seven Mares VLDL CALC 24.4 mg/dL Normal [facility] Comment on above: Performed By: #### F T3, CMP, T4, TSH, LIPID #### [facility] [address] [place] [address] Dr. Seven Mares PROF 14(COMP METB)on 022 Albumin [Mass/Vol] 4.1 g/dL Normal 3.4-5.0 [facility] Comment on above: Performed By: #### F T3, CMP, T4, TSH, LIPID #### [facility] [address] [place] [address] Dr. Seven Mares Albumin/Globulin [Mass ratio] 1.3 {ratio} Normal [facility] Comment on above: Performed By: #### F T3, CMP, T4, TSH, LIPID #### [facility] [address] [place] [address] Dr. Seven Mares ALP [Catalytic activity/Vol] 115 U/L Normal 46-116 [facility] Comment on above: Performed By: #### F T3, CMP, T4, TSH, LIPID #### [facility] [address] [address] [address] Seven Mares ALT [Catalytic activity/Vol] 46 U/L Normal 16-63 [facility] Comment on above: Performed By: #### F T3, CMP, T4, TSH, LIPID #### [facility] [address] [address] [address] Seven Mares Anion gap [Moles/Vol] 11.0 mmol/L Normal [facility] Comment on above: Performed By: #### F T3, CMP, T4, TSH, LIPID #### [facility] [address] [address] [address] Seven Mares AST [Catalytic activity/Vol] 28 U/L Normal 15-37 [facility] Comment on above: Performed By: #### F T3, CMP, T4, TSH, LIPID #### [facility] [address] [place] [address] Dr. Seven Mares Bilirubin [Mass/Vol] 0.5 mg/dL Normal 0.2-1.0 [facility] Comment on above: Performed By: #### F T3, CMP, T4, TSH, LIPID #### [facility] [address] [address] [address] Seven Mares Calcium [Mass/Vol] 9.0 mg/dL Normal 8.5-10.1 [facility] Comment on above: Performed By: #### F T3, CMP, T4, TSH, LIPID #### [facility] [address] [address] [address] Seven Mares Chloride [Moles/Vol] 106 mmol/L Normal 98-107 [facility] Comment on above: Performed By: #### F T3, CMP, T4, TSH, LIPID #### [facility] [address] [address] [address] Seven Mares CO2 [Moles/Vol] 28.1 mmol/L Normal 21.0-32.0 [facility] Comment on above: Performed By: #### F T3, CMP, T4, TSH, LIPID #### [facility] [address] [address] [address] Seven Mares Creatinine [Mass/Vol] 1.22 mg/dL Normal 0.70-1.30 [facility] Comment on above: Performed By: #### F T3, CMP, T4, TSH, LIPID #### [facility] [address] [address] [address] Seven Mares EGFR-AF OMANI >60 Normal >=60 [facility] Comment on above: Performed By: #### F T3, CMP, T4, TSH, LIPID #### [facility] [address] [address] [address] Seven Mares EGFR-NON AF OMANI =60 Normal >=60 [facility] Comment on above: Performed By: #### F T3, CMP, T4, TSH, LIPID #### [facility] [address] [place] [address] Dr. Seven Mares Globulin (S) [Mass/Vol] 3.2 g/dL Normal [facility] Comment on above: Performed By: #### F T3, CMP, T4, TSH, LIPID #### [facility] [address] [place] [address] Dr. Seven Mares Glucose [Mass/Vol] 131 mg/dL Critically high 74-106 [facility] Comment on above: Performed By: #### F T3, CMP, T4, TSH, LIPID #### [facility] [address] [place] [address] Dr. Seven Mares Potassium [Moles/Vol] 4.1 mmol/L Normal 3.5-5.1 [facility] Comment on above: Performed By: #### F T3, CMP, T4, TSH, LIPID #### [facility] [address] [place] [address] Dr. Seven Mares Protein [Mass/Vol] 7.3 g/dL Normal 6.4-8.2 [facility] Comment on above: Performed By: #### F T3, CMP, T4, TSH, LIPID #### [facility] [address] [place] [address] Dr. Seven Mares Sodium [Moles/Vol] 141 mmol/L Normal 136-145 [facility] Comment on above: Performed By: #### F T3, CMP, T4, TSH, LIPID #### [facility] [address] [address] [address] Seven Mares Urea nitrogen [Mass/Vol] 14.0 mg/dL Normal 7.0-18.0 [facility] Comment on above: Performed By: #### F T3, CMP, T4, TSH, LIPID #### [facility] [address] [address] [address] Seven Mares Urea nitrogen/Creatinine [Mass ratio] 11.5 mg/mg Normal [facility] Comment on above: Performed By: #### F T3, CMP, T4, TSH, LIPID #### [facility] [address] [address] [address] Seven Mares T4on 11-14-2021 T4 [Mass/Vol] 9.50 ug/dL Normal 4.50-12.10 [facility] Comment on above: Performed By: #### F T3, CMP, T4, TSH, LIPID #### [facility] [address] [address] [address] Seven Mares TSHon 11-14-2021 TSH 2.820 uIU/mL Normal 0.358-3.74 0 [facility] Comment on above: Performed By: #### F T3, CMP, T4, TSH, LIPID #### [facility] [address] [address] [address] Seven Mares ECHOCARDIO M/2D COMPLETEon 0 06-21-2021 ECHOCARDIO M/2D COMPLETE Patient: SPENCER OLIVEIRA Exam Date: 06/21/2021 : 1960 Gender:M Ordering : DR SANDRO MOMIN . Admission #: [id number] Family : Order #: [id number] CLICK HERE TO VIEW EXAM ECHOCARDIOGRAM REPORT PROCEDURE: CARDIO PULMONARY ECHOCARDIO M/2D COMP INDICATIONS: Cold hand and feet, Hx: stents, [place] COMPARISON: None. DESCRIPTION: COMPLETE ECHOCARDIOGRAM Real-time transthoracic [...] Area(A4C): 14.00 cm2 Left Atrium Systolic Volume(A2C): 16498 mm3 Left Atrium Systolic Volume(A4C): 88813 mm3 Mitral Valve MV E to A Ratio: 0.70 Deceleration [place]: 2100 mm/s2 Mitral Valve A-Wave Peak Velocity: [...] M.D. on 06/21/2021 at 10:14 Normal [facility] BNPon 06-07-2021 Natriuretic peptide B (Bld) [Mass/Vol] 27.0 pg/mL Normal <=900.0 [facility] Comment on above: Performed By: #### T 7, TSH, BNP, CMP #### [facility] [address] [place] [address] Dr. Seven Mares CBC AUTO DIFFon 06-07-2021 BASO # 0.1 103/ul Normal 0.0-0.1 [facility] Comment on above: Performed By: #### F T3, CMP, T4, TSH, LIPID #### [facility] [address] [place] [address] Dr. Seven Mares Basophils/100 WBC (Bld) 1.3 % Normal 0.2-2.0 [facility] Comment on above: Performed By: #### F T3, CMP, T4, TSH, LIPID #### [facility] [address] [place] [address] Dr. Seven Mares EO # 0.1 103/ul Normal 0.0-0.7 [facility] Comment on above: Performed By: #### F T3, CMP, T4, TSH, LIPID #### [facility] [address] [place] [address] Dr. Seven Mares Eosinophils/100 WBC (Bld) 1.9 % Normal 0.9-7.0 [facility] Comment on above: Performed By: #### F T3, CMP, T4, TSH, LIPID #### [facility] [address] [place] [address] Dr. Seven Mares Erythrocyte distribution width (RBC) [Ratio] 13.9 % Normal 11.0-15.0 [facility] Comment on above: Performed By: #### F T3, CMP, T4, TSH, LIPID #### [facility] [address] [address] [address] Seven Mares Hematocrit (Bld) [Volume fraction] 47.5 % Normal 42.0-54.0 [facility] Comment on above: Performed By: #### F T3, CMP, T4, TSH, LIPID #### [facility] [address] [place] [address] Dr. Seven Mraes Hemoglobin (Bld) [Mass/Vol] 15.9 g/dL Normal 14.0-18.0 [facility] Comment on above: Performed By: #### F T3, CMP, T4, TSH, LIPID #### [facility] [address] [place] [address] Dr. Seven Mares IG # 0.02 10e3/ul Normal 0.00-0.03 [facility] Comment on above: Performed By: #### F T3, CMP, T4, TSH, LIPID #### [facility] [address] [place] [address] Dr. Seven Mares IG % 0.4 % Normal 0.0-0.5 [facility] Comment on above: Performed By: #### F T3, CMP, T4, TSH, LIPID #### [facility] [address] [place] [address] Dr. Seven Mares LYMPH # 1.5 103/ul Normal 1.2-3.8 [facility] Comment on above: Performed By: #### F T3, CMP, T4, TSH, LIPID #### [facility] [address] [place] [address] Dr. Seven Mares Lymphocytes/100 WBC (Bld) 28.1 % Normal 20.5-60.0 [facility] Comment on above: Performed By: #### F T3, CMP, T4, TSH, LIPID #### [facility] [address] [place] [address] Dr. Seven Mares MANUAL DIFF REQ NO Normal [facility] Comment on above: Performed By: #### F T3, CMP, T4, TSH, LIPID #### [facility] [address] [place] [address] Dr. Seven Mares MCH (RBC) [Entitic mass] 28.9 pg Normal 25.9-34.0 [facility] Comment on above: Performed By: #### F T3, CMP, T4, TSH, LIPID #### [facility] [address] [place] [address] Dr. Seven Mares MCHC (RBC) [Mass/Vol] 33.5 g/dL Normal 29.9-35.2 [facility] Comment on above: Performed By: #### F T3, CMP, T4, TSH, LIPID #### [facility] [address] [place] [address] Dr. Seven Mares MCV (RBC) [Entitic vol] 86.4 fL Normal 80.0-94.0 [facility] Comment on above: Performed By: #### F T3, CMP, T4, TSH, LIPID #### [facility] [address] [place] [address] Dr. Seven Mares MONO # 0.6 103/ul Normal 0.3-0.8 [facility] Comment on above: Performed By: #### F T3, CMP, T4, TSH, LIPID #### [facility] [address] [place] [address] Dr. Seven Mares Monocytes/100 WBC (Bld) 10.5 % Normal 1.7-12.0 [facility] Comment on above: Performed By: #### F T3, CMP, T4, TSH, LIPID #### [facility] [address] [place] [address] Dr. Seven Mares NEUT # 3.0 103/ul Normal 1.4-6.5 [facility] Comment on above: Performed By: #### F T3, CMP, T4, TSH, LIPID #### [facility] [address] [place] [address] Dr. Seven Mares Neutrophils/100 WBC (Bld) 57.8 % Normal 43.0-75.0 [facility] Comment on above: Performed By: #### F T3, CMP, T4, TSH, LIPID #### [facility] [address] [address] [address] Seven Mares Platelet mean volume (Bld) [Entitic vol] 9.4 fL Critically low 9.5-13.5 [facility] Comment on above: Performed By: #### F T3, CMP, T4, TSH, LIPID #### [facility] [address] [address] [address] Seven Mares PLT 208 103/ul Normal 150-450 [facility] Comment on above: Performed By: #### F T3, CMP, T4, TSH, LIPID #### [facility] [address] [place] [address] Dr. Seven Mares RBC 5.50 106/ul Normal 4.70-6.10 [facility] Comment on above: Performed By: #### F T3, CMP, T4, TSH, LIPID #### [facility] [address] [place] [address] Dr. Seven Mares WBC 5.2 103/ul Normal 4.0-11.0 [facility] Comment on above: Performed By: #### F T3, CMP, T4, TSH, LIPID #### [facility] [address] [place] [address] Dr. Seven Mares FREE THYROXINE INDEX T7on FTI 2.88 Normal [facility] Comment on above: Performed By: #### T 7, TSH, BNP, CMP #### [facility] [address] [place] [address] Dr. Seven Mares T3U 32.0 % Normal 23.5-40.5 [facility] Comment on above: Performed By: #### T 7, TSH, BNP, CMP #### [facility] [address] [place] [address] Dr. Seven Mares T4 [Mass/Vol] 9.00 ug/dL Normal 5.53-11.00 [facility] Comment on above: Performed By: #### T 7, TSH, BNP, CMP #### [facility] [address] [place] [address] Dr. Seven Mares IRONon 06-07-2021 Iron [Mass/Vol] 71.0 ug/dL Normal 49.0-181.0 [facility] Comment on above: Performed By: #### F T3, CMP, T4, TSH, LIPID #### [facility] [address] [place] [address] Dr. Seven Mares PROF 14(COMP METB)on 022 Albumin [Mass/Vol] 4.0 g/dL Normal 3.5-5.0 [facility] Comment on above: Performed By: #### T 7, TSH, BNP, CMP #### [facility] [address] [place] [address] Dr. Seven Mares Albumin/Globulin [Mass ratio] 1.2 {ratio} Normal [facility] Comment on above: Performed By: #### T 7, TSH, BNP, CMP #### [facility] [address] [place] [address] Dr. Seven Mares ALP [Catalytic activity/Vol] 100 U/L Normal 38-126 [facility] Comment on above: Performed By: #### T 7, TSH, BNP, CMP #### [facility] [address] [place] [address] Dr. Seven Mares ALT [Catalytic activity/Vol] 40 U/L Normal 21-72 [facility] Comment on above: Performed By: #### T 7, TSH, BNP, CMP #### [facility] [address] [place] [address] Dr. Seven Mares Anion gap [Moles/Vol] 11.3 mmol/L Normal [facility] [facility] Comment on above: Performed By: #### T 7, TSH, BNP, CMP #### [facility] [address] [place] [address] Dr. Seven Mares AST [Catalytic activity/Vol] 23 U/L Normal 17-59 [facility] Comment on above: Performed By: #### T 7, TSH, BNP, CMP #### [facility] [address] [place] [address] Dr. Seven Mares Bilirubin [Mass/Vol] 0.4 mg/dL Normal 0.2-1.3 [facility] Comment on above: Performed By: #### T 7, TSH, BNP, CMP #### [facility] [address] [place] [address] Dr. Seven Mares Calcium [Mass/Vol] 8.9 mg/dL Normal 8.4-10.2 [facility] Comment on above: Performed By: #### T 7, TSH, BNP, CMP #### [facility] [address] [place] [address] Dr. Seven Mares Chloride [Moles/Vol] 104 mmol/L Normal 98-107 [facility] Comment on above: Performed By: #### T 7, TSH, BNP, CMP #### [facility] [address] [place] [address] Dr. Seven Mares CO2 [Moles/Vol] 27.9 mmol/L Normal 22.0-30.0 [facility] Comment on above: Performed By: #### T 7, TSH, BNP, CMP #### [facility] [address] [place] [address] Dr. Seven Mares Creatinine [Mass/Vol] 1.22 mg/dL Normal 0.66-1.25 [facility] Comment on above: Performed By: #### T 7, TSH, BNP, CMP #### [facility] [address] [place] [address] Dr. Seven Mares EGFR-AF OMANI >60 Normal >=60 [facility] Comment on above: Performed By: #### T 7, TSH, BNP, CMP #### [facility] [address] [place] [address] Dr. Seven Mares EGFR-NON AF OMANI =60 Normal >=60 [facility] Comment on above: Performed By: #### T 7, TSH, BNP, CMP #### [facility] [address] [place] [address] Dr. Seven Mares Globulin (S) [Mass/Vol] 3.4 g/dL Normal [facility] Comment on above: Performed By: #### T 7, TSH, BNP, CMP #### [facility] [address] [place] [address] Dr. Seven Mares Glucose [Mass/Vol] 165 mg/dL Critically high 74-106 [facility] Comment on above: Performed By: #### T 7, TSH, BNP, CMP #### [facility] [address] [place] [address] Dr. Seven Mares Potassium [Moles/Vol] 4.2 mmol/L Normal 3.4-5.0 [facility] Comment on above: Performed By: #### T 7, TSH, BNP, CMP #### [facility] [address] [place] [address] Dr. Seven Mares Protein [Mass/Vol] 7.4 g/dL Normal 6.1-8.2 [facility] Comment on above: Performed By: #### T 7, TSH, BNP, CMP #### [facility] [address] [place] [address] Dr. Seven Mares Sodium [Moles/Vol] 139 mmol/L Normal 137-145 [facility] Comment on above: Performed By: #### T 7, TSH, BNP, CMP #### [facility] [address] [place] [address] Dr. Seven Mares Urea nitrogen [Mass/Vol] 17.0 mg/dL Normal 9.0-20.0 [facility] Comment on above: Performed By: #### T 7, TSH, BNP, CMP #### [facility] [address] [place] [address] Dr. Seven Mares Urea nitrogen/Creatinine [Mass ratio] 13.9 mg/mg Normal [facility] Comment on above: Performed By: #### T 7, TSH, BNP, CMP #### [facility] [address] [place] [address] Dr. Seven Mares TSHon 06-07-2021 TSH 3.659 uIU/mL Normal 0.470-4.68 0 [facility] Comment on above: Performed By: #### T 7, TSH, BNP, CMP #### [facility] [address] [place] [address] Dr. Seven Mares TSH RANGE SEE BELOW Normal [facility] Comment on above: Result Comment: <0.3 4 UIU/ml HYPERTHYROID 0.34-5.60 UIU/ml EUTHYROID >5.60 UIU/ml HYPOTHYROID Performed By: #### T 7, TSH, BNP, CMP #### [facility] [address] [place] [address] Dr. Seven Mares BASIC METABOLIC PANELon Calcium [Mass/Vol] 8.8 mg/dL Normal 8.6-10.3 [facility] Comment on above: Order Comment: No: D o not add to previous draw Performed By: #### 0 0071, 65903, 88641 #### [facility] [address] [place] [address], [place] Chloride [Moles/Vol] 102 mmol/L Normal 98-107 [facility] Comment on above: Order Comment: No: D o not add to previous draw Performed By: #### 0 0071, 53704, 18043 #### [facility] [address] [place] [address], [place] CO2 [Moles/Vol] 27 mmol/L Normal 21-31 [facility] Comment on above: Order Comment: No: D o not add to previous draw Performed By: #### 0 0071, 19958, 35853 #### [facility] [address] [place] [address], [place] Creatinine [Mass/Vol] 0.81 mg/dL Normal 0.70-1.30 [facility] Comment on above: Order Comment: No: D o not add to previous draw Performed By: #### 0 0071, 00128, 10947 #### [facility] [address] [place] [address], [place] GFR/1.73 sq M.predicted among blacks MDRD (S/P/Bld) [Vol rate/Area] mL/min/{1.73_m2} Normal >60 [facility] Comment on above: Order Comment: No: D o not add to previous draw Performed By: #### 0 0071, 52085, 39229 #### [facility] [address] [place] [address], [facility] GFR/1.73 sq M.predicted among non-blacks MDRD (S/P/Bld) [Vol rate/Area] mL/min/{1.73_m2} Normal >60 [facility] Comment on above: Order Comment: No: D o not add to previous draw Performed By: #### 0 0071, 66853, 55175 #### [facility] [address] [place] [address], [facility] Glucose [Mass/Vol] 211 mg/dL High 70-100 [facility] Comment on above: Order Comment: No: D o not add to previous draw Performed By: #### 0 0071, 60106, 90885 #### [facility] [address] [place] [address], [facility] Potassium [Moles/Vol] 4.1 mmol/L Normal 3.5-5.1 [facility] Comment on above: Order Comment: No: D o not add to previous draw Performed By: #### 0 0071, 23447, 96679 #### [facility] [address] [place] [address], [facility] Sodium [Moles/Vol] 136 mmol/L Normal 136-145 [facility] Comment on above: Order Comment: No: D o not add to previous draw Performed By: #### 0 0071, 98515, 16628 #### [facility] [address] [place] [address], [facility] Urea nitrogen [Mass/Vol] 15 mg/dL Normal 7-25 [facility] Comment on above: Order Comment: No: D o not add to previous draw Performed By: #### 0 0071, 24206, 65495 #### [facility] [address] [place] [address], [facility] CBC COMPLETE BLOOD COUNTon Erythrocyte distribution width (RBC) [Ratio] 13.8 % Normal 11.5-15.0 [facility] Comment on above: Order Comment: No: D o not add to previous draw Performed By: #### 5 0608 #### [facility] [address] [place] [address], [facility] Hematocrit (Bld) [Volume fraction] 42.1 % Normal 39.0-50.0 [facility] Comment on above: Order Comment: No: D o not add to previous draw Performed By: #### 5 0608 #### [facility] [address] [place] [address], [facility] Hemoglobin (Bld) [Mass/Vol] 13.7 g/dL Normal 13.0-17.0 [facility] Comment on above: Order Comment: No: D o not add to previous draw Performed By: #### 5 0608 #### [facility] [address] [place] [address], [facility] MCH (RBC) [Entitic mass] 27.6 pg Normal 27.0-33.0 [facility] Comment on above: Order Comment: No: D o not add to previous draw Performed By: #### 5 0608 #### [facility] [address] [facility] [place] [address], [facility] MCHC (RBC) [Mass/Vol] 32.5 g/dL Normal 32.0-35.0 [facility] Comment on above: Order Comment: No: D o not add to previous draw Performed By: #### 5 0608 #### [facility] [address] [place] [address], [facility] MCV (RBC) [Entitic vol] 84.9 fL Normal 82.0-98.0 [facility] Comment on above: Order Comment: No: D o not add to previous draw Performed By: #### 5 0608 #### [facility] [address] [place] [address], [facility] Nucleated RBC/100 WBC (Bld) [Ratio] 0 % Normal 0-0 [facility] Comment on above: Order Comment: No: D o not add to previous draw Performed By: #### 5 0608 #### [facility] [address] [facility] [place] [address], [facility] PLAT CNT 212 10*3/uL Normal 150-400 [facility] Comment on above: Order Comment: No: D o not add to previous draw Performed By: #### 5 0608 #### [facility] [address] [facility] [place] [address], [facility] RBC (Bld) [#/Vol] 4.96 10*6/uL Normal 4.20-5.70 [facility] Comment on above: Order Comment: No: D o not add to previous draw Performed By: #### 5 0608 #### [facility] [address] [facility] [place] [address], [facility] WBC (Bld) [#/Vol] 7.90 10*3/uL Normal 4.00-10.60 [facility] Comment on above: Order Comment: No: D o not add to previous draw Performed By: #### 5 0608 #### [facility] [address] Cardiovascular Lab Reporton 02-02-2020 Cardiovascular Lab Report [facility] Patient Name: Tee [facility] Olga MR #: [id number] Department of Physician: Eliu Marc M.D. Division of Service Date: 02/01/2020 Cardiology Birthdate: 1960 Adult Cardiovascular Room #: 3AB 197218 [address] [facility] [address] [place] [address] Cardiovascular Laboratory Report FINAL IMPRESSIONS: 1. Severe [...] and adjacent diagonal branch, placement of a 6-Martiniquais MynxGrip closure device. METHODS: After risks, benefits, and alternatives were explained, written informed consent was obtained. The patient was prepped and draped in usual sterile fashion over the right groin. Using 1% lidocaine solution, local infiltration anesthesia was achieved. Using a modified Seldinger technique and a micropuncture kit, access of the right common femoral artery was obtained. A 6-Martiniquais 11 cm sheath was inserted without difficulty. Bilateral selective coronary angiography was performed using JL4 and JR4 catheters. After reviewing the images, it was elected to proceed with an interventional procedure. A 7-Martiniquais XB 3.5 guide catheter was advanced in and coaxially engaged into the left main ostium after upsizing the femoral sheath to a 7-Martiniquais 11 cm sheath. A 0.014 Runthrough NS [...] was elected to conclude the procedure. A 6-Martiniquais MynxGrip closure device was deployed per protocol [...] postero (more content not included)... Normal [facility] MAGNESIUM BLOODon 02-02-2020 Magnesium [Mass/Vol] 2.2 mg/dL Normal 1.9-2.7 [facility] Comment on above: Order Comment: No: D o not add to previous draw Performed By: #### 0 0071, 69195, 86756 #### [facility] [address] [facility] [place] [address], [facility] PHOSPHORUS BLOODon 0 Phosphate [Mass/Vol] 2.8 mg/dL Normal 2.5-5.0 [facility] Comment on above: Order Comment: No: D o not add to previous draw Performed By: #### 0 0071, 90241, 43785 #### [facility] [address] [place] [address], [facility] POC GLUCOSE LABon 02-02-2020 Glucose [Mass/Vol] 299 mg/dL High 70-100 [facility] Comment on above: Performed By: #### 8 5499 #### [facility] [address] [place] [address], [place] BASIC METABOLIC PANELon 100 Calcium [Mass/Vol] 8.5 mg/dL Low 8.6-10.3 [facility] Comment on above: Order Comment: No: D o not add to previous draw Performed By: #### 3 5200, 79704, 04018 #### [facility] [address] [place] [address], [facility] Chloride [Moles/Vol] 104 mmol/L Normal 98-107 [facility] Comment on above: Order Comment: No: D o not add to previous draw Performed By: #### 3 5200, 23573, 34014 #### [facility] [address] [place] [address], [place] CO2 [Moles/Vol] 25 mmol/L Normal 21-31 [facility] Comment on above: Order Comment: No: D o not add to previous draw Performed By: #### 3 5200, 75650, 67728 #### [facility] [address] [place] [address], [place] Creatinine [Mass/Vol] 1.02 mg/dL Normal 0.70-1.30 [facility] Comment on above: Order Comment: No: D o not add to previous draw Performed By: #### 3 5200, 37653, 97239 #### [facility] [address] [place] [address], [facility] GFR/1.73 sq M.predicted among blacks MDRD (S/P/Bld) [Vol rate/Area] mL/min/{1.73_m2} Normal >60 [facility] Comment on above: Order Comment: No: D o not add to previous draw Performed By: #### 3 5200, 03395, 12633 #### [facility] [address] [place] [address], [place] GFR/1.73 sq M.predicted among non-blacks MDRD (S/P/Bld) [Vol rate/Area] mL/min/{1.73_m2} Normal >60 [facility] Comment on above: Order Comment: No: D o not add to previous draw Performed By: #### 3 5200, 42180, 41674 #### [facility] [address] [place] [address], [place] Glucose [Mass/Vol] 229 mg/dL High 70-100 [facility] Comment on above: Order Comment: No: D o not add to previous draw Performed By: #### 3 5200, 23853, 97096 #### [facility] [address] [place] [address], [place] Potassium [Moles/Vol] 4.0 mmol/L Normal 3.5-5.1 [facility] Comment on above: Order Comment: No: D o not add to previous draw Performed By: #### 3 0, 93864, 61726 #### [facility] [address] [place] [address], [place] Sodium [Moles/Vol] 136 mmol/L Normal 136-145 [facility] Comment on above: Order Comment: No: D o not add to previous draw Performed By: #### 3 0, 54318, 53195 #### [facility] [address] [place] [address], [place] Urea nitrogen [Mass/Vol] 13 mg/dL Normal 7-25 [facility] Comment on above: Order Comment: No: D o not add to previous draw Performed By: #### 3 5200, 28754, 11729 #### [facility] [address] [place] [address], [place] CBC COMPLETE BLOOD COUNTon Erythrocyte distribution width (RBC) [Ratio] 13.8 % Normal 11.5-15.0 [facility] Comment on above: Order Comment: No: D o not add to previous draw Performed By: #### 5 0608 #### [facility] [address] [place] [id number], [facility] Hematocrit (Bld) [Volume fraction] 40.3 % Normal 39.0-50.0 [facility] Comment on above: Order Comment: No: D o not add to previous draw Performed By: #### 5 0608 #### [facility] [address] [place] [address], [facility] Hemoglobin (Bld) [Mass/Vol] 13.7 g/dL Normal 13.0-17.0 [facility] Comment on above: Order Comment: No: D o not add to previous draw Performed By: #### 5 0608 #### [facility] [address] [place] [address], [facility] MCH (RBC) [Entitic mass] 28.5 pg Normal 27.0-33.0 [facility] Comment on above: Order Comment: No: D o not add to previous draw Performed By: #### 5 0608 #### [facility] [address] [place] [id number], [facility] MCHC (RBC) [Mass/Vol] 34.0 g/dL Normal 32.0-35.0 [facility] Comment on above: Order Comment: No: D o not add to previous draw Performed By: #### 5 0608 #### [facility] [address] [place] [address], [place] MCV (RBC) [Entitic vol] 83.8 fL Normal 82.0-98.0 [facility] Comment on above: Order Comment: No: D o not add to previous draw Performed By: #### 5 0608 #### [facility] [address] [place] [id number], [facility] Nucleated RBC/100 WBC (Bld) [Ratio] 0 % Normal 0-0 [facility] Comment on above: Order Comment: No: D o not add to previous draw Performed By: #### 5 0608 #### [facility] [address] [place] [address], [facility] PLAT CNT 204 10*3/uL Normal 150-400 [facility] Comment on above: Order Comment: No: D o not add to previous draw Performed By: #### 5 0608 #### [facility] [address] [place] [address], [facility] RBC (Bld) [#/Vol] 4.81 10*6/uL Normal 4.20-5.70 [facility] Comment on above: Order Comment: No: D o not add to previous draw Performed By: #### 5 0608 #### [facility] [address] [place] [address], [facility] WBC (Bld) [#/Vol] 7.23 10*3/uL Normal 4.00-10.60 [facility] Comment on above: Order Comment: No: D o not add to previous draw Performed By: #### 5 0608 #### [facility] [address] [place] [address], [facility] HEMOGLOBIN A1Con 02-01-2020 Glucose [Moles/Vol] 217 mmol/L Normal [facility] Comment on above: Order Comment: Yes: Add to Previous draw if able Performed By: #### 3 1791 #### [facility] [address] [place] [address], [facility] HbA1c (Bld) [Mass fraction] 9.2 % High 4.0-6.0 [facility] Comment on above: Order Comment: Yes: Add to Previous draw if able Performed By: #### 3 1791 #### [facility] [address] [place] [address], [facility] LIPID PROFILEon 02-01-2020 Cholesterol [Mass/Vol] 109 mg/dL Low 120-200 Th [facility] Comment on above: Result Comment: CHOL ESTEROL REFERENCE RANGE: 20 YEARS AND OLDER CARDIOVASCULAR RISK Less than 200 mg/dl Low Risk 200 to 239 mg/dl Borderline Risk 240 mg/dl and greater High Risk Performed By: #### 3 5200, 24205, 27211 #### [facility] [address] [place] [address], [place] Cholesterol in HDL [Mass/Vol] 42 mg/dL Normal 23-92 [facility] Comment on above: Result Comment: Slig ht variation in normal range could be due to gender and/or age. HDL CHOLESTEROL REFERENCE RANGE: 20 years and older Cardiovascular Risk > or =60 mg/dL Desirable 40 TO 59 mg/dL Low Risk <40 mg/dL High Risk Performed By: #### 3 5200, 76976, 03184 #### [facility] [address] [place] [address], [place] Cholesterol in LDL [Mass/Vol] 50 mg/dL Normal 0-130 [facility] Comment on above: Result Comment: LDL IS A CALCULATION LDL IS ONLY VALID IF THE TRIG IS LESS THAN 400. Performed By: #### 3 5200, 36831, 47336 #### [facility] [address] [place] [address], [place] Cholesterol.total/Chol esterol in HDL [Mass ratio] 2.6 {ratio} Normal 0.0-4.5 [facility] Comment on above: Performed By: #### 3 5200, 64205, 44508 #### [facility] [address] [place] [address], [place] NON-HDL CHOLESTEROL 67 mg/dL Normal [facility] Comment on above: Performed By: #### 3 5200, 23197, 23642 #### [facility] [address] [place] [address], [place] Triglyceride [Mass/Vol] 85 mg/dL Normal 40-149 [facility] Comment on above: Result Comment: TRIG LYCERIDE REFERENCE RANGE: 20 YEARS AND OLDER CARDIOVASCULAR RISK LESS THAN 150 mg/dl LOW RISK 150 TO 199 mg/dl BORDERLINE RISK 200 mg/dl AND GREATER HIGH RISK Performed By: #### 3 5200, 48350, 48331 #### [facility] [address] [place] [address], [facility] VLDL CHOL 17 mg/dL Normal 0-40 [facility] Comment on above: Performed By: #### 3 5200, 65455, 82652 #### [facility] [address] TROPONIN-Ion 02-01-2020 Troponin I.cardiac [Mass/Vol] 0.02 ng/mL Normal 0.00-0.04 [facility] Comment on above: Order Comment: No: D o not add to previous draw Pt at cathlab Result Comment: REFE RENCE RANGES: 0.00 - 0.04 ng/ml NORMAL 0.05 - 0.50 ng/ml INDETERMINATE > 0.50 ng/ml CONSISTENT WITH AN M.I. Performed By: #### 3 5200, 32690, 46272 #### [facility] [address] [facility] [address] No Panel Information [facility] Vital Signs Date Time Vital Sign Value Performing Clinician Facility 05-31-2024 13:14-0500 Blood Pressure Location Lobo NARANJOL [facility] [place] 05-31-2024 13:14-0500 Diastolic blood pressure 60 mm[Hg] Lobo NILL [facility] [place] 05-31-2024 13:14-0500 Heart rate 72 /min Lobo NILL [facility] [place] 05-31-2024 13:14-0500 Respiratory rate 16 /min Lobo NILL [facility] [place] 05-31-2024 13:14-0500 Systolic blood pressure 110 mm[Hg] Lobo NARANJOL [facility] [place] 02-16-2024 11:34-0400 Body height 180.34 cm Sandro Momin MD Work Phone: [facility] 02-16-2024 11:34-0400 Body mass index (BMI) [Ratio] 25.2 kg/m2 Sandro Momin MD Work Phone: [facility] 02-16-2024 11:34-0400 Body weight 82.1 kg Sandro Momin MD Work Phone: [facility] 02-16-2024 11:34-0400 Diastolic blood pressure 67 mm[Hg] Sandro Momin MD Work Phone: [facility] 02-16-2024 11:34-0400 Heart rate 75 /min Sandro Momin MD Work Phone: [facility] 02-16-2024 11:34-0400 SaO2% (BldA) [Mass fraction] 98 % Sandro Momin MD Work Phone: [facility] 02-16-2024 11:34-0400 Systolic blood pressure 113 mm[Hg] Sandro Momin MD Work Phone: [facility] 10-19-2023 17:35-0400 Diastolic blood pressure 65 mm[Hg] MD Sandro Momin Work Phone: [facility] 10-19-2023 17:35-0400 Heart rate 74 /min MD Sandro Momin Work Phone: [facility] 10-19-2023 17:35-0400 Respiratory rate 16 /min MD Sandro Momin Work Phone: [facility] 10-19-2023 17:35-0400 SaO2% (BldA) [Mass fraction] 96 % MD Sandro Momin Work Phone: [facility] 10-19-2023 17:35-0400 Systolic blood pressure 105 mm[Hg] MD Sandro Momin Work Phone: [facility] 10-19-2023 15:47-0400 Body temperature 97.3 [degF] MD Sandro Momin Work Phone: [facility] 10-19-2023 15:47-0400 Inhaled oxygen flow rate 8 L/min MD Sandro Momin Work Phone: [facility] 10-19-2023 12:07-0400 Body height 180.34 cm MD Sandro Momin Work Phone: [facility] 10-19-2023 12:07-0400 Body mass index (BMI) [Ratio] 25.2 kg/m2 MD Sandro Momin Work Phone: [facility] 10-19-2023 12:07-0400 Body weight 82 kg MD Sandro Momin Work Phone: [facility] 04-14-2023 08:30-0500 Body height 180.34 cm Hallie Gastelum Other [employer] Other 04-14-2023 08:30-0500 Body mass index (BMI) [Ratio] 27.19 kg/m2 Hallie Gastelum Other [employer] Other 04-14-2023 08:30-0500 Body weight 88.45 kg Hallie Gastelum Other [employer] Other 04-14-2023 08:30-0500 Diastolic blood pressure 74 mm[Hg] Hallie Gastelum Other [employer] Other 04-14-2023 08:30-0500 SaO2% (BldA) [Mass fraction] 98 % Hallie Gastelum Other [employer] Other 04-14-2023 08:30-0500 Systolic blood pressure 128 mm[Hg] Hallie Gastelum Other [employer] Other 12-31-2022 09:45-0400 Body height 180.34 cm Eden Mcmahon Other [facility] Other 12-31-2022 09:45-0400 Body mass index (BMI) [Ratio] 25.1 kg/m2 Eden Mcmahon Other [facility] Other 12-31-2022 09:45-0400 Body weight 81.65 kg Eden Mcmahon Other [facility] Other Encounters Encounter Date Encounter Type Care Provider Facility Start: 05-31-2024 End: 05-31-2024 ambulatory Lobo R NILL Facility:[facility] Start: 05-31-2024 End: 05-31-2024 Patient encounter procedure Lobo KHAN [facility] [place] Start: 05-04-2024 End: 05-04-2024 Patient encounter procedure Sandro Momni MD Work Phone: [facility] Work Phone: Start: 05-04-2024 End: 05-04-2024 ambulatory Sandro Momin MD Work Phone: [facility] Work Phone: Start: 04-12-2024 ambulatory Lobo NARANJOL Facility:[facility] [place] Start: 02-16-2024 End: 02-16-2024 Patient encounter procedure Sandro Momin MD Work Phone: [facility] Work Phone: Start: 10-26-2023 End: 10-26-2023 ambulatory MARLO COSTA Not Available Start: 10-19-2023 End: 10-19-2023 Admission to same day surgery center MD Sandro Momin Work Phone: [facility] [place] Start: 10-19-2023 End: 10-19-2023 ambulatory MD Sandro Momin Work Phone: [facility] Work Phone: Start: 10-05-2023 End: 10-05-2023 Patient encounter procedure MD Sandro Momin Work Phone: [facility] Work Phone: Start: 10-05-2023 End: 10-05-2023 ambulatory MD Sandro Momin Work Phone: [facility] Work Phone: Start: 10-05-2023 Encounter for preprocedural laboratory examination Marlo Costa [facility] Start: 09-18-2023 End: 09-18-2023 ambulatory MARLO COSTA Not Available Start: 08-14-2023 End: 08-14-2023 ambulatory MARLO COSTA Not Available Start: 08-12-2023 End: 08-12-2023 ambulatory [facility] Start: 07-13-[address] [facility] Start: 06-01-2023 End: 06-01-2023 Patient encounter procedure MD Sandro Momin Work Phone: [facility] Work Phone: Start: 06-01-2023 End: 06-01-2023 ambulatory MD Sandro Momin Work Phone: [facility] Work Phone: Start: 04-14-2023 [facility] Start: 04-14-2023 End: 04-14-2023 ambulatory MD Sandro Momin Work Phone: [facility] Work Phone: Start: 04-14-2023 End: 04-14-2023 Patient encounter procedure MD Sandro Momin Work Phone: [facility] Work Phone: Start: 04-14-2023 End: 04-14-2023 Patient encounter procedure MD Sandro Momin Work Phone: [facility] Work Phone: Start: 12-31-2022 Office outpatient vi sit 25 minutes Eden Mcmahon [facility] Start: 12-31-2022 End: 12-31-2022 ambulatory MD Sandro Momin Work Phone: [facility] Other Start: 12-31-2022 End: 12-31-2022 Patient encounter procedure MD Sandro Momin Work Phone: [facility] Work Phone: Start: 12-09-2022 End: 12-09-2022 ambulatory SANDRO MOMIN Facility:[facility] Start: 12-09-2022 End: 12-09-2022 [...] encounter procedure MD Sandro Momin Work Phone: [facility] Work Phone: Start: 10-23-2022 End: 10-23-2022 ambulatory Eden Mcmahon Other [facility] Other Start: 10-23-2022 Telephone encounter Eden Mcmahon [facility] Start: 05-27-2022 End: 05-27-[address] SANDRO MOMIN Facility:[facility] Start: 05-26-2022 End: 05-27-[address] SANDRO MOMIN Facility:[facility] Start: 04-12-2022 Encounter for genera l adult medical examination without abnormal findings MICHELE WAYNE [facility] Start: 04-09-2022 End: 04-09-2022 ambulatory MD Sandro Momin Work Phone: [facility] Work Phone: Start: 04-09-2022 End: 04-09-2022 Patient encounter procedure MD Sandro Momin Work Phone: [facility] Start: 04-08-2022 End: 04-09-[address] SANDRO MOMIN Facility:[facility] Start: 04-08-2022 End: 04-09-2022 Encounter for general adult medical examination without abnormal findings DR SANDRO MOMIN Facility:[facility] Start: 02-25-2022 End: 02-25-2022 ambulatory MD Sandro Momin Work Phone: [facility] Work Phone: Start: 02-25-2022 End: 02-25-2022 Patient encounter procedure MD Sandro Momin Work Phone: [facility] Start: 11-14-2021 End: 11-15-[address] SANDRO MOMIN Facility:[facility] Start: 07-04-2021 End: 07-05-[address] SANDRO MOMIN Facility:[facility] Start: 06-21-2021 End: 06-22-[address] SANDRO MOMIN Facility:[facility] Start: 06-07-2021 End: 06-08-[address] SANDRO MOMIN Facility:[facility] Start: 02-01-2020 End: 02-02-2020 ambulatory HALINA KENNEDY Facility:[facility] Procedures Date Procedure Procedure Detail Performing Clinician Start: 10-19-2023 Plain chest X-ray MD Burleson Work Phone: Start: 10-19-2023 Neurostimulation of cranial nerve MD Sandro Momin Work Phone: Start: 12-09-2022 End: 12-09-2022 Computerized ophthalmic imaging retina Tal Iraheta MD Work Phone: Start: 05-26-[address] HAKEEM MOMIN Comment on above: Performed By: #### F T3, CMP, T4, TSH, LIPID #### [facility] [address] [address] [address] Seven Mares Start: 11-14-[address] HAKEEM MOMIN Comment on above: Performed By: #### F T3, CMP, T4, TSH, LIPID #### [facility] [address] [place], [place] [address] Dr. Seven Mares Start: 04-27-2019 Angioplasty of blood vessel Lobo NILL Start: 09-03-2011 Colonoscopy Lobo NI LL Coronary artery sten t (physical object) Lobo NILL Comment on above: x 4 Excision of lumbar intervertebral disc Lobo NILL Implantable sleep ap [place] treatment system (physical object) Lobo NILL Plan of Treatment Date Care Activity Detail Author Start: 05-26-2027 PROSTATE CANCER SCREENING DISCUSSION PROSTATE CANCER SCREENING DISCUSSION [facility] Start: 10-19-2023 [facility] Start: 10-19-2023 [facility] Start: 12-26-2022 Influenza vaccination INFLUENZA (#1) [facility] Start: 04-27-2022 DEPRESSION ASSESSMENT DEPRESSION ASSESSMENT [facility] Start: 06-06-2021 COVID-19 VACCINE (4 - Pfizer series) COVID-19 VACCINE (4 - Pfizer series) [facility] Start: 2008 SHINGRIX VACCINE (1 of 2) SHINGRIX VACCINE (1 of 2) [facility] Start: 2003 COLOGUARD (FIT-DNA) COLOGUARD (FIT-DNA) [facility] Start: 2003 Colonoscopy COLONOSCOPY [facility] Start: 2003 COLORECTAL CANCER SCREENING COLORECTAL CANCER SCREENING [facility] Start: [address] COLONOGRAPHY [facility] Start: 2003 DIABETES SCREEN DIABETES SCREEN [facility] Start: 2003 FECAL OCCULT BLOOD FECAL OCCULT BLOOD [facility] Start: 2003 SIGMOIDOSCOPY SIGMOIDOSCOPY [facility] Start: 1993 LIPID SCREEN LIPID SCREEN [facility] Start: 1977 Urine microalbumin profile DTAP,TDAP,TD (1 - Tdap) [facility] Start: 1976 HEPATITIS C SCREENING HEPATITIS C SCREENING [facility] Start: 1976 HIV SCREENING HIV SCREENING [facility] Patient Education Know your Meds [facility] Work Phone: Patient referral [facility] Work Phone: Immunizations Immunization Date Immunization Notes Care Provider Fa cili 04-11-2021 COVID-19 mRNAAbyirrafael (Pfizer) MD Sandro Momin Work Phone: [facility] 06-29-2020 COVID-19 mRNAAlyx (Pfizer) MD Sandro Momin Work Phone: [facility] 06-08-2020 COVID-19 Alyx Figueroa (Pfizer) MD Sandro Momin Work Phone: [facility] Payers Date Payer Category Payer Unknown [id number] 2023 Medicare [id number] 2023 Self-pay 2023 Unknown [id number] 2022 Unknown VENKATA ROBERTO PPO [id number] 2022-Present [phone] [facility] [id number] [place] [address] PPO [id number] 2018 Unknown [id number] 1959 Unknown [id number] 1960 Unknown [id number] 2.16.840.1.734015.3.579.2. 647 1958 Unknown [id number] 2.16.840.1.679035.3.579.2. 593 1958 Unknown [id number] 2.16.840.1.195977.3.579.2. 593 1958 Unknown [id number] 2.16.840.1.393075.3.579.2. 593 1958 Unknown [id number] 2.16.840.1.809204.3.579.2. 593 1958 Unknown [id number] 2.16.840.1.871802.3.579.2. 593 1958 Unknown [id number] 2.16.840.1.194502.3.579.2. 593 1958 Unknown [id number] 2.840.1.601977.3.579.2. 593 1958 Unknown [id number] 2.16840.1.076683.3.579.2. 1259 1958 Unknown [id number] 2.840.1.824772.3.579.2. 1259 1958 Unknown [id number] 2.840.1.452467.3.579.2. 1259 1958 Unknown [id number] 2.840.1.103152.3.579.2. 727 Private Health Insurance [employer] [id number] Unknown O [employer] [id number] Unknown [id number] 2.16840.1.466324.3.579.2. 531 Unknown [id number] 2.16.840.1.911071.3.579.2. 531 Unknown [id number] 2.16.840.1.738908.3.579.2. 531 Unknown [id number] 2.16840.1.193309.3.579.2. 531 Social History Date Type Detail Facility Tobacco smoking stat us NHIS Unknown if ever smoked [facility] Work Phone: Start: 1960 Sex Assigned At Male F [facility] Start: 12-09-2022 Sex Assigned At F [facility] Start: 12-09-2022 End: 05-31-2024 Tobacco smoking status NHIS Never smoked tobacco [facility] Start: 12-09-2022 Tobacco use and exposure Smokeless tobacco non-user [facility] Start: 12-09-2022 Alcohol intake Current drinke r of alcohol (finding) [facility] Start: 12-09-2022 History of Social function [facility] National Score (1-100), lower number is lower risk 78 [facility] [place] Start: 12-09-2022 Alcohol Comment Occasional [facility] Start: 1960 Sex Assigned At Not on file [facility] Start: 05-05-2024 Sex Patient sex un known (finding) [facility] Medical Equipment Procedure Code Equipment Code Equipment Origin al Text Equipment Identifier Dates Implantation of hypoglossal nerve stimulator [id number] FDA Start: 10-19-2023 Implantation of hypoglossal nerve stimulator Implantable sleep apnoea treatment system, respiration-sensing ()[id number] FDA Start: 10-19-2023 Implantation of hypoglossal nerve stimulator [id number] FDA Start: 10-19-2023 ONETOUCH ULTRA T EST test strip Start: 12-04-2022 Goals Date Patient Goal Desired Activity /State Functional Status Date Assessment Result Facility 05-31-2024 Functional Status N/A [facility] [place] Clinical Notes 02-02-2020 to 05-31-2024 Note Date & Type Note Facility 05-31-2024 Note General Surgery Offi ce/Clinic Note Chief Complaint consultation for positive occult stool HPI Staff 64 year old male presents on consultation from Dr. Momin for positive occult stool. Denies abdominal or rectal pain. No rectal bleeding or change in bowel habits. Denies nausea or vomiting. No unexplained weight loss. Patient on Plavix. Last colonoscopy completed 08/2011- normal. No known family history of colon cancer. History of Present Illness 64 yo male with h/o CAD, on Plavix,DMII,htn, hyperlipidemia, GERD, JUAN, referred for positive fecal occult blood test; denies change in bms or gross blood in stools, no abd complaints; no abd operations, last colonoscopy 2011, wnl; on regular asa and Plavix daily, no NSAID use; no tobacco use. no fmhx of GI malignancy or IBD. Review of Systems PHQ Score Initial Depression Screen Score: 0 SCORE ROS - Provider Constitutional: no fever, no sweats, no weight loss. Eyes: no glasses, no blurred vision, no visual loss. ENMT: no dentures, no hoarseness, no swallowing difficulties, no hearing loss, no ear infection(s), no nose bleeds. Cardiovascular: normal blood pressure, no chest pain, regular heartbeat, no heart murmur. Respiratory: no shortness of breath, no cough, no asthma, no wheezing. Gastrointestinal: no nausea, no vomiting, no diarrhea, no constipation, no blood in stool, no change in bowel habits, no abdominal pain, no hepatitis. Genitourinary: no kidney stones, no urine infection, no dysuria. Musculoskeletal: no pain, no weakness. Skin: no changing moles, no rash, no skin lumps. Neurologic: no seizures, no epilepsy, no headache. Psychiatric: no emotional or psychiatric problem. Heme/Lymph: no bleeding problems, no anemia, no blood clots, no transfusions. Allergy/Immunologic: no swollen lymph nodes/glands, no IV drug abuse. Other: Additional ROS info: Except as noted in the above Review of Systems and in the History of Present Illness, all other systems have been reviewed and are negative or noncontributory. Physical Exam Vitals & Measurements HR: 72(Peripheral) RR: 16 BP: 110/60 HT: 71 in HT: 180.34 cm WT: 86.7 kg WT: 191.141 lb BMI: 26.66 HEENT: normal conjunctiva, sclera clear, no scleral icterus, EOM intact, PERRLA, oral mucosa moist without lesions. Neck: trachea midline, no mass, symmetric, no thyromegaly or nodules, no adenopathy Respiratory: lungs CTA, respirations non labored. Cardiovascular: regular rate and rhythm, no murmur, no pedal edema or varicosities. Gastrointestinal: soft, non distended, no tenderness, no masses, no palpable hernias, diastasis recti no, no hepatosplenomegaly; normal bs Lymphatic: no cervical adenopathy, no supraclavicular adenopathy. Musculoskeletal: normal gait, digits and nails without infection, nodes, cyanosis, clubbing. Skin: no rashes, no lesions, no ulcers, no subcutaneous nodules, induration. Psychiatric/Neuro: oriented to time, place, person, judgement normal, affect appropriate for age, insight intact, no focal deficits. Tests: labs reviewed, review of old records completed , Discussed surgical options, risks, and possible complications with patient. Assessment/Plan 1. Positive fecal occult blood test (R19.5: Other fecal abnormalities) plan colonoscopy under anesthesia for further evaluation, informed consent obtained. Follow-up No qualifying data available Problem List/Past Medical History Ongoing Anxiety BMI 26.0-26.9,adult Coronary atherosclerosis Diabetes Essential hypertension Gastroesophageal reflux disease Hyperlipidemia Insomnia Obstructive sleep apnea syndrome Overweight Positive occult stool blood test Historical No qualifying data Procedure/Surgical History Angioplasty (2019), Colonoscopy (09/03/2011), Coronary artery stent, Implantable sleep apnea treatment system, Lumbar discectomy. Medications aspirin 325 mg Oral EC Tab, 325 mg= 1 tab(s), Oral, Daily CeleXA 20 mg Tab, 20 mg= 1 tab(s), Oral, Daily colchicine 0.6 mg Tab, 0.6 mg= 1 tab(s), Oral, Daily glimepiride 4 mg Tab, 4 mg= 1 tab(s), Oral, BID isosorbide mononitrate 30 mg ER Tab, 30 mg= 1 tab(s), Oral, qAM losartan 25 mg Tab, 25 mg= 1 tab(s), Oral, Daily metformin 500 mg ER Tab, 1500 mg= 3 tab(s), Oral, Daily metoprolol succinate 25 mg ER Tab, 12.5 mg= 0.5 tab(s), Oral, Daily nitroglycerin 0.4 mg sublingual Tab, 0.4 mg= 1 tab(s), SubLingual, q5min, PRN pioglitazone 15 mg Tab, 15 mg= 1 tab(s), Oral, Daily Plavix 75 mg Tab, 75 mg= 1 tab(s), Oral, Daily rosuvastatin 40 mg Tab, 40 mg= 1 tab(s), Oral, Daily Zetia 10 mg Tab, 10 mg= 1 tab(s), Oral, Daily Allergies Wellbutrin (increased anxiety) penicillin (Hives) Social History Alcohol Never., 05/31/2024 Substance Abuse Never., 05/31/2024 Tobacco Never (less than 100 in lifetime) Tobacco Use:. Never Smokeless Tobacco Use:., 05/31/2024 Family History Acute myocardial infarction: Mother. Alcoholism: Father. Immunizations Vaccine Date S (more content not included)... [facility] Comment on above: Result Comment: Elec tronically Signed By: BILL MCINTOSH, Lobo Arreguin\Date and Time Signed: 05/31/24 13:39 EST 02-16-2024 Evaluation note Diagnosis Onset Date Resolution Encounter for adjustment and management of other implanted nervous system d acute February 15 11:15am GERD (gastroesophageal reflux disease) acute February 15 11:15am Intolerance to BiPAP/CPAP acute February 16, 2024 11:15am Obstructive sleep apnea acute O ctober 2023 11:15am Presence of neurostimulator acute February 15 11:15am [facility] Work Phone: [phone]) 918-559704-17-20[facility] Chief Complaint: Patient here [...] Long segment of myoca (more content not included)...[facility]12-19-2023 Evaluation note* Encounter Date Diagnosis Assessment Notes Treatment Notes Treatment Clinical Notes Mar, Obstructive sleep apnea (ICD-10 - [...] machine under his new insurance. Mar, BMI 27.0-27.9,adult (ICD-10 - Z68.27) patient reports having gained a little weight since his last visit, however he is still significantly lower than his original sleep testing. He is encouraged to continue with efforts at weight reduction and lifestle change. [facility] Other 09-06-2023 Evaluation note* Encounter Date Diagnosis [...] efforts at weight reduction and lifestyle change [facility] Other 08-15-2023 NoteHNO ID: [id number] Author: Tal Iraheta MD Service: ? Author [...] Tal Iraheta MD December 09, 2022 2[facility] of Present illness Narrative* [...] 09, 2022 2:43 PM [facility] NoteMR#: [id number] I [facility] Pt. Name: Spencer Oliveira Admitted: 02/01/2020 Discharged: 02/02/2020 Date of : 1960 Physician: Simeon oClon M.D. DISCHARGE SUMMARY PRIMARY DIAGNOSIS: 1. Unstable [...] status post multiple stents. He presented to [facility] with squeezing/pressure-like chest discomfort that started, while he was mowing the lawn; he also developed discomfort/pain in both of his arms. He notes that his sensation was similar to what he had experienced in the past when he had his first stent. At [facility], his troponin was negative x3. EKG throughout [...] Colon M.D. Date Trans: 02/02/2020 03:44 P/mmo [id number] cc: Sandro Momin M.D. [address], [facility] Deng [facility] [id number] HealthEvaluation + Plan note No data available for this section [facility] [place] Evaluation noteNo assessment information available [facility] Work Phone: Evaluation noteNo InformationNortClarion Hospital [employer] Other Evaluation note* Diagnosis Type 2 diabetes [...] Senile nuclear sclerosis documented in this encounter [facility] general Narrative - Reported* Type Description Date Medical History CAD Medical History history of [place] Medical History JUAN Medical History high cholesterol Medical History type II diabetes [place] [employer] Other Hospital Discharge instructions Additional Instructions No exertional activity Ice to incisions for pain and swelling Medications as prescribed Call the office for any questions or concerns [facility] Work Phone: Hospital Discharge instructions No data available for this section [facility] [place] Progress note No data available for this section [facility] [place] Summary Purpose Family History No Family History Records Found Relationship Condition Age at Onset Recorded Date/T mesha Not Specified Diabetes mellitus Unknown Heart disease Unknown Relationship Condition Age at Onset Recorded Date/T mesha mother Diabetes mellitus Unknown Heart disease Unknown Advance [...] NEW TO MEDICARE in lab-hst failed-latesha from - Chief Complaint sleep apnea Chief Complaint sleep apnea sleep apnea Chief Complaint Admit Date JUAN/INSPIRE 1 MONTH February 16, 2024 1 1:15am FINE TUNE PSG INSPIRE May 04, 2024 7:36pm Reason for Visit Admit Date Encounter for adjustment and management of other implanted nervous system d February 16, 2024 11:15am GERD (gastroesophageal reflux disease) O ctober 2023 11:15am Intolerance to BiPAP/CPAP February 16, 2024 11:15am Obstructive sleep apnea February 15 11:15am Presence of neurostimulator January 11:15am Medications Administered Section Inactive Administered Medications - up to 3 most recent administrations Medication Order MAR Action Action Date Dose Rate Site fluorescein-benoxinate 0.25-0.4 % 1 Drop (FLURESS) 1 Drop, BOTH EYES, DIRECTED, Starting on Thu12/09/22 at 1300, Until Thu12/10/22 at 0059, Administer for applanation tonometry. In the event of a Fluress shortage, administer 1 drop of [place]-Fluor into both eyes as directed for applanation [...] and content) DATE CREATED AUTHOR 09/08/2020 [facility] DATE CREATED AUTHOR AUTHOR'S ORGANIZ ATION 05/28/2022 [facility] [place] DATE CREATED AUTHOR AUTHOR'S ORGANIZ ATION 12/10/2022 [facility] DATE CREATED AUTHOR AUTHOR'S ORGANIZ ATION 07/13/2023 [facility] DATE CREATED AUTHOR AUTHOR'S ORGANIZ ATION 10/09/2023 [facility] DATE CREATED AUTHOR AUTHOR'S ORGANIZ ATION 10/26/2023 [facility] EPIC DATE CREATED AUTHOR AUTHOR'S ORGANIZ ATION 05/10/2024 [facility] DATE CREATED AUTHOR AUTHOR'S ORGANIZ ATION 06/02/2024 [facility] Care Teams (unrecognized sec tion and content) [...] Active Eden Mcmahon MD Attending Provider Active Director Music Relationship Specialty Start Date End Date Sandro Momin MD [address] [place] [address] PCP - General Family Medicine 11/12/22 Team [...] October 19, 2023 End: October 19, 2023 Team Status: Inactive Member Role Status Dates aSndro Momin MD Primary Care Provider Active Start: February 16, 2024 End: February 16, 2024 Eden Mcmahon MD Attending Provider Active S tart: February 16, 2024 End: February 16, 2024 Team Status: Inactive Member Role Status Dates Sandro Momin MD Primary Care Provider Active Start: May 04, 2024 End: May 04, 2024 Eden Mcmahon MD Attending Provider Active S tart: May 04, 2024 End: May 04, 2024 Goals (unrecognized section and content) Goals may be documented in a n alternate sectionGoals may be documented in an alternate sectionNo InformationNo InformationGoals may be documented in an alternate sectionGoals may be documented in an alternate sectionNo InformationGoals may be documented in an alternate sectionGoals may be documented in an alternate sectionGoals may be documented in an alternate section No data available for this section REASON FOR VISIT (unrecogniz ed section and content) Reason Comments Blurry Vision Both Eyes New Patient Source Comments (unrecognize d section and content) In the event this informatio n is protected by the Federal Confidentiality of Alcohol and Drug Abuse Patient Records regulations: The Federal rules restrict any use of the information to criminally investigate or prosecute any alcohol or drug abuse patient.[facility] FOR RECORDS PERTAINING TO PATIENTS WHO [...] BE BASED ON THE PRIMARY CLINICAL RECORDS. [facility] [employer] [facility]. provides no warranty or guarantee of the accuracy or completeness of information in this document.
[2024-06-15 07:05] VITALS: BP 127/83; PULSE 67; TEMP 36.2; O2SAT 98; BMI 26.1
[2024-06-15] MEDS: 0.9 % SODIUM CHLORIDE 500 ML 50 ML IV (07:26)
[2024-06-15 07:29] LABS: Glucometer 82 mg/dL (74-106)
[2024-06-15] MEDS: 0.9 % SODIUM CHLORIDE 500 ML IV (08:54)
[2024-06-15 09:05] VITALS: BP 91/56; PULSE 54; O2SAT 98
[2024-06-15 09:20] VITALS: BP 105/51; PULSE 52; O2SAT 100
== END 2024-06-15 09:40 | disposition home or self-care (01) ==
PROVIDERS: PCP Family Medicine; Visit Provider Surgery
PROC: (CPT 45378; principal; 2024-06-15 08:00)
DX: R19.5 Other fecal abnormalities (principal); Z79.02 Long term (current) use of antithrombotics/antiplatelets; I25.10 Atherosclerotic heart disease of native coronary artery without angina pectoris; E11.9 Type 2 diabetes mellitus without complications; I10 Essential (primary) hypertension; E78.5 Hyperlipidemia, unspecified; K21.9 Gastro-esophageal reflux disease without esophagitis; G47.33 Obstructive sleep apnea (adult) (pediatric); Z79.84 Long term (current) use of oral hypoglycemic drugs; I25.2 Old myocardial infarction; Z95.5 Presence of coronary angioplasty implant and graft
CPT/HCPCS: 45378; 36415; 82948; J2704